=== PATIENT | female | born 1940 | race Caucasian/White ===

== ENCOUNTER 2018-05-16 15:00 | Outpatient (RCR) | payer MEDICARE, MEDICAID, SELFPAY ==
[2018-04-25 14:26] VITALS: BP 110/74; PULSE 97; RESP 18; TEMP 35.9; BMI 28.5
--- NOTE | 2018-04-25 14:35 | PCM.WC.HP ---
(1) Foot ulcer, right Status: Chronic Current Visit: Yes Qualifiers: Non-pressure ulcer stage: with fat layer exposed Qualified Code(s): L97.512 - Non-pressure chronic ulcer of other part of right foot with fat layer exposed Code(s): L97.519 - Non-pressure chronic ulcer of other part of right foot with unspecified severity (2) Ulcer of left heel Status: Chronic Current Visit: Yes Qualifiers: Non-pressure ulcer stage: with fat layer exposed Qualified Code(s): L97.422 - Non-pressure chronic ulcer of left heel and midfoot with fat layer exposed Code(s): L97.429 - Non-pressure chronic ulcer of left heel and midfoot with unspecified severity (3) Debility Status: Chronic Current Visit: Yes Code(s): R53.81 - Other malaise (4) Dementia Status: Chronic Current Visit: Yes Code(s): F03.90 - Unspecified dementia without behavioral disturbance (5) Alzheimer's disease Status: Chronic Current Visit: Yes Code(s): G30.9 - Alzheimer's disease, unspecified; F02.80 - Dementia in other diseases classified elsewhere without behavioral disturbance (6) History of myocardial infarction Status: Chronic Current Visit: No Code(s): I25.2 - Old myocardial infarction (7) CHF (congestive heart failure) Status: Chronic Current Visit: No Code(s): I50.9 - Heart failure, unspecified (8) History of syncope Status: Chronic Current Visit: No Code(s): Z87.898 - Personal history of other specified conditions (9) Recurrent Clostridium difficile diarrhea Status: Chronic Current Visit: No Code(s): A04.71 - Enterocolitis due to Clostridium difficile, recurrent (10) Incontinence of feces Status: Chronic Current Visit: No Code(s): R15.9 - Full incontinence of feces (11) Incontinence of urine Status: Chronic Current Visit: No Code(s): R32 - Unspecified urinary incontinence (12) History of recurrent UTI (urinary tract infection) Status: Chronic Current Visit: No Code(s): Z87.440 - Personal history of urinary (tract) infections (13) Rheumatoid arthritis Status: Chronic Current Visit: No Code(s): M06.9 - Rheumatoid arthritis, unspecified (14) Atrial fibrillation Status: Chronic Current Visit: No Code(s): I48.91 - Unspecified atrial fibrillation (15) Hypertension Status: Chronic Current Visit: No Code(s): I10 - Essential (primary) hypertension History of Present Illness Date of Service: 04/25/18 Chief Complaint: Chronic, nonhealing ulceration of the left heel and the right lateral foot History of Wound: This is a 78-year-old female who is a resident of [facility] in [place], [place]. She has been a resident there for approximately 6-8 months. She was institutionalized as a result of declining function, debility, and frequent falls. Her continues to live at home, and is relatively healthy. Patient presents with an ulceration on her left heel, which has been present for several months. An ulceration on the right lateral foot, near the base of the fifth digit, is relatively recent. The patient has recently been treated with oral antibiotics, which have included Augmentin and Levaquin. The patient is weak and debilitated. She does not ambulate. She spends a good part of her day in a wheelchair. She sleeps in a hospital bed. She suffers from dementia and Alzheimer's disease, and interacts only minimally. She is incontinent of urine and stool. She suffers from frequent urinary tract infections and recurrent episodes of pseudomembranous enterocolitis (C. difficile infections). The patient's appetite is said to be poor. She is provided with nutritional supplements at the nursing facility. Past Medical History Past Medical History: Chronic Problems Foot ulcer, right (Chronic) Ulcer of left heel (Chronic) Debility (Chronic) Dementia (Chronic) Alzheimer's disease (Chronic) History of myocardial infarction (Chronic) CHF (congestive heart failure) (Chronic) History of syncope (Chronic) Recurrent Clostridium difficile diarrhea (Chronic) Incontinence of feces (Chronic) Incontinence of urine (Chronic) History of recurrent UTI (urinary tract infection) (Chronic) Rheumatoid arthritis (Chronic) Atrial fibrillation (Chronic) Hypertension (Chronic) Past Medical History: Patient has a history of myocardial infarction in 2011. She has a history of congestive heart failure, hypertension, dementia, Alzheimer's disease, recurrent urinary tract infections, syncopal episodes, recurrent episodes of pseudomembranous enterocolitis, urinary and fecal incontinence, atrial fibrillation, and rheumatoid arthritis. Patient's history is negative for cerebrovascular accident, cancer, pulmonary disease, renal disease, hyperlipidemia, thyroid disease, and diabetes mellitus. Surgical History: - - Patient has a history of varicose vein surgery in her lower extremities. She has undergone bilateral total knee replacement surgeries. Hip replacement has been performed unilaterally. Patient has undergone hysterectomy. She has had bunionectomy and nasal septoplasty. She is a Ab0. Allergies/Adverse Reactions: Allergies No Known Allergies Allergy (Verified 04/25/18 14:49) Home Medications: Ambulatory Orders Medication Instructions Recorded Aspirin [Adult Low Dose Aspirin EC] 81 mg PO DAILY 04/25/18 Calcium Carbonate/Simethicone 1 each PO Q4H PRN PRN 04/25/18 [Maalox Advanced Tab Chew] Cholecalciferol (Vitamin D3) 5,000 unit PO DAILY 04/25/18 [Vitamin D3] Donepezil HCl [Aricept] 10 mg PO DAILY 04/25/18 Fluoxetine [Prozac] 40 mg PO DAILY 04/25/18 Hydroxychloroquine [Plaquenil] 200 mg PO BIDCM 04/25/18 Mirtazapine [Remeron] 15 mg PO QHS 04/25/18 Social History: Patient resides in a intermediate. Her is alive and healthy, and lives at home. The patient does not consume alcohol or tobacco products. Lives: Care Home Smoking Status: Never smoker Tobacco Use: Non-smoker Alcohol: None Drugs: None Review of Systems Constitutional: Denies: Chills, Fever, Weight Change Eyes: Denies: Pain, Vision Change HEENT: Denies: Difficulty Hearing, Difficulty Swallowing, Sinus Congestion Cardiovascular: Denies: Chest Pain, Palpitations Respiratory: Denies: Cough, Shortness of Breath Gastrointestinal: Denies: Diarrhea, Nausea, Vomiting Genitourinary: Denies: Dysuria, Hematuria Endocrine: Denies: Heat/ Cold Intolerance, Polydipsia, Polyuria Hematologic/ Lymphatic: Denies: Easy Bruising, Easy Bleeding - Physical Exam Vital Signs Temp Pulse Resp BP 96.6 F L 97 18 110/74 04/25/18 14:26 04/25/18 14:26 04/25/18 14:26 04/25/18 14:26 General: Alert, Oriented x3, Cooperative, No apparent distress, Well developed, - - Patient is awake. She reacts only minimally to her environment and to verbal stimuli. She appears to be comfortable and in no apparent distress. HEENT: Atraumatic, PERRLA, EOMI, Normocephalic Oral: Moist Mucosa Neck: Supple, No JVD, Negative Carotid Bruits, No Nodes, No Nuchal Rigidity, Trachea Midline Lungs: Clear to auscultation, Normal air movement, No rhonchi, No rales Cardiovascular: Regular rate, Regular Rhythm, Normal S1, Normal S2, No murmurs Abdomen: Soft, Non Tender, Non-Distended Extremities: No clubbing, No cyanosis, No Calf Tenderness, - - Mild bilateral lower extremity swelling and edema is noted. Scattered varicosities are also noted. Neurological: Cranial nerves II-XII grossly intact, - - Patient demonstrates moderate cognitive deficiencies. She is limited in her verbal interaction. Psych/Mental Status: Normal Affect, Appropriate, - - Patient is limited in her verbal interaction. Debridement Note Laterality: Right - Foot, lateral Type of Debridement: Excisional debridement Anesthesia Used: 5% Lidocaine Gel Depth: Down to and including healthy tissue, in the subcutaneous layer Percentage of wound debrided: 100 Instrument Used: 5mm curette Tissue Removed: Necrotic, nonviable tissue Severity: Fat Layer Exposed Amount of bleeding with debridement: Mild Bleeding Controlled with: Compression and gauze Patient tolerated procedure well - Additional Wound Laterality: Left - Buttock Type of Debridement: Excisional debridement Anesthesia Used: 5% Lidocaine Gel Depth: Down to and including healthy tissue, in the subcutaneous layer Percentage of wound debrided: 100 Instrument Used: 5mm curette Severity: Fat Layer Exposed Amount of bleeding with debridement: Mild Bleeding Controlled with: Compression and gauze Patient tolerated procedure: Patient tolerated procedure well Assessment/Plan Active Problems Foot ulcer, right (Chronic) Ulcer of left heel (Chronic) Debility (Chronic) Dementia (Chronic) Alzheimer's disease (Chronic) Assessment: This is a 78-year-old female with multiple medical problems, as outlined above. Patient suffers from dementia and Alzheimer's disease. She is very limited functionally. She does not ambulate. She presents with ulcerations of the right lateral foot, the left heel, and the left buttock. These appear to be pressure related. They are a stage III ulceration in each case. Plan: Offloading measures are to be implemented. This will be made clear to the patient's nursing facility. The issue of offloading measures has been discussed thoroughly with the patient's daughter, who was at the bedside. We are to request a low air-loss mattress for the patient's hospital bed. We will also request a Roho cushion for the patient's wheelchair. Frequent repositioning has been recommended. We are to implement the use of collagenase Santyl topically, which will be applied to each of the patient's pressure ulcerations on a daily basis. Routine laboratory studies will be obtained, including a CBC, comprehensive metabolic profile, serum prealbumin, etc. Results will give information as to the presence of anemia, infection, malnutrition, etc. A noninvasive lower extremity arterial study will also be obtained, to assess the arterial status of the lower extremities, which will be of predicted value in terms of wound healing in the lower extremities. The patient is not a smoker. Influenza vaccine was not administered today. Patient weighs 199 pounds. She stands 5 feet 10 inches tall. Her BMI is 28.5. This places the patient in the overweight category, which normally would warrant mild weight loss. Ever, attempts at adequate nutrition appear to prevail. We will await the results of laboratory studies to determine whether nutritional enhancement is warranted. Nutritional enhancement is likely to be indicated, based upon clinical impression.
[2018-05-02 13:45] VITALS: BP 115/71; PULSE 63; RESP 16; TEMP 35.9; BMI 28.5
--- NOTE | 2018-05-02 14:32 | HP.PCM_ITS ---
(1) Foot ulcer, right Status: Chronic Current Visit: Yes Qualifiers: Non-pressure ulcer stage: with fat layer exposed Qualified Code(s): L97.512 - Non-pressure chronic ulcer of other part of right foot with fat layer exposed Code(s): L97.519 - Non-pressure chronic ulcer of other part of right foot with unspecified severity (2) Ulcer of left heel Status: Chronic Current Visit: Yes Qualifiers: Non-pressure ulcer stage: with fat layer exposed Qualified Code(s): L97.422 - Non-pressure chronic ulcer of left heel and midfoot with fat layer exposed Code(s): L97.429 - Non-pressure chronic ulcer of left heel and midfoot with unspecified severity (3) Debility Status: Chronic Current Visit: Yes Code(s): R53.81 - Other malaise (4) Dementia Status: Chronic Current Visit: Yes Code(s): F03.90 - Unspecified dementia without behavioral disturbance (5) Alzheimer's disease Status: Chronic Current Visit: Yes Code(s): G30.9 - Alzheimer's disease, unspecified; F02.80 - Dementia in other diseases classified elsewhere without behavioral disturbance (6) History of myocardial infarction Status: Chronic Current Visit: No Code(s): I25.2 - Old myocardial infarction (7) CHF (congestive heart failure) Status: Chronic Current Visit: No Code(s): I50.9 - Heart failure, unspecified (8) History of syncope Status: Chronic Current Visit: No Code(s): Z87.898 - Personal history of other specified conditions (9) Recurrent Clostridium difficile diarrhea Status: Chronic Current Visit: No Code(s): A04.71 - Enterocolitis due to Clostridium difficile, recurrent (10) Incontinence of feces Status: Chronic Current Visit: No Code(s): R15.9 - Full incontinence of feces (11) Incontinence of urine Status: Chronic Current Visit: No Code(s): R32 - Unspecified urinary incontinence (12) History of recurrent UTI (urinary tract infection) Status: Chronic Current Visit: No Code(s): Z87.440 - Personal history of urinary (tract) infections (13) Rheumatoid arthritis Status: Chronic Current Visit: No Code(s): M06.9 - Rheumatoid arthritis, unspecified (14) Atrial fibrillation Status: Chronic Current Visit: No Code(s): I48.91 - Unspecified atrial fibrillation (15) Hypertension Status: Chronic Current Visit: No Code(s): I10 - Essential (primary) hypertension (16) GERD (gastroesophageal reflux disease) Status: Chronic Current Visit: No Code(s): K21.9 - Gastro-esophageal reflux disease without esophagitis (17) Obstructive sleep apnea Status: Chronic Current Visit: No Code(s): G47.33 - Obstructive sleep apnea (adult) (pediatric) (18) Hyperlipidemia Status: Chronic Current Visit: No Code(s): E78.5 - Hyperlipidemia, unspecified (19) Malnutrition Status: Chronic Current Visit: Yes Code(s): E46 - Unspecified protein- calorie malnutrition History of Present Illness Chief Complaint: Chronic, nonhealing ulceration of the left heel and the right lateral foot History of Wound: This is a 78-year-old female who is a resident of [facility] in [place], [place]. She has been a resident there for approximately 6-8 months. She was institutionalized as a result of declining function, debility, and frequent falls. Her continues to live at home, and is relatively healthy. Patient presents with an ulceration on her left heel, which has been present for several months. An ulceration on the right lateral foot, near the base of the fifth digit, is relatively recShe also has an ulceration on her left buttock. The patient has recently been treated with oral antibiotics, which have included Augmentin and Levaquin. The patient is weak and debilitated. She does not ambulate. She spends a good part of her day in a wheelchair. She sleeps in a hospital bed. She suffers from dementia and Alzheimer's disease, and interacts minimally. She is incontinent of urine and stool. She suffers from frequent urinary tract infections and recurrent episodes of pseudomembranous enterocolitis (C. difficile infections). The patient's appetite is said to be poor. She is provided with nutritional supplements at the nursing facility. Past Medical History Past Medical History: Chronic Problems Foot ulcer, right (Chronic) Ulcer of left heel (Chronic) Debility (Chronic) Dementia (Chronic) Alzheimer's disease (Chronic) History of myocardial infarction (Chronic) CHF (congestive heart failure) (Chronic) History of syncope (Chronic) Recurrent Clostridium difficile diarrhea (Chronic) Incontinence of feces (Chronic) Incontinence of urine (Chronic) History of recurrent UTI (urinary tract infection) (Chronic) Rheumatoid arthritis (Chronic) Atrial fibrillation (Chronic) Hypertension (Chronic) GERD (gastroesophageal reflux disease) (Chronic) Obstructive sleep apnea (Chronic) Hyperlipidemia (Chronic) Malnutrition (Chronic) Surgical History: - - Patient has a history of varicose vein surgery in her lower extremities. She has undergone bilateral total knee replacement surgeries. Hip replacement has been performed unilaterally. Patient has undergone hysterectomy. She has had bunionectomy and nasal septoplasty. She is a Ab0. Allergies/Adverse Reactions: Allergies No Known Allergies Allergy (Verified 04/25/18 14:49) Home Medications: Ambulatory Orders Medication Instructions Recorded Acetaminophen [Tylenol] 650 mg PO Q4H PRN PRN 04/25/18 Albuterol Sulfate 2.5 mg IH Q4H PRN PRN 04/25/18 Amoxicillin/Potassium Clav 1 each PO BID 04/25/18 [Augmentin 875-125 Tablet] Aspirin [Adult Low Dose Aspirin EC] 81 mg PO DAILY 04/25/18 Calcium Carbonate/Simethicone 1 each PO Q4H PRN PRN 04/25/18 [Maalox Advanced Tab Chew] Cholecalciferol (Vitamin D3) 5,000 unit PO DAILY 04/25/18 [Vitamin D3] Donepezil HCl [Aricept] 10 mg PO DAILY 04/25/18 Fluoxetine [Prozac] 40 mg PO DAILY 04/25/18 Guaifenesin [Tussin] 100 mg PO Q4H PRN PRN 04/25/18 Hydroxychloroquine [Plaquenil] 200 mg PO BIDCM 04/25/18 Lactobacillus Acidophilus 1 each PO BID 04/25/18 [Acidophilus] Magnesium Hydroxide [Milk Of 30 ml PO DAILY PRN PRN 04/25/18 Magnesia] Memantine HCl [Memantine HCl ER] 28 mg PO DAILY 04/25/18 Mirtazapine [Remeron] 15 mg PO QHS 04/25/18 Nitroglycerin [Nitrostat] 0.4 mg SUBLINGUAL Q5M PRN 04/25/18 Pantoprazole Sodium [Protonix] 40 mg PO DAILY 04/25/18 Potassium Chloride [Klor-Con] 20 meq PO DAILY 04/25/18 Prednisone 10 mg PO DAILY 04/25/18 Ranolazine [Ranexa] 500 mg PO BID 04/25/18 Rosuvastatin Calcium [Crestor] 20 mg PO DAILY 04/25/18 Sotalol HCl [Sotalol] 80 mg PO BID 04/25/18 Trimethoprim [Trimpex] 200 mg PO DAILY 04/25/18 Warfarin [Coumadin (PBKC)] 2 mg PO DAILY 04/25/18 levoFLOXacin tablet [Levaquin 500 mg PO DAILY 04/25/18 tablet] Lives: Retirement Smoking Status: Never smoker Tobacco Use: Non-smoker Alcohol: None Drugs: None Review of Systems Constitutional: Denies: Chills, Fever, Weight Change Eyes: Denies: Pain, Vision Change HEENT: Denies: Difficulty Hearing, Difficulty Swallowing, Sinus Congestion Cardiovascular: Denies: Chest Pain, Palpitations Respiratory: Denies: Cough, Shortness of Breath Gastrointestinal: Denies: Diarrhea, Nausea, Vomiting Genitourinary: Denies: Dysuria, Hematuria Endocrine: Denies: Heat/ Cold Intolerance, Polydipsia, Polyuria Hematologic/ Lymphatic: Denies: Easy Bruising, Easy Bleeding - Physical Exam Vital Signs Temp Pulse Resp BP 96.6 F L 63 16 115/71 05/02/18 13:45 05/02/18 13:45 05/02/18 13:45 05/02/18 13:45 General: Alert, Cooperative, No apparent distress, Well developed, Well nourished, - - The patient appears weak and frail HEENT: Atraumatic, PERRLA, EOMI, Normocephalic Oral: Moist Mucosa Neck: No JVD Lungs: Normal air movement Abdomen: Non-Distended Extremities: No clubbing, No cyanosis, No edema, No Calf Tenderness, - - Large ulceration is noted on the left heel. It is largely dry and necrotic. There is no associated erythema. There is no obvious infection or cellulitis. Dimensions are documented elsewhere. There is also an ulceration on the lateral aspect of the right foot, near the base of the right fifth toe. It is also dry and necrotic in nature. There is no sign of infection or cellulitis. D imensions are documented elsewhere. Skin: - - An ulceration is noted on the left buttock, which is clustered. There is no sign of infection or cellulitis. Dimensions are documented elsewhere. Wound Measurements and Assessment WC - Nurse 1 - General Ulcer Measurement Start: 04/25/18 14:26 Freq: Status: Active Protocol: Activity Type Activity Date Activity User E-Sign Co-Sign Detail Recorded Client Recorded Date Recorded By Document 05/02/18 13:45 DL [id number] 05/02/18 13:57 DL 05/02/18 13:45 Wound Center Nurse 1 [Ulcer Assessment] #3 Left Buttock Stage 3 -Current Size (cm) - Length 0.5 -Current Size (cm) - Width 0.6 -Current Size (cm) - Depth 0.1 -Total Square Cm 0.30 -Photo Taken No -Exudate Amt None Present -Wound Margin Flat & Intact -Granulation Amt Small (1-33%) -Granulation Quality [place] -Necrosis Amt Small (1-33%) -Necrotic Tissue Type Adherent Slough -Structure Exposed N/A -Texture (Dorina-wound Skin Appearance) Scarring -Moisture (Dorina-wound Skin Appearance No Abnormality ) -Color (Dorina-wound Skin Appearance) Rubor -Ulcer Cleansing Wound Cleanser -Foul Odor after Cleansing No -Anesthetic Used 4% Lidocaine Solution #2 right lateral 5th metatarsal -Current Size (cm) - Length 0.6 -Current Size (cm) - Width 1.4 -Current Size (cm) - Depth 0.1 -Total Square Cm 0.84 -Photo Taken No -Exudate Amt None Present -Wound Margin Thickened -Granulation Amt None Present (0 %) -Necrosis Amt Large (67-100%) -Necrotic Tissue Type Eschar -Structure Exposed N/A -Texture (Dorina-wound Skin Appearance) No Abnormality -Moisture (Dorina-wound Skin Appearance Dry/Scaly ) -Color (Dorina-wound Skin Appearance) Hemosiderin Staining Rubor -Temperature (Dorina-wound Skin No Abnormality Appearance) (Pt Warm) -Tenderness on Palpation (Dorina-wound No Skin Appearance) -Ulcer Cleansing Wound Cleanser -Foul Odor after Cleansing No -Anesthetic Used 4% Lidocaine Solution #1 Left Heel -Current Size (cm) - Length 2.9 -Current Size (cm) - Width 2.9 -Current Size (cm) - Depth 0.1 -Total Square Cm 8.41 -Photo Taken No -Exudate Amt Small -Exudate Type Serosanguineous -Wound Margin Distinct, Outline Attached -Granulation Amt None Present (0 %) -Necrosis Amt Large (67-100%) -Necrotic Tissue Type Adherent Slough -Structure Exposed N/A -Texture (Dorina-wound Skin Appearance) Scarring -Moisture (Dorina-wound Skin Appearance Dry/Scaly ) -Color (Dorina-wound Skin Appearance) Hemosiderin Staining -Temperature (Dorina-wound Skin No Abnormality Appearance) (Pt Warm) -Tenderness on Palpation (Dorina-wound No Skin Appearance) -Ulcer Cleansing Wound Cleanser -Foul Odor after Cleansing No -Anesthetic Used 4% Lidocaine Solution Musculoskeletal: Muscle Wasting Neurological: Cranial nerves II-XII grossly intact Psych/Mental Status: Normal Affect, - - Patient appears comfortable. She responds to basic elementary questions. She is minimally interactive. Debridement Note Post-Debridement Measurements/Treatment WC - Nurse 2 - General Ulcer CM Notes Start: 04/25/18 14:26 Freq: Status: Active Protocol: Activity Type Activity Date Activity User E-Sign Co-Sign Detail Recorded Client Recorded Date Recorded By Document 04/25/18 15:25 DV [id number] 04/25/18 15:47 DV 04/25/18 15:25 Wound Center Nurse 2 #3 Left Buttock Stage 3 -Time 15:25 -Correct Patient Yes -Correct Side, Site, Position Yes -Correct Procedure Yes -Procedure Performed Yes -Type of Procedure Debridement -Clinical Debridement Subcutaneous -Post Debridement Size (cm) - Length 1.2 -Post Debridement Size (cm) - Width 1.5 -Post Debridement Size (cm) - Depth 0.1 -Total Square Cm 1.80 -Wound/Ulcer Outcome Not Healed -Ulcer Cleansing Rinsed/ Irrigated with Saline -Foul Odor after Cleansing No -Bioengineered Tissue No -Bleeding Controlled with Pressure -Offloading No -Treatment Response Procedure Tolerated Well #2 right lateral 5th metatarsal -Time 15:26 -Correct Patient Yes -Correct Side, Site, Position Yes -Correct Procedure Yes -Procedure Performed Yes -Type of Procedure Debridement -Clinical Debridement Subcutaneous -Post Debridement Size (cm) - Length 2.0 -Post Debridement Size (cm) - Width 1.4 -Post Debridement Size (cm) - Depth 0.1 -Total Square Cm 2.80 -Wound/Ulcer Outcome Not Healed -Ulcer Cleansing Rinsed/ Irrigated with Saline -Foul Odor after Cleansing No -Bioengineered Tissue No -Bleeding Controlled with Pressure -Offloading No #1 Left Heel -Time 15:27 -Correct Patient Yes -Correct Side, Site, Position Yes -Correct Procedure Yes -Procedure Performed Yes -Type of Procedure Debridement -Clinical Debridement Subcutaneous -Post Debridement Size (cm) - Length 3.7 -Post Debridement Size (cm) - Width 3.5 -Post Debridement Size (cm) - Depth 0.6 -Total Square Cm 12.95 -Wound/Ulcer Outcome Not Healed -Ulcer Cleansing Rinsed/ Irrigated with Saline -Foul Odor after Cleansing No -Bioengineered Tissue No -Bleeding Controlled with Pressure -Offloading No -Treatment Response Procedure Tolerated Well Pain Scale: 0-10 Numeric Is Patient Pain Free? Yes Laterality: Left - Buttock Type of Debridement: Excisional debridement Anesthesia Used: 5% Lidocaine Gel Depth: Down to and including healthy tissue, in the subcutaneous layer Percentage of wound debrided: 100 Instrument Used: 5mm curette Tissue Removed: Nonviable and senescent tissue Severity: Fat Layer Exposed Amount of bleeding with debridement: Mild Bleeding Controlled with: Compression and gauze Patient tolerated procedure well - Additional Wound Laterality: Left - Heel Type of Debridement: Excisional debridement Anesthesia Used: 5% Lidocaine Gel Depth: Down to and including healthy tissue, in the subcutaneous layer Percentage of wound debrided: 100 Instrument Used: 5mm curette Tissue Removed: Gangrenous, nonviable, and senescent tissue Severity: Fat Layer Exposed Amount of bleeding with debridement: Mild Bleeding Controlled with: Compression and gauze Patient tolerated procedure: Patient tolerated procedure well Assessment/Plan Active Problems Foot ulcer, right (Chronic) Ulcer of left heel (Chronic) Debility (Chronic) Dementia (Chronic) Alzheimer's disease (Chronic) Malnutrition (Chronic) Assessment: This is a 78-year-old female with multiple medical problems, as outlined above. Patient suffers from dementia and Alzheimer's disease. She is very limited functionally. She does not ambulate. She presents with ulcerations of the right lateral foot, the left heel, and the left buttock. These appear to be pressure related. They are a stage III ulceration in each case. The patient has undergone a battery of diagnostic tests the nursing facility at which she is a resident. Lab results are as follows: White blood count 8.7, hemoglobin 11.6, hematocrit 35.9, platelets 273,000, glucose 77, BUN 19, creatinine 0.5, sodium 140, potassium 3.7, chloride 104, calcium 8.9, alkaline phosphatase 63, ALT 20, AST 16, total protein 5.7, albumin 2.9, prealbumin 27, bilirubin 0.44. A noninvasive lower extremity arterial study was performed, though only of the left lower extremity. The impression indicates diminished to nonexistent flow in the calf vessels including the tibial peron eal and dorsalis pedis arteries. Plan: Offloading measures are to be implemented. This will be made clear to the patient's nursing facility. The issue of offloading measures has been discussed thoroughly with the patient's daughter, who was at the bedside. We have been able to obtain a low air-loss mattress for the patient's hospital bed. We have also successfully obtained a Roho cushion for the patient's wheelchair. Frequent repositioning has been recommended, and has now been implemented. We are to continue the use of collagenase Santyl topically, which will be applied to each of the patient's pressure ulcerations on a daily basis. The patient is to continue with nutritional supplements, which will be increased as result of the findings on her recent laboratory results. Given the findings of her noninvasive lower extremity arterial study, we are to seek consultation with a vascular surgeon for recommendations pertaining to the possible role of lower extremity revascularization. As has been discussed with the patient and her daughter, at the bedside, the patient's debility, diminished functional state, and multiple medical pre-existing conditions may render the patient a poor candidate for open vascular or endovascular revascularization. We will await recommendations as such. The patient is not a smoker. Influenza vaccine was not administered today. Patient weighs 199 pounds. She stands 5 feet 10 inches tall. Her BMI is 28.5. This places the patient in the overweight category, which normally would warrant mild weight loss. However, attempts at adequate nutrition appear to prevail. Nutritional supplements have been encouraged.
[2018-05-09 12:44] VITALS: BP 121/74; PULSE 103; RESP 16; TEMP 36.5; BMI 28.5
--- NOTE | 2018-05-09 13:33 | PCM.WC.HP ---
(1) Foot ulcer, right Status: Chronic Current Visit: Yes Qualifiers: Non-pressure ulcer stage: with fat layer exposed Qualified Code(s): L97.512 - Non-pressure chronic ulcer of other part of right foot with fat layer exposed Code(s): L97.519 - Non-pressure chronic ulcer of other part of right foot with unspecified severity (2) Ulcer of left heel Status: Chronic Current Visit: Yes Qualifiers: Non-pressure ulcer stage: with fat layer exposed Qualified Code(s): L97.422 - Non-pressure chronic ulcer of left heel and midfoot with fat layer exposed Code(s): L97.429 - Non-pressure chronic ulcer of left heel and midfoot with unspecified severity (3) Debility Status: Chronic Current Visit: Yes Code(s): R53.81 - Other malaise (4) Dementia Status: Chronic Current Visit: Yes Code(s): F03.90 - Unspecified dementia without behavioral disturbance (5) Alzheimer's disease Status: Chronic Current Visit: Yes Code(s): G30.9 - Alzheimer's disease, unspecified; F02.80 - Dementia in other diseases classified elsewhere without behavioral disturbance (6) History of myocardial infarction Status: Chronic Current Visit: No Code(s): I25.2 - Old myocardial infarction (7) CHF (congestive heart failure) Status: Chronic Current Visit: No Code(s): I50.9 - Heart failure, unspecified (8) History of syncope Status: Chronic Current Visit: No Code(s): Z87.898 - Personal history of other specified conditions (9) Recurrent Clostridium difficile diarrhea Status: Chronic Current Visit: No Code(s): A04.71 - Enterocolitis due to Clostridium difficile, recurrent (10) Incontinence of feces Status: Chronic Current Visit: No Code(s): R15.9 - Full incontinence of feces (11) Incontinence of urine Status: Chronic Current Visit: No Code(s): R32 - Unspecified urinary incontinence (12) History of recurrent UTI (urinary tract infection) Status: Chronic Current Visit: No Code(s): Z87.440 - Personal history of urinary (tract) infections (13) Rheumatoid arthritis Status: Chronic Current Visit: No Code(s): M06.9 - Rheumatoid arthritis, unspecified (14) Atrial fibrillation Status: Chronic Current Visit: No Code(s): I48.91 - Unspecified atrial fibrillation (15) Hypertension Status: Chronic Current Visit: No Code(s): I10 - Essential (primary) hypertension (16) GERD (gastroesophageal reflux disease) Status: Chronic Current Visit: No Code(s): K21.9 - Gastro-esophageal reflux disease without esophagitis (17) Obstructive sleep apnea Status: Chronic Current Visit: No Code(s): G47.33 - Obstructive sleep apnea (adult) (pediatric) (18) Hyperlipidemia Status: Chronic Current Visit: No Code(s): E78.5 - Hyperlipidemia, unspecified (19) Malnutrition Status: Chronic Current Visit: Yes Code(s): E46 - Unspecified protein-calorie malnutrition (20) Decubitus ulcer of buttock, stage 2 Status: Acute Current Visit: Yes Qualifiers: Laterality: left Qualified Code(s): L89.322 - Pressure ulcer of left buttock, stage 2 Code(s): L89.302 - Pressure ulcer of unspecified buttock, stage 2 History of Present Illness Chief Complaint: Chronic, nonhealing ulceration of the left heel and the right lateral foot History of Wound: This is a 78-year-old female who is a resident of [facility] in [place], [place]. She has been a resident there for approximately 6-8 months. She was institutionalized as a result of declining function, debility, and frequent falls. Her continues to live at home, and is relatively healthy. Patient presents with an ulceration on her left heel, which has been present for several months. An ulceration on the right lateral foot, near the base of the fifth digit, is relatively recShe also has an ulceration on her left buttock. The patient has recently been treated with oral antibiotics, which have included Augmentin and Levaquin. The patient is weak and debilitated. She does not ambulate. She spends a good part of her day in a wheelchair. She sleeps in a hospital bed. She suffers from dementia and Alzheimer's disease, and interacts minimally. She is incontinent of urine and stool. She suffers from frequent urinary tract infections and recurrent episodes of pseudomembranous enterocolitis (C. difficile infections). The patient's appetite is said to be poor. She is provided with nutritional supplements at the nursing facility. Past Medical History Past Medical History: Chronic Problems Foot ulcer, right (Chronic) Ulcer of left heel (Chronic) Debility (Chronic) Dementia (Chronic) Alzheimer's disease (Chronic) History of myocardial infarction (Chronic) CHF (congestive heart failure) (Chronic) History of syncope (Chronic) Recurrent Clostridium difficile diarrhea (Chronic) Incontinence of feces (Chronic) Incontinence of urine (Chronic) History of recurrent UTI (urinary tract infection) (Chronic) Rheumatoid arthritis (Chronic) Atrial fibrillation (Chronic) Hypertension (Chronic) GERD (gastroesophageal reflux disease) (Chronic) Obstructive sleep apnea (Chronic) Hyperlipidemia (Chronic) Malnutrition (Chronic) Surgical History: - - Patient has a history of varicose vein surgery in her lower extremities. She has undergone bilateral total knee replacement surgeries. Hip replacement has been performed unilaterally. Patient has undergone hysterectomy. She has had bunionectomy and nasal septoplasty. She is a Ab0. Allergies/Adverse Reactions: Allergies No Known Allergies Allergy (Verified 04/25/18 14:49) Home Medications: Ambulatory Orders Medication Instructions Recorded Acetaminophen [Tylenol] 650 mg PO Q4H PRN PRN 04/25/18 Albuterol Sulfate 2.5 mg IH Q4H PRN PRN 04/25/18 Amoxicillin/Potassium Clav 1 each PO BID 04/25/18 [Augmentin 875-125 Tablet] Aspirin [Adult Low Dose Aspirin EC] 81 mg PO DAILY 04/25/18 Calcium Carbonate/Simethicone 1 each PO Q4H PRN PRN 04/25/18 [Maalox Advanced Tab Chew] Cholecalciferol (Vitamin D3) 5,000 unit PO DAILY 04/25/18 [Vitamin D3] Donepezil HCl [Aricept] 10 mg PO DAILY 04/25/18 Fluoxetine [Prozac] 40 mg PO DAILY 04/25/18 Guaifenesin [Tussin] 100 mg PO Q4H PRN PRN 04/25/18 Hydroxychloroquine [Plaquenil] 200 mg PO BIDCM 04/25/18 Lactobacillus Acidophilus 1 each PO BID 04/25/18 [Acidophilus] Magnesium Hydroxide [Milk Of 30 ml PO DAILY PRN PRN 04/25/18 Magnesia] Memantine HCl [Memantine HCl ER] 28 mg PO DAILY 04/25/18 Mirtazapine [Remeron] 15 mg PO QHS 04/25/18 Nitroglycerin [Nitrostat] 0.4 mg SUBLINGUAL Q5M PRN 04/25/18 Pantoprazole Sodium [Protonix] 40 mg PO DAILY 04/25/18 Potassium Chloride [Klor-Con] 20 meq PO DAILY 04/25/18 Prednisone 10 mg PO DAILY 04/25/18 Ranolazine [Ranexa] 500 mg PO BID 04/25/18 Rosuvastatin Calcium [Crestor] 20 mg PO DAILY 04/25/18 Sotalol HCl [Sotalol] 80 mg PO BID 04/25/18 Trimethoprim [Trimpex] 200 mg PO DAILY 04/25/18 Warfarin [Coumadin ([facility])] 2 mg PO DAILY 04/25/18 levoFLOXacin tablet [Levaquin 500 mg PO DAILY 04/25/18 tablet] Lives: Prison Smoking Status: Never smoker Tobacco Use: Non-smoker Alcohol: None Drugs: None Review of Systems Constitutional: Denies: Chills, Fever, Weight Change Eyes: Denies: Pain, Vision Change HEENT: Denies: Difficulty Hearing, Difficulty Swallowing, Sinus Congestion Cardiovascular: Denies: Chest Pain, Palpitations Respiratory: Denies: Cough, Shortness of Breath Gastrointestinal: Denies: Diarrhea, Nausea, Vomiting Genitourinary: Denies: Dysuria, Hematuria Endocrine: Denies: Heat/ Cold Intolerance, Polydipsia, Polyuria Hematologic/ Lymphatic: Denies: Easy Bruising, Easy Bleeding - Physical Exam Vital Signs Temp Pulse Resp BP 97.7 F L 103 H 16 121/74 H 05/09/18 12:44 05/09/18 12:44 05/09/18 12:44 05/09/18 12:44 General: Alert, Oriented x3, Cooperative, No apparent distress, Well developed, Well nourished, Lethargic HEENT: Atraumatic, PERRLA, EOMI, Normocephalic Oral: Moist Mucosa Neck: No JVD Lungs: Normal air movement Abdomen: Non-Distended Extremities: No clubbing, No cyanosis, No edema, No Calf Tenderness, - - The ulceration of the left heel is little changed in appearance. It is largely gangrenous and necrotic. It is dry. There is no sign of infection or cellulitis. Dimensions are documented elsewhere. The ulceration on the right lateral foot is also relatively unchanged. It also consists of a dry, necrotic, gangrenous area, the mentions of which are documented elsewhere. There is no sign of infection or cellulitis. These 2 ulcerations appear to represent stage III pressure ulcerations. Skin: - - The ulceration of the left buttock is slightly improved. It appears to represent a stage II pressure ulceration of the left buttock. Dimensions are documented elsewhere. There is no sign of infection or cellulitis. There is minimal bioburden. Wound Measurements and Assessment WC - Nurse 1 - General Ulcer Measurement Start: 04/25/18 14:26 Freq: Status: Active Protocol: Activity Type Activity Date Activity User E-Sign Co-Sign Detail Recorded Client Recorded Date Recorded By Document 05/09/18 12:44 [facility] [id number] 05/09/18 12:47 [facility] 05/09/18 12:44 Wound Center Nurse 1 [Ulcer Assessment] #3 Left Buttock Stage 3 -Combined with other wound No -Current Size (cm) - Length 0.2 -Current Size (cm) - Width 0.2 -Current Size (cm) - Depth 0.1 -Total Square Cm 0.04 -Photo Taken No -Epithelialization None Present -Tunneling No -Undermining/Tunneling No -Circular Undermining No -Exudate Amt Small -Exudate Type Serous -Wound Margin Flat & Intact -Granulation Amt Medium (34-66%) -Granulation Quality Red -Slough/Fibrin Yes -Necrosis Amt Small (1-33%) -Necrotic Tissue Type Adherent Slough -Texture (Dorina-wound Skin Appearance) Scarring -Moisture (Dorina-wound Skin Appearance Dry/Scaly ) -Color (Dorina-wound Skin Appearance) Erythema -Temperature (Dorina-wound Skin No Abnormality Appearance) (Pt Warm) -Tenderness on Palpation (Dorina-wound No Skin Appearance) -Ulcer Cleansing Rinsed/ Irrigated with Saline -Foul Odor after Cleansing No -Anesthetic Used 5% Lidocaine Gel #2 right lateral 5th metatarsal -Combined with other wound No -Current Size (cm) - Length 0.6 -Current Size (cm) - Width 1 -Current Size (cm) - Depth 0.1 -Total Square Cm 0.6 -Photo Taken No -Epithelialization None Present -Tunneling No -Undermining/Tunneling No -Circular Undermining No -Exudate Amt None Present -Wound Margin Distinct, Outline Attached -Granulation Amt None Present (0 %) -Slough/Fibrin Yes -Necrosis Amt Large (67-100%) -Necrotic Tissue Type Eschar -Texture (Dorina-wound Skin Appearance) Scarring -Moisture (Dorina-wound Skin Appearance Dry/Scaly ) -Color (Dorina-wound Skin Appearance) Erythema -Temperature (Dorina-wound Skin No Abnormality Appearance) (Pt Warm) -Tenderness on Palpation (Dorina-wound Yes Skin Appearance) -Ulcer Cleansing Rinsed/ Irrigated with Saline -Foul Odor after Cleansing No -Anesthetic Used 5% Lidocaine Gel #1 Left Heel -Combined with other wound No -Current Size (cm) - Length 2.2 -Current Size (cm) - Width 2 -Current Size (cm) - Depth 0.1 -Total Square Cm 4.4 -Photo Taken No -Epithelialization None Present -Tunneling No -Undermining/Tunneling No -Circular Undermining No -Exudate Amt None Present -Wound Margin Distinct, Outline Attached -Granulation Amt None Present (0 %) -Slough/Fibrin Yes -Necrosis Amt Large (67-100%) -Necrotic Tissue Type Eschar -Texture (Dorina-wound Skin Appearance) Scarring -Moisture (Dorina-wound Skin Appearance Dry/Scaly ) -Color (Dorina-wound Skin Appearance) Erythema -Temperature (Dorina-wound Skin No Abnormality Appearance) (Pt Warm) -Tenderness on Palpation (Dorina-wound No Skin Appearance) -Ulcer Cleansing Rinsed/ Irrigated with Saline -Foul Odor after Cleansing No -Anesthetic Used 5% Lidocaine Gel WC - Nurse 2 - General Ulcer CM Notes Start: 04/25/18 14:26 Freq: Status: Active Protocol: Activity Type Activity Date Activity User E-Sign Co-Sign Detail Recorded Client Recorded Date Recorded By Document 05/09/18 13:25 DV [id number] 05/09/18 13:30 DV 05/09/18 13:25 Wound Center Nurse 2 [Procedure/Treatment] #3 Left Buttock Stage 3 -Time 13:26 -Correct Patient Yes -Correct Side, Site, Position Yes -Correct Procedure Yes -Procedure Performed Yes -Type of Procedure Debridement -Clinical Debridement Subcutaneous -Post Debridement Size (cm) - Length 0.3 -Post Debridement Size (cm) - Width 0.3 -Post Debridement Size (cm) - Depth 0.1 -Total Square Cm 0.09 -Wound/Ulcer Outcome Not Healed -Ulcer Cleansing Rinsed/ Irrigated with Saline -Bioengineered Tissue No -Bleeding Controlled with Pressure -Offloading Yes -Treatment Response Procedure Tolerated Well #2 right lateral 5th metatarsal -Time 13:27 -Correct Patient Yes -Correct Side, Site, Position Yes -Correct Procedure Yes -Procedure Performed Yes -Type of Procedure Debridement -Clinical Debridement Subcutaneous -Post Debridement Size (cm) - Length 0.8 -Post Debridement Size (cm) - Width 1.2 -Post Debridement Size (cm) - Depth 0.1 -Total Square Cm 0.96 -Wound/Ulcer Outcome Not Healed -Ulcer Cleansing Rinsed/ Irrigated with Saline -Foul Odor after Cleansing No -Bioengineered Tissue No -Bleeding Controlled with Pressure -Offloading Yes -Treatment Response Procedure Tolerated Well #1 Left Heel -Time 13:27 -Correct Patient Yes -Correct Side, Site, Position Yes -Correct Procedure Yes -Procedure Performed Yes -Type of Procedure Debridement -Clinical Debridement Subcutaneous -Post Debridement Size (cm) - Length 2.5 -Post Debridement Size (cm) - Width 2.0 -Post Debridement Size (cm) - Depth 0.2 -Total Square Cm 5.00 -Wound/Ulcer Outcome Not Healed -Ulcer Cleansing Rinsed/ Irrigated with Saline -Foul Odor after Cleansing No -Bioengineered Tissue No -Bleeding Controlled with Pressure -Offloading Yes -Treatment Response Procedure Tolerated Well [See Physician Procedure note for Specifics] Pain Scale: 0-10 Numeric [Pain] -Is Patient Pain Free? Yes Neurological: Cranial nerves II-XII grossly intact, Neuro grossly intact, - - The patient is alert, but somewhat lethargic, and slow to respond to verbal questions. Psych/Mental Status: Normal Affect, Appropriate Debridement Note Post-Debridement Measurements/Treatment WC - Nurse 2 - General Ulcer CM Notes Start: 04/25/18 14:26 Freq: Status: Active Protocol: Activity Type Activity Date Activity User E-Sign Co-Sign Detail Recorded Client Recorded Date Recorded By Document 04/25/18 15:25 DV [id number] 04/25/18 15:47 DV Document 05/02/18 14:14 DV [id number] 05/02/18 14:29 DV Document 05/09/18 13:25 DV [id number] 05/09/18 13:30 DV 04/25/18 05/02/18 05/09/18 15:25 14:14 13:25 Wound Center Nurse 2 #3 Left Buttock Stage 3 -Time 15: 14:15 13:26 -Correct Patient Yes Yes Yes -Correct Side, Site, Position Yes Yes Yes -Correct Procedure Yes Yes Yes -Procedure Performed Yes Yes Yes -Type of Procedure Debridement Debridement Debridement -Clinical Debridement Subcutaneous Subcutaneous Subcutaneous -Post Debridement Size (cm) - Length 1.2 0.6 0.3 -Post Debridement Size (cm) - Width 1.5 0.6 0.3 -Post Debridement Size (cm) - Depth 0.1 0.1 0.1 -Total Square Cm 1.80 0.36 0.09 -Wound/Ulcer Outcome Not Healed Not Healed Not Healed -Ulcer Cleansing Rinsed/ Rinsed/ Rinsed/ Irrigated with Irrigated with Irrigated with Saline Saline Saline -Foul Odor after Cleansing No No -Bioengineered Tissue No No No -Bleeding Controlled with Pressure Pressure Pressure -Offloading No Yes Yes -Treatment Response Procedure Procedure Procedure Tolerated Well Tolerated Well Tolerated Well #2 right lateral 5th metatarsal -Time 15: 14:15 13:27 -Correct Patient Yes Yes Yes -Correct Side, Site, Position Yes Yes Yes -Correct Procedure Yes Yes Yes -Procedure Performed Yes Yes Yes -Type of Procedure Debridement Debridement Debridement -Clinical Debridement Subcutaneous Subcutaneous Subcutaneous -Post Debridement Size (cm) - Length 2.0 1.0 0.8 -Post Debridement Size (cm) - Width 1.4 1.5 1.2 -Post Debridement Size (cm) - Depth 0.1 0.1 0.1 -Total Square Cm 2.80 1.50 0.96 -Wound/Ulcer Outcome Not Healed Not Healed Not Healed -Ulcer Cleansing Rinsed/ Rinsed/ Rinsed/ Irrigated with Irrigated with Irrigated with Saline Saline Saline -Foul Odor after Cleansing No No No -Bioengineered Tissue No No No -Bleeding Controlled with Pressure Pressure Pressure -Offloading No Yes Yes -Treatment Response Procedure Procedure Tolerated Well Tolerated Well #1 Left Heel -Time 15: 14:19 13:27 -Correct Patient Yes Yes Yes -Correct Side, Site, Position Yes Yes Yes -Correct Procedure Yes Yes Yes -Procedure Performed Yes Yes Yes -Type of Procedure Debridement Debridement Debridement -Clinical Debridement Subcutaneous Subcutaneous Subcutaneous -Post Debridement Size (cm) - Length 3.7 3.0 2.5 -Post Debridement Size (cm) - Width 3.5 3.0 2.0 -Post Debridement Size (cm) - Depth 0.6 0.1 0.2 -Total Square Cm 12.95 9.00 5.00 -Wound/Ulcer Outcome Not Healed Not Healed Not Healed -Ulcer Cleansing Rinsed/ Rinsed/ Rinsed/ Irrigated with Irrigated with Irrigated with Saline Saline Saline -Foul Odor after Cleansing No No No -Bioengineered Tissue No No No -Bleeding Controlled with Pressure Pressure Pressure -Offloading No Yes Yes -Type of Offloading Camwalker -Treatment Response Procedure Procedure Procedure Tolerated Well Tolerated Well Tolerated Well Pain Scale: 0-10 Numeric Is Patient Pain Free? Yes Yes Yes Laterality: Left - Buttock Type of Debridement: Selective debridement Anesthesia Used: 5% Lidocaine Gel Depth: Down to and including healthy tissue, in the subcutaneous layer Percentage of wound debrided: 100 Instrument Used: 5mm curette Severity: Fat Layer Exposed Amount of bleeding with debridement: Mild Bleeding Controlled with: Compression and gauze Patient tolerated procedure well The dry, necrotic, gangrenous, and nonviable tissue of the left heel in the right lateral foot were scored with a #15 scalpel blade, an effort to enhance the effects of collagenase Santyl which is being used topically. - Additional Wound Laterality: Left - He will Type of Debridement: Excisional debridement Anesthesia Used: 5% Lidocaine Gel Depth: Down to and including healthy tissue, in the subcutaneous layer Percentage of wound debrided: 100 Instrument Used: 5mm curette, #15 blade, Forceps Tissue Removed: Necrotic and gangrenous tissue Severity: Fat Layer Exposed Amount of bleeding with debridement: Mild Bleeding Controlled with: Compression and gauze Patient tolerated procedure: Patient tolerated procedure well - Additional Wound Laterality: Right - Lateral foot Type of Debridement: Excisional debridement Anesthesia Used: 5% Lidocaine Gel Depth: Down to and including healthy tissue, in the subcutaneous layer Percentage of wound debrided: 100 Instrument Used: 5mm curette Severity: Fat Layer Exposed Amount of bleeding with debridement: Mild Bleeding Controlled with: Compression and gauze Patient tolerated procedure: Patient tolerated procedure well Assessment/Plan Active Problems Foot ulcer, right (Chronic) Ulcer of left heel (Chronic) Debility (Chronic) Dementia (Chronic) Alzheimer's disease (Chronic) Malnutrition (Chronic) Decubitus ulcer of buttock, stage 2 (Acute) Assessment: This is a 78-year-old female with multiple medical problems, as outlined above. Patient suffers from dementia and Alzheimer's disease. She is very limited functionally. She does not ambulate. She presents with ulcerations of the right lateral foot, the left heel, and the left buttock. These appear to be pressure related. They are a stage III ulceration in each case. The patient has undergone a battery of diagnostic tests the nursing facility at which she is a resident. Lab results are as follows: White blood count 8.7, hemoglobin 11.6, hematocrit 35.9, platelets 273,000, glucose 77, BUN 19, creatinine 0.5, sodium 140, potassium 3.7, chloride 104, calcium 8.9, alkaline phosphatase 63, ALT 20, AST 16, total protein 5.7, albumin 2.9, prealbumin 27, bilirubin 0.44. A noninvasive lower extremity arterial ultrasound study was performed, though only of the left lower extremity, and not the actual arterial study which was originally ordered. The impression indicates diminished to nonexistent flow in the calf vessels including the tibial peroneal and dorsalis pedis arteries. We have been told that a follow-up study has been performed of the right lower extremity, though no results have been received by our facility. We are now requesting that the initial study which was ordered, a noninvasive lower extremity arterial study with segmental limb pressures and ankle-brachial indices be performed, at our facility, as had initially been intended. Plan: Offloading measures have been implemented, and are to be continued. The issue of offloading measures has been discussed thoroughly with the patient's daughter, who was again at the bedside. We have been able to obtain a low air-loss mattress for the patient's hospital bed. We have also successfully obtained a Roho cushion for the patient's wheelchair. Frequent repositioning has been recommended, and has now been implemented. We are to continue the use of collagenase Santyl topically, which will be applied to each of the patient's pressure ulcerations on a daily basis. The patient is to continue with nutritional supplements, which will be increased as result of the findings on her recent laboratory results. Given the findings of her noninvasive lower extremity arterial study, we are to seek consultation with a vascular surgeon for recommendations pertaining to the possible role of lower extremity revascularization. An appointment has been scheduled for late May, though a more expedited appointment date has been recommended. Our staff will make efforts to reschedule the patient's appointment with the vascular surgeon on a more expedited basis. As has been discussed with the patient and her daughter, at the bedside, the patient's debility, diminished functional state, and multiple medical pre-existing conditions may render the patient a poor candidate for open vascular or endovascular revascularization. We will await recommendations as such. The patient is not a smoker. Influenza vaccine was not administered today. Patient weighs 199 pounds. She stands 5 feet 10 inches tall. Her BMI is 28.5. This places the patient in the overweight category, which normally would warrant mild weight loss. However, attempts at adequate nutrition appear to prevail. Nutritional supplements have been encouraged.
--- NOTE | 2018-05-16 14:08 | ART_ITS ---
Reason For Study: Non-healing wounds Procedure A bilateral lower extremity continuous wave Doppler with analog waveform analysis,segmental pressures,and ankle brachial indexes without exercise. Left Segmental Pressures Left posterior tibial artery = NCmmHg. Left dorsalis pedis artery = NCmmHg. Left digit = 119 mmHg. The left dorsalis pedis waveforms are triphasic. The left posterior tibial artery waveforms are triphasic. Right Segmental Pressures Right brachial= 120mmHg. Right posterior tibial artery = NCmmHg. Right dorsalis pedis artery = NCmmHg. Right digit = 51 mmHg. The right dorsalis pedis waveforms are triphasic. The right posterior tibial artery waveforms are triphasic. Indices The right ankle brachial index by the dorsalis pedis is NC. The right ankle brachial index by the posterior tibial artery is NC. The right digital-brachial index is .43. The left ankle brachial index by the dorsalis pedis is NC. The left ankle brachial index by the posterior tibial artery is NC. The left digital-brachial index is .99. Interpretation Summary Triphasic Doppler waveforms are noted at ankle level bilaterally. Resting ankle-brachial indices could not be determined on either side due to the non-compressibility of the vasculature at ankle level bilaterally. The right digital-brachial index is moderately diminished. The left digital- brachial index is normal. There is evidence of arterial calcification at ankle level bilaterally. Arterial flow appears to be relatively normal to ankle level bilaterally. 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 Arterial flow at digital level in the left lower extremity appears normal. Ordering Physician: Avery Siddiqui Referring Physician: Avery Siddiqui Performed By: Joanna Torres [facility]
[2018-05-16 14:59] VITALS: BP 119/57; PULSE 64; RESP 16; TEMP 36.2; BMI 28.5
--- NOTE | 2018-05-16 16:18 | HP.PCM_ITS ---
(1) Foot ulcer, right Status: Chronic Current Visit: Yes Qualifiers: Non-pressure ulcer stage: with fat layer exposed Qualified Code(s): L97.512 - Non-pressure chronic ulcer of other part of right foot with fat layer exposed Code(s): L97.519 - Non-pressure chronic ulcer of other part of right foot with unspecified severity (2) Ulcer of left heel Status: Chronic Current Visit: Yes Qualifiers: Non-pressure ulcer stage: with fat layer exposed Qualified Code(s): L97.422 - Non-pressure chronic ulcer of left heel and midfoot with fat layer exposed Code(s): L97.429 - Non-pressure chronic ulcer of left heel and midfoot with unspecified severity (3) Debility Status: Chronic Current Visit: Yes Code(s): R53.81 - Other malaise (4) Dementia Status: Chronic Current Visit: Yes Code(s): F03.90 - Unspecified dementia without behavioral disturbance (5) Alzheimer's disease Status: Chronic Current Visit: Yes Code(s): G30.9 - Alzheimer's disease, unspecified; F02.80 - Dementia in other diseases classified elsewhere without behavioral disturbance (6) History of myocardial infarction Status: Chronic Current Visit: No Code(s): I25.2 - Old myocardial infarction (7) CHF (congestive heart failure) Status: Chronic Current Visit: No Code(s): I50.9 - Heart failure, unspecified (8) History of syncope Status: Chronic Current Visit: No Code(s): Z87.898 - Personal history of other specified conditions (9) Recurrent Clostridium difficile diarrhea Status: Chronic Current Visit: No Code(s): A04.71 - Enterocolitis due to Clostridium difficile, recurrent (10) Incontinence of feces Status: Chronic Current Visit: No Code(s): R15.9 - Full incontinence of feces (11) Incontinence of urine Status: Chronic Current Visit: No Code(s): R32 - Unspecified urinary incontinence (12) History of recurrent UTI (urinary tract infection) Status: Chronic Current Visit: No Code(s): Z87.440 - Personal history of urinary (tract) infections (13) Rheumatoid arthritis Status: Chronic Current Visit: No Code(s): M06.9 - Rheumatoid arthritis, unspecified (14) Atrial fibrillation Status: Chronic Current Visit: No Code(s): I48.91 - Unspecified atrial fibrillation (15) Hypertension Status: Chronic Current Visit: No Code(s): I10 - Essential (primary) hypertension (16) GERD (gastroesophageal reflux disease) Status: Chronic Current Visit: No Code(s): K21.9 - Gastro-esophageal reflux disease without esophagitis (17) Obstructive sleep apnea Status: Chronic Current Visit: No Code(s): G47.33 - Obstructive sleep apnea (adult) (pediatric) (18) Hyperlipidemia Status: Chronic Current Visit: No Code(s): E78.5 - Hyperlipidemia, unspecified (19) Malnutrition Status: Chronic Current Visit: Yes Code(s): E46 - Unspecified protein- calorie malnutrition (20) Decubitus ulcer of buttock, stage 2 Status: Acute Current Visit: Yes Qualifiers: Laterality: left Qualified Code(s): L89.322 - Pressure ulcer of left buttock, stage 2 Code(s): L89.302 - Pressure ulcer of unspecified buttock, stage 2 History of Present Illness Chief Complaint: Chronic, nonhealing ulceration of the left heel and the right lateral foot History of Wound: This is a 78-year-old female who is a resident of [facility] in [place], [place]. She has been a resident there for approximately 6-8 months. She was institutionalized as a result of declining function, debility, and frequent falls. Her continues to live at home, and is relatively healthy. Patient presents with an ulceration on her left heel, which has been present for several months. An ulceration on the right lateral foot, near the base of the fifth digit, is relatively recShe also has an ulceration on her left buttock. The patient has recently been treated with oral antibiotics, which have included Augmentin and Levaquin. The patient is weak and debilitated. She does not ambulate. She spends a good part of her day in a wheelchair. She sleeps in a hospital bed. She suffers from dementia and Alzheimer's disease, and interacts minimally. She is incontinent of urine and stool. She suffers from frequent urinary tract infections and recurrent episodes of pseudomembranous enterocolitis (C. difficile infections). The patient's appetite is said to be poor. She is provided with nutritional supplements at the nursing facility. Past Medical History Past Medical History: Chronic Problems Foot ulcer, right (Chronic) Ulcer of left heel (Chronic) Debility (Chronic) Dementia (Chronic) Alzheimer's disease (Chronic) History of myocardial infarction (Chronic) CHF (congestive heart failure) (Chronic) History of syncope (Chronic) Recurrent Clostridium difficile diarrhea (Chronic) Incontinence of feces (Chronic) Incontinence of urine (Chronic) History of recurrent UTI (urinary tract infection) (Chronic) Rheumatoid arthritis (Chronic) Atrial fibrillation (Chronic) Hypertension (Chronic) GERD (gastroesophageal reflux disease) (Chronic) Obstructive sleep apnea (Chronic) Hyperlipidemia (Chronic) Malnutrition (Chronic) Surgical History: - - Patient has a history of varicose vein surgery in her lower extremities. She has undergone bilateral total knee replacement surgeries. Hip replacement has been performed unilaterally. Patient has undergone hysterectomy. She has had bunionectomy and nasal septoplasty. She is a Ab0. Allergies/Adverse Reactions: Allergies No Known Allergies Allergy (Verified 04/25/18 14:49) Home Medications: Ambulatory Orders Medication Instructions Recorded Acetaminophen [Tylenol] 650 mg PO Q4H PRN PRN 04/25/18 Albuterol Sulfate 2.5 mg IH Q4H PRN PRN 04/25/18 Amoxicillin/Potassium Clav 1 each PO BID 04/25/18 [Augmentin 875-125 Tablet] Aspirin [Adult Low Dose Aspirin EC] 81 mg PO DAILY 04/25/18 Calcium Carbonate/Simethicone 1 each PO Q4H PRN PRN 04/25/18 [Maalox Advanced Tab Chew] Cholecalciferol (Vitamin D3) 5,000 unit PO DAILY 04/25/18 [Vitamin D3] Donepezil HCl [Aricept] 10 mg PO DAILY 04/25/18 Fluoxetine [Prozac] 40 mg PO DAILY 04/25/18 Guaifenesin [Tussin] 100 mg PO Q4H PRN PRN 04/25/18 Hydroxychloroquine [Plaquenil] 200 mg PO BIDCM 04/25/18 Lactobacillus Acidophilus 1 each PO BID 04/25/18 [Acidophilus] Magnesium Hydroxide [Milk Of 30 ml PO DAILY PRN PRN 04/25/18 Magnesia] Memantine HCl [Memantine HCl ER] 28 mg PO DAILY 04/25/18 Mirtazapine [Remeron] 15 mg PO QHS 04/25/18 Nitroglycerin [Nitrostat] 0.4 mg SUBLINGUAL Q5M PRN 04/25/18 Pantoprazole Sodium [Protonix] 40 mg PO DAILY 04/25/18 Potassium Chloride [Klor-Con] 20 meq PO DAILY 04/25/18 Prednisone 10 mg PO DAILY 04/25/18 Ranolazine [Ranexa] 500 mg PO BID 04/25/18 Rosuvastatin Calcium [Crestor] 20 mg PO DAILY 04/25/18 Sotalol HCl [Sotalol] 80 mg PO BID 04/25/18 Trimethoprim [Trimpex] 200 mg PO DAILY 04/25/18 Warfarin [Coumadin (PBKC)] 2 mg PO DAILY 04/25/18 levoFLOXacin tablet [Levaquin 500 mg PO DAILY 04/25/18 tablet] Lives: Care Home Smoking Status: Never smoker Tobacco Use: Non-smoker Alcohol: None Drugs: None Review of Systems Constitutional: Denies: Chills, Fever, Weight Change Eyes: Denies: Pain, Vision Change HEENT: Denies: Difficulty Hearing, Difficulty Swallowing, Sinus Congestion Cardiovascular: Denies: Chest Pain, Palpitations Respiratory: Denies: Cough, Shortness of Breath Gastrointestinal: Denies: Diarrhea, Nausea, Vomiting Genitourinary: Denies: Dysuria, Hematuria Endocrine: Denies: Heat/ Cold Intolerance, Polydipsia, Polyuria Hematologic/ Lymphatic: Denies: Easy Bruising, Easy Bleeding - Physical Exam Vital Signs Temp Pulse Resp BP 97.1 F L 64 16 119/57 L 05/16/18 14:59 05/16/18 14:59 05/16/18 14:59 05/16/18 14:59 General: Alert, Cooperative, No apparent distress, Well developed, - - Patient appears debilitated. She is interactive. HEENT: Atraumatic, PERRLA, EOMI, Normocephalic Oral: Moist Mucosa Neck: No JVD Lungs: Normal air movement Abdomen: Non-Distended Extremities: No clubbing, No cyanosis, No edema, No Calf Tenderness, - - Patient has an ulceration on the right lateral foot, at the base of the right fifth digit. There is a moderate amount of necrotic tissue. There is no sign of infection or cellulitis. Dimensions are documented elsewhere. There is also an ulceration on the left heel, with a moderate amount of necrotic and nonviable tissue. There is no sign of infection or cellulitis. Dimensions are documented elsewhere. Skin: No rashes, - - The ulceration on the patient's buttock now appears to be healed and epithelialized. Wound Measurements and Assessment WC - Nurse 1 - General Ulcer Measurement Start: 04/25/18 14:26 Freq: Status: Active Protocol: Activity Type Activity Date Activity User E-Sign Co-Sign Detail Recorded Client Recorded Date Recorded By Document 05/16/18 14:59 DL [id number] 05/16/18 15:13 DL 05/16/18 14:59 Wound Center Nurse 1 [Ulcer Assessment] #3 Left Buttock Stage 3 -Combined with other wound No -Current Size (cm) - Length 0 -Current Size (cm) - Width 0 -Current Size (cm) - Depth 0 -Total Square Cm 0 -Photo Taken Yes -Epithelialization Large 67-100% -Tunneling No -Undermining/Tunneling No -Circular Undermining No -Exudate Amt None Present -Wound Margin Flat & Intact -Granulation Amt None Present (0 %) -Slough/Fibrin No -Structure Exposed N/A -Texture (Dorina-wound Skin Appearance) Assessed -Moisture (Dorina-wound Skin Appearance Assessed ) -Color (Dorina-wound Skin Appearance) Assessed Ecchymosis -Temperature (Dorina-wound Skin No Abnormality Appearance) (Pt Warm) -Tenderness on Palpation (Dorina-wound No Skin Appearance) -Ulcer Cleansing Rinsed/ Irrigated with Saline -Foul Odor after Cleansing No #2 right lateral 5th metatarsal -Current Size (cm) - Length 0.9 -Current Size (cm) - Width 0.5 -Current Size (cm) - Depth 0.1 -Total Square Cm 0.45 -Photo Taken No -Tunneling No -Undermining/Tunneling No -Circular Undermining No -Exudate Amt None Present -Wound Margin Flat & Intact -Granulation Amt None Present (0 %) -Slough/Fibrin Yes -Necrosis Amt Large (67-100%) -Necrotic Tissue Type Adherent Slough -Structure Exposed N/A -Texture (Dorina-wound Skin Appearance) Assessed -Moisture (Dorina-wound Skin Appearance Assessed ) Dry/Scaly -Color (Dorina-wound Skin Appearance) Assessed -Temperature (Dorina-wound Skin No Abnormality Appearance) (Pt Warm) -Tenderness on Palpation (Dorina-wound No Skin Appearance) -Ulcer Cleansing Rinsed/ Irrigated with Saline -Foul Odor after Cleansing No -Anesthetic Used 5% Lidocaine Gel #1 Left Heel -Combined with other wound No -Current Size (cm) - Length 2.0 -Current Size (cm) - Width 1.7 -Current Size (cm) - Depth 0.1 -Total Square Cm 3.40 -Photo Taken No -Epithelialization Small 1-33% -Tunneling No -Undermining/Tunneling No -Circular Undermining No -Exudate Amt None Present -Wound Margin Flat & Intact -Granulation Amt None Present (0 %) -Slough/Fibrin Yes -Necrosis Amt Large (67-100%) -Necrotic Tissue Type Adherent Slough -Structure Exposed N/A -Texture (Dorina-wound Skin Appearance) Assessed -Moisture (Dorina-wound Skin Appearance Assessed ) Dry/Scaly -Color (Dorina-wound Skin Appearance) Assessed -Temperature (Dorina-wound Skin No Abnormality Appearance) (Pt Warm) -Tenderness on Palpation (Dorina-wound No Skin Appearance) -Ulcer Cleansing Rinsed/ Irrigated with Saline -Foul Odor after Cleansing No -Anesthetic Used 5% Lidocaine Gel WC - Nurse 2 - General Ulcer CM Notes Start: 04/25/18 14:26 Freq: Status: Active Protocol: Activity Type Activity Date Activity User E-Sign Co-Sign Detail Recorded Client Recorded Date Recorded By Document 05/16/18 16:03 DV [id number] 05/16/18 16:11 DV 05/16/18 16:03 Wound Center Nurse 2 [Procedure/Treatment] #3 Left Buttock Stage 3 -Time 16:04 -Correct Patient Yes -Correct Side, Site, Position Yes -Correct Procedure No -Procedure Performed No -Post Debridement Size (cm) - Length 0 -Post Debridement Size (cm) - Width 0 -Post Debridement Size (cm) - Depth 0 -Total Square Cm 0 -Wound/Ulcer Outcome Healed- Epithelialized #2 right lateral 5th metatarsal -Time 16:04 -Correct Patient Yes -Correct Side, Site, Position Yes -Correct Procedure Yes -Procedure Performed Yes -Type of Procedure Debridement -Clinical Debridement Subcutaneous -Post Debridement Size (cm) - Length 2.0 -Post Debridement Size (cm) - Width 1.0 -Post Debridement Size (cm) - Depth 0.2 -Total Square Cm 2.00 -Wound/Ulcer Outcome Not Healed -Ulcer Cleansing Rinsed/ Irrigated with Saline -Foul Odor after Cleansing No -Bioengineered Tissue No -Bleeding Controlled with Pressure -Offloading Yes -Treatment Response Procedure Tolerated Well #1 Left Heel -Time 16:04 -Correct Patient Yes -Correct Side, Site, Position Yes -Correct Procedure Yes -Procedure Performed Yes -Type of Procedure Debridement -Clinical Debridement Subcutaneous -Post Debridement Size (cm) - Length 2.5 -Post Debridement Size (cm) - Width 2.0 -Post Debridement Size (cm) - Depth 0.2 -Total Square Cm 5.00 -Wound/Ulcer Outcome Not Healed -Ulcer Cleansing Rinsed/ Irrigated with Saline -Foul Odor after Cleansing No -Bioengineered Tissue No -Bleeding Controlled with Pressure -Offloading Yes -Treatment Response Procedure Tolerated Well [See Physician Procedure note for Specifics] Pain Scale: 0-10 Numeric [Pain] -Is Patient Pain Free? Yes Musculoskeletal: Muscle Wasting - Extremities Neurological: Cranial nerves II-XII grossly intact Psych/Mental Status: Normal Affect, Appropriate Debridement Note Post-Debridement Measurements/Treatment WC - Nurse 2 - General Ulcer CM Notes Start: 04/25/18 14:26 Freq: Status: Active Protocol: Activity Type Activity Date Activity User E-Sign Co-Sign Detail Recorded Client Recorded Date Recorded By Document 04/25/18 15:25 DV [id number] 04/25/18 15:47 DV Document 05/02/18 14:14 DV [id number] 05/02/18 14:29 DV Document 05/09/18 13:25 DV [id number] 05/09/18 13:30 DV Document 05/16/18 16:03 DV [id number] 05/16/18 16:11 DV 04/25/18 05/02/18 05/09/18 15:25 14:14 13:25 Wound Center Nurse 2 #3 Left Buttock Stage 3 -Time 15:25 14:15 13:26 -Correct Patient Yes Yes Yes -Correct Side, Site, Position Yes Yes Yes -Correct Procedure Yes Yes Yes -Procedure Performed Yes Yes Yes -Type of Procedure Debridement Debridement Debridement -Clinical Debridement Subcutaneous Subcutaneous Subcutaneous -Post Debridement Size (cm) - Length 1.2 0.6 0.3 -Post Debridement Size (cm) - Width 1.5 0.6 0.3 -Post Debridement Size (cm) - Depth 0.1 0.1 0.1 -Total Square Cm 1.80 0.36 0.09 -Wound/Ulcer Outcome Not Healed Not Healed Not Healed -Ulcer Cleansing Rinsed/ Rinsed/ Rinsed/ Irrigated with Irrigated with Irrigated with Saline Saline Saline -Foul Odor after Cleansing No No -Bioengineered Tissue No No No -Bleeding Controlled with Pressure Pressure Pressure -Offloading No Yes Yes -Treatment Response Procedure Procedure Procedure Tolerated Well Tolerated Well Tolerated Well #2 right lateral 5th metatarsal -Time 15:26 14:15 13:27 -Correct Patient Yes Yes Yes -Correct Side, Site, Position Yes Yes Yes -Correct Procedure Yes Yes Yes -Procedure Performed Yes Yes Yes -Type of Procedure Debridement Debridement Debridement -Clinical Debridement Subcutaneous Subcutaneous Subcutaneous -Post Debridement Size (cm) - Length 2.0 1.0 0.8 -Post Debridement Size (cm) - Width 1.4 1.5 1.2 -Post Debridement Size (cm) - Depth 0.1 0.1 0.1 -Total Square Cm 2.80 1.50 0.96 -Wound/Ulcer Outcome Not Healed Not Healed Not Healed -Ulcer Cleansing Rinsed/ Rinsed/ Rinsed/ Irrigated with Irrigated with Irrigated with Saline Saline Saline -Foul Odor after Cleansing No No No -Bioengineered Tissue No No No -Bleeding Controlled with Pressure Pressure Pressure -Offloading No Yes Yes -Treatment Response Procedure Procedure Tolerated Well Tolerated Well #1 Left Heel -Time 15:27 14:19 13:27 -Correct Patient Yes Yes Yes -Correct Side, Site, Position Yes Yes Yes -Correct Procedure Yes Yes Yes -Procedure Performed Yes Yes Yes -Type of Procedure Debridement Debridement Debridement -Clinical Debridement Subcutaneous Subcutaneous Subcutaneous -Post Debridement Size (cm) - Length 3.7 3.0 2.5 -Post Debridement Size (cm) - Width 3.5 3.0 2.0 -Post Debridement Size (cm) - Depth 0.6 0.1 0.2 -Total Square Cm 12.95 9.00 5.00 -Wound/Ulcer Outcome Not Healed Not Healed Not Healed -Ulcer Cleansing Rinsed/ Rinsed/ Rinsed/ Irrigated with Irrigated with Irrigated with Saline Saline Saline -Foul Odor after Cleansing No No No -Bioengineered Tissue No No No -Bleeding Controlled with Pressure Pressure Pressure -Offloading No Yes Yes -Type of Offloading Camwalker -Treatment Response Procedure Procedure Procedure Tolerated Well Tolerated Well Tolerated Well Pain Scale: 0-10 Numeric Is Patient Pain Free? Yes Yes Yes 05/16/18 16:03 Wound Center Nurse 2 #3 Left Buttock Stage 3 -Time 16:04 -Correct Patient Yes -Correct Side, Site, Position Yes -Correct Procedure No -Procedure Performed No -Type of Procedure -Clinical Debridement -Post Debridement Size (cm) - Length 0 -Post Debridement Size (cm) - Width 0 -Post Debridement Size (cm) - Depth 0 -Total Square Cm 0 -Wound/Ulcer Outcome Healed- Epithelialized -Ulcer Cleansing -Foul Odor after Cleansing -Bioengineered Tissue -Bleeding Controlled with -Offloading -Treatment Response #2 right lateral 5th metatarsal -Time 16:04 -Correct Patient Yes -Correct Side, Site, Position Yes -Correct Procedure Yes -Procedure Performed Yes -Type of Procedure Debridement -Clinical Debridement Subcutaneous -Post Debridement Size (cm) - Length 2.0 -Post Debridement Size (cm) - Width 1.0 -Post Debridement Size (cm) - Depth 0.2 -Total Square Cm 2.00 -Wound/Ulcer Outcome Not Healed -Ulcer Cleansing Rinsed/ Irrigated with Saline -Foul Odor after Cleansing No -Bioengineered Tissue No -Bleeding Controlled with Pressure -Offloading Yes -Treatment Response Procedure Tolerated Well #1 Left Heel -Time 16:04 -Correct Patient Yes -Correct Side, Site, Position Yes -Correct Procedure Yes -Procedure Performed Yes -Type of Procedure Debridement -Clinical Debridement Subcutaneous -Post Debridement Size (cm) - Length 2.5 -Post Debridement Size (cm) - Width 2.0 -Post Debridement Size (cm) - Depth 0.2 -Total Square Cm 5.00 -Wound/Ulcer Outcome Not Healed -Ulcer Cleansing Rinsed/ Irrigated with Saline -Foul Odor after Cleansing No -Bioengineered Tissue No -Bleeding Controlled with Pressure -Offloading Yes -Type of Offloading -Treatment Response Procedure Tolerated Well Pain Scale: 0-10 Numeric Is Patient Pain Free? Yes Laterality: Left - Heel Type of Debridement: Excisional debridement Anesthesia Used: 5% Lidocaine Gel Depth: Down to and including healthy tissue, in the subcutaneous layer Percentage of wound debrided: 100 Instrument Used: 5mm curette Severity: Fat Layer Exposed Amount of bleeding with debridement: Mild Bleeding Controlled with: Compression and gauze Patient tolerated procedure well At each of the 2 gangrenous ulcerations, one on the right lateral foot and one on the left heel, a fairly significant amount of necrotic and nonviable tissue was removed with today's debridement. - Additional Wound Laterality: Right - Lateral foot, at the base of the right fifth digit. Type of Debridement: Excisional debridement Anesthesia Used: 5% Lidocaine Gel Depth: Down to and including healthy tissue, in the subcutaneous layer Percentage of wound debrided: 100 Instrument Used: 5mm curette Severity: Fat Layer Exposed Amount of bleeding with debridement: Mild Bleeding Controlled with: Compression and gauze Patient tolerated procedure: Patient tolerated procedure well Assessment/Plan Active Problems Foot ulcer, right (Chronic) Ulcer of left heel (Chronic) Debility (Chronic) Dementia (Chronic) Alzheimer's disease (Chronic) Malnutrition (Chronic) Decubitus ulcer of buttock, stage 2 (Acute) Assessment: This is a 78-year-old female with multiple medical problems, as outlined above. Patient suffers from dementia and Alzheimer's disease. She is very limited functionally. She does not ambulate. She presents with ulcerations of the right lateral foot, the left heel, and the left buttock. These appear to be pressure related. They are a stage III ulceration in each case. The patient has undergone a battery of diagnostic tests the nursing facility at which she is a resident. Lab results are as follows: White blood count 8.7, hemoglobin 11.6, hematocrit 35.9, platelets 273,000, glucose 77, BUN 19, creatinine 0.5, sodium 140, potassium 3.7, chloride 104, calcium 8.9, alkaline phosphatase 63, ALT 20, AST 16, total protein 5.7, albumin 2.9, prealbumin 27, bilirubin 0.44. A noninvasive lower extremity arterial ultrasound study was performed, though only of the left lower extremity, and not the actual arterial study which was originally ordered. The impression indic ates diminished to nonexistent flow in the calf vessels including the tibial peroneal and dorsalis pedis arteries. We have been told that a follow-up study has been performed of the right lower extremity, though no results have been received by our facility. A noninvasive lower extremity arterial study has been performed earlier today at [facility]. Triphasic waveforms are noted in ankle level bilaterally. Resting ankle-brachial indices could not be determined due to the noncompressibility of the vasculature bilaterally. Right digital-brachial index is 0.43. The left digital-brachial index is 0.99. This is suggestive of moderate to severe arterial impairment at digital level of the right lower extremity. The relative normalcy of the left digital-brachial index may be due to arterial calcification, and matter for which clinical correlation is advised. Plan: Offloading measures have been implemented, and are to be continued. The issue of offloading measures has been discussed thoroughly with the patient's daughter, who was again at the bedside. We have been able to obtain a low air- loss mattress for the patient's hospital bed. We have also successfully obtained a Roho cushion for the patient's wheelchair. Frequent repositioning has been recommended, and has now been implemented. We are to continue the use of collagenase Santyl topically, which will be applied to each of the patient's foot pressure ulcerations on a daily basis. The patient's buttock ulceration appears to be healed, and will be left undisturbed, though reevaluated weekly. The patient is to continue with nutritional supplements, which will be increased as result of the findings on her recent laboratory results. Given the findings of her noninvasive lower extremity arterial study, we are to seek consultation with a vascular surgeon for recommendations pertaining to the possible role of lower extremity revascularization. An appointment has been scheduled for June 02 with a vascular surgeon in [place], [place]. As has been discussed with the patient and her daughter, at the bedside, the patient's debility, diminished functional state, and multiple medical pre-existing conditions may render the patient a poor candidate for open vascular or endovascular revascularization. We will await recommendations as such. The patient is not a smoker. Influenza vaccine was not administered today. Patient weighs 199 pounds. She stands 5 feet 10 inches tall. Her BMI is 28.5. This places the patient in the overweight category, which normally would warrant mild weight loss. However, attempts at adequate nutrition appear to prevail. Nutritional supplements have been encouraged.
== END 2018-05-22 23:59 ==
LOC: WC 15:00
PROVIDERS: Referring Provider Surgery; Visit Provider Surgery
DX: I73.9 Peripheral vascular disease, unspecified (principal); L89.623 Pressure ulcer of left heel, stage 3; L89.893 Pressure ulcer of other site, stage 3; L89.323 Pressure ulcer of left buttock, stage 3; G30.9 Alzheimer's disease, unspecified; F02.80 Dementia in other diseases classified elsewhere, unspecified severity, without behavioral disturbance, psychotic disturbance, mood disturbance, and anxiety; I25.2 Old myocardial infarction; I11.0 Hypertensive heart disease with heart failure; I50.9 Heart failure, unspecified; M06.9 Rheumatoid arthritis, unspecified; R15.9 Full incontinence of feces; R32 Unspecified urinary incontinence; I48.91 Unspecified atrial fibrillation; Z79.899 Other long term (current) drug therapy
CPT/HCPCS: 11042; 93923; 99205; G0463

== ENCOUNTER 2018-06-20 15:00 | Outpatient (RCR) | payer MEDICARE, SELFPAY ==
[2018-05-23 00:18] VITALS: BP 119/57; PULSE 64; RESP 16; TEMP 36.2
[2018-05-30 14:26] VITALS: BP 108/72; PULSE 67; RESP 18; TEMP 36.4; BMI 28.5
--- NOTE | 2018-05-30 15:09 | PCM.WC.HP ---
(1) Foot ulcer, right Status: Chronic Current Visit: Yes Qualifiers: Non-pressure ulcer stage: with fat layer exposed Code(s): L97.519 - Non-pressure chronic ulcer of other part of right foot with unspecified severity (2) Ulcer of left heel Status: Chronic Current Visit: Yes Qualifiers: Non-pressure ulcer stage: with fat layer exposed Code(s): L97.429 - Non-pressure chronic ulcer of left heel and midfoot with unspecified severity (3) Debility Status: Chronic Current Visit: Yes Code(s): R53.81 - Other malaise (4) Dementia Status: Chronic Current Visit: Yes Qualifiers: Alzheimer's disease onset: late-onset Code(s): F03.90 - Unspecified dementia without behavioral disturbance (5) Alzheimer's disease Status: Chronic Current Visit: Yes Qualifiers: Alzheimer's disease onset: late-onset Code(s): G30.9 - Alzheimer's disease, unspecified; F02.80 - Dementia in other diseases classified elsewhere without behavioral disturbance (6) History of myocardial infarction Status: Chronic Current Visit: No Code(s): I25.2 - Old myocardial infarction (7) CHF (congestive heart failure) Status: Chronic Current Visit: No Code(s): I50.9 - Heart failure, unspecified (8) History of syncope Status: Chronic Current Visit: No Code(s): Z87.898 - Personal history of other specified conditions (9) Recurrent Clostridium difficile diarrhea Status: Chronic Current Visit: No Code(s): A04.71 - Enterocolitis due to Clostridium difficile, recurrent (10) Incontinence of feces Status: Chronic Current Visit: No Code(s): R15.9 - Full incontinence of feces (11) Incontinence of urine Status: Chronic Current Visit: No Code(s): R32 - Unspecified urinary incontinence (12) History of recurrent UTI (urinary tract infection) Status: Chronic Current Visit: No Code(s): Z87.440 - Personal history of urinary (tract) infections (13) Rheumatoid arthritis Status: Chronic Current Visit: No Code(s): M06.9 - Rheumatoid arthritis, unspecified (14) Atrial fibrillation Status: Chronic Current Visit: No Code(s): I48.91 - Unspecified atrial fibrillation (15) Hypertension Status: Chronic Current Visit: No Code(s): I10 - Essential (primary) hypertension (16) GERD (gastroesophageal reflux disease) Status: Chronic Current Visit: No Code(s): K21.9 - Gastro-esophageal reflux disease without esophagitis (17) Obstructive sleep apnea Status: Chronic Current Visit: No Code(s): G47.33 - Obstructive sleep apnea (adult) (pediatric) (18) Hyperlipidemia Status: Chronic Current Visit: No Code(s): E78.5 - Hyperlipidemia, unspecified (19) Malnutrition Status: Chronic Current Visit: Yes Code(s): E46 - Unspecified protein-calorie malnutrition (20) Decubitus ulcer of buttock, stage 2 Status: Resolved Current Visit: No Qualifiers: Code(s): L89.302 - Pressure ulcer of unspecified buttock, stage 2 History of Present Illness Chief Complaint: Chronic, nonhealing ulceration of the left heel and the right lateral foot History of Wound: This is a 78-year-old female who is a resident of [facility] in [place], [place]. She has been a resident there for approximately 6-8 months. She was institutionalized as a result of declining function, debility, and frequent falls. Her continues to live at home, and is relatively healthy. Patient presents with an ulceration on her left heel, which has been present for several months. An ulceration on the right lateral foot, near the base of the fifth digit, is relatively recShe also has an ulceration on her left buttock. The patient has recently been treated with oral antibiotics, which have included Augmentin and Levaquin. The patient is weak and debilitated. She does not ambulate. She spends a good part of her day in a wheelchair. She sleeps in a hospital bed. She suffers from dementia and Alzheimer's disease, and interacts minimally. She is incontinent of urine and stool. She suffers from frequent urinary tract infections and recurrent episodes of pseudomembranous enterocolitis (C. difficile infections). The patient's appetite is said to be poor. She is provided with nutritional supplements at the nursing facility. Past Medical History Past Medical History: Chronic Problems Foot ulcer, right (Chronic) Ulcer of left heel (Chronic) Debility (Chronic) Dementia (Chronic) Alzheimer's disease (Chronic) History of myocardial infarction (Chronic) CHF (congestive heart failure) (Chronic) History of syncope (Chronic) Recurrent Clostridium difficile diarrhea (Chronic) Incontinence of feces (Chronic) Incontinence of urine (Chronic) History of recurrent UTI (urinary tract infection) (Chronic) Rheumatoid arthritis (Chronic) Atrial fibrillation (Chronic) Hypertension (Chronic) GERD (gastroesophageal reflux disease) (Chronic) Obstructive sleep apnea (Chronic) Hyperlipidemia (Chronic) Malnutrition (Chronic) Surgical History: - - Patient has a history of varicose vein surgery in her lower extremities. She has undergone bilateral total knee replacement surgeries. Hip replacement has been performed unilaterally. Patient has undergone hysterectomy. She has had bunionectomy and nasal septoplasty. She is a Ab0. Allergies/Adverse Reactions: Allergies No Known Allergies Allergy (Verified 04/25/18 14:49) Home Medications: Ambulatory Orders Medication Instructions Recorded Acetaminophen [Tylenol] 650 mg PO Q4H PRN PRN 04/25/18 Albuterol Sulfate 2.5 mg IH Q4H PRN PRN 04/25/18 Amoxicillin/Potassium Clav 1 each PO BID 04/25/18 [Augmentin 875-125 Tablet] Aspirin [Adult Low Dose Aspirin EC] 81 mg PO DAILY 04/25/18 Calcium Carbonate/Simethicone 1 each PO Q4H PRN PRN 04/25/18 [Maalox Advanced Tab Chew] Cholecalciferol (Vitamin D3) 5,000 unit PO DAILY 04/25/18 [Vitamin D3] Donepezil HCl [Aricept] 10 mg PO DAILY 04/25/18 Fluoxetine [Prozac] 40 mg PO DAILY 04/25/18 Guaifenesin [Tussin] 100 mg PO Q4H PRN PRN 04/25/18 Hydroxychloroquine [Plaquenil] 200 mg PO BIDCM 04/25/18 Lactobacillus Acidophilus 1 each PO BID 04/25/18 [Acidophilus] Magnesium Hydroxide [Milk Of 30 ml PO DAILY PRN PRN 04/25/18 Magnesia] Memantine HCl [Memantine HCl ER] 28 mg PO DAILY 04/25/18 Mirtazapine [Remeron] 15 mg PO QHS 04/25/18 Nitroglycerin [Nitrostat] 0.4 mg SUBLINGUAL Q5M PRN 04/25/18 Pantoprazole Sodium [Protonix] 40 mg PO DAILY 04/25/18 Potassium Chloride [Klor-Con] 20 meq PO DAILY 04/25/18 Prednisone 10 mg PO DAILY 04/25/18 Ranolazine [Ranexa] 500 mg PO BID 04/25/18 Rosuvastatin Calcium [Crestor] 20 mg PO DAILY 04/25/18 Sotalol HCl [Sotalol] 80 mg PO BID 04/25/18 Trimethoprim [Trimpex] 200 mg PO DAILY 04/25/18 Warfarin [Coumadin (PBKC)] 2 mg PO DAILY 04/25/18 levoFLOXacin tablet [Levaquin 500 mg PO DAILY 04/25/18 tablet] Smoking Status: Never smoker Tobacco Use: Non-smoker Review of Systems Constitutional: Denies: Chills, Fever, Weight Change Eyes: Denies: Pain, Vision Change HEENT: Denies: Difficulty Hearing, Difficulty Swallowing, Sinus Congestion Cardiovascular: Denies: Chest Pain, Palpitations Respiratory: Denies: Cough, Shortness of Breath Gastrointestinal: Denies: Diarrhea, Nausea, Vomiting Genitourinary: Denies: Dysuria, Hematuria Endocrine: Denies: Heat/ Cold Intolerance, Polydipsia, Polyuria Hematologic/ Lymphatic: Denies: Easy Bruising, Easy Bleeding - Physical Exam Vital Signs Temp Pulse Resp BP 97.5 F L 67 18 108/72 05/30/18 14:26 05/30/18 14:26 05/30/18 14:26 05/30/18 14:26 General: Alert, Oriented x3, Cooperative, No apparent distress, Well developed, - - Patient is debilitated HEENT: Atraumatic, PERRLA, EOMI, Normocephalic Oral: Moist Mucosa Neck: No JVD Lungs: Normal air movement Abdomen: Non-Distended Extremities: No clubbing, No cyanosis, No edema, No Calf Tenderness, - - There is an ulceration on the right lateral foot, at the base of the right fifth digit. This is generally pink and healthy in appearance, with only a small to mild amount of bioburden. There is no sign of infection or cellulitis. Dimensions are documented elsewhere. The base of the ulceration is generally pink and healthy, with active granulation tissue. There is also an ulcer on the left heel, with a moderate amount of bioburden, and significant nonviable and necrotic tissue remaining. Dimensions are documented elsewhere. There is no sign of infection or cellulitis. Skin: No rashes Wound Measurements and Assessment WC - Nurse 1 - General Ulcer Measurement Start: 05/30/18 14:26 Freq: Status: Active Protocol: Activity Type Activity Date Activity User E-Sign Co-Sign Detail Recorded Client Recorded Date Recorded By Document 05/30/18 14:26 DL [id number] 05/30/18 14:38 DL 05/30/18 14:26 Wound Center Nurse 1 [Ulcer Assessment] #2 right lateral 5th metatarsal -Current Size (cm) - Length 0.2 -Current Size (cm) - Width 0.7 -Current Size (cm) - Depth 0.1 -Total Square Cm 0.14 -Photo Taken No -Exudate Amt Small -Exudate Type Serosanguineous -Wound Margin Distinct, Outline Attached -Granulation Amt None Present (0 %) -Necrosis Amt Small (1-33%) -Necrotic Tissue Type Adherent Slough -Structure Exposed N/A -Texture (Dorina-wound Skin Appearance) Scarring -Moisture (Dorina-wound Skin Appearance Dry/Scaly ) -Color (Dorina-wound Skin Appearance) Rubor -Temperature (Dorina-wound Skin No Abnormality Appearance) (Pt Warm) -Tenderness on Palpation (Dorina-wound Yes Skin Appearance) -Ulcer Cleansing Wound Cleanser -Foul Odor after Cleansing No -Anesthetic Used 5% Lidocaine Gel #1 Left Heel -Current Size (cm) - Length 1 -Current Size (cm) - Width 1.5 -Current Size (cm) - Depth 0.2 -Total Square Cm 1.5 -Photo Taken No -Exudate Amt Small -Exudate Type Serosanguineous -Wound Margin Distinct, Outline Attached -Granulation Amt Small (1-33%) -Granulation Quality Red -Necrosis Amt Large (67-100%) -Necrotic Tissue Type Adherent Slough -Structure Exposed N/A -Texture (Dorina-wound Skin Appearance) Scarring -Moisture (Dorina-wound Skin Appearance Dry/Scaly ) -Color (Dorina-wound Skin Appearance) Rubor -Temperature (Dorina-wound Skin No Abnormality Appearance) (Pt Warm) -Tenderness on Palpation (Dorina-wound No Skin Appearance) -Ulcer Cleansing Rinsed/ Irrigated with Saline -Foul Odor after Cleansing No -Anesthetic Used 5% Lidocaine Gel WC - Nurse 2 - General Ulcer CM Notes Start: 05/30/18 14:26 Freq: Status: Active Protocol: Activity Type Activity Date Activity User E-Sign Co-Sign Detail Recorded Client Recorded Date Recorded By Document 05/30/18 14:52 MW [id number] 05/30/18 15:06 MW 05/30/18 14:52 Wound Center Nurse 2 [Procedure/Treatment] #2 right lateral 5th metatarsal -Time 14:52 -Correct Patient Yes -Correct Side, Site, Position Yes -Correct Procedure Yes -Procedure Performed Yes -Type of Procedure Debridement -Clinical Debridement Subcutaneous -Post Debridement Size (cm) - Length 0.9 -Post Debridement Size (cm) - Width 0.4 -Post Debridement Size (cm) - Depth 0.2 -Total Square Cm 0.36 -Wound/Ulcer Outcome Not Healed -Ulcer Cleansing Rinsed/ Irrigated with Saline -Foul Odor after Cleansing No -Bioengineered Tissue No -Bleeding Controlled with Pressure -Offloading No -Treatment Response Procedure Tolerated Well #1 Left Heel -Time 14:52 -Correct Patient Yes -Correct Side, Site, Position Yes -Correct Procedure Yes -Procedure Performed Yes -Type of Procedure Debridement -Clinical Debridement Subcutaneous -Post Debridement Size (cm) - Length 1.1 -Post Debridement Size (cm) - Width 2.0 -Post Debridement Size (cm) - Depth 0.2 -Total Square Cm 2.20 -Wound/Ulcer Outcome Not Healed -Ulcer Cleansing Rinsed/ Irrigated with Saline -Foul Odor after Cleansing No -Bioengineered Tissue No -Bleeding Controlled with Pressure -Offloading No -Treatment Response Procedure Tolerated Well [See Physician Procedure note for Specifics] Pain Scale: 0-10 Numeric [Pain] -Is Patient Pain Free? Yes Musculoskeletal: Muscle Wasting - Extremities Neurological: Cranial nerves II-XII grossly intact, Neuro grossly intact Psych/Mental Status: Normal Affect, Appropriate, Alert and oriented to time, place, person, mood and affect Debridement Note Post-Debridement Measurements/Treatment WC - Nurse 2 - General Ulcer CM Notes Start: 05/30/18 14:26 Freq: Status: Active Protocol: Activity Type Activity Date Activity User E-Sign Co-Sign Detail Recorded Client Recorded Date Recorded By Document 05/30/18 14:52 MW [id number] 05/30/18 15:06 MW 05/30/18 14:52 Wound Center Nurse 2 #2 right lateral 5th metatarsal -Time 14:52 -Correct Patient Yes -Correct Side, Site, Position Yes -Correct Procedure Yes -Procedure Performed Yes -Type of Procedure Debridement -Clinical Debridement Subcutaneous -Post Debridement Size (cm) - Length 0.9 -Post Debridement Size (cm) - Width 0.4 -Post Debridement Size (cm) - Depth 0.2 -Total Square Cm 0.36 -Wound/Ulcer Outcome Not Healed -Ulcer Cleansing Rinsed/ Irrigated with Saline -Foul Odor after Cleansing No -Bioengineered Tissue No -Bleeding Controlled with Pressure -Offloading No -Treatment Response Procedure Tolerated Well #1 Left Heel -Time 14:52 -Correct Patient Yes -Correct Side, Site, Position Yes -Correct Procedure Yes -Procedure Performed Yes -Type of Procedure Debridement -Clinical Debridement Subcutaneous -Post Debridement Size (cm) - Length 1.1 -Post Debridement Size (cm) - Width 2.0 -Post Debridement Size (cm) - Depth 0.2 -Total Square Cm 2.20 -Wound/Ulcer Outcome Not Healed -Ulcer Cleansing Rinsed/ Irrigated with Saline -Foul Odor after Cleansing No -Bioengineered Tissue No -Bleeding Controlled with Pressure -Offloading No -Treatment Response Procedure Tolerated Well Pain Scale: 0-10 Numeric Is Patient Pain Free? Yes Laterality: Right - Lateral foot, near the base of the right fifth digit Type of Debridement: Excisional debridement Anesthesia Used: 5% Lidocaine Gel Depth: Down to and including healthy tissue, in the subcutaneous layer Percentage of wound debrided: 100 Instrument Used: 5mm curette Tissue Removed: Bioburden and nonviable tissue Severity: Fat Layer Exposed Amount of bleeding with debridement: Mild Bleeding Controlled with: Compression and gauze Patient tolerated procedure well - Additional Wound Laterality: Left - Heel Type of Debridement: Excisional debridement Anesthesia Used: 5% Lidocaine Gel Depth: Down to and including healthy tissue, in the subcutaneous layer Percentage of wound debrided: 100 Instrument Used: 5mm curette Tissue Removed: Frankly necrotic and nonviable tissue Severity: Fat Layer Exposed Amount of bleeding with debridement: Mild Bleeding Controlled with: Compression and gauze Patient tolerated procedure: Patient tolerated procedure well Assessment/Plan Active Problems Foot ulcer, right (Chronic) Ulcer of left heel (Chronic) Debility (Chronic) Dementia (Chronic) Alzheimer's disease (Chronic) Malnutrition (Chronic) Assessment: This is a 78-year-old female with multiple medical problems, as outlined above. Patient suffers from dementia and Alzheimer's disease. She is very limited functionally. She does not ambulate. She presents with ulcerations of the right lateral foot and the left heel. The ulceration on the left buttock remains completely healed. These appear to be pressure related. They are a stage III ulceration in each case. The patient has undergone a battery of diagnostic tests the nursing facility at which she is a resident. Lab results are as follows: White blood count 8.7, hemoglobin 11.6, hematocrit 35.9, platelets 273,000, glucose 77, BUN 19, creatinine 0.5, sodium 140, potassium 3.7, chloride 104, calcium 8.9, alkaline phosphatase 63, ALT 20, AST 16, total protein 5.7, albumin 2.9, prealbumin 27, bilirubin 0.44. A noninvasive lower extremity arterial ultrasound study was performed, though only of the left lower extremity. The impression indicates diminished to nonexistent flow in the calf vessels including the tibial peroneal and dorsalis pedis arteries. We have been told that a follow-up study has been performed of the right lower extremity, though no results have been received by our facility. A noninvasive lower extremity arterial study has been performed earlier today at [facility]. Triphasic waveforms are noted in ankle level bilaterally. Resting ankle-brachial indices could not be determined due to the noncompressibility of the vasculature bilaterally. Right digital-brachial index is 0.43. The left digital-brachial index is 0.99. This is suggestive of moderate to severe arterial impairment at digital level of the right lower extremity. The relative normalcy of the left digital-brachial index may be due to arterial calcification, a matter for which clinical correlation is advised. Plan: Offloading measures have been implemented, and are to be continued. The issue of offloading measures has been discussed thoroughly with the patient's daughter, who was again at the bedside. We have been able to obtain a low air-loss mattress for the patient's hospital bed. We have also successfully obtained a Roho cushion for the patient's wheelchair. Frequent repositioning has been recommended, and has now been implemented. We are to continue the use of collagenase Santyl topically, which will be applied to each of the patient's foot pressure ulcerations on a daily basis. The patient's buttock ulceration appears to be healed, and will be left undisturbed, though reevaluated weekly. The patient is to continue with nutritional supplements, which will be increased as result of the findings on her recent laboratory results. Given the findings of her noninvasive lower extremity arterial study, we are to seek consultation with a vascular surgeon for recommendations pertaining to the possible role of lower extremity revascularization. An appointment has been scheduled for June 02 with a vascular surgeon in [place], [place]. As has been discussed with the patient and her daughter, at the bedside, the patient's debility, diminished functional state, and multiple medical pre-existing conditions may render the patient a poor candidate for open vascular or endovascular revascularization. We will await recommendations as such. The patient is not a smoker. Influenza vaccine was not administered today. Patient weighs 199 pounds. She stands 5 feet 10 inches tall. Her BMI is 28.5. This places the patient in the overweight category, which normally would warrant mild weight loss. However, attempts at adequate nutrition appear to prevail. Nutritional supplements have been encouraged.
[2018-06-06 14:53] VITALS: BP 102/66; PULSE 64; RESP 16; TEMP 35.3; BMI 28.5
--- NOTE | 2018-06-06 15:24 | HP.PCM_ITS ---
(1) Foot ulcer, right Status: Chronic Current Visit: Yes Qualifiers: Non-pressure ulcer stage: with fat layer exposed Code(s): L97.519 - Non-pressure chronic ulcer of other part of right foot with unspecified severity (2) Ulcer of left heel Status: Chronic Current Visit: Yes Qualifiers: Non-pressure ulcer stage: with fat layer exposed Code(s): L97.429 - Non-pressure chronic ulcer of left heel and midfoot with unspecified severity (3) Debility Status: Chronic Current Visit: Yes Code(s): R53.81 - Other malaise (4) Dementia Status: Chronic Current Visit: Yes Qualifiers: Alzheimer's disease onset: late-onset Code(s): F03.90 - Unspecified dementia without behavioral disturbance (5) Alzheimer's disease Status: Chronic Current Visit: Yes Qualifiers: Alzheimer's disease onset: late-onset Code(s): G30.9 - Alzheimer's disease, unspecified; F02.80 - Dementia in other diseases classified elsewhere without behavioral disturbance (6) History of myocardial infarction Status: Chronic Current Visit: No Code(s): I25.2 - Old myocardial infarction (7) CHF (congestive heart failure) Status: Chronic Current Visit: No Code(s): I50.9 - Heart failure, unspecified (8) History of syncope Status: Chronic Current Visit: No Code(s): Z87.898 - Personal history of other specified conditions (9) Recurrent Clostridium difficile diarrhea Status: Chronic Current Visit: No Code(s): A04.71 - Enterocolitis due to Clostridium difficile, recurrent (10) Incontinence of feces Status: Chronic Current Visit: No Code(s): R15.9 - Full incontinence of feces (11) Incontinence of urine Status: Chronic Current Visit: No Code(s): R32 - Unspecified urinary incontinence (12) History of recurrent UTI (urinary tract infection) Status: Chronic Current Visit: No Code(s): Z87.440 - Personal history of urinary (tract) infections (13) Rheumatoid arthritis Status: Chronic Current Visit: No Code(s): M06.9 - Rheumatoid arthritis, unspecified (14) Atrial fibrillation Status: Chronic Current Visit: No Code(s): I48.91 - Unspecified atrial fibrillation (15) Hypertension Status: Chronic Current Visit: No Code(s): I10 - Essential (primary) hypertension (16) GERD (gastroesophageal reflux disease) Status: Chronic Current Visit: No Code(s): K21.9 - Gastro-esophageal reflux disease without esophagitis (17) Obstructive sleep apnea Status: Chronic Current Visit: No Code(s): G47.33 - Obstructive sleep apnea (adult) (pediatric) (18) Hyperlipidemia Status: Chronic Current Visit: No Code(s): E78.5 - Hyperlipidemia, unspecified (19) Malnutrition Status: Chronic Current Visit: Yes Code(s): E46 - Unspecified protein- calorie malnutrition History of Present Illness Chief Complaint: Chronic, nonhealing ulceration of the left heel and the right lateral foot History of Wound: This is a 78-year-old female who is a resident of [facility] in [place], [place]. She has been a resident there for approximately 6-8 months. She was institutionalized as a result of declining function, debility, and frequent falls. Her continues to live at home, and is relatively healthy. Patient presents with an ulceration on her left heel, which has been present for several months. An ulceration on the right lateral foot, near the base of the fifth digit, is relatively recShe also has an ulceration on her left buttock. The patient has recently been treated with oral antibiotics, which have included Augmentin and Levaquin. The patient is weak and debilitated. She does not ambulate. She spends a good part of her day in a wheelchair. She sleeps in a hospital bed. She suffers from dementia and Alzheimer's disease, and interacts minimally. She is incontinent of urine and stool. She suffers from frequent urinary tract infections and recurrent episodes of pseudomembranous enterocolitis (C. difficile infections). The patient's appetite is said to be poor. She is provided with nutritional supplements at the nursing facility. Past Medical History Past Medical History: Chronic Problems Foot ulcer, right (Chronic) Ulcer of left heel (Chronic) Debility (Chronic) Dementia (Chronic) Alzheimer's disease (Chronic) History of myocardial infarction (Chronic) CHF (congestive heart failure) (Chronic) History of syncope (Chronic) Recurrent Clostridium difficile diarrhea (Chronic) Incontinence of feces (Chronic) Incontinence of urine (Chronic) History of recurrent UTI (urinary tract infection) (Chronic) Rheumatoid arthritis (Chronic) Atrial fibrillation (Chronic) Hypertension (Chronic) GERD (gastroesophageal reflux disease) (Chronic) Obstructive sleep apnea (Chronic) Hyperlipidemia (Chronic) Malnutrition (Chronic) Surgical History: - - Patient has a history of varicose vein surgery in her lower extremities. She has undergone bilateral total knee replacement surgeries. Hip replacement has been performed unilaterally. Patient has undergone hysterectomy. She has had bunionectomy and nasal septoplasty. She is a Ab0. Allergies/Adverse Reactions: Allergies No Known Allergies Allergy (Verified 04/25/18 14:49) Home Medications: Ambulatory Orders Medication Instructions Recorded Acetaminophen [Tylenol] 650 mg PO Q4H PRN PRN 04/25/18 Albuterol Sulfate 2.5 mg IH Q4H PRN PRN 04/25/18 Amoxicillin/Potassium Clav 1 each PO BID 04/25/18 [Augmentin 875-125 Tablet] Aspirin [Adult Low Dose Aspirin EC] 81 mg PO DAILY 04/25/18 Calcium Carbonate/Simethicone 1 each PO Q4H PRN PRN 04/25/18 [Maalox Advanced Tab Chew] Cholecalciferol (Vitamin D3) 5,000 unit PO DAILY 04/25/18 [Vitamin D3] Donepezil HCl [Aricept] 10 mg PO DAILY 04/25/18 Fluoxetine [Prozac] 40 mg PO DAILY 04/25/18 Guaifenesin [Tussin] 100 mg PO Q4H PRN PRN 04/25/18 Hydroxychloroquine [Plaquenil] 200 mg PO BIDCM 04/25/18 Lactobacillus Acidophilus 1 each PO BID 04/25/18 [Acidophilus] Magnesium Hydroxide [Milk Of 30 ml PO DAILY PRN PRN 04/25/18 Magnesia] Memantine HCl [Memantine HCl ER] 28 mg PO DAILY 04/25/18 Mirtazapine [Remeron] 15 mg PO QHS 04/25/18 Nitroglycerin [Nitrostat] 0.4 mg SUBLINGUAL Q5M PRN 04/25/18 Pantoprazole Sodium [Protonix] 40 mg PO DAILY 04/25/18 Potassium Chloride [Klor-Con] 20 meq PO DAILY 04/25/18 Prednisone 10 mg PO DAILY 04/25/18 Ranolazine [Ranexa] 500 mg PO BID 04/25/18 Rosuvastatin Calcium [Crestor] 20 mg PO DAILY 04/25/18 Sotalol HCl [Sotalol] 80 mg PO BID 04/25/18 Trimethoprim [Trimpex] 200 mg PO DAILY 04/25/18 Warfarin [Coumadin (PBKC)] 2 mg PO DAILY 04/25/18 levoFLOXacin tablet [Levaquin 500 mg PO DAILY 04/25/18 tablet] Smoking Status: Never smoker Tobacco Use: Non-smoker Review of Systems Constitutional: Denies: Chills, Fever, Weight Change Eyes: Denies: Pain, Vision Change HEENT: Denies: Difficulty Hearing, Difficulty Swallowing, Sinus Congestion Cardiovascular: Denies: Chest Pain, Palpitations Respiratory: Denies: Cough, Shortness of Breath Gastrointestinal: Denies: Diarrhea, Nausea, Vomiting Genitourinary: Denies: Dysuria, Hematuria Endocrine: Denies: Heat/ Cold Intolerance, Polydipsia, Polyuria Hematologic/ Lymphatic: Denies: Easy Bruising, Easy Bleeding - Physical Exam Vital Signs Temp Pulse Resp BP 95.5 F L 64 16 102/66 06/06/18 14:53 06/06/18 14:53 06/06/18 14:53 06/06/18 14:53 General: Alert, Oriented x3, Cooperative, No apparent distress, Well developed, Well nourished HEENT: Atraumatic, PERRLA, EOMI, Normocephalic Oral: Moist Mucosa Neck: No JVD Lungs: Normal air movement Abdomen: Non-Distended Extremities: No clubbing, No cyanosis, No Calf Tenderness, - - No significant swelling or edema is noted in the lower extremities bilaterally. The ulceration on the right lateral foot, located at the base of the right fifth digit, is smaller in size. It appears to be healing progressively. There is no sign of infection or cellulitis. Only minimal bioburden is present. Dimensions are documented elsewhere. The ulceration on the left heel also shows signs of improvement, with a decrease in the amount of nonviable and necrotic tissue. There is no sign of infection or cellulitis. Dimensions are documented elsewhere. The left heel ulcer, however, has been traumatized earlier today, when the patient slipped at the custodial shortly after staff removed her from the bathtub. The left heel was traumatized, with evulsion of dermis directly adjacent to the left heel ulceration. Dimensions are documented e lsewhere. There has been bleeding prior to the patient's presentation here, but no active bleeding is noted upon examination currently. Skin: No rashes Wound Measurements and Assessment WC - Nurse 1 - General Ulcer Measurement Start: 05/30/18 14:26 Freq: Status: Active Protocol: Activity Type Activity Date Activity User E-Sign Co-Sign Detail Recorded Client Recorded Date Recorded By Document 06/06/18 14:53 MW [id number] 06/06/18 14:59 MW 06/06/18 14:53 Wound Center Nurse 1 [Ulcer Assessment] #2 right lateral 5th metatarsal -Combined with other wound No -Current Size (cm) - Length 0.2 -Current Size (cm) - Width 0.2 -Current Size (cm) - Depth 0.1 -Total Square Cm 0.04 -Photo Taken No -Epithelialization Small 1-33% -Tunneling No -Undermining/Tunneling No -Circular Undermining No -Exudate Amt None Present -Wound Margin Flat & Intact -Granulation Amt Large (67-100%) -Granulation Quality Sand Pillow -Slough/Fibrin No -Necrosis Amt None Present (0 %) -Structure Exposed N/A -Texture (Dorina-wound Skin Appearance) Assessed Scarring -Moisture (Dorina-wound Skin Appearance No Abnormality ) Assessed -Color (Dorina-wound Skin Appearance) No Abnormality Assessed -Temperature (Dorina-wound Skin No Abnormality Appearance) (Pt Warm) -Tenderness on Palpation (Dorina-wound Yes Skin Appearance) -Ulcer Cleansing Rinsed/ Irrigated with Saline -Foul Odor after Cleansing No -Anesthetic Used 4% Lidocaine Solution #1 Left Heel -Combined with other wound No -Current Size (cm) - Length 1.0 -Current Size (cm) - Width 2.4 -Current Size (cm) - Depth 0.1 -Total Square Cm 2.40 -Photo Taken No -Epithelialization Small 1-33% -Tunneling No -Undermining/Tunneling No -Circular Undermining No -Exudate Type Sanguineous -Wound Margin Flat & Intact -Granulation Amt Small (1-33%) -Granulation Quality Red -Slough/Fibrin Yes -Necrosis Amt Large (67-100%) -Necrotic Tissue Type Adherent Slough -Structure Exposed N/A -Texture (Dorina-wound Skin Appearance) No Abnormality Assessed -Moisture (Dorina-wound Skin Appearance Assessed ) Dry/Scaly -Color (Dorina-wound Skin Appearance) No Abnormality Assessed -Temperature (Dorina-wound Skin No Abnormality Appearance) (Pt Warm) -Tenderness on Palpation (Dorina-wound Yes Skin Appearance) -Ulcer Cleansing Rinsed/ Irrigated with Saline -Foul Odor after Cleansing No -Anesthetic Used 4% Lidocaine Solution [Edema Assessment] -Lower Limb Edema Present No Musculoskeletal: Muscle Wasting - Lower extremities Neurological: Cranial nerves II-XII grossly intact Psych/Mental Status: Normal Affect, - - The patient appears fatigued and lethargic, somewhat altered from her normal demeanor. She is currently under evaluation at the custodial relative to these status changes. Debridement Note Post-Debridement Measurements/Treatment WC - Nurse 2 - General Ulcer CM Notes Start: 05/30/18 14:26 Freq: Status: Active Protocol: Activity Type Activity Date Activity User E-Sign Co-Sign Detail Recorded Client Recorded Date Recorded By Document 05/30/18 14:52 MW [id number] 05/30/18 15:06 MW 05/30/18 14:52 Wound Center Nurse 2 #2 right lateral 5th metatarsal -Time 14:52 -Correct Patient Yes -Correct Side, Site, Position Yes -Correct Procedure Yes -Procedure Performed Yes -Type of Procedure Debridement -Clinical Debridement Subcutaneous -Post Debridement Size (cm) - Length 0.9 -Post Debridement Size (cm) - Width 0.4 -Post Debridement Size (cm) - Depth 0.2 -Total Square Cm 0.36 -Wound/Ulcer Outcome Not Healed -Ulcer Cleansing Rinsed/ Irrigated with Saline -Foul Odor after Cleansing No -Bioengineered Tissue No -Bleeding Controlled with Pressure -Offloading No -Treatment Response Procedure Tolerated Well #1 Left Heel -Time 14:52 -Correct Patient Yes -Correct Side, Site, Position Yes -Correct Procedure Yes -Procedure Performed Yes -Type of Procedure Debridement -Clinical Debridement Subcutaneous -Post Debridement Size (cm) - Length 1.1 -Post Debridement Size (cm) - Width 2.0 -Post Debridement Size (cm) - Depth 0.2 -Total Square Cm 2.20 -Wound/Ulcer Outcome Not Healed -Ulcer Cleansing Rinsed/ Irrigated with Saline -Foul Odor after Cleansing No -Bioengineered Tissue No -Bleeding Controlled with Pressure -Offloading No -Treatment Response Procedure Tolerated Well Pain Scale: 0-10 Numeric Is Patient Pain Free? Yes Laterality: Right - Lateral foot, at the base of the fifth digit Type of Debridement: Excisional debridement Anesthesia Used: 5% Lidocaine Gel Depth: Down to and including healthy tissue, in the subcutaneous layer Percentage of wound debrided: 100 Instrument Used: 5mm curette Severity: Fat Layer Exposed Amount of bleeding with debridement: Mild Bleeding Controlled with: Compression and gauze Patient tolerated procedure well With respect to the left heel ulceration, there is now a new, fresh, traumatic wound on the left heel, directly adjacent and to the left of the chronic ulceration. Debridement today involved the use of a 5 mm curet, as well as a forcep and scissors, which were used to excise the devitalized, avulsed layer of dermis. - Additional Wound Laterality: Left - Heel Type of Debridement: Excisional debridement Anesthesia Used: 5% Lidocaine Gel Depth: Down to and including healthy tissue, in the subcutaneous layer Percentage of wound debrided: 100 Instrument Used: 5mm curette Severity: Fat Layer Exposed Amount of bleeding with debridement: Mild Bleeding Controlled with: Compression and gauze Patient tolerated procedure: Patient tolerated procedure well Assessment/Plan Active Problems Foot ulcer, right (Chronic) Ulcer of left heel (Chronic) Debility (Chronic) Dementia (Chronic) Alzheimer's disease (Chronic) Malnutrition (Chronic) Assessment: This is a 78-year-old female with multiple medical problems, as outlined above. The patient suffers from dementia and Alzheimer's disease. She is very limited functionally. She does not ambulate. She presented with ulcerations of the right lateral foot and the left heel. The ulceration on the left buttock remains completely healed. These appear to be pressure related. They are a stage III ulceration in each case. The patient has undergone a battery of diagnostic tests the nursing facility at which she is a resident. Lab results are as follows: White blood count 8.7, hemoglobin 11.6, hematocrit 35.9, platelets 273,000, glucose 77, BUN 19, creatinine 0.5, sodium 140, potassium 3.7, chloride 104, calcium 8.9, alkaline phosphatase 63, ALT 20, AST 16, total protein 5.7, albumin 2.9, prealbumin 27, bilirubin 0.44. A noninvasive lower extremity arterial ultrasound study was performed, though only of the left lower extremity. The impression indicates diminished to nonexistent flow in the calf vessels including the tibial peroneal and dorsalis pedis arteries. We have been told that a follow-up study has been performed of the right lower extremity, though no results have been received by our facility. A noninvasive lower extremity arterial study has been performed at [facility]. Triphasic waveforms were noted in ankle level bilaterally. Resting ankle-brachial indices could not be determined due to the noncompressibility of the vasculature bilaterally. Right digital-brachial index was 0.43. The left digital-brachial index was 0.99. This is suggestive of moderate to severe arterial impairment at digital level of the right lower extremity. The relative normalcy of the left digital-brachial index may be due to arterial calcification, a matter for which clinical correlation is advised. The patient underwent evaluation in consultation by a vascular surgeon several days ago, Dr. Garza, in [place], [place]. We are awaiting a copy of the patient's consultation note. However, according to the patient's daughter, revascularization or intervention was not felt to be warranted due to the patient's debility and limited functional state. Plan: Offloading measures have been implemented, and are to be continued. The issue of offloading measures has been discussed thoroughly with the patient's daughter, who was again at the bedside. We have been able to obtain a low air- loss mattress for the patient's hospital bed. We have also successfully obtained a Roho cushion for the patient's wheelchair. Frequent repositioning has been recommended, and has now been implemented. We are to implement the use of collagen hydrogel topically to each of the patient's to ulcerations/wounds. Collagen hydrogel will be used topically on the right lateral foot ulceration and on the ulceration/wound of the left heel. The patient will return in 2 weeks for reassessment, and has been placed in the palliative care pathway. The patient's buttock ulceration appears to be healed, and will be left undisturbed, though reevaluated weekly. The patient is to continue with nutritional supplements. Evaluation with respect to the patient's recent lethargy will be deferred to her medical providers at the custodial. The patient remains on systemic anticoagulation therapy. The patient is not a smoker. Influenza vaccine was not administered today. Patient weighs 199 pounds. She stands 5 feet 10 inches tall. Her BMI is 28.5. This places the patient in the overweight category, which normally would warrant mild weight loss. However, attempts at adequate nutrition appear to prevail. Nutritional supplements have been encouraged.
[2018-06-20 14:56] VITALS: BP 92/65; PULSE 84; RESP 18; TEMP 36; BMI 28.5
--- NOTE | 2018-06-20 15:50 | HP.PCM_ITS ---
(1) Foot ulcer, right Status: Chronic Current Visit: Yes Qualifiers: Non-pressure ulcer stage: with fat layer exposed Code(s): L97.519 - Non-pressure chronic ulcer of other part of right foot with unspecified severity (2) Ulcer of left heel Status: Chronic Current Visit: Yes Qualifiers: Non-pressure ulcer stage: with fat layer exposed Code(s): L97.429 - Non-pressure chronic ulcer of left heel and midfoot with unspecified severity (3) Debility Status: Chronic Current Visit: Yes Code(s): R53.81 - Other malaise (4) Dementia Status: Chronic Current Visit: Yes Qualifiers: Alzheimer's disease onset: late-onset Code(s): F03.90 - Unspecified dementia without behavioral disturbance (5) Alzheimer's disease Status: Chronic Current Visit: Yes Qualifiers: Alzheimer's disease onset: late-onset Code(s): G30.9 - Alzheimer's disease, unspecified; F02.80 - Dementia in other diseases classified elsewhere without behavioral disturbance (6) History of myocardial infarction Status: Chronic Current Visit: No Code(s): I25.2 - Old myocardial infarction (7) CHF (congestive heart failure) Status: Chronic Current Visit: No Code(s): I50.9 - Heart failure, unspecified (8) History of syncope Status: Chronic Current Visit: No Code(s): Z87.898 - Personal history of other specified conditions (9) Recurrent Clostridium difficile diarrhea Status: Chronic Current Visit: No Code(s): A04.71 - Enterocolitis due to Clostridium difficile, recurrent (10) Incontinence of feces Status: Chronic Current Visit: No Code(s): R15.9 - Full incontinence of feces (11) Incontinence of urine Status: Chronic Current Visit: No Code(s): R32 - Unspecified urinary incontinence (12) History of recurrent UTI (urinary tract infection) Status: Chronic Current Visit: No Code(s): Z87.440 - Personal history of urinary (tract) infections (13) Rheumatoid arthritis Status: Chronic Current Visit: No Code(s): M06.9 - Rheumatoid arthritis, unspecified (14) Atrial fibrillation Status: Chronic Current Visit: No Code(s): I48.91 - Unspecified atrial fibrillation (15) Hypertension Status: Chronic Current Visit: No Code(s): I10 - Essential (primary) hypertension (16) GERD (gastroesophageal reflux disease) Status: Chronic Current Visit: No Code(s): K21.9 - Gastro-esophageal reflux disease without esophagitis (17) Obstructive sleep apnea Status: Chronic Current Visit: No Code(s): G47.33 - Obstructive sleep apnea (adult) (pediatric) (18) Hyperlipidemia Status: Chronic Current Visit: No Code(s): E78.5 - Hyperlipidemia, unspecified (19) Malnutrition Status: Chronic Current Visit: Yes Code(s): E46 - Unspecified protein- calorie malnutrition History of Present Illness Chief Complaint: Chronic, nonhealing ulceration of the left heel and the right lateral foot History of Wound: This is a 78-year-old female who is a resident of [facility] in [place], [place]. She has been a resident there for approximately 6-8 months. She was institutionalized as a result of declining function, debility, and frequent falls. Her continues to live at home, and is relatively healthy. Patient presents with an ulceration on her left heel, which has been present for several months. An ulceration on the right lateral foot, near the base of the fifth digit, is relatively recShe also has an ulceration on her left buttock. The patient has recently been treated with oral antibiotics, which have included Augmentin and Levaquin. The patient is weak and debilitated. She does not ambulate. She spends a good part of her day in a wheelchair. She sleeps in a hospital bed. She suffers from dementia and Alzheimer's disease, and interacts minimally. She is incontinent of urine and stool. She suffers from frequent urinary tract infections and recurrent episodes of pseudomembranous enterocolitis (C. difficile infections). The patient's appetite is said to be poor. She is provided with nutritional supplements at the nursing facility. Past Medical History Past Medical History: Chronic Problems Foot ulcer, right (Chronic) Ulcer of left heel (Chronic) Debility (Chronic) Dementia (Chronic) Alzheimer's disease (Chronic) History of myocardial infarction (Chronic) CHF (congestive heart failure) (Chronic) History of syncope (Chronic) Recurrent Clostridium difficile diarrhea (Chronic) Incontinence of feces (Chronic) Incontinence of urine (Chronic) History of recurrent UTI (urinary tract infection) (Chronic) Rheumatoid arthritis (Chronic) Atrial fibrillation (Chronic) Hypertension (Chronic) GERD (gastroesophageal reflux disease) (Chronic) Obstructive sleep apnea (Chronic) Hyperlipidemia (Chronic) Malnutrition (Chronic) Surgical History: - - Patient has a history of varicose vein surgery in her lower extremities. She has undergone bilateral total knee replacement surgeries. Hip replacement has been performed unilaterally. Patient has undergone hysterectomy. She has had bunionectomy and nasal septoplasty. She is a Ab0. Allergies/Adverse Reactions: Allergies No Known Allergies Allergy (Verified 04/25/18 14:49) Home Medications: Ambulatory Orders Medication Instructions Recorded Acetaminophen [Tylenol] 650 mg PO Q4H PRN PRN 04/25/18 Albuterol Sulfate 2.5 mg IH Q4H PRN PRN 04/25/18 Amoxicillin/Potassium Clav 1 each PO BID 04/25/18 [Augmentin 875-125 Tablet] Aspirin [Adult Low Dose Aspirin EC] 81 mg PO DAILY 04/25/18 Calcium Carbonate/Simethicone 1 each PO Q4H PRN PRN 04/25/18 [Maalox Advanced Tab Chew] Cholecalciferol (Vitamin D3) 5,000 unit PO DAILY 04/25/18 [Vitamin D3] Donepezil HCl [Aricept] 10 mg PO DAILY 04/25/18 Fluoxetine [Prozac] 40 mg PO DAILY 04/25/18 Guaifenesin [Tussin] 100 mg PO Q4H PRN PRN 04/25/18 Hydroxychloroquine [Plaquenil] 200 mg PO BIDCM 04/25/18 Lactobacillus Acidophilus 1 each PO BID 04/25/18 [Acidophilus] Magnesium Hydroxide [Milk Of 30 ml PO DAILY PRN PRN 04/25/18 Magnesia] Memantine HCl [Memantine HCl ER] 28 mg PO DAILY 04/25/18 Mirtazapine [Remeron] 15 mg PO QHS 04/25/18 Nitroglycerin [Nitrostat] 0.4 mg SUBLINGUAL Q5M PRN 04/25/18 Pantoprazole Sodium [Protonix] 40 mg PO DAILY 04/25/18 Potassium Chloride [Klor-Con] 20 meq PO DAILY 04/25/18 Prednisone 10 mg PO DAILY 04/25/18 Ranolazine [Ranexa] 500 mg PO BID 04/25/18 Rosuvastatin Calcium [Crestor] 20 mg PO DAILY 04/25/18 Sotalol HCl [Sotalol] 80 mg PO BID 04/25/18 Trimethoprim [Trimpex] 200 mg PO DAILY 04/25/18 Warfarin [Coumadin (PBKC)] 2 mg PO DAILY 04/25/18 levoFLOXacin tablet [Levaquin 500 mg PO DAILY 04/25/18 tablet] Smoking Status: Never smoker Tobacco Use: Non-smoker Review of Systems Constitutional: Denies: Chills, Fever, Weight Change Eyes: Denies: Pain, Vision Change HEENT: Denies: Difficulty Hearing, Difficulty Swallowing, Sinus Congestion Cardiovascular: Denies: Chest Pain, Palpitations Respiratory: Denies: Cough, Shortness of Breath Gastrointestinal: Denies: Diarrhea, Nausea, Vomiting Genitourinary: Denies: Dysuria, Hematuria Endocrine: Denies: Heat/ Cold Intolerance, Polydipsia, Polyuria Hematologic/ Lymphatic: Denies: Easy Bruising, Easy Bleeding - Physical Exam Vital Signs Temp Pulse Resp BP 96.8 F L 84 18 92/65 06/20/18 14:56 06/20/18 14:56 06/20/18 14:56 06/20/18 14:56 General: Alert, Oriented x3, Cooperative, No apparent distress, Well developed, Lethargic, - - Patient is weak and unable to reposition herself on the examination table. HEENT: Atraumatic, PERRLA, EOMI, Normocephalic Oral: Moist Mucosa Neck: No JVD Lungs: Normal air movement Abdomen: Non-Distended Extremities: No clubbing, No cyanosis, No Calf Tenderness, - - The ulceration of the right lateral foot persists, near the base of the right fifth digit. There is no sign of infection or cellulitis. Dimensions are documented elsewhere. There is a moderate amount of bioburden and nonviable tissue present. The ulceration of the left heel ulcer persists, with a small amount of necrotic and gangrenous tissue. There is no sign of infection or cellulitis. Dimensions are documented elsewhere. Skin: No rashes Wound Measurements and Assessment WC - Nurse 1 - General Ulcer Measurement Start: 05/30/18 14:26 Freq: Status: Active Protocol: Activity Type Activity Date Activity User E-Sign Co-Sign Detail Recorded Client Recorded Date Recorded By Document 06/20/18 14:56 DL [id number] 06/20/18 15:07 DL 06/20/18 14:56 Wound Center Nurse 1 [Ulcer Assessment] #2 right lateral 5th metatarsal -Current Size (cm) - Length 0.7 -Current Size (cm) - Width 0.4 -Current Size (cm) - Depth 0.4 -Total Square Cm 0.28 -Classification - Thickness Full Thickness without Exposed Support Structure -Exudate Amt Small -Exudate Type Serosanguineous -Wound Margin Distinct, Outline Attached -Granulation Amt None Present (0 %) -Slough/Fibrin Yes -Necrosis Amt Large (67-100%) -Necrotic Tissue Type Adherent Slough -Structure Exposed None/Limited to Skin Breakdown -Texture (Dorina-wound Skin Appearance) Assessed -Moisture (Dorina-wound Skin Appearance Assessed ) -Color (Dorina-wound Skin Appearance) Assessed Erythema -Temperature (Dorina-wound Skin Hot Appearance) -Tenderness on Palpation (Dorina-wound Yes Skin Appearance) -Ulcer Cleansing Wound Cleanser -Foul Odor after Cleansing No -Anesthetic Used 4% Lidocaine Solution #1 Left Heel -Current Size (cm) - Length 1 -Current Size (cm) - Width 1.9 -Current Size (cm) - Depth 0.2 -Total Square Cm 1.9 -Classification - Thickness Full Thickness without Exposed Support Structure -Exudate Amt None Present -Wound Margin Distinct, Outline Attached -Granulation Amt Small (1-33%) -Granulation Quality Red -Slough/Fibrin Yes -Necrosis Amt Large (67-100%) -Necrotic Tissue Type Adherent Slough -Structure Exposed None/Limited to Skin Breakdown -Texture (Dorina-wound Skin Appearance) Assessed -Moisture (Dorina-wound Skin Appearance Assessed ) -Color (Dorian-wound Skin Appearance) Assessed -Temperature (Dorina-wound Skin No Abnormality Appearance) (Pt Warm) -Tenderness on Palpation (Dorina-wound Yes Skin Appearance) -Ulcer Cleansing Rinsed/ Irrigated with Saline -Foul Odor after Cleansing No -Anesthetic Used 4% Lidocaine Solution WC - Nurse 2 - General Ulcer CM Notes Start: 05/30/18 14:26 Freq: Status: Active Protocol: Activity Type Activity Date Activity User E-Sign Co-Sign Detail Recorded Client Recorded Date Recorded By Document 06/20/18 15:38 DV [id number] 06/20/18 15:42 DV 06/20/18 15:38 Wound Center Nurse 2 [Procedure/Treatment] #2 right lateral 5th metatarsal -Time 15:38 -Correct Patient Yes -Correct Side, Site, Position Yes -Correct Procedure Yes -Procedure Performed Yes -Type of Procedure Debridement -Clinical Debridement Subcutaneous -Post Debridement Size (cm) - Length 1.0 -Post Debridement Size (cm) - Width 1.0 -Post Debridement Size (cm) - Depth 0.4 -Total Square Cm 1.00 -Wound/Ulcer Outcome Failed Flap -Ulcer Cleansing Rinsed/ Irrigated with Saline -Foul Odor after Cleansing No -Bioengineered Tissue No -Bleeding Controlled with Pressure -Offloading No -Treatment Response Procedure Tolerated Well #1 Left Heel -Time 15:39 -Correct Patient Yes -Correct Side, Site, Position Yes -Correct Procedure Yes -Procedure Performed Yes -Type of Procedure Debridement -Clinical Debridement Subcutaneous -Post Debridement Size (cm) - Length 1.5 -Post Debridement Size (cm) - Width 2.0 -Post Debridement Size (cm) - Depth 0.2 -Total Square Cm 3.00 -Wound/Ulcer Outcome Not Healed [See Physician Procedure note for Specifics] Neurological: Cranial nerves II-XII grossly intact Psych/Mental Status: Normal Affect, Appropriate, Alert and oriented to time, place, person, mood and affect Debridement Note Post-Debridement Measurements/Treatment WC - Nurse 2 - General Ulcer CM Notes Start: 05/30/18 14:26 Freq: Status: Active Protocol: Activity Type Activity Date Activity User E-Sign Co-Sign Detail Recorded Client Recorded Date Recorded By Document 05/30/18 14:52 MW [id number] 05/30/18 15:06 MW Document 06/06/18 15:09 DV [id number] 06/06/18 15:20 DV Document 06/20/18 15:38 DV [id number] 06/20/18 15:42 DV 05/30/18 06/06/18 06/20/18 14:52 15:09 15:38 Wound Center Nurse 2 #2 right lateral 5th metatarsal -Time 14:52 15:14 15:38 -Correct Patient Yes Yes Yes -Correct Side, Site, Position Yes Yes Yes -Correct Procedure Yes Yes Yes -Procedure Performed Yes Yes Yes -Type of Procedure Debridement Debridement Debridement -Clinical Debridement Subcutaneous Subcutaneous Subcutaneous -Post Debridement Size (cm) - Length 0.9 1.0 1.0 -Post Debridement Size (cm) - Width 0.4 0.3 1.0 -Post Debridement Size (cm) - Depth 0.2 0.2 0.4 -Total Square Cm 0.36 0.30 1.00 -Wound/Ulcer Outcome Not Healed Not Healed Failed Flap -Ulcer Cleansing Rinsed/ Rinsed/ Rinsed/ Irrigated with Irrigated with Irrigated with Saline Saline Saline -Foul Odor after Cleansing No No No -Bioengineered Tissue No No No -Bleeding Controlled with Pressure Pressure Pressure -Offloading No Yes No -Treatment Response Procedure Procedure Procedure Tolerated Well Tolerated Well Tolerated Well #1 Left Heel -Time 14:52 15:15 15:39 -Correct Patient Yes Yes Yes -Correct Side, Site, Position Yes Yes Yes -Correct Procedure Yes Yes Yes -Procedure Performed Yes Yes Yes -Type of Procedure Debridement Debridement Debridement -Clinical Debridement Subcutaneous Subcutaneous Subcutaneous -Post Debridement Size (cm) - Length 1.1 1.5 1.5 -Post Debridement Size (cm) - Width 2.0 3.0 2.0 -Post Debridement Size (cm) - Depth 0.2 0.3 0.2 -Total Square Cm 2.20 4.50 3.00 -Wound/Ulcer Outcome Not Healed Not Healed Not Healed -Ulcer Cleansing Rinsed/ Rinsed/ Irrigated with Irrigated with Saline Saline -Foul Odor after Cleansing No No -Bioengineered Tissue No No -Bleeding Controlled with Pressure Pressure -Offloading No Yes -Treatment Response Procedure Procedure Tolerated Well Tolerated Well Pain Scale: 0-10 Numeric Is Patient Pain Free? Yes Yes Laterality: Right - Lateral foot, near base of right fifth digit Type of Debridement: Excisional debridement Anesthesia Used: 5% Lidocaine Gel Depth: Down to and including healthy tissue, in the subcutaneous layer Percentage of wound debrided: 100 Instrument Used: 5mm curette Tissue Removed: Bioburden and nonviable tissue. Severity: Fat Layer Exposed Amount of bleeding with debridement: Mild Bleeding Controlled with: Compression and gauze Patient tolerated procedure well Frankly necrotic and nonviable tissue was removed from the left heel ulceration, using iris scissors and forceps. - Additional Wound Laterality: Left - Heel Type of Debridement: Excisional debridement Anesthesia Used: 5% Lidocaine Gel Depth: Down to and including healthy tissue, in the subcutaneous layer Percentage of wound debrided: 100 Instrument Used: 5mm curette, Forceps, - - Iris scissors Tissue Removed: Gangrenous and nonviable tissue Severity: Fat Layer Exposed Amount of bleeding with debridement: Mild Bleeding Controlled with: Compression and gauze Patient tolerated procedure: Patient tolerated procedure well Assessment/Plan Active Problems Foot ulcer, right (Chronic) Ulcer of left heel (Chronic) Debility (Chronic) Dementia (Chronic) Alzheimer's disease (Chronic) Malnutrition (Chronic) Assessment: This is a 78-year-old female with multiple medical problems, as outlined above. The patient suffers from dementia and Alzheimer's disease. She is very limited functionally. She does not ambulate. She presented with ulcerations of the right lateral foot and the left heel. The ulceration on the left buttock remains completely healed. These appear to be pressure related. They are a stage III ulceration in each case. The patient has undergone a battery of diagnostic tests the nursing facility at which she is a resident. Lab results are as follows: White blood count 8.7, hemoglobin 11.6, hematocrit 35.9, platelets 273,000, glucose 77, BUN 19, creatinine 0.5, sodium 140, potassium 3.7, chloride 104, calcium 8.9, alkaline phosphatase 63, ALT 20, AST 16, total protein 5.7, albumin 2.9, prealbumin 27, bilirubin 0.44. A noninvasive lower extremity arterial ultrasound study was performed, though only of the left lower extremity. The impression indicates diminished to nonexistent flow in the calf vessels including the tibial peroneal and dorsalis pedis arteries. We have been told that a follow-up study has been performed of the right lower extremity, though no results have been received by our facility. A noninvasive lower extremity arterial study has been performed at [facility]. Triphasic waveforms were noted in ankle level bilaterally. Resting ankle-brachial indices could not be determined due to the noncompressibility of the vasculature bilaterally. Right digital-brachial index was 0.43. The left digital-brachial index was 0.99. This is suggestive of moderate to severe arterial impairment at digital level of the right lower extremity. The relative normalcy of the left digital-brachial index may be due to arterial calcification, a matter for which clinical correlation is advised. The patient underwent evaluation in consultation by a vascular surgeon several days ago, Dr. Garza, in [place], [place]. We are awaiting a copy of the patient's consultation note. However, according to the patient's daughter, revascularization or intervention was not felt to be warranted due to the alon ent's debility and limited functional state. Plan: Offloading measures have been implemented, and are to be continued. The issue of offloading measures has been discussed thoroughly with the patient's daughter, who was again at the bedside. We have been able to obtain a low air- loss mattress for the patient's hospital bed. We have also successfully obtained a Roho cushion for the patient's wheelchair. Frequent repositioning has been recommended, and has now been implemented. We are to continue the use of collagen hydrogel topically to each of the patient's ulcerations/wounds. Collagen hydrogel will be continued topically on the right lateral foot ulceration and on the ulceration/wound of the left heel. The patient will return in 1 week for reassessment, and has been placed in the palliative care pathway. The patient's buttock ulceration appears to be healed, and will be left undisturbed, though reevaluated weekly. The patient is to continue with nutritional supplements. The patient remains on systemic anticoagulation therapy. The patient is not a smoker. Influenza vaccine was not administered today. Patient weighs 199 pounds. She stands 5 feet 10 inches tall. Her BMI is 28.5. This places the patient in the overweight category, which normally would warrant mild weight loss. However, attempts at adequate nutrition appear to prevail. Nutritional supplements have been encouraged.
== END 2018-06-21 23:59 ==
LOC: WC 15:00
PROVIDERS: Referring Provider Surgery; Visit Provider Surgery
DX: I73.9 Peripheral vascular disease, unspecified (principal); L89.623 Pressure ulcer of left heel, stage 3; L89.893 Pressure ulcer of other site, stage 3; F02.80 Dementia in other diseases classified elsewhere, unspecified severity, without behavioral disturbance, psychotic disturbance, mood disturbance, and anxiety; G30.9 Alzheimer's disease, unspecified; I25.2 Old myocardial infarction; M06.9 Rheumatoid arthritis, unspecified; I48.2 Chronic atrial fibrillation; K21.9 Gastro-esophageal reflux disease without esophagitis; E78.5 Hyperlipidemia, unspecified; G47.33 Obstructive sleep apnea (adult) (pediatric); R32 Unspecified urinary incontinence; I11.0 Hypertensive heart disease with heart failure; I50.9 Heart failure, unspecified
CPT/HCPCS: 11042

== ENCOUNTER 2018-07-19 11:00 | Outpatient (RCR) | payer MEDICARE, SELFPAY ==
[2018-06-22 00:35] VITALS: BP 92/65; PULSE 84; RESP 18; TEMP 36
[2018-07-05 11:11] VITALS: BP 110/77; PULSE 61; RESP 16; TEMP 36; BMI 28.5
--- NOTE | 2018-07-05 12:00 | HP.PCM_ITS ---
(1) Foot ulcer, right Status: Chronic Current Visit: Yes Qualifiers: Non-pressure ulcer stage: with fat layer exposed Code(s): L97.519 - Non-pressure chronic ulcer of other part of right foot with unspecified severity (2) Ulcer of left heel Status: Chronic Current Visit: Yes Qualifiers: Non-pressure ulcer stage: with fat layer exposed Code(s): L97.429 - Non-pressure chronic ulcer of left heel and midfoot with unspecified severity (3) Debility Status: Chronic Current Visit: Yes Code(s): R53.81 - Other malaise (4) Dementia Status: Chronic Current Visit: Yes Code(s): F03.90 - Unspecified dementia without behavioral disturbance (5) Alzheimer's disease Status: Chronic Current Visit: Yes Code(s): G30.9 - Alzheimer's disease, unspecified; F02.80 - Dementia in other diseases classified elsewhere without behavioral disturbance (6) History of myocardial infarction Status: Chronic Current Visit: No Code(s): I25.2 - Old myocardial infarction (7) CHF (congestive heart failure) Status: Chronic Current Visit: No Code(s): I50.9 - Heart failure, unspecified (8) History of syncope Status: Chronic Current Visit: No Code(s): Z87.898 - Personal history of other specified conditions (9) Recurrent Clostridium difficile diarrhea Status: Chronic Current Visit: No Code(s): A04.71 - Enterocolitis due to Clostridium difficile, recurrent (10) Incontinence of feces Status: Chronic Current Visit: No Code(s): R15.9 - Full incontinence of feces (11) Incontinence of urine Status: Chronic Current Visit: No Code(s): R32 - Unspecified urinary incontinence (12) History of recurrent UTI (urinary tract infection) Status: Chronic Current Visit: No Code(s): Z87.440 - Personal history of urinary (tract) infections (13) Rheumatoid arthritis Status: Chronic Current Visit: No Code(s): M06.9 - Rheumatoid arthritis, unspecified (14) Atrial fibrillation Status: Chronic Current Visit: No Code(s): I48.91 - Unspecified atrial fibrillation (15) Hypertension Status: Chronic Current Visit: No Code(s): I10 - Essential (primary) hypertension (16) GERD (gastroesophageal reflux disease) Status: Chronic Current Visit: No Code(s): K21.9 - Gastro-esophageal reflux disease without esophagitis (17) Obstructive sleep apnea Status: Chronic Current Visit: No Code(s): G47.33 - Obstructive sleep apnea (adult) (pediatric) (18) Hyperlipidemia Status: Chronic Current Visit: No Code(s): E78.5 - Hyperlipidemia, unspecified (19) Malnutrition Status: Chronic Current Visit: No Code(s): E46 - Unspecified protein-calorie malnutrition (20) Decubitus ulcer of buttock, stage 2 Status: Resolved Current Visit: No Qualifiers: Code(s): L89.302 - Pressure ulcer of unspecified buttock, stage 2 History of Present Illness Chief Complaint: Chronic, nonhealing ulceration of the left heel and the right l ateral foot History of Wound: This is a 78-year-old female who is a resident of [facility] in [place], [place]. She has been a resident there for approximately 6-8 months. She was institutionalized as a result of declining function, debility, and frequent falls. Her continues to live at home, and is relatively healthy. Patient presents with an ulceration on her left heel, which has been present for several months. An ulceration on the right lateral foot, near the base of the fifth digit, is relatively recShe also has an ulceration on her left buttock. The patient has recently been treated with oral antibiotics, which have included Augmentin and Levaquin. The patient is weak and debilitated. She does not ambulate. She spends a good part of her day in a wheelchair. She sleeps in a hospital bed. She suffers from dementia and Alzheimer's disease, and interacts minimally. She is incontinent of urine and stool. She suffers from frequent urinary tract infections and recurrent episodes of pseudomembranous enterocolitis (C. difficile infections). The patient's appetite is said to be poor. She is provided with nutritional supp lements at the nursing facility. Past Medical History Past Medical History: Chronic Problems Foot ulcer, right (Chronic) Ulcer of left heel (Chronic) Debility (Chronic) Dementia (Chronic) Alzheimer's disease (Chronic) History of myocardial infarction (Chronic) CHF (congestive heart failure) (Chronic) History of syncope (Chronic) Recurrent Clostridium difficile diarrhea (Chronic) Incontinence of feces (Chronic) Incontinence of urine (Chronic) History of recurrent UTI (urinary tract infection) (Chronic) Rheumatoid arthritis (Chronic) Atrial fibrillation (Chronic) Hypertension (Chronic) GERD (gastroesophageal reflux disease) (Chronic) Obstructive sleep apnea (Chronic) Hyperlipidemia (Chronic) Malnutrition (Chronic) Surgical History: - - Patient has a history of varicose vein surgery in her lower extremities. She has undergone bilateral total knee replacement surgeries. Hip replacement has been performed unilaterally. Patient has undergone hysterectomy. She has had bunionectomy and nasal septoplasty. She is a Ab0. Allergies/Adverse Reactions: Allergies No Known Allergies Allergy (Verified 04/25/18 14:49) Home Medications: Ambulatory Orders Medication Instructions Recorded Acetaminophen [Tylenol] 650 mg PO Q4H PRN PRN 04/25/18 Albuterol Sulfate 2.5 mg IH Q4H PRN PRN 04/25/18 Amoxicillin/Potassium Clav 1 each PO BID 04/25/18 [Augmentin 875-125 Tablet] Aspirin [Adult Low Dose Aspirin EC] 81 mg PO DAILY 04/25/18 Calcium Carbonate/Simethicone 1 each PO Q4H PRN PRN 04/25/18 [Maalox Advanced Tab Chew] Cholecalciferol (Vitamin D3) 5,000 unit PO DAILY 04/25/18 [Vitamin D3] Donepezil HCl [Aricept] 10 mg PO DAILY 04/25/18 Fluoxetine [Prozac] 40 mg PO DAILY 04/25/18 Guaifenesin [Tussin] 100 mg PO Q4H PRN PRN 04/25/18 Hydroxychloroquine [Plaquenil] 200 mg PO BIDCM 04/25/18 Lactobacillus Acidophilus 1 each PO BID 04/25/18 [Acidophilus] Magnesium Hydroxide [Milk Of 30 ml PO DAILY PRN PRN 04/25/18 Magnesia] Memantine HCl [Memantine HCl ER] 28 mg PO DAILY 04/25/18 Mirtazapine [Remeron] 15 mg PO QHS 04/25/18 Nitroglycerin (INPATIENT USE) 0.4 mg SUBLINGUAL Q5M PRN 04/25/18 [Nitrostat] Pantoprazole Sodium [Protonix] 40 mg PO DAILY 04/25/18 Potassium Chloride [Klor-Con] 20 meq PO DAILY 04/25/18 Prednisone 10 mg PO DAILY 04/25/18 Ranolazine [Ranexa] 500 mg PO BID 04/25/18 Rosuvastatin Calcium [Crestor] 20 mg PO DAILY 04/25/18 Sotalol HCl [Sotalol] 80 mg PO BID 04/25/18 Trimethoprim [Trimpex] 200 mg PO DAILY 04/25/18 Warfarin [Coumadin (PBKC)] 2 mg PO DAILY 04/25/18 levoFLOXacin tablet [Levaquin 500 mg PO DAILY 04/25/18 tablet] Smoking Status: Never smoker Tobacco Use: Non-smoker Review of Systems Constitutional: Denies: Chills, Fever, Weight Change Eyes: Denies: Pain, Vision Change HEENT: Denies: Difficulty Hearing, Difficulty Swallowing, Sinus Congestion Cardiovascular: Denies: Chest Pain, Palpitations Respiratory: Denies: Cough, Shortness of Breath Gastrointestinal: Denies: Diarrhea, Nausea, Vomiting Genitourinary: Denies: Dysuria, Hematuria Endocrine: Denies: Heat/ Cold Intolerance, Polydipsia, Polyuria Hematologic/ Lymphatic: Denies: Easy Bruising, Easy Bleeding - Physical Exam Vital Signs Temp Pulse Resp BP 96.8 F L 61 16 110/77 07/05/18 11:11 07/05/18 11:11 07/05/18 11:11 07/05/18 11:11 General: Alert, Oriented x3, Cooperative, No apparent distress, Well developed, Well nourished HEENT: Atraumatic, PERRLA, EOMI, Normocephalic Oral: Moist Mucosa Neck: No JVD Lungs: Normal air movement Abdomen: Non-Distended Extremities: No clubbing, No cyanosis, No edema, No Calf Tenderness, - - No significant swelling or edema is noted in the lower extremities. The ulceration on the lateral aspect of the right foot, near the base of the right fifth toe, is little changed in size. Dimensions are documented elsewhere. The base of the ulceration contains a relatively large amount of bioburden and nonviable tissue. Ulceration on the left heel also contains a relatively large amount of bioburden and nonviable tissue. Dimensions are documented elsewhere. There is no obvious sign of infection or cellulitis. Skin: No rashes Wound Measurements and Assessment WC - Nurse 1 - General Ulcer Measurement Start: 07/05/18 11:11 Freq: Status: Active Protocol: Activity Type Activity Date Activity User E-Sign Co-Sign Detail Recorded Client Recorded Date Recorded By Document 07/05/18 11:11 DL [id number] 07/05/18 11:20 DL 07/05/18 11:11 Wound Center Nurse 1 [Ulcer Assessment] #2 right lateral 5th metatarsal -Current Size (cm) - Length 1 -Current Size (cm) - Width 0.7 -Current Size (cm) - Depth 0.2 -Total Square Cm 0.7 -Photo Taken No -Exudate Amt Small -Exudate Type Serosanguineous -Wound Margin Distinct, Outline Attached -Granulation Amt Small (1-33%) -Granulation Quality Red -Necrosis Amt Small (1-33%) -Necrotic Tissue Type Adherent Slough -Structure Exposed N/A -Texture (Dorina-wound Skin Appearance) Scarring -Moisture (Dorina-wound Skin Appearance Dry/Scaly ) -Color (Dorina-wound Skin Appearance) Hemosiderin Staining -Temperature (Dorina-wound Skin No Abnormality Appearance) (Pt Warm) -Tenderness on Palpation (Dorina-wound No Skin Appearance) -Ulcer Cleansing Rinsed/ Irrigated with Saline -Anesthetic Used 5% Lidocaine Gel #1 Left Heel -Current Size (cm) - Length 0.6 -Current Size (cm) - Width 0.5 -Current Size (cm) - Depth 0.4 -Total Square Cm 0.30 -Classification - Thickness Full Thickness without Exposed Support Structure -Exudate Amt Medium -Exudate Type Serosanguineous -Granulation Amt Medium (34-66%) -Granulation Quality [place] -Slough/Fibrin Yes -Necrosis Amt Medium (34-66%) -Necrotic Tissue Type Adherent Slough -Structure Exposed Fat Layer Exposed -Texture (Dorina-wound Skin Appearance) Assessed -Moisture (Dorina-wound Skin Appearance Assessed ) -Color (Dorina-wound Skin Appearance) Assessed -Temperature (Dorina-wound Skin No Abnormality Appearance) (Pt Warm) -Tenderness on Palpation (Dorina-wound No Skin Appearance) -Ulcer Cleansing Rinsed/ Irrigated with Saline -Foul Odor after Cleansing No -Anesthetic Used 4% Lidocaine Solution WC - Nurse 2 - General Ulcer CM Notes Start: 07/05/18 11:11 Freq: Status: Active Protocol: Activity Type Activity Date Activity User E-Sign Co-Sign Detail Recorded Client Recorded Date Recorded By Document 07/05/18 11:52 DV [id number] 07/05/18 11:56 DV 07/05/18 11:52 Wound Center Nurse 2 [Procedure/Treatment] #2 right lateral 5th metatarsal -Time 11:52 -Correct Patient Yes -Correct Side, Site, Position Yes -Correct Procedure Yes -Procedure Performed Yes -Type of Procedure Debridement -Clinical Debridement Subcutaneous -Post Debridement Size (cm) - Length 1.0 -Post Debridement Size (cm) - Width 1.0 -Post Debridement Size (cm) - Depth 0.2 -Total Square Cm 1.00 -Wound/Ulcer Outcome Not Healed -Foul Odor after Cleansing No -Bioengineered Tissue No -Bleeding Controlled with Pressure -Treatment Response Procedure Tolerated Well #1 Left Heel -Time 11:54 -Correct Patient Yes -Correct Side, Site, Position Yes -Correct Procedure Yes -Procedure Performed Yes -Type of Procedure Debridement -Clinical Debridement Subcutaneous -Post Debridement Size (cm) - Length 1.0 -Post Debridement Size (cm) - Width 0.5 -Post Debridement Size (cm) - Depth 0.5 -Total Square Cm 0.50 -Wound/Ulcer Outcome Not Healed -Ulcer Cleansing Rinsed/ Irrigated with Saline -Foul Odor after Cleansing No -Bioengineered Tissue No -Bleeding Controlled with Pressure -Offloading No -Treatment Response Procedure Tolerated Well [See Physician Procedure note for Specifics] Pain Scale: 0-10 Numeric [Pain] -Is Patient Pain Free? Yes Musculoskeletal: Muscle Wasting - Lower extremities Neurological: Cranial nerves II-XII grossly intact, Neuro grossly intact Psych/Mental Status: Normal Affect Debridement Note Post-Debridement Measurements/Treatment WC - Nurse 2 - General Ulcer CM Notes Start: 07/05/18 11:11 Freq: Status: Active Protocol: Activity Type Activity Date Activity User E-Sign Co-Sign Detail Recorded Client Recorded Date Recorded By Document 07/05/18 11:52 DV [id number] 07/05/18 11:56 DV 07/05/18 11:52 Wound Center Nurse 2 #2 right lateral 5th metatarsal -Time 11:52 -Correct Patient Yes -Correct Side, Site, Position Yes -Correct Procedure Yes -Procedure Performed Yes -Type of Procedure Debridement -Clinical Debridement Subcutaneous -Post Debridement Size (cm) - Length 1.0 -Post Debridement Size (cm) - Width 1.0 -Post Debridement Size (cm) - Depth 0.2 -Total Square Cm 1.00 -Wound/Ulcer Outcome Not Healed -Foul Odor after Cleansing No -Bioengineered Tissue No -Bleeding Controlled with Pressure -Treatment Response Procedure Tolerated Well #1 Left Heel -Time 11:54 -Correct Patient Yes -Correct Side, Site, Position Yes -Correct Procedure Yes -Procedure Performed Yes -Type of Procedure Debridement -Clinical Debridement Subcutaneous -Post Debridement Size (cm) - Length 1.0 -Post Debridement Size (cm) - Width 0.5 -Post Debridement Size (cm) - Depth 0.5 -Total Square Cm 0.50 -Wound/Ulcer Outcome Not Healed -Ulcer Cleansing Rinsed/ Irrigated with Saline -Foul Odor after Cleansing No -Bioengineered Tissue No -Bleeding Controlled with Pressure -Offloading No -Treatment Response Procedure Tolerated Well Pain Scale: 0-10 Numeric Is Patient Pain Free? Yes Laterality: Right - Lateral foot Type of Debridement: Excisional debridement Anesthesia Used: 5% Lidocaine Gel Depth: Down to and including healthy tissue, in the subcutaneous layer Percentage of wound debrided: 100 Instrument Used: 5mm curette Tissue Removed: Bioburden and nonviable tissue Severity: Fat Layer Exposed Amount of bleeding with debridement: Mild Bleeding Controlled with: Compression and gauze Patient tolerated procedure well - Additional Wound Laterality: Left - Heel Type of Debridement: Excisional debridement Anesthesia Used: 5% Lidocaine Gel Depth: Down to and including healthy tissue, in the subcutaneous layer Percentage of wound debrided: 100 Instrument Used: 5mm curette Tissue Removed: Nonviable tissue and bioburden Severity: Fat Layer Exposed Amount of bleeding with debridement: Mild Bleeding Controlled with: Compression and gauze Patient tolerated procedure: Patient tolerated procedure well Assessment/Plan Active Problems Foot ulcer, right (Chronic) Ulcer of left heel (Chronic) Debility (Chronic) Dementia (Chronic) Alzheimer's disease (Chronic) Assessment: This is a 78-year-old female with multiple medical problems, as outlined above. The patient suffers from dementia and Alzheimer's disease. She is very limited functionally. She does not ambulate. She presented with ulcerations of the right lateral foot and the left heel. The ulceration on the left buttock remains completely healed. These appear to be pressure related. They are a stage III ulceration in each case. The patient has undergone a bat damien of diagnostic tests the nursing facility at which she is a resident. Lab results are as follows: White blood count 8.7, hemoglobin 11.6, hematocrit 35.9, platelets 273,000, glucose 77, BUN 19, creatinine 0.5, sodium 140, potassium 3.7, chloride 104, calcium 8.9, alkaline phosphatase 63, ALT 20, AST 16, total protein 5.7, albumin 2.9, prealbumin 27, bilirubin 0.44. A noninvasive lower extremity arterial ultrasound study was performed, though only of the left lower extremity. The impression indicates diminished to nonexistent flow in the calf vessels including the tibial peroneal and dorsalis pedis arteries. We have been told that a follow-up study has been performed of the right lower extremity, though no results have been received by our facility. A noninvasive lower extremity arterial study has been performed at [facility]. Triphasic waveforms were noted in ankle level bilaterally. Resting ankle- brachial indices could not be determined due to the noncompressibility of the vasculature bilaterally. Right digital-brachial index was 0.43. The left digital-brachial index was 0.99. This is suggestive of moderate to severe arterial impairment at digital level of the right lower extremity. The relative normalcy of the left digital-brachial index may be due to arterial calcification, a matter for which clinical correlation is advised. The patient underwent evaluation in consultation by a vascular surgeon several days ago, Dr. Garza, in [place], [place]. We are awaiting a copy of the patient's consultation note. However, according to the patient's daughter, revascularization or intervention was not felt to be warranted due to the patient's debility and limited functional state. Plan: Offloading measures have been implemented, and are to be continued. The issue of offloading measures has been discussed thoroughly with the patient's daughter, who was again at the bedside. We have been able to obtain a low air- loss mattress for the patient's hospital bed. We have also successfully obtained a Roho cushion for the patient's wheelchair. Frequent repositioning has been recommended, and has now been implemented. We are to transition to the use of collagenase Santyl topically to each of the patient's lower extremity ulcerations. Collagenase Santyl will be applied topically on a daily basis. Nutritional supplementation has been recommended. The patient will return in 1 week for reassessment, and has been placed in the palliative care pathway. The patient's buttock ulceration appears to be healed, and will be left undisturbed, though reevaluated weekly. The patient is to continue with nutritional supplements. The patient remains on systemic anticoagulation therapy. The patient is not a smoker. Influenza vaccine was not administered today. Patient weighs 199 pounds. She stands 5 feet 10 inches tall. Her BMI is 28.5. This places the patient in the overweight category, which normally would warrant mild weight loss. However, attempts at adequate nutrition appear to prevail. Nutritional supplements have been encouraged.
[2018-07-19 11:16] VITALS: BP 96/95; PULSE 76; RESP 18; TEMP 36.1; BMI 28.5
--- NOTE | 2018-07-19 12:25 | HP.PCM_ITS ---
(1) Foot ulcer, right Status: Chronic Current Visit: Yes Qualifiers: Non-pressure ulcer stage: with fat layer exposed Code(s): L97.519 - Non-pressure chronic ulcer of other part of right foot with unspecified severity (2) Ulcer of left heel Status: Chronic Current Visit: Yes Qualifiers: Non-pressure ulcer stage: with fat layer exposed Code(s): L97.429 - Non-pressure chronic ulcer of left heel and midfoot with unspecified severity (3) Debility Status: Chronic Current Visit: Yes Code(s): R53.81 - Other malaise (4) Dementia Status: Chronic Current Visit: Yes Code(s): F03.90 - Unspecified dementia without behavioral disturbance (5) Alzheimer's disease Status: Chronic Current Visit: Yes Code(s): G30.9 - Alzheimer's disease, unspecified; F02.80 - Dementia in other diseases classified elsewhere without behavioral disturbance (6) History of myocardial infarction Status: Chronic Current Visit: No Code(s): I25.2 - Old myocardial infarction (7) CHF (congestive heart failure) Status: Chronic Current Visit: No Code(s): I50.9 - Heart failure, unspecified (8) History of syncope Status: Chronic Current Visit: No Code(s): Z87.898 - Personal history of other specified conditions (9) Recurrent Clostridium difficile diarrhea Status: Chronic Current Visit: No Code(s): A04.71 - Enterocolitis due to Clostridium difficile, recurrent (10) Incontinence of feces Status: Chronic Current Visit: No Code(s): R15.9 - Full incontinence of feces (11) Incontinence of urine Status: Chronic Current Visit: No Code(s): R32 - Unspecified urinary incontinence (12) History of recurrent UTI (urinary tract infection) Status: Chronic Current Visit: No Code(s): Z87.440 - Personal history of urinary (tract) infections (13) Rheumatoid arthritis Status: Chronic Current Visit: No Code(s): M06.9 - Rheumatoid arthritis, unspecified (14) Atrial fibrillation Status: Chronic Current Visit: No Code(s): I48.91 - Unspecified atrial fibrillation (15) Hypertension Status: Chronic Current Visit: No Code(s): I10 - Essential (primary) hypertension (16) GERD (gastroesophageal reflux disease) Status: Chronic Current Visit: No Code(s): K21.9 - Gastro-esophageal reflux disease without esophagitis (17) Obstructive sleep apnea Status: Chronic Current Visit: No Code(s): G47.33 - Obstructive sleep apnea (adult) (pediatric) (18) Hyperlipidemia Status: Chronic Current Visit: No Code(s): E78.5 - Hyperlipidemia, unspecified (19) Malnutrition Status: Chronic Current Visit: No Code(s): E46 - Unspecified protein-calorie malnutrition History of Present Illness Chief Complaint: Chronic, nonhealing ulceration of the left heel and the right lateral foot History of Wound: This is a 78-year-old female who is a resident of [facility] in [place], [place]. She has been a resident there for approximately 6-8 months. She was institutionalized as a result of declining function, debility, and frequent falls. Her continues to live at home, and is relatively healthy. Patient presents with an ulceration on her left heel, which has been present for several months. An ulceration on the right lateral foot, near the base of the fifth digit, is relatively recShe also has an ulceration on her left buttock. The patient has recently been treated with oral antibiotics, which have included Augmentin and Levaquin. The patient is weak and debilitated. She does not ambulate. She spends a good part of her day in a wheelchair. She sleeps in a hospital bed. She suffers from dementia and Alzheimer's disease, and interacts minimally. She is incontinent of urine and stool. She suffers from frequent urinary tract infections and recurrent episod es of pseudomembranous enterocolitis (C. difficile infections). The patient's appetite is said to be poor. She is provided with nutritional supplements at the nursing facility. Past Medical History Past Medical History: Chronic Problems Foot ulcer, right (Chronic) Ulcer of left heel (Chronic) Debility (Chronic) Dementia (Chronic) Alzheimer's disease (Chronic) History of myocardial infarction (Chronic) CHF (congestive heart failure) (Chronic) History of syncope (Chronic) Recurrent Clostridium difficile diarrhea (Chronic) Incontinence of feces (Chronic) Incontinence of urine (Chronic) History of recurrent UTI (urinary tract infection) (Chronic) Rheumatoid arthritis (Chronic) Atrial fibrillation (Chronic) Hypertension (Chronic) GERD (gastroesophageal reflux disease) (Chronic) Obstructive sleep apnea (Chronic) Hyperlipidemia (Chronic) Malnutrition (Chronic) Surgical History: - - Patient has a history of varicose vein surgery in her lower extremities. She has undergone bilateral total knee replacement surgeries. Hip replacement has been performed unilaterally. Patient has undergone hysterectomy. She has had bunionectomy and nasal septoplasty. She is a Ab0. Allergies/Adverse Reactions: Allergies No Known Allergies Allergy (Verified 04/25/18 14:49) Home Medications: Ambulatory Orders Medication Instructions Recorded Acetaminophen [Tylenol] 650 mg PO Q4H PRN PRN 04/25/18 Albuterol Sulfate 2.5 mg IH Q4H PRN PRN 04/25/18 Amoxicillin/Potassium Clav 1 each PO BID 04/25/18 [Augmentin 875-125 Tablet] Aspirin [Adult Low Dose Aspirin EC] 81 mg PO DAILY 04/25/18 Calcium Carbonate/Simethicone 1 each PO Q4H PRN PRN 04/25/18 [Maalox Advanced Tab Chew] Cholecalciferol (Vitamin D3) 5,000 unit PO DAILY 04/25/18 [Vitamin D3] Donepezil HCl [Aricept] 10 mg PO DAILY 04/25/18 Fluoxetine [Prozac] 40 mg PO DAILY 04/25/18 Guaifenesin [Tussin] 100 mg PO Q4H PRN PRN 04/25/18 Hydroxychloroquine [Plaquenil] 200 mg PO BIDCM 04/25/18 Lactobacillus Acidophilus 1 each PO BID 04/25/18 [Acidophilus] Magnesium Hydroxide [Milk Of 30 ml PO DAILY PRN PRN 04/25/18 Magnesia] Memantine HCl [Memantine HCl ER] 28 mg PO DAILY 04/25/18 Mirtazapine [Remeron] 15 mg PO QHS 04/25/18 Nitroglycerin (INPATIENT USE) 0.4 mg SUBLINGUAL Q5M PRN 04/25/18 [Nitrostat] Pantoprazole Sodium [Protonix] 40 mg PO DAILY 04/25/18 Potassium Chloride [Klor-Con] 20 meq PO DAILY 04/25/18 Prednisone 10 mg PO DAILY 04/25/18 Ranolazine [Ranexa] 500 mg PO BID 04/25/18 Rosuvastatin Calcium [Crestor] 20 mg PO DAILY 04/25/18 Sotalol HCl [Sotalol] 80 mg PO BID 04/25/18 Trimethoprim [Trimpex] 200 mg PO DAILY 04/25/18 Warfarin [Coumadin (PBKC)] 2 mg PO DAILY 04/25/18 levoFLOXacin tablet [Levaquin 500 mg PO DAILY 04/25/18 tablet] Smoking Status: Never smoker Tobacco Use: Non-smoker Review of Systems Constitutional: Denies: Chills, Fever, Weight Change Eyes: Denies: Pain, Vision Change HEENT: Denies: Difficulty Hearing, Difficulty Swallowing, Sinus Congestion Cardiovascular: Denies: Chest Pain, Palpitations Respiratory: Denies: Cough, Shortness of Breath Gastrointestinal: Denies: Diarrhea, Nausea, Vomiting Genitourinary: Denies: Dysuria, Hematuria Endocrine: Denies: Heat/ Cold Intolerance, Polydipsia, Polyuria Hematologic/ Lymphatic: Denies: Easy Bruising, Easy Bleeding - Physical Exam Vital Signs Temp Pulse Resp BP 97 F L 76 18 96/95 H 07/19/18 11:16 07/19/18 11:16 07/19/18 11:16 07/19/18 11:16 General: Alert, Oriented x3, Cooperative, No apparent distress, Well developed, Well nourished HEENT: Atraumatic, PERRLA, EOMI, Normocephalic Oral: Moist Mucosa Neck: No JVD Lungs: Normal air movement Abdomen: Non-Distended Extremities: No clubbing, No cyanosis, No edema, No Calf Tenderness, - - The ulceration persists on the right lateral foot, near the base of the right fifth digit. The ulceration also persists on the left posterior heel. Both demonstrate a moderate amount of bioburden. There is no obvious sign of infection or cellulitis. Dimensions are documented elsewhere. There is also noted to be a small satellite ulceration relative to the left heel ulcer, suspected to be due to pressure phenomenon. This will bear observation. Skin: No rashes Wound Measurements and Assessment WC - Nurse 1 - General Ulcer Measurement Start: 07/05/18 11:11 Freq: Status: Active Protocol: Activity Type Activity Date Activity User E-Sign Co-Sign Detail Recorded Client Recorded Date Recorded By Document 07/19/18 11:16 DL [id number] 07/19/18 11:28 DL 07/19/18 11:16 Wound Center Nurse 1 [Ulcer Assessment] #2 right lateral 5th metatarsal -Current Size (cm) - Length 1.3 -Current Size (cm) - Width 0.5 -Current Size (cm) - Depth 0.1 -Total Square Cm 0.65 -Photo Taken No -Exudate Amt Small -Exudate Type Serosanguineous -Wound Margin Distinct, Outline Attached -Granulation Amt Small (1-33%) -Granulation Quality [place] -Necrosis Amt Small (1-33%) -Necrotic Tissue Type Adherent Slough -Structure Exposed N/A -Texture (Dorina-wound Skin Appearance) Scarring -Moisture (Dorina-wound Skin Appearance Maceration ) -Color (Dorina-wound Skin Appearance) Hemosiderin Staining -Temperature (Dorina-wound Skin No Abnormality Appearance) (Pt Warm) -Tenderness on Palpation (Dorina-wound No Skin Appearance) -Ulcer Cleansing Wound Cleanser -Foul Odor after Cleansing No -Anesthetic Used 5% Lidocaine Gel #1 Left Heel -Current Size (cm) - Length 0.6 -Current Size (cm) - Width 1.4 -Current Size (cm) - Depth 0.1 -Total Square Cm 0.84 -Photo Taken No -Exudate Amt Small -Exudate Type Serosanguineous -Wound Margin Distinct, Outline Attached -Granulation Amt Medium (34-66%) -Granulation Quality Red -Necrosis Amt Medium (34-66%) -Necrotic Tissue Type Adherent Slough -Structure Exposed N/A -Texture (Dorina-wound Skin Appearance) Scarring -Moisture (Dorina-wound Skin Appearance Maceration ) -Color (Dorina-wound Skin Appearance) Hemosiderin Staining -Temperature (Dorina-wound Skin No Abnormality Appearance) (Pt Warm) -Tenderness on Palpation (Dorina-wound No Skin Appearance) -Ulcer Cleansing Wound Cleanser -Foul Odor after Cleansing No -Anesthetic Used 5% Lidocaine Gel Musculoskeletal: Muscle Wasting - Lower extremities Neurological: Cranial nerves II-XII grossly intact, Neuro grossly intact Psych/Mental Status: Normal Affect, Appropriate Debridement Note Post-Debridement Measurements/Treatment WC - Nurse 2 - General Ulcer CM Notes Start: 07/05/18 11:11 Freq: Status: Active Protocol: Activity Type Activity Date Activity User E-Sign Co-Sign Detail Recorded Client Recorded Date Recorded By Document 07/05/18 11:52 DV [id number] 07/05/18 11:56 DV 07/05/18 11:52 Wound Center Nurse 2 #2 right lateral 5th metatarsal -Time 11:52 -Correct Patient Yes -Correct Side, Site, Position Yes -Correct Procedure Yes -Procedure Performed Yes -Type of Procedure Debridement -Clinical Debridement Subcutaneous -Post Debridement Size (cm) - Length 1.0 -Post Debridement Size (cm) - Width 1.0 -Post Debridement Size (cm) - Depth 0.2 -Total Square Cm 1.00 -Wound/Ulcer Outcome Not Healed -Foul Odor after Cleansing No -Bioengineered Tissue No -Bleeding Controlled with Pressure -Treatment Response Procedure Tolerated Well #1 Left Heel -Time 11:54 -Correct Patient Yes -Correct Side, Site, Position Yes -Correct Procedure Yes -Procedure Performed Yes -Type of Procedure Debridement -Clinical Debridement Subcutaneous -Post Debridement Size (cm) - Length 1.0 -Post Debridement Size (cm) - Width 0.5 -Post Debridement Size (cm) - Depth 0.5 -Total Square Cm 0.50 -Wound/Ulcer Outcome Not Healed -Ulcer Cleansing Rinsed/ Irrigated with Saline -Foul Odor after Cleansing No -Bioengineered Tissue No -Bleeding Controlled with Pressure -Offloading No -Treatment Response Procedure Tolerated Well Pain Scale: 0-10 Numeric Is Patient Pain Free? Yes Laterality: Right - Lateral foot Type of Debridement: Excisional debridement Anesthesia Used: 5% Lidocaine Gel Depth: Down to and including healthy tissue, in the subcutaneous layer Percentage of wound debrided: 100 Instrument Used: 5mm curette Tissue Removed: Nonviable tissue and bioburden Severity: Fat Layer Exposed Amount of bleeding with debridement: Mild Bleeding Controlled with: Compression and gauze Patient tolerated procedure well - Additional Wound Laterality: Left - Heel Type of Debridement: Excisional debridement Anesthesia Used: 5% Lidocaine Gel Depth: Down to and including healthy tissue, in the subcutaneous layer Percentage of wound debrided: 100 Instrument Used: 5mm curette Tissue Removed: Nonviable tissue and bioburden Severity: Fat Layer Exposed Amount of bleeding with debridement: Mild Bleeding Controlled with: Compression and gauze Patient tolerated procedure: Patient tolerated procedure well Assessment/Plan Active Problems Foot ulcer, right (Chronic) Ulcer of left heel (Chronic) Debility (Chronic) Dementia (Chronic) Alzheimer's disease (Chronic) Assessment: This is a 78-year-old female with multiple medical problems, as outlined above. The patient suffers from dementia and Alzheimer's disease. She is very limited functionally. She does not ambulate. She presented with ulcerations of the right lateral foot and the left heel. The ulceration on the left buttock remains completely healed. These appear to be pressure related. They are a stage III ulceration in each case. The patient has undergone a battery of diagnostic tests the nursing facility at which she is a resident. Lab results are as follows: White blood count 8.7, hemoglobin 11.6, hematocrit 35.9, platelets 273,000, glucose 77, BUN 19, creatinine 0.5, sodium 140, potassium 3.7, chloride 104, calcium 8.9, alkaline phosphatase 63, ALT 20, AST 16, total protein 5.7, albumin 2.9, prealbumin 27, bilirubin 0.44. A noninvasive lower extremity arterial ultrasound study was performed, though only of the left lower extremity. The impression indicates diminished to nonexistent flow in the calf vessels including the tibial peroneal and dorsalis pedis arteries. We have been told that a follow-up study has been performed of the right lower extremity, though no results have been received by our facility. A noninvasive lower extremity arterial study has been performed at [facility]. Triphasic waveforms were noted in ankle level bilaterally. Resting ankle-brachial indices could not be determined due to the nonco mpressibility of the vasculature bilaterally. Right digital-brachial index was 0.43. The left digital-brachial index was 0.99. This is suggestive of moderate to severe arterial impairment at digital level of the right lower extremity. The relative normalcy of the left digital-brachial index may be due to arterial calcification, a matter for which clinical correlation is advised. The patient underwent evaluation in consultation by a vascular surgeon several days ago, Dr. Garza, in [place], [place]. We are awaiting a copy of the patient's consultation note. However, according to the patient's daughter, revascularization or intervention was not felt to be warranted due to the patient's debility and limited functional state. Plan: Offloading measures have been implemented, and are to be continued. The issue of offloading measures has been discussed thoroughly with the patient's daughter, who was again at the bedside. We have been able to obtain a low air- loss mattress for the patient's hospital bed. We have also successfully obtained a Roho cushion for the patient's wheelchair. Frequent repositioning has been recommended, and has now been implemented. We are to transition to the use of collagenase Santyl topically to each of the patient's lower extremity ulcerations. Collagenase Santyl will be applied topically on a daily basis. Nutritional supplementation has been recommended. The patient will return in 2 weeks for reassessment, and has been placed in the palliative care pathway. The patient's buttock ulceration appears to be healed, and will be left undisturbed, though reevaluated weekly. The patient is to continue with nutritional supplements. The patient remains on systemic anticoagulation therapy. The patient is not a smoker. Influenza vaccine was not administered today. Patient weighs 199 pounds. She stands 5 feet 10 inches tall. Her BMI is 28.5. This places the patient in the overweight category, which normally would warrant mild weight loss. However, attempts at adequate nutrition appear to prevail. Nutritional supplements have been encouraged.
== END 2018-07-22 23:59 ==
LOC: WC 11:00
PROVIDERS: Referring Provider Surgery; Visit Provider Surgery
DX: L89.623 Pressure ulcer of left heel, stage 3 (principal); L89.893 Pressure ulcer of other site, stage 3; G30.9 Alzheimer's disease, unspecified; F02.80 Dementia in other diseases classified elsewhere, unspecified severity, without behavioral disturbance, psychotic disturbance, mood disturbance, and anxiety; I25.2 Old myocardial infarction; I50.9 Heart failure, unspecified; M06.9 Rheumatoid arthritis, unspecified; I11.0 Hypertensive heart disease with heart failure; K21.9 Gastro-esophageal reflux disease without esophagitis; I48.2 Chronic atrial fibrillation; E78.5 Hyperlipidemia, unspecified; G47.33 Obstructive sleep apnea (adult) (pediatric)
CPT/HCPCS: 11042

== ENCOUNTER 2018-08-02 10:36 | Outpatient (RCR) | payer MEDICARE, SELFPAY ==
[2018-07-23 00:31] VITALS: BP 96/95; PULSE 76; RESP 18; TEMP 36.1
[2018-08-02 10:58] VITALS: BP 121/74; PULSE 71; RESP 16; TEMP 35.7; BMI 28.5
--- NOTE | 2018-08-02 12:13 | PCM.WC.HP ---
(1) Foot ulcer, right Status: Chronic Current Visit: Yes Qualifiers: Non-pressure ulcer stage: with fat layer exposed Code(s): L97.519 - Non-pressure chronic ulcer of other part of right foot with unspecified severity (2) Ulcer of left heel Status: Chronic Current Visit: Yes Qualifiers: Non-pressure ulcer stage: with fat layer exposed Code(s): L97.429 - Non-pressure chronic ulcer of left heel and midfoot with unspecified severity (3) Debility Status: Chronic Current Visit: Yes Code(s): R53.81 - Other malaise (4) Dementia Status: Chronic Current Visit: Yes Qualifiers: Dementia type: Alzheimer's disease Code(s): F03.90 - Unspecified dementia without behavioral disturbance (5) Alzheimer's disease Status: Chronic Current Visit: Yes Code(s): G30.9 - Alzheimer's disease, unspecified; F02.80 - Dementia in other diseases classified elsewhere without behavioral disturbance (6) History of myocardial infarction Status: Chronic Current Visit: No Code(s): I25.2 - Old myocardial infarction (7) CHF (congestive heart failure) Status: Chronic Current Visit: No Code(s): I50.9 - Heart failure, unspecified (8) History of syncope Status: Chronic Current Visit: No Code(s): Z87.898 - Personal history of other specified conditions (9) Incontinence of feces Status: Chronic Current Visit: No Code(s): R15.9 - Full incontinence of feces (10) Incontinence of urine Status: Chronic Current Visit: No Code(s): R32 - Unspecified urinary incontinence (11) History of recurrent UTI (urinary tract infection) Status: Chronic Current Visit: No Code(s): Z87.440 - Personal history of urinary (tract) infections (12) Rheumatoid arthritis Status: Chronic Current Visit: No Code(s): M06.9 - Rheumatoid arthritis, unspecified (13) Atrial fibrillation Status: Chronic Current Visit: No Code(s): I48.91 - Unspecified atrial fibrillation (14) Hypertension Status: Chronic Current Visit: No Code(s): I10 - Essential (primary) hypertension (15) GERD (gastroesophageal reflux disease) Status: Chronic Current Visit: No Code(s): K21.9 - Gastro-esophageal reflux disease without esophagitis (16) Obstructive sleep apnea Status: Chronic Current Visit: No Code(s): G47.33 - Obstructive sleep apnea (adult) (pediatric) (17) Hyperlipidemia Status: Chronic Current Visit: No Code(s): E78.5 - Hyperlipidemia, unspecified History of Present Illness Chief Complaint: Chronic, nonhealing ulceration of the left heel and the right lateral foot History of Wound: This is a 78-year-old female who is a resident of [facility] in [place], [place]. She has been a resident there for approximately 6-8 months. She was institutionalized as a result of declining function, debility, and frequent falls. Her continues to live at home, and is relatively healthy. Patient presents with an ulceration on her left heel, which has been present for several months. An ulceration on the right lateral foot, near the base of the fifth digit, is relatively recShe also has an ulceration on her left buttock. The patient has recently been treated with oral antibiotics, which have included Augmentin and Levaquin. The patient is weak and debilitated. She does not ambulate. She spends a good part of her day in a wheelchair. She sleeps in a hospital bed. She suffers from dementia and Alzheimer's disease, and interacts minimally. She is incontinent of urine and stool. She suffers from frequent urinary tract infections and recurrent episodes of pseudomembranous enterocolitis (C. difficile infections). The patient's appetite is said to be poor. She is provided with nutritional supplements at the nursing facility. Past Medical History Past Medical History: Chronic Problems Foot ulcer, right (Chronic) Ulcer of left heel (Chronic) Debility (Chronic) Dementia (Chronic) Alzheimer's disease (Chronic) History of myocardial infarction (Chronic) CHF (congestive heart failure) (Chronic) History of syncope (Chronic) Recurrent Clostridium difficile diarrhea (Chronic) Incontinence of feces (Chronic) Incontinence of urine (Chronic) History of recurrent UTI (urinary tract infection) (Chronic) Rheumatoid arthritis (Chronic) Atrial fibrillation (Chronic) Hypertension (Chronic) GERD (gastroesophageal reflux disease) (Chronic) Obstructive sleep apnea (Chronic) Hyperlipidemia (Chronic) Malnutrition (Chronic) Surgical History: - - Patient has a history of varicose vein surgery in her lower extremities. She has undergone bilateral total knee replacement surgeries. Hip replacement has been performed unilaterally. Patient has undergone hysterectomy. She has had bunionectomy and nasal septoplasty. She is a Ab0. Allergies/Adverse Reactions: Allergies No Known Allergies Allergy (Verified 04/25/18 14:49) Home Medications: Ambulatory Orders Medication Instructions Recorded Acetaminophen [Tylenol] 650 mg PO Q4H PRN PRN 04/25/18 Albuterol Sulfate 2.5 mg IH Q4H PRN PRN 04/25/18 Amoxicillin/Potassium Clav 1 each PO BID 04/25/18 [Augmentin 875-125 Tablet] Aspirin [Adult Low Dose Aspirin EC] 81 mg PO DAILY 04/25/18 Calcium Carbonate/Simethicone 1 each PO Q4H PRN PRN 04/25/18 [Maalox Advanced Tab Chew] Cholecalciferol (Vitamin D3) 5,000 unit PO DAILY 04/25/18 [Vitamin D3] Donepezil HCl [Aricept] 10 mg PO DAILY 04/25/18 Fluoxetine [Prozac] 40 mg PO DAILY 04/25/18 Guaifenesin [Tussin] 100 mg PO Q4H PRN PRN 04/25/18 Hydroxychloroquine [Plaquenil] 200 mg PO BIDCM 04/25/18 Lactobacillus Acidophilus 1 each PO BID 04/25/18 [Acidophilus] Magnesium Hydroxide [Milk Of 30 ml PO DAILY PRN PRN 04/25/18 Magnesia] Memantine HCl [Memantine HCl ER] 28 mg PO DAILY 04/25/18 Mirtazapine [Remeron] 15 mg PO QHS 04/25/18 Nitroglycerin (INPATIENT USE) 0.4 mg SUBLINGUAL Q5M PRN 04/25/18 [Nitrostat] Pantoprazole Sodium [Protonix] 40 mg PO DAILY 04/25/18 Potassium Chloride [Klor-Con] 20 meq PO DAILY 04/25/18 Prednisone 10 mg PO DAILY 04/25/18 Ranolazine [Ranexa] 500 mg PO BID 04/25/18 Rosuvastatin Calcium [Crestor] 20 mg PO DAILY 04/25/18 Sotalol HCl [Sotalol] 80 mg PO BID 04/25/18 Trimethoprim [Trimpex] 200 mg PO DAILY 04/25/18 Warfarin [Coumadin (PBKC)] 2 mg PO DAILY 04/25/18 levoFLOXacin tablet [Levaquin 500 mg PO DAILY 04/25/18 tablet] Smoking Status: Never smoker Tobacco Use: Non-smoker Review of Systems Constitutional: Denies: Chills, Fever, Weight Change Eyes: Denies: Pain, Vision Change HEENT: Denies: Difficulty Hearing, Difficulty Swallowing, Sinus Congestion Cardiovascular: Denies: Chest Pain, Palpitations Respiratory: Denies: Cough, Shortness of Breath Gastrointestinal: Denies: Diarrhea, Nausea, Vomiting Genitourinary: Denies: Dysuria, Hematuria Endocrine: Denies: Heat/ Cold Intolerance, Polydipsia, Polyuria Hematologic/ Lymphatic: Denies: Easy Bruising, Easy Bleeding - Physical Exam Vital Signs Temp Pulse Resp BP 96.2 F L 71 16 121/74 H 08/02/18 10:58 08/02/18 10:58 08/02/18 10:58 08/02/18 10:58 General: Alert, Oriented x3, Cooperative, No apparent distress, Well developed, Well nourished, Lethargic, - - Patient appears weak. HEENT: Atraumatic, PERRLA, EOMI, Normocephalic Oral: Moist Mucosa Neck: No JVD Lungs: Normal air movement Abdomen: Non-Distended Extremities: No clubbing, No cyanosis, No edema, No Calf Tenderness, - - Ulceration is noted on the right lateral foot, near the base of the right fifth digit. Dimensions are documented elsewhere. There is a moderate amount of bioburden. There is no obvious sign of infection or cellulitis. There is an ulceration also on the left posterior heel, with a very small superficial satellite ulceration. Dimensions are documented elsewhere. There is no sign of infection or cellulitis. There is a small amount of bioburden. Skin: No rashes Wound Measurements and Assessment WC - Nurse 1 - General Ulcer Measurement Start: 08/02/18 10:58 Freq: Status: Active Protocol: Activity Type Activity Date Activity User E-Sign Co-Sign Detail Recorded Client Recorded Date Recorded By Document 08/02/18 10:58 [facility] [id number] 08/02/18 11:14 [facility] 08/02/18 10:58 Wound Center Nurse 1 [Ulcer Assessment] #4- L DISTAL ACHILLES -Combined with other wound No -Current Size (cm) - Length 0.5 -Current Size (cm) - Width 0.5 -Current Size (cm) - Depth 0.1 -Total Square Cm 0.25 -Date of Last Picture (Recall this 08/02/18 field) -Photo Taken Yes -Epithelialization None Present -Tunneling No -Undermining/Tunneling No -Circular Undermining No -Exudate Amt Small -Exudate Type Serous -Wound Margin Distinct, Outline Attached -Granulation Amt Small (1-33%) -Granulation Quality [place] -Slough/Fibrin Yes -Necrosis Amt Medium (34-66%) -Necrotic Tissue Type Adherent Slough -Texture (Dorina-wound Skin Appearance) Assessed Scarring -Moisture (Dorina-wound Skin Appearance Assessed ) Maceration -Color (Dorina-wound Skin Appearance) Assessed Erythema Palor -Temperature (Dorina-wound Skin No Abnormality Appearance) (Pt Warm) -Tenderness on Palpation (Dorina-wound Yes Skin Appearance) -Ulcer Cleansing Rinsed/ Irrigated with Saline -Foul Odor after Cleansing No -Anesthetic Used 5% Lidocaine Gel #2 right lateral 5th metatarsal -Combined with other wound No -Current Size (cm) - Length 0.9 -Current Size (cm) - Width 0.8 -Current Size (cm) - Depth 0.3 -Total Square Cm 0.72 -Date of Last Picture (Recall this 08/02/18 field) -Photo Taken Yes -Epithelialization None Present -Tunneling No -Undermining/Tunneling Yes -Undermining/Tunneling Starts (O' 8 clock) -Undermining/Tunneling Ends (O'clock) 11 -Maximum Distance (cm) 0.2 -Circular Undermining No -Exudate Amt Small -Exudate Type Serous -Wound Margin Distinct, Outline Attached -Granulation Amt Small (1-33%) -Granulation Quality [place] -Slough/Fibrin Yes -Necrosis Amt Large (67-100%) -Necrotic Tissue Type Adherent Slough -Texture (Dorina-wound Skin Appearance) Assessed Scarring -Moisture (Dorina-wound Skin Appearance Assessed ) Maceration -Color (Dorina-wound Skin Appearance) Assessed Erythema Palor -Temperature (Dorina-wound Skin No Abnormality Appearance) (Pt Warm) -Tenderness on Palpation (Dorina-wound Yes Skin Appearance) -Ulcer Cleansing Rinsed/ Irrigated with Saline -Foul Odor after Cleansing No -Anesthetic Used 5% Lidocaine Gel #1 Left Heel -Combined with other wound No -Current Size (cm) - Length 0.7 -Current Size (cm) - Width 0.6 -Current Size (cm) - Depth 0.2 -Total Square Cm 0.42 -Date of Last Picture (Recall this 08/02/18 field) -Photo Taken Yes -Epithelialization None Present -Tunneling No -Undermining/Tunneling No -Circular Undermining No -Exudate Amt Small -Exudate Type Serous -Wound Margin Distinct, Outline Attached -Granulation Amt Small (1-33%) -Granulation Quality [place] -Slough/Fibrin Yes -Necrosis Amt Medium (34-66%) -Necrotic Tissue Type Adherent Slough -Texture (Dorina-wound Skin Appearance) Assessed Scarring -Moisture (Dorina-wound Skin Appearance Assessed ) Maceration -Color (Dorina-wound Skin Appearance) Assessed Erythema Palor -Temperature (Dorina-wound Skin No Abnormality Appearance) (Pt Warm) -Tenderness on Palpation (Dorina-wound Yes Skin Appearance) -Ulcer Cleansing Rinsed/ Irrigated with Saline -Foul Odor after Cleansing No -Anesthetic Used 5% Lidocaine Gel Musculoskeletal: Muscle Wasting - Lower extremities Neurological: Cranial nerves II-XII grossly intact, Neuro grossly intact Psych/Mental Status: Normal Affect, Appropriate, Alert and oriented to time, place, person, mood and affect Debridement Note Laterality: Right - Lateral foot Anesthesia Used: 5% Lidocaine Gel Depth: Down to and including healthy tissue, in the subcutaneous layer Percentage of wound debrided: 100 Instrument Used: 5mm curette Tissue Removed: Bioburden and nonviable tissue Severity: Fat Layer Exposed Amount of bleeding with debridement: Mild Bleeding Controlled with: Compression and gauze Patient tolerated procedure well - Additional Wound Laterality: Left - Posterior heel Type of Debridement: Excisional debridement Anesthesia Used: 5% Lidocaine Gel Depth: Down to and including healthy tissue, in the subcutaneous layer Percentage of wound debrided: 100 Instrument Used: 5mm curette Tissue Removed: Bioburden and nonviable tissue Severity: Fat Layer Exposed Amount of bleeding with debridement: Mild Bleeding Controlled with: Compression and gauze Patient tolerated procedure: Patient tolerated procedure well Assessment/Plan Active Problems Foot ulcer, right (Chronic) Ulcer of left heel (Chronic) Debility (Chronic) Dementia (Chronic) Alzheimer's disease (Chronic) Assessment: This is a 78-year-old female with multiple medical problems, as outlined above. The patient suffers from dementia and Alzheimer's disease. She is very limited functionally. She does not ambulate. She presented with ulcerations of the right lateral foot and the left heel. The ulceration on the left buttock remains completely healed. These appear to be pressure related. They are a stage III ulceration in each case. The patient has undergone a battery of diagnostic tests the nursing facility at which she is a resident. Lab results are as follows: White blood count 8.7, hemoglobin 11.6, hematocrit 35.9, platelets 273,000, glucose 77, BUN 19, creatinine 0.5, sodium 140, potassium 3.7, chloride 104, calcium 8.9, alkaline phosphatase 63, ALT 20, AST 16, total protein 5.7, albumin 2.9, prealbumin 27, bilirubin 0.44. A noninvasive lower extremity arterial ultrasound study was performed, though only of the left lower extremity. The impression indicates diminished to nonexistent flow in the calf vessels including the tibial peroneal and dorsalis pedis arteries. We have been told that a follow-up study has been performed of the right lower extremity, though no results have been received by our facility. A noninvasive lower extremity arterial study has been performed at [facility]. Triphasic waveforms were noted in ankle level bilaterally. Resting ankle-brachial indices could not be determined due to the noncompressibility of the vasculature bilaterally. Right digital-brachial index was 0.43. The left digital-brachial index was 0.99. This is suggestive of moderate to severe arterial impairment at digital level of the right lower extremity. The relative normalcy of the left digital-brachial index may be due to arterial calcification, a matter for which clinical correlation is advised. The patient underwent evaluation in consultation by a vascular surgeon several days ago, Dr. Garza, in [place], [place]. According to the patient's daughter, revascularization or intervention was not felt to be warranted due to the patient's debility and limited functional state. Plan: Offloading measures have been implemented, and are to be continued. The issue of offloading measures has been discussed thoroughly with the patient's daughter, who was again at the bedside. We have been able to obtain a low air-loss mattress for the patient's hospital bed. We have also successfully obtained a Roho cushion for the patient's wheelchair. Frequent repositioning has been recommended, and has now been implemented. We are to continue the use of collagenase Santyl topically to each of the patient's lower extremity ulcerations. Collagenase Santyl will be applied topically on a daily basis. Nutritional supplementation has been recommended. The patient will return in 2 weeks for reassessment, and has been placed in the palliative care pathway. The patient's buttock ulceration appears to be healed, and will be left undisturbed, though reevaluated weekly. The patient is to continue with nutritional supplements. The patient remains on systemic anticoagulation therapy. Swab cultures have been obtained of the ulceration on the right lateral foot, and results will be awaited. The patient is not a smoker. Influenza vaccine was not administered today. Patient weighs 199 pounds. She stands 5 feet 10 inches tall. Her BMI is 28.5. This places the patient in the overweight category, which normally would warrant mild weight loss. However, attempts at adequate nutrition appear to prevail. Nutritional supplements have been encouraged.
== END 2018-08-21 23:59 ==
LOC: WC 10:36
PROVIDERS: Family Provider Surgery; PCP Surgery; Referring Provider Surgery; Visit Provider Surgery
DX: L89.623 Pressure ulcer of left heel, stage 3 (principal); L89.893 Pressure ulcer of other site, stage 3; G30.9 Alzheimer's disease, unspecified; F02.80 Dementia in other diseases classified elsewhere, unspecified severity, without behavioral disturbance, psychotic disturbance, mood disturbance, and anxiety; I25.2 Old myocardial infarction; I50.9 Heart failure, unspecified; M06.9 Rheumatoid arthritis, unspecified; I11.0 Hypertensive heart disease with heart failure; K21.9 Gastro-esophageal reflux disease without esophagitis; I48.0 Paroxysmal atrial fibrillation; E78.5 Hyperlipidemia, unspecified; G47.33 Obstructive sleep apnea (adult) (pediatric)
CPT/HCPCS: 11042; 87070; 87075; 87077; 87186; 87205; 99213; G0463

== ENCOUNTER 2018-09-13 11:00 | Outpatient (RCR) | payer MEDICARE, SELFPAY ==
[2018-08-22 00:21] VITALS: BP 121/74; PULSE 71; RESP 16; TEMP 35.7
[2018-09-13 11:05] VITALS: BMI 28.5
--- NOTE | 2018-09-13 11:36 | HP.PCM_ITS ---
(1) Foot ulcer, right Status: Chronic Current Visit: Yes Qualifiers: Non-pressure ulcer stage: with fat layer exposed Code(s): L97.519 - Non-pressure chronic ulcer of other part of right foot with unspecified severity (2) Ulcer of left heel Status: Chronic Current Visit: Yes Qualifiers: Non-pressure ulcer stage: with fat layer exposed Code(s): L97.429 - Non-pressure chronic ulcer of left heel and midfoot with unspecified severity (3) Debility Status: Chronic Current Visit: Yes Code(s): R53.81 - Other malaise (4) Dementia Status: Chronic Current Visit: Yes Code(s): F03.90 - Unspecified dementia without behavioral disturbance (5) Alzheimer's disease Status: Chronic Current Visit: Yes Code(s): G30.9 - Alzheimer's disease, unspecified; F02.80 - Dementia in other diseases classified elsewhere without behavioral disturbance (6) History of myocardial infarction Status: Chronic Current Visit: No Code(s): I25.2 - Old myocardial infarction (7) CHF (congestive heart failure) Status: Chronic Current Visit: No Code(s): I50.9 - Heart failure, unspecified (8) History of syncope Status: Chronic Current Visit: No Code(s): Z87.898 - Personal history of other specified conditions (9) Recurrent Clostridium difficile diarrhea Status: Chronic Current Visit: Yes Code(s): A04.71 - Enterocolitis due to Clostridium difficile, recurrent (10) Incontinence of feces Status: Chronic Current Visit: No Code(s): R15.9 - Full incontinence of feces (11) Incontinence of urine Status: Chronic Current Visit: No Code(s): R32 - Unspecified urinary incontinence (12) History of recurrent UTI (urinary tract infection) Status: Chronic Current Visit: No Code(s): Z87.440 - Personal history of urinary (tract) infections (13) Rheumatoid arthritis Status: Chronic Current Visit: No Code(s): M06.9 - Rheumatoid arthritis, unspecified (14) Atrial fibrillation Status: Chronic Current Visit: No Code(s): I48.91 - Unspecified atrial fibrillation (15) Hypertension Status: Chronic Current Visit: No Code(s): I10 - Essential (primary) hypertension (16) GERD (gastroesophageal reflux disease) Status: Chronic Current Visit: No Code(s): K21.9 - Gastro-esophageal reflux disease without esophagitis (17) Obstructive sleep apnea Status: Chronic Current Visit: No Code(s): G47.33 - Obstructive sleep apnea (adult) (pediatric) (18) Hyperlipidemia Status: Chronic Current Visit: No Code(s): E78.5 - Hyperlipidemia, unspecified (19) Malnutrition Status: Chronic Current Visit: No Code(s): E46 - Unspecified protein-calorie malnutrition (20) Decubitus ulcer of buttock, stage 2 Status: Resolved Current Visit: No Qualifiers: Code(s): L89.302 - Pressure ulcer of unspecified buttock, stage 2 History of Present Illness Date of Service: 09/13/18 Chief Complaint: Chronic, nonhealing ulceration of the left heel and the right lateral foot History of Wound: This is a 78-year-old female who is a resident of [facility] in [place], [place]. She was institutionalized as a result of declining function, debility, and frequent falls. Her continues to live at home, and is relatively healthy. Patient presented with an ulceration on her left heel, which had been present for several months. She also has an ulceration on the right lateral foot, near the base of the fifth digit. The patient is weak and debilitated. She does not ambulate. She spends a good part of her day in a wheelchair. She sleeps in a hospital bed. She suffers from dementia and Alzheimer's disease, and interacts minimally. She is incontinent of urine and stool. She suffers from frequent urinary tract infections and recurrent episodes of pseudomembranous enterocolitis (C. difficile infections). The patient's appetite is said to be poor. She is provided with nutritional supplements at the nursing facility. Past Medical History Past Medical History: Chronic Problems Foot ulcer, right (Chronic) Ulcer of left heel (Chronic) Debility (Chronic) Dementia (Chronic) Alzheimer's disease (Chronic) History of myocardial infarction (Chronic) CHF (congestive heart failure) (Chronic) History of syncope (Chronic) Recurrent Clostridium difficile diarrhea (Chronic) Incontinence of feces (Chronic) Incontinence of urine (Chronic) History of recurrent UTI (urinary tract infection) (Chronic) Rheumatoid arthritis (Chronic) Atrial fibrillation (Chronic) Hypertension (Chronic) GERD (gastroesophageal reflux disease) (Chronic) Obstructive sleep apnea (Chronic) Hyperlipidemia (Chronic) Malnutrition (Chronic) Surgical History: - - Patient has a history of varicose vein surgery in her lower extremities. She has undergone bilateral total knee replacement surgeries. Hip replacement has been performed unilaterally. Patient has undergone hysterectomy. She has had bunionectomy and nasal septoplasty. She is a Ab0. Allergies/Adverse Reactions: Allergies No Known Allergies Allergy (Verified 04/25/18 14:49) Home Medications: Ambulatory Orders Medication Instructions Recorded Acetaminophen [Tylenol] 650 mg PO Q4H PRN PRN 04/25/18 Albuterol Sulfate 2.5 mg IH Q4H PRN PRN 04/25/18 Amoxicillin/Potassium Clav 1 each PO BID 04/25/18 [Augmentin 875-125 Tablet] Aspirin [Adult Low Dose Aspirin EC] 81 mg PO DAILY 04/25/18 Calcium Carbonate/Simethicone 1 each PO Q4H PRN PRN 04/25/18 [Maalox Advanced Tab Chew] Cholecalciferol (Vitamin D3) 5,000 unit PO DAILY 04/25/18 [Vitamin D3] Donepezil HCl [Aricept] 10 mg PO DAILY 04/25/18 Fluoxetine [Prozac] 40 mg PO DAILY 04/25/18 Guaifenesin [Tussin] 100 mg PO Q4H PRN PRN 04/25/18 Hydroxychloroquine [Plaquenil] 200 mg PO BIDCM 04/25/18 Lactobacillus Acidophilus 1 each PO BID 04/25/18 [Acidophilus] Magnesium Hydroxide [Milk Of 30 ml PO DAILY PRN PRN 04/25/18 Magnesia] Memantine HCl [Memantine HCl ER] 28 mg PO DAILY 04/25/18 Mirtazapine [Remeron] 15 mg PO QHS 04/25/18 Nitroglycerin (INPATIENT USE) 0.4 mg SUBLINGUAL Q5M PRN 04/25/18 [Nitrostat] Pantoprazole Sodium [Protonix] 40 mg PO DAILY 04/25/18 Potassium Chloride [Klor-Con] 20 meq PO DAILY 04/25/18 Prednisone 10 mg PO DAILY 04/25/18 Ranolazine [Ranexa] 500 mg PO BID 04/25/18 Rosuvastatin Calcium [Crestor] 20 mg PO DAILY 04/25/18 Sotalol HCl [Sotalol] 80 mg PO BID 04/25/18 Trimethoprim [Trimpex] 200 mg PO DAILY 04/25/18 Warfarin [Coumadin (PBKC)] 2 mg PO DAILY 04/25/18 levoFLOXacin tablet [Levaquin 500 mg PO DAILY 04/25/18 tablet] Smoking Status: Never smoker Tobacco Use: Non-smoker Review of Systems Constitutional: Denies: Chills, Fever, Weight Change Eyes: Denies: Pain, Vision Change HEENT: Denies: Difficulty Hearing, Difficulty Swallowing, Sinus Congestion Cardiovascular: Denies: Chest Pain, Palpitations Respiratory: Denies: Cough, Shortness of Breath Gastrointestinal: Denies: Diarrhea, Nausea, Vomiting Genitourinary: Denies: Dysuria, Hematuria Endocrine: Denies: Heat/ Cold Intolerance, Polydipsia, Polyuria Hematologic/ Lymphatic: Denies: Easy Bruising, Easy Bleeding - Physical Exam Vital Signs Temp Pulse Resp BP 96.2 F L 71 16 121/74 H 08/22/18 00:21 08/22/18 00:21 08/22/18 00:21 08/22/18 00:21 General: Alert, No apparent distress, Well developed, Well nourished, - - The patient is somnolent, though arousable HEENT: Atraumatic, PERRLA, EOMI, Normocephalic Oral: Moist Mucosa Neck: No JVD Lungs: Normal air movement Abdomen: Non-Distended Extremities: No clubbing, No cyanosis, No edema, No Calf Tenderness, - - The ulceration persists on the lateral aspect of the right foot, near the base of the right fifth digit. It extends into the subcutaneous tissue. There is no sign of infection or cellulitis. Dimensions are documented elsewhere. There is a moderate amount of bioburden and nonviable tissue. The ulceration on the left heel persists as well, though appears to have diminished in size, and consists of just simply dry gangrenous soft tissue. There is no sign of infection or ce llulitis. Dimensions are documented elsewhere. Skin: No rashes Wound Measurements and Assessment WC - Nurse 1 - General Ulcer Measurement Start: 09/13/18 11:05 Freq: Status: Active Protocol: Activity Type Activity Date Activity User E-Sign Co-Sign Detail Recorded Client Recorded Date Recorded By Document 09/13/18 11:05 MW [id number] 09/13/18 11:15 MW 07/23/19 11:05 Wound Center Nurse 1 [Ulcer Assessment] #7 Left distal achilles -Combined with other wound No -Current Size (cm) - Length 0.1 -Current Size (cm) - Width 0.1 -Current Size (cm) - Depth 0.1 -Total Square Cm 0.01 -Date of Last Picture (Recall this 09/13/18 field) -Photo Taken Yes -Tunneling No -Undermining/Tunneling No -Circular Undermining No -Exudate Amt None Present -Wound Margin Flat & Intact -Granulation Amt None Present (0 %) -Granulation Quality N/A -Slough/Fibrin Yes -Necrosis Amt Large (67-100%) -Necrotic Tissue Type Adherent Slough -Structure Exposed N/A -Texture (Dorina-wound Skin Appearance) Assessed, Localized Edema -Moisture (Dorina-wound Skin Appearance Assessed,Dry/ ) Scaly -Color (Dorina-wound Skin Appearance) No Abnormality, Assessed -Temperature (Dorina-wound Skin No Abnormality Appearance) (Pt Warm) -Tenderness on Palpation (Dorina-wound No Skin Appearance) -Ulcer Cleansing Rinsed/ Irrigated with Saline -Foul Odor after Cleansing No -Anesthetic Used 4% Lidocaine Solution #6 R Lateral 5th Metatarsal -Combined with other wound No -Current Size (cm) - Length 0.6 -Current Size (cm) - Width 0.4 -Current Size (cm) - Depth 0.3 -Total Square Cm 0.24 -Date of Last Picture (Recall this 09/13/18 field) -Photo Taken Yes -Epithelialization None Present -Tunneling No -Undermining/Tunneling No -Circular Undermining No -Exudate Amt Small -Exudate Type Serosanguineous -Wound Margin Thickened -Granulation Amt Small (1-33%) -Granulation Quality Pale -Slough/Fibrin Yes -Necrosis Amt Medium (34-66%) -Necrotic Tissue Type Adherent Slough -Structure Exposed N/A -Texture (Dorina-wound Skin Appearance) Assessed, Localized Edema -Moisture (Dorina-wound Skin Appearance Assessed,Dry/ ) Scaly -Color (Dorina-wound Skin Appearance) Assessed, Erythema -Temperature (Dorina-wound Skin No Abnormality Appearance) (Pt Warm) -Tenderness on Palpation (Dorina-wound No Skin Appearance) -Ulcer Cleansing Rinsed/ Irrigated with Saline -Foul Odor after Cleansing No -Anesthetic Used 4% Lidocaine Solution #5 Left Heel -Combined with other wound No -Current Size (cm) - Length 0.1 -Current Size (cm) - Width 0.1 -Current Size (cm) - Depth 0.1 -Total Square Cm 0.01 -Date of Last Picture (Recall this 09/13/18 field) -Photo Taken Yes -Epithelialization None Present -Tunneling No -Undermining/Tunneling No -Circular Undermining No -Exudate Amt None Present -Wound Margin Flat & Intact -Granulation Amt None Present (0 %) -Granulation Quality N/A -Slough/Fibrin Yes -Necrosis Amt Large (67-100%) -Necrotic Tissue Type Adherent Slough -Structure Exposed N/A -Texture (Dorina-wound Skin Appearance) Assessed, Localized Edema -Moisture (Dorina-wound Skin Appearance Assessed,Dry/ ) Scaly -Color (Dorina-wound Skin Appearance) No Abnormality, Assessed -Temperature (Dorina-wound Skin No Abnormality Appearance) (Pt Warm) -Tenderness on Palpation (Dorina-wound No Skin Appearance) -Ulcer Cleansing Rinsed/ Irrigated with Saline -Foul Odor after Cleansing No -Anesthetic Used 4% Lidocaine Solution [Edema Assessment] -Lower Limb Edema Present Yes -Right Calf (cm) 42.5 -Right Ankle (cm) 21.5 -Left Calf (cm) 40.5 -Left Ankle (cm) 24.0 WC - Nurse 2 - General Ulcer CM Notes Start: 09/13/18 11:05 Freq: Status: Active Protocol: Activity Type Activity Date Activity User E-Sign Co-Sign Detail Recorded Client Recorded Date Recorded By Document 09/13/18 11:25 DV [id number] 09/13/18 11:32 DV 09/13/18 11:25 Wound Center Nurse 2 [Procedure/Treatment] #7 Left distal achilles -Time 11:25 -Correct Patient Yes -Correct Side, Site, Position Yes -Correct Procedure Yes -Procedure Performed Yes -Type of Procedure Debridement -Clinical Debridement Subcutaneous -Post Debridement Size (cm) - Length 0.1 -Post Debridement Size (cm) - Width 0.1 -Post Debridement Size (cm) - Depth 0.1 -Total Square Cm 0.01 -Wound/Ulcer Outcome Not Healed -Ulcer Cleansing Rinsed/ Irrigated with Saline -Foul Odor after Cleansing No -Bioengineered Tissue No -Bleeding Controlled with Pressure -Offloading Yes -Treatment Response Procedure Tolerated Well #6 R Lateral 5th Metatarsal -Time 11:30 -Correct Patient Yes -Correct Side, Site, Position Yes -Correct Procedure Yes -Procedure Performed Yes -Type of Procedure Debridement -Clinical Debridement Subcutaneous -Post Debridement Size (cm) - Length 1.0 -Post Debridement Size (cm) - Width 1.0 -Post Debridement Size (cm) - Depth 0.3 -Total Square Cm 1.00 -Wound/Ulcer Outcome Not Healed -Ulcer Cleansing Rinsed/ Irrigated with Saline -Foul Odor after Cleansing No -Bioengineered Tissue No -Bleeding Controlled with Pressure -Offloading Yes -Treatment Response Procedure Tolerated Well #5 Left Heel -Time 11:26 -Correct Patient Yes -Correct Side, Site, Position Yes -Correct Procedure Yes -Procedure Performed Yes -Type of Procedure Debridement -Clinical Debridement Subcutaneous -Post Debridement Size (cm) - Length 0.1 -Post Debridement Size (cm) - Width 0.1 -Post Debridement Size (cm) - Depth 0.1 -Total Square Cm 0.01 -Wound/Ulcer Outcome Not Healed -Ulcer Cleansing Rinsed/ Irrigated with Saline -Foul Odor after Cleansing No -Bioengineered Tissue No -Bleeding Controlled with Pressure -Offloading Yes -Treatment Response Procedure Tolerated Well [See Physician Procedure note for Specifics] Musculoskeletal: Muscle Wasting - Extremities Neurological: Cranial nerves II-XII grossly intact, Neuro grossly intact Psych/Mental Status: Normal Affect, Appropriate, Alert and oriented to time, place, person, mood and affect Debridement Note Post-Debridement Measurements/Treatment WC - Nurse 2 - General Ulcer CM Notes Start: 09/13/18 11:05 Freq: Status: Active Protocol: Activity Type Activity Date Activity User E-Sign Co-Sign Detail Recorded Client Recorded Date Recorded By Document 09/13/18 11:25 DV [id number] 09/13/18 11:32 DV 09/13/18 11:25 Wound Center Nurse 2 #7 Left distal achilles -Time 11:25 -Correct Patient Yes -Correct Side, Site, Position Yes -Correct Procedure Yes -Procedure Performed Yes -Type of Procedure Debridement -Clinical Debridement Subcutaneous -Post Debridement Size (cm) - Length 0.1 -Post Debridement Size (cm) - Width 0.1 -Post Debridement Size (cm) - Depth 0.1 -Total Square Cm 0.01 -Wound/Ulcer Outcome Not Healed -Ulcer Cleansing Rinsed/ Irrigated with Saline -Foul Odor after Cleansing No -Bioengineered Tissue No -Bleeding Controlled with Pressure -Offloading Yes -Treatment Response Procedure Tolerated Well #6 R Lateral 5th Metatarsal -Time 11:30 -Correct Patient Yes -Correct Side, Site, Position Yes -Correct Procedure Yes -Procedure Performed Yes -Type of Procedure Debridement -Clinical Debridement Subcutaneous -Post Debridement Size (cm) - Length 1.0 -Post Debridement Size (cm) - Width 1.0 -Post Debridement Size (cm) - Depth 0.3 -Total Square Cm 1.00 -Wound/Ulcer Outcome Not Healed -Ulcer Cleansing Rinsed/ Irrigated with Saline -Foul Odor after Cleansing No -Bioengineered Tissue No -Bleeding Controlled with Pressure -Offloading Yes -Treatment Response Procedure Tolerated Well #5 Left Heel -Time 11:26 -Correct Patient Yes -Correct Side, Site, Position Yes -Correct Procedure Yes -Procedure Performed Yes -Type of Procedure Debridement -Clinical Debridement Subcutaneous -Post Debridement Size (cm) - Length 0.1 -Post Debridement Size (cm) - Width 0.1 -Post Debridement Size (cm) - Depth 0.1 -Total Square Cm 0.01 -Wound/Ulcer Outcome Not Healed -Ulcer Cleansing Rinsed/ Irrigated with Saline -Foul Odor after Cleansing No -Bioengineered Tissue No -Bleeding Controlled with Pressure -Offloading Yes -Treatment Response Procedure Tolerated Well Laterality: Right - Lateral foot Type of Debridement: Excisional debridement Anesthesia Used: 5% Lidocaine Gel Depth: Down to and including healthy tissue, in the subcutaneous layer Percentage of wound debrided: 100 Instrument Used: 5mm curette, Forceps, - - Scissors Tissue Removed: Nonviable tissue and bioburden Severity: Fat Layer Exposed Amount of bleeding with debridement: Mild Bleeding Controlled with: Compression and gauze Patient tolerated procedure well - Additional Wound Laterality: Left - Heel Type of Debridement: Selective debridement Anesthesia Used: 5% Lidocaine Gel Depth: Down to and including healthy tissue Percentage of wound debrided: 100 Instrument Used: 5mm curette Severity: Limited To Skin Breakdown Amount of bleeding with debridement: None Patient tolerated procedure: Patient tolerated procedure well Assessment/Plan Active Problems Foot ulcer, right (Chronic) Ulcer of left heel (Chronic) Debility (Chronic) Dementia (Chronic) Alzheimer's disease (Chronic) Recurrent Clostridium difficile diarrhea (Chronic) Assessment: This is a 78-year-old female with multiple medical problems, as outlined above. The patient suffers from dementia and Alzheimer's disease. She is very limited functionally. She does not ambulate. She presented with ulcerations of the right lateral foot and the left heel. The ulceration on the left buttock remains completely healed. These appear to be pressure related. They are a stage III ulceration in each case. The patient has undergone a battery of diagnostic tests the nursing facility at which she is a resident. Lab results are as follows: White blood count 8.7, hemoglobin 11.6, hematocrit 35.9, platelets 273,000, glucose 77, BUN 19, creatinine 0.5, sodium 140, potassium 3.7, chloride 104, calcium 8.9, alkaline phosphatase 63, ALT 20, AST 16, total protein 5.7, albumin 2.9, prealbumin 27, bilirubin 0.44. A noninvasive lower extremity arterial ultrasound study was performed, though only of the left lower extremity. The impression indicates diminished to nonexistent flow in the calf vessels including the tibial peroneal and dorsalis pedis arteries. We have been told that a follow-up study has been performed of the right lower extremity, though no results have been received by our facility. A noninvasive lower extremity arterial study has been performed at [facility]. Triphasic waveforms were noted in ankle level bilaterally. Resting ankle-brachial indices could not be determined due to the noncompressibility of the vasculature bilaterally. Right digital-brachial index was 0.43. The left digital-brachial index was 0.99. This is suggestive of moderate to severe arterial impairment at digital level of the right lower extremity. The relative normalcy of the left digital-brachial index may be due to arterial calcification, a matter for which clinical correlation is advised. The patient underwent evaluation in consultation by a vascular surgeon several days ago, Dr. Garza, in [place], [place]. According to the patient's daughter, revascularization or intervention was not felt to be warranted due to the patient's debility and limited functional state. Patient has missed several appointments recently. She required hospitalization in [place], [place], due to a urinary tract infection and pseudomembranous enterocolitis (C. difficile). She is not currently on antibiotics, though remains under the oversight of the Infectious Disease service. Plan: Offloading measures have been implemented, and are to be continued. The issue of offloading measures has been discussed thoroughly with the patient's daughter, who was again at the bedside. We have been able to obtain a low air- loss mattress for the patient's hospital bed. We have also successfully obtained a Roho cushion for the patient's wheelchair. Frequent repositioning has been recommended, and has now been implemented. We are to continue the use of Collagenase Santyl topically to the ulceration on the right lateral foot. The ulceration on the left heel is now just superficial dry gangrene, not appearing to extend significantly into the subcutaneous tissue. This area is to be kept clean and dry, with offloading measures to be continued. Nutritional supplementation has been recommended. The patient will return in 2 weeks for reassessment, and has been placed in the palliative care pathway. The patient's buttock ulceration appears to be healed, and will be left undisturbed, though reevaluated weekly. The patient is to continue with nutritional supplements. The patient remains on systemic anticoagulation therapy. The patient is not a smoker. Influenza vaccine was not administered today. Patient weighs 199 pounds. She stands 5 feet 10 inches tall. Her BMI is 28.5. This places the patient in the overweight category, which normally would warrant mild weight loss. However, attempts at adequate nutrition appear to prevail. Nutritional supplements have been encouraged.
== END 2018-09-21 23:59 ==
LOC: WC 11:00
PROVIDERS: Family Provider Surgery; PCP Surgery; Referring Provider Surgery; Visit Provider Surgery
DX: L89.623 Pressure ulcer of left heel, stage 3 (principal); L89.893 Pressure ulcer of other site, stage 3; G30.9 Alzheimer's disease, unspecified; F02.80 Dementia in other diseases classified elsewhere, unspecified severity, without behavioral disturbance, psychotic disturbance, mood disturbance, and anxiety; I25.2 Old myocardial infarction; I50.9 Heart failure, unspecified; M06.9 Rheumatoid arthritis, unspecified; I11.0 Hypertensive heart disease with heart failure; K21.9 Gastro-esophageal reflux disease without esophagitis; E78.5 Hyperlipidemia, unspecified; G47.33 Obstructive sleep apnea (adult) (pediatric); I48.2 Chronic atrial fibrillation
CPT/HCPCS: 11042; 97597; 99213; G0463

== ENCOUNTER 2018-10-18 11:00 | Outpatient (RCR) | payer MEDICARE, SELFPAY ==
[2018-09-22 00:28] VITALS: BP 121/74; PULSE 71; RESP 16; TEMP 35.7
[2018-09-27 10:50] VITALS: BP 103/75; PULSE 85; RESP 16; TEMP 35.2; BMI 28.5
--- NOTE | 2018-09-27 11:59 | HP.PCM_ITS ---
(1) Foot ulcer, right Status: Chronic Current Visit: Yes Qualifiers: Code(s): L97.519 - Non-pressure chronic ulcer of other part of right foot with unspecified severity (2) Ulcer of left heel Status: Chronic Current Visit: Yes Qualifiers: Non-pressure ulcer stage: with fat layer exposed Code(s): L97.429 - Non-pressure chronic ulcer of left heel and midfoot with unspecified severity (3) Debility Status: Chronic Current Visit: Yes Code(s): R53.81 - Other malaise (4) Dementia Status: Chronic Current Visit: Yes Code(s): F03.90 - Unspecified dementia without behavioral disturbance (5) Alzheimer's disease Status: Chronic Current Visit: Yes Code(s): G30.9 - Alzheimer's disease, unspecified; F02.80 - Dementia in other diseases classified elsewhere without behavioral disturbance (6) History of myocardial infarction Status: Chronic Current Visit: No Code(s): I25.2 - Old myocardial infarction (7) CHF (congestive heart failure) Status: Chronic Current Visit: No Code(s): I50.9 - Heart failure, unspecified (8) History of syncope Status: Chronic Current Visit: No Code(s): Z87.898 - Personal history of other specified conditions (9) Recurrent Clostridium difficile diarrhea Status: Chronic Current Visit: No Code(s): A04.71 - Enterocolitis due to Clostridium difficile, recurrent (10) Incontinence of feces Status: Chronic Current Visit: No Code(s): R15.9 - Full incontinence of feces (11) Incontinence of urine Status: Chronic Current Visit: No Code(s): R32 - Unspecified urinary incontinence (12) History of recurrent UTI (urinary tract infection) Status: Chronic Current Visit: No Code(s): Z87.440 - Personal history of urinary (tract) infections (13) Rheumatoid arthritis Status: Chronic Current Visit: No Code(s): M06.9 - Rheumatoid arthritis, unspecified (14) Atrial fibrillation Status: Chronic Current Visit: No Code(s): I48.91 - Unspecified atrial fibrillation (15) Hypertension Status: Chronic Current Visit: No Code(s): I10 - Essential (primary) hypertension (16) GERD (gastroesophageal reflux disease) Status: Chronic Current Visit: No Code(s): K21.9 - Gastro-esophageal reflux disease without esophagitis (17) Obstructive sleep apnea Status: Chronic Current Visit: No Code(s): G47.33 - Obstructive sleep apnea (adult) (pediatric) (18) Hyperlipidemia Status: Chronic Current Visit: No Code(s): E78.5 - Hyperlipidemia, unspecified (19) Malnutrition Status: Chronic Current Visit: No Code(s): E46 - Unspecified protein-calorie malnutrition (20) Decubitus ulcer of buttock, stage 2 Status: Resolved Current Visit: No Qualifiers: Code(s): L89.302 - Pressure ulcer of unspecified buttock, stage 2 History of Present Illness Date of Service: 09/27/18 Chief Complaint: Chronic, nonhealing ulceration of the left heel and the right lateral foot History of Wound: This is a 78-year-old female who is a resident of [facility] in [place], [place]. She was institutionalized as a result of declining function, debility, and frequent falls. Her continues to live at home, and is relatively healthy. Patient presented with an ulceration on her left heel, which had been present for several months. She also has an ulceration on the right lateral foot, near the base of the fifth digit. The patient is weak and debilitated. She does not ambulate. She spends a good part of her day in a wheelchair. She sleeps in a hospital bed. She suffers from dementia and Alzheimer's disease, and interacts minimally. She is incontinent of urine and stool. She suffers from frequent urinary tract infections and recurrent episodes of pseudomembranous enterocolitis (C. difficile infections). The patient's appetite is said to be poor. She is provided with nutritional supplements at the nursing facility. Past Medical History Past Medical History: Chronic Problems Foot ulcer, right (Chronic) Ulcer of left heel (Chronic) Debility (Chronic) Dementia (Chronic) Alzheimer's disease (Chronic) History of myocardial infarction (Chronic) CHF (congestive heart failure) (Chronic) History of syncope (Chronic) Recurrent Clostridium difficile diarrhea (Chronic) Incontinence of feces (Chronic) Incontinence of urine (Chronic) History of recurrent UTI (urinary tract infection) (Chronic) Rheumatoid arthritis (Chronic) Atrial fibrillation (Chronic) Hypertension (Chronic) GERD (gastroesophageal reflux disease) (Chronic) Obstructive sleep apnea (Chronic) Hyperlipidemia (Chronic) Malnutrition (Chronic) Surgical History: - - Patient has a history of varicose vein surgery in her lower extremities. She has undergone bilateral total knee replacement surgeries. Hip replacement has been performed unilaterally. Patient has undergone hysterectomy. She has had bunionectomy and nasal septoplasty. She is a Ab0. Allergies/Adverse Reactions: Allergies No Known Allergies Allergy (Verified 04/25/18 14:49) Home Medications: Ambulatory Orders Medication Instructions Recorded Acetaminophen [Tylenol] 650 mg PO Q4H PRN PRN 04/25/18 Albuterol Sulfate 2.5 mg IH Q4H PRN PRN 04/25/18 Amoxicillin/Potassium Clav 1 each PO BID 04/25/18 [Augmentin 875-125 Tablet] Aspirin [Adult Low Dose Aspirin EC] 81 mg PO DAILY 04/25/18 Calcium Carbonate/Simethicone 1 each PO Q4H PRN PRN 04/25/18 [Maalox Advanced Tab Chew] Cholecalciferol (Vitamin D3) 5,000 unit PO DAILY 04/25/18 [Vitamin D3] Donepezil HCl [Aricept] 10 mg PO DAILY 04/25/18 Fluoxetine [Prozac] 40 mg PO DAILY 04/25/18 Guaifenesin [Tussin] 100 mg PO Q4H PRN PRN 04/25/18 Hydroxychloroquine [Plaquenil] 200 mg PO BIDCM 04/25/18 Lactobacillus Acidophilus 1 each PO BID 04/25/18 [Acidophilus] Magnesium Hydroxide [Milk Of 30 ml PO DAILY PRN PRN 04/25/18 Magnesia] Memantine HCl [Memantine HCl ER] 28 mg PO DAILY 04/25/18 Mirtazapine [Remeron] 15 mg PO QHS 04/25/18 Nitroglycerin (INPATIENT USE) 0.4 mg SUBLINGUAL Q5M PRN 04/25/18 [Nitrostat] Pantoprazole Sodium [Protonix] 40 mg PO DAILY 04/25/18 Potassium Chloride [Klor-Con] 20 meq PO DAILY 04/25/18 Prednisone 10 mg PO DAILY 04/25/18 Ranolazine [Ranexa] 500 mg PO BID 04/25/18 Rosuvastatin Calcium [Crestor] 20 mg PO DAILY 04/25/18 Sotalol HCl [Sotalol] 80 mg PO BID 04/25/18 Trimethoprim [Trimpex] 200 mg PO DAILY 04/25/18 Warfarin [Coumadin (PBKC)] 2 mg PO DAILY 04/25/18 levoFLOXacin tablet [Levaquin 500 mg PO DAILY 04/25/18 tablet] Smoking Status: Never smoker Tobacco Use: Non-smoker Review of Systems Constitutional: Denies: Chills, Fever, Weight Change Eyes: Denies: Pain, Vision Change HEENT: Denies: Difficulty Hearing, Difficulty Swallowing, Sinus Congestion Cardiovascular: Denies: Chest Pain, Palpitations Respiratory: Denies: Cough, Shortness of Breath Gastrointestinal: Denies: Diarrhea, Nausea, Vomiting Genitourinary: Denies: Dysuria, Hematuria Endocrine: Denies: Heat/ Cold Intolerance, Polydipsia, Polyuria Hematologic/ Lymphatic: Denies: Easy Bruising, Easy Bleeding - Physical Exam Vital Signs Temp Pulse Resp BP 95.3 F L 85 16 103/75 09/27/18 10:50 09/27/18 10:50 09/27/18 10:50 09/27/18 10:50 General: No apparent distress, Well developed, - - Patient is frail and debilitated. She is arousable, but not very interactive. HEENT: Atraumatic, PERRLA, EOMI, Normocephalic Oral: Moist Mucosa Neck: No JVD Lungs: Normal air movement Abdomen: Non-Distended Extremities: No clubbing, No cyanosis, No edema, No Calf Tenderness, - - The ulceration on the right lateral foot is now quite small in size. It is located laterally, and at the base of the right fifth digit. There is only a small amount of bioburden. Dimensions are documented elsewhere. There is no sign of infection or cellulitis. There is also an ulceration on the left posterior heel, which is also small in size. There is no sign of infection or cellulitis. Dimensions are documented elsewhere. The small amount of bioburden is noted. Skin: No rashes Wound Measurements and Assessment WC - Nurse 1 - General Ulcer Measurement Start: 09/27/18 10:50 Freq: Status: Active Protocol: Activity Type Activity Date Activity User E-Sign Co-Sign Detail Recorded Client Recorded Date Recorded By Document 09/27/18 10:50 DL [id number] 09/27/18 11:02 DL 09/27/18 10:50 Wound Center Nurse 1 [Ulcer Assessment] #7 Left distal achilles -Current Size (cm) - Length 0.1 -Current Size (cm) - Width 0.1 -Current Size (cm) - Depth 0.1 -Total Square Cm 0.01 -Photo Taken No -Exudate Amt None Present -Wound Margin Flat & Intact -Granulation Amt Large (67-100%) -Granulation Quality [place] -Necrosis Amt None Present (0 %) -Structure Exposed N/A -Texture (Dorina-wound Skin Appearance) Scarring -Moisture (Dorina-wound Skin Appearance Dry/Scaly ) -Color (Dorina-wound Skin Appearance) Hemosiderin Staining -Temperature (Dorina-wound Skin No Abnormality Appearance) (Pt Warm) -Tenderness on Palpation (Dorina-wound No Skin Appearance) -Ulcer Cleansing Rinsed/ Irrigated with Saline -Anesthetic Used 5% Lidocaine Gel #6 R Lateral 5th Metatarsal -Current Size (cm) - Length 0.7 -Current Size (cm) - Width 0.1 -Current Size (cm) - Depth 0.3 -Total Square Cm 0.07 -Photo Taken No -Exudate Amt None Present -Wound Margin Flat & Intact -Granulation Amt Small (1-33%) -Granulation Quality [place] -Necrosis Amt None Present (0 %) -Structure Exposed N/A -Texture (Dorina-wound Skin Appearance) Callus,Scarring -Moisture (Dorina-wound Skin Appearance Dry/Scaly ) -Color (Dorina-wound Skin Appearance) Hemosiderin Staining -Temperature (Dorina-wound Skin No Abnormality Appearance) (Pt Warm) -Tenderness on Palpation (Dorina-wound No Skin Appearance) -Ulcer Cleansing Rinsed/ Irrigated with Saline -Foul Odor after Cleansing No -Anesthetic Used 4% Lidocaine Solution #5 Left Heel -Current Size (cm) - Length 0.1 -Current Size (cm) - Width 0.1 -Current Size (cm) - Depth 0.1 -Total Square Cm 0.01 -Photo Taken No -Exudate Amt None Present -Wound Margin Flat & Intact -Granulation Amt Large (67-100%) -Granulation Quality [place] -Necrosis Amt None Present (0 %) -Structure Exposed N/A -Texture (Dorina-wound Skin Appearance) Scarring -Moisture (Dorina-wound Skin Appearance Dry/Scaly ) -Color (Dorina-wound Skin Appearance) Hemosiderin Staining -Temperature (Dorina-wound Skin No Abnormality Appearance) (Pt Warm) -Tenderness on Palpation (Dorina-wound No Skin Appearance) -Ulcer Cleansing Rinsed/ Irrigated with Saline -Foul Odor after Cleansing No -Anesthetic Used 4% Lidocaine Solution Neurological: Cranial nerves II-XII grossly intact, Neuro grossly intact Psych/Mental Status: Appropriate, - - Patient is arousable, but not very interactive. Debridement Note Laterality: Right - Lateral foot Type of Debridement: Excisional debridement Anesthesia Used: 5% Lidocaine Gel Depth: Down to and including healthy tissue, in the subcutaneous layer Percentage of wound debrided: 100 Instrument Used: 5mm curette Tissue Removed: Bioburden and nonviable tissue Severity: Fat Layer Exposed Amount of bleeding with debridement: Mild Bleeding Controlled with: Compression and gauze Patient tolerated procedure well - Additional Wound Laterality: Left - Posterior heel Type of Debridement: Excisional debridement Anesthesia Used: 5% Lidocaine Gel Depth: Down to and including healthy tissue, in the subcutaneous layer Percentage of wound debrided: 100 Instrument Used: 5mm curette Tissue Removed: Bioburden and nonviable tissue Severity: Fat Layer Exposed Bleeding Controlled with: Compression and gauze Patient tolerated procedure: Patient tolerated procedure well Assessment/Plan Active Problems Foot ulcer, right (Chronic) Ulcer of left heel (Chronic) Debility (Chronic) Dementia (Chronic) Alzheimer's disease (Chronic) Assessment: This is a 78-year-old female with multiple medical problems, as outlined above. The patient suffers from dementia and Alzheimer's disease. She is very limited functionally. She does not ambulate. She presented with ulcerations of the right lateral foot and the left heel. The ulceration on the left buttock remains completely healed. These appear to be pressure related. They are a stage III ulceration in each case. The patient has undergone a battery of diagnostic tests the nursing facility at which she is a resident. Lab results are as follows: White blood count 8.7, hemoglobin 11.6, hematocrit 35.9, platelets 273,000, glucose 77, BUN 19, creatinine 0.5, sodium 140, potassium 3.7, chloride 104, calcium 8.9, alkaline phosphatase 63, ALT 20, AST 16, total protein 5.7, albumin 2.9, prealbumin 27, bilirubin 0.44. A noninvasive lower extremity arterial ultrasound study was performed, though only of the left lower extremity. The impression indicates diminished to nonexistent flow in the calf vessels including the tibial peroneal and dorsalis pedis arteries. We have been told that a follow-up study has been performed of the right lower extremity, though no results have been received by our facility. A noninvasive lower extremity arterial study has been performed at [facility]. Triphasic waveforms were noted in ankle level bilaterally. Resting ankle-brachial indices could not be determined due to the noncompressibility of the vasculature bilaterally. Right digital-brachial index was 0.43. The left digital-brachial index was 0.99. This is suggestive of moderate to severe arterial impairment at digital level of the right lower extremity. The relative normalcy of the left digital-brachial index may be due to arterial calcification, a matter for which clinical correlation is advised. The patient underwent evaluation in consultation by a vascular surgeon several days ago, Dr. Garza, in [place], [place]. According to the patient's daughter, revascularization or intervention was not felt to be warranted due to the patient's debility and limited functional state. Patient has missed several appointments recently. She required hospitalization in [place], [place], due to a urinary tract infection and pseudomembranous enterocolitis (C. difficile). She is not currently on antibiotics, though remains under the oversight of the Infectious Disease service. Plan: Offloading measures have been implemented, and are to be continued. The issue of offloading measures has been discussed thoroughly with the patient's daughter, who was again at the bedside. We have been able to obtain a low air- loss mattress for the patient's hospital bed. We have also successfully obtained a Roho cushion for the patient's wheelchair. Frequent repositioning has been recommended, and has now been implemented. We are to continue the use of Collagenase Santyl topically to the ulceration on the right lateral foot. The ulceration on the left heel is now just superficial dry gangrene, not appearing to extend significantly into the subcutaneous tissue. This area is to be kept clean and dry, with offloading measures to be continued. Nutritional supplementation has been recommended. The patient will return in 2 weeks for reassessment, and has been placed in the palliative care pathway. The patient's buttock ulceration appears to be healed, and will be left undisturbed, though reevaluated serially. The patient is to continue with nutritional supplements. The patient is not a smoker. Influenza vaccine was not administered today. Patient weighs 199 pounds. She stands 5 feet 10 inches tall. Her BMI is 28.5. This places the patient in the overweight category, which normally would warrant mild weight loss. However, attempts at adequate nutrition appear to prevail. Nutritional supplements have been encouraged.
[2018-10-11 11:08] VITALS: BP 106/63; PULSE 62; RESP 16; TEMP 35.3; BMI 28.5
--- NOTE | 2018-10-11 11:43 | PCM.WC.HP ---
(1) Foot ulcer, right Status: Chronic Current Visit: Yes Qualifiers: Code(s): L97.519 - Non-pressure chronic ulcer of other part of right foot with unspecified severity (2) Ulcer of left heel Status: Chronic Current Visit: Yes Qualifiers: Non-pressure ulcer stage: with fat layer exposed Code(s): L97.429 - Non-pressure chronic ulcer of left heel and midfoot with unspecified severity (3) Debility Status: Chronic Current Visit: Yes Code(s): R53.81 - Other malaise (4) Dementia Status: Chronic Current Visit: Yes Code(s): F03.90 - Unspecified dementia without behavioral disturbance (5) Alzheimer's disease Status: Chronic Current Visit: Yes Code(s): G30.9 - Alzheimer's disease, unspecified; F02.80 - Dementia in other diseases classified elsewhere without behavioral disturbance (6) History of myocardial infarction Status: Chronic Current Visit: No Code(s): I25.2 - Old myocardial infarction (7) CHF (congestive heart failure) Status: Chronic Current Visit: No Code(s): I50.9 - Heart failure, unspecified (8) History of syncope Status: Chronic Current Visit: No Code(s): Z87.898 - Personal history of other specified conditions (9) Recurrent Clostridium difficile diarrhea Status: Chronic Current Visit: No Code(s): A04.71 - Enterocolitis due to Clostridium difficile, recurrent (10) Incontinence of feces Status: Chronic Current Visit: No Code(s): R15.9 - Full incontinence of feces (11) Incontinence of urine Status: Chronic Current Visit: No Code(s): R32 - Unspecified urinary incontinence (12) History of recurrent UTI (urinary tract infection) Status: Chronic Current Visit: No Code(s): Z87.440 - Personal history of urinary (tract) infections (13) Rheumatoid arthritis Status: Chronic Current Visit: No Code(s): M06.9 - Rheumatoid arthritis, unspecified (14) Atrial fibrillation Status: Chronic Current Visit: No Code(s): I48.91 - Unspecified atrial fibrillation (15) Hypertension Status: Chronic Current Visit: No Code(s): I10 - Essential (primary) hypertension (16) GERD (gastroesophageal reflux disease) Status: Chronic Current Visit: No Code(s): K21.9 - Gastro-esophageal reflux disease without esophagitis (17) Obstructive sleep apnea Status: Chronic Current Visit: No Code(s): G47.33 - Obstructive sleep apnea (adult) (pediatric) (18) Hyperlipidemia Status: Chronic Current Visit: No Code(s): E78.5 - Hyperlipidemia, unspecified (19) Malnutrition Status: Chronic Current Visit: No Code(s): E46 - Unspecified protein-calorie malnutrition History of Present Illness Date of Service: 10/11/18 Chief Complaint: Chronic, nonhealing ulceration of the left heel and the right lateral foot History of Wound: This is a 78-year-old female who is a resident of [facility] in [place], [place]. She was institutionalized as a result of declining function, debility, and frequent falls. Her continues to live at home, and is relatively healthy. Patient presented with an ulceration on her left heel, which had been present for several months. She also has an ulceration on the right lateral foot, near the base of the fifth digit. The patient is weak and debilitated. She does not ambulate. She spends a good part of her day in a wheelchair. She sleeps in a hospital bed. She suffers from dementia and Alzheimer's disease, and interacts minimally. She is incontinent of urine and stool. She suffers from frequent urinary tract infections and recurrent episodes of pseudomembranous enterocolitis (C. difficile infections). The patient's appetite is said to be poor. She is provided with nutritional supplements at the nursing facility. Past Medical History Past Medical History: Chronic Problems (This Medical Record has been edited. Action required.) Foot ulcer, right (Chronic) Ulcer of left heel (Chronic) Debility (Chronic) Dementia (Chronic) Alzheimer's disease (Chronic) History of myocardial infarction (Chronic) CHF (congestive heart failure) (Chronic) History of syncope (Chronic) Recurrent Clostridium difficile diarrhea (Chronic) Incontinence of feces (Chronic) Incontinence of urine (Chronic) History of recurrent UTI (urinary tract infection) (Chronic) Rheumatoid arthritis (Chronic) Atrial fibrillation (Chronic) Hypertension (Chronic) GERD (gastroesophageal reflux disease) (Chronic) Obstructive sleep apnea (Chronic) Hyperlipidemia (Chronic) Malnutrition (Chronic) Surgical History: - - Patient has a history of varicose vein surgery in her lower extremities. She has undergone bilateral total knee replacement surgeries. Hip replacement has been performed unilaterally. Patient has undergone hysterectomy. She has had bunionectomy and nasal septoplasty. She is a Ab0. Allergies/Adverse Reactions: Allergies No Known Allergies Allergy (Verified 10/03/18 14:28) Home Medications: Ambulatory Orders Medication Instructions Recorded Acetaminophen [Tylenol] 650 mg PO Q4H PRN PRN 04/25/18 Albuterol Sulfate 2.5 mg IH Q4H PRN PRN 04/25/18 Amoxicillin/Potassium Clav 1 each PO BID 04/25/18 [Augmentin 875-125 Tablet] Aspirin [Adult Low Dose Aspirin EC] 81 mg PO DAILY 04/25/18 Calcium Carbonate/Simethicone 1 each PO Q4H PRN PRN 04/25/18 [Maalox Advanced Tab Chew] Cholecalciferol (Vitamin D3) 5,000 unit PO DAILY 04/25/18 [Vitamin D3] Donepezil HCl [Aricept] 10 mg PO DAILY 04/25/18 Fluoxetine [Prozac] 40 mg PO DAILY 04/25/18 Guaifenesin [Tussin] 100 mg PO Q4H PRN PRN 04/25/18 Hydroxychloroquine [Plaquenil] 200 mg PO BIDCM 04/25/18 Lactobacillus Acidophilus 1 each PO BID 04/25/18 [Acidophilus] Magnesium Hydroxide [Milk Of 30 ml PO DAILY PRN PRN 04/25/18 Magnesia] Memantine HCl [Memantine HCl ER] 28 mg PO DAILY 04/25/18 Mirtazapine [Remeron] 15 mg PO QHS 04/25/18 Nitroglycerin (INPATIENT USE) 0.4 mg SUBLINGUAL Q5M PRN 04/25/18 [Nitrostat] Pantoprazole Sodium [Protonix] 40 mg PO DAILY 04/25/18 Potassium Chloride [Klor-Con] 20 meq PO DAILY 04/25/18 Prednisone 10 mg PO DAILY 04/25/18 Ranolazine [Ranexa] 500 mg PO BID 04/25/18 Rosuvastatin Calcium [Crestor] 20 mg PO DAILY 04/25/18 Sotalol HCl [Sotalol] 80 mg PO BID 04/25/18 Trimethoprim [Trimpex] 200 mg PO DAILY 04/25/18 Warfarin [Coumadin (PBKC)] 2 mg PO DAILY 04/25/18 levoFLOXacin tablet [Levaquin 500 mg PO DAILY 04/25/18 tablet] Smoking Status: Never smoker Tobacco Use: Non-smoker Review of Systems Constitutional: Denies: Chills, Fever, Weight Change Eyes: Denies: Pain, Vision Change HEENT: Denies: Difficulty Hearing, Difficulty Swallowing, Sinus Congestion Cardiovascular: Denies: Chest Pain, Palpitations Respiratory: Denies: Cough, Shortness of Breath Gastrointestinal: Denies: Diarrhea, Nausea, Vomiting Genitourinary: Denies: Dysuria, Hematuria Endocrine: Denies: Heat/ Cold Intolerance, Polydipsia, Polyuria Hematologic/ Lymphatic: Denies: Easy Bruising, Easy Bleeding - Physical Exam Vital Signs Temp Pulse Resp BP 95.5 F L 62 16 106/63 10/11/18 11:08 10/11/18 11:08 10/11/18 11:08 10/11/18 11:08 General: Oriented x3, Cooperative, No apparent distress, Lethargic, - - The patient is arousable but somewhat somnolent HEENT: Atraumatic, PERRLA, EOMI, Normocephalic Oral: Moist Mucosa Neck: No JVD Lungs: Normal air movement Abdomen: Non-Distended Extremities: No clubbing, No cyanosis, No edema, No Calf Tenderness, - - The ulceration on the lateral aspect of the right foot, near the base of the right fifth digit persists. It is small in size. Dimensions are documented elsewhere. There is no sign of infection or cellulitis. There is mild callus formation peripherally. There is a mild amount of bioburden. The ulceration on the left posterior heel persists as well, with a new ulceration superiorly. The new ulceration is surrounded by mild erythema. It appears related to recent pressure phenomenon. Dimensions are documented elsewhere. The ulcerations of the left posterior heel are generally dry and without drainage. Wound Measurements and Assessment WC - Nurse 1 - General Ulcer Measurement Start: 09/27/18 10:50 Freq: Status: Active Protocol: Activity Type Activity Date Activity User E-Sign Co-Sign Detail Recorded Client Recorded Date Recorded By Document 10/11/18 11:08 MW [id number] 10/11/18 11:25 MW 10/11/18 11:08 Wound Center Nurse 1 [Ulcer Assessment] #6 R Lateral 5th Metatarsal -Combined with other wound No -Current Size (cm) - Length 0.7 -Current Size (cm) - Width 0.1 -Current Size (cm) - Depth 0.1 -Total Square Cm 0.07 -Date of Last Picture (Recall this 10/11/18 field) -Photo Taken Yes -Epithelialization None Present -Tunneling No -Undermining/Tunneling No -Circular Undermining No -Exudate Amt Small -Exudate Type Serous -Wound Margin Indistinct, Non -Visible -Granulation Amt None Present (0 %) -Granulation Quality N/A -Slough/Fibrin Yes -Necrosis Amt Small (1-33%) -Necrotic Tissue Type Adherent Slough -Structure Exposed N/A -Texture (Dorina-wound Skin Appearance) Assessed,Callus -Moisture (Dorina-wound Skin Appearance No Abnormality, ) Assessed -Color (Dorina-wound Skin Appearance) No Abnormality, Assessed -Temperature (Dorina-wound Skin No Abnormality Appearance) (Pt Warm) -Tenderness on Palpation (Dorina-wound Yes Skin Appearance) -Ulcer Cleansing soap and water -Foul Odor after Cleansing No -Anesthetic Used 5% Lidocaine Gel #5 Left Heel -Combined with other wound No -Current Size (cm) - Length 0.6 -Current Size (cm) - Width 0.8 -Current Size (cm) - Depth 0.1 -Total Square Cm 0.48 -Date of Last Picture (Recall this 10/11/18 field) -Photo Taken Yes -Epithelialization None Present -Tunneling No -Undermining/Tunneling No -Circular Undermining No -Exudate Amt None Present -Wound Margin Flat & Intact -Granulation Amt None Present (0 %) -Granulation Quality N/A -Slough/Fibrin Yes -Necrosis Amt Large (67-100%) -Necrotic Tissue Type Adherent Slough -Structure Exposed N/A -Texture (Dorina-wound Skin Appearance) No Abnormality, Assessed -Moisture (Dorina-wound Skin Appearance No Abnormality, ) Assessed -Color (Dorina-wound Skin Appearance) No Abnormality, Assessed -Temperature (Dorina-wound Skin No Abnormality Appearance) (Pt Warm) -Tenderness on Palpation (Dorina-wound No Skin Appearance) -Ulcer Cleansing soap and water -Anesthetic Used 5% Lidocaine Gel [Edema Assessment] -Lower Limb Edema Present No WC - Nurse 2 - General Ulcer CM Notes Start: 09/27/18 10:50 Freq: Status: Active Protocol: Activity Type Activity Date Activity User E-Sign Co-Sign Detail Recorded Client Recorded Date Recorded By Document 10/11/18 11:31 DV [id number] 10/11/18 11:39 DV 10/11/18 11:31 Wound Center Nurse 2 [Procedure/Treatment] #6 R Lateral 5th Metatarsal -Time 11:34 -Correct Patient Yes -Correct Side, Site, Position Yes -Correct Procedure Yes -Procedure Performed Yes -Type of Procedure Debridement -Clinical Debridement Subcutaneous -Post Debridement Size (cm) - Length 1.0 -Post Debridement Size (cm) - Width 0.5 -Post Debridement Size (cm) - Depth 0.2 -Total Square Cm 0.50 -Wound/Ulcer Outcome Not Healed -Ulcer Cleansing Rinsed/ Irrigated with Saline -Foul Odor after Cleansing No -Bioengineered Tissue No -Bleeding Controlled with Pressure -Offloading No -Treatment Response Procedure Tolerated Well #5 Left Heel -Time 11:35 -Correct Patient Yes -Correct Side, Site, Position Yes -Correct Procedure Yes -Procedure Performed Yes -Type of Procedure Debridement -Clinical Debridement Subcutaneous -Post Debridement Size (cm) - Length 1.0 -Post Debridement Size (cm) - Width 1.2 -Post Debridement Size (cm) - Depth 0.1 -Total Square Cm 1.20 -Wound/Ulcer Outcome Not Healed -Ulcer Cleansing Rinsed/ Irrigated with Saline -Foul Odor after Cleansing No -Bioengineered Tissue No -Bleeding Controlled with Pressure -Offloading No -Treatment Response Procedure Tolerated Well [See Physician Procedure note for Specifics] Pain Scale: 0-10 Numeric [Pain] -Is Patient Pain Free? Yes Neurological: Cranial nerves II-XII grossly intact Psych/Mental Status: - - Patient is somnolent and lethargic, but appears to be arousable. Debridement Note Post-Debridement Measurements/Treatment WC - Nurse 2 - General Ulcer CM Notes Start: 09/27/18 10:50 Freq: Status: Active Protocol: Activity Type Activity Date Activity User E-Sign Co-Sign Detail Recorded Client Recorded Date Recorded By Document 09/27/18 11:49 DV [id number] 09/27/18 12:00 DV Document 10/11/18 11:31 DV [id number] 10/11/18 11:39 DV 09/27/18 10/11/18 11:49 11:31 Wound Center Nurse 2 #7 Left distal achilles -Time 11:50 -Correct Patient Yes -Correct Side, Site, Position Yes -Correct Procedure No -Procedure Performed No -Post Debridement Size (cm) - Length 0 -Post Debridement Size (cm) - Width 0 -Post Debridement Size (cm) - Depth 0 -Total Square Cm 0 -Wound/Ulcer Outcome Healed- Epithelialized -Foul Odor after Cleansing No -Bioengineered Tissue No #6 R Lateral 5th Metatarsal -Time 11:51 11:34 -Correct Patient Yes Yes -Correct Side, Site, Position Yes Yes -Correct Procedure Yes Yes -Procedure Performed Yes Yes -Type of Procedure Debridement Debridement -Clinical Debridement Subcutaneous Subcutaneous -Post Debridement Size (cm) - Length 1.0 1.0 -Post Debridement Size (cm) - Width 1.0 0.5 -Post Debridement Size (cm) - Depth 0.3 0.2 -Total Square Cm 1.00 0.50 -Wound/Ulcer Outcome Not Healed Not Healed -Ulcer Cleansing Rinsed/ Rinsed/ Irrigated with Irrigated with Saline Saline -Foul Odor after Cleansing No No -Bioengineered Tissue No No -Bleeding Controlled with Pressure Pressure -Offloading Yes No -Type of Offloading Surgical Shoe -Treatment Response Procedure Procedure Tolerated Well Tolerated Well #5 Left Heel -Time 11:59 11:35 -Correct Patient Yes Yes -Correct Side, Site, Position Yes Yes -Correct Procedure Yes Yes -Procedure Performed Yes Yes -Type of Procedure Debridement Debridement -Clinical Debridement Subcutaneous Subcutaneous -Post Debridement Size (cm) - Length 0.3 1.0 -Post Debridement Size (cm) - Width 0.3 1.2 -Post Debridement Size (cm) - Depth 0.1 0.1 -Total Square Cm 0.09 1.20 -Wound/Ulcer Outcome Not Healed Not Healed -Ulcer Cleansing Rinsed/ Rinsed/ Irrigated with Irrigated with Saline Saline -Foul Odor after Cleansing No No -Bioengineered Tissue No -Bleeding Controlled with Pressure Pressure -Offloading No No -Treatment Response Procedure Procedure Tolerated Well Tolerated Well Pain Scale: 0-10 Numeric Is Patient Pain Free? Yes Yes Laterality: Right - Lateral foot Type of Debridement: Excisional debridement Anesthesia Used: 5% Lidocaine Gel Depth: Down to and including healthy tissue, in the subcutaneous layer Percentage of wound debrided: 100 Instrument Used: 7mm curette, Forceps, - - Scissors Severity: Fat Layer Exposed Amount of bleeding with debridement: Mild Bleeding Controlled with: Compression and gauze Patient tolerated procedure well Assessment/Plan Active Problems (This Medical Record has been edited. Action required.) Foot ulcer, right (Chronic) Ulcer of left heel (Chronic) Debility (Chronic) Dementia (Chronic) Alzheimer's disease (Chronic) Assessment: This is a 78-year-old female with multiple medical problems, as outlined above. The patient suffers from dementia and Alzheimer's disease. She is very limited functionally. She does not ambulate. She presented with ulcerations of the right lateral foot and the left heel. The ulceration on the left buttock remains completely healed. These appear to be pressure related. They were stage III ulcerations in each case. The patient has undergone a battery of diagnostic tests the nursing facility at which she is a resident. Lab results were as follows: White blood count 8.7, hemoglobin 11.6, hematocrit 35.9, platelets 273,000, glucose 77, BUN 19, creatinine 0.5, sodium 140, potassium 3.7, chloride 104, calcium 8.9, alkaline phosphatase 63, ALT 20, AST 16, total protein 5.7, albumin 2.9, prealbumin 27, bilirubin 0.44. A noninvasive lower extremity arterial ultrasound study was performed, though only of the left lower extremity. The impression indicates diminished to nonexistent flow in the calf vessels including the tibial peroneal and dorsalis pedis arteries. A noninvasive lower extremity arterial study has been performed at [facility]. Triphasic waveforms were noted in ankle level bilaterally. Resting ankle-brachial indices could not be determined due to the noncompressibility of the vasculature bilaterally. Right digital-brachial index was 0.43. The left digital-brachial index was 0.99. This is suggestive of moderate to severe arterial impairment at digital level of the right lower extremity. The relative normalcy of the left digital-brachial index may be due to arterial calcification, a matter for which clinical correlation is advised. The patient underwent evaluation in consultation by a vascular surgeon several days ago, Dr. Garza, in [place], [place]. According to the patient's daughter, revascularization or intervention was not felt to be warranted due to the patient's debility and limited functional state. The ulceration on the right lateral foot is chronic, and has been under treatment serially at our facility. There does appear to be a new and recent ulceration on the left posterior heel, which appears to be pressure-related. Plan: Offloading measures have been implemented, and are to be continued. The issue of offloading measures has been discussed thoroughly with the patient's daughter, who was again at the bedside. We have been able to obtain a low air-loss mattress for the patient's hospital bed. We have also successfully obtained a Roho cushion for the patient's wheelchair. Frequent repositioning has been recommended. The recent emergence of a second ulceration on the left posterior heel is suspected to be related to pressure phenomenon, and offloading measures have again been stressed. We are to continue the use of Collagenase Santyl topically to the ulceration on the right lateral foot. The ulcerations on the left heel are to be kept clean and dry, with offloading measures to be continued. Nutritional supplementation has been recommended. The patient will return in 2 weeks for reassessment, and has been placed in the palliative care pathway. The patient's buttock ulceration appears to be healed, and will be left undisturbed, though reevaluated weekly. The patient is to continue with nutritional supplements. The patient remains on systemic anticoagulation therapy. The patient is not a smoker. Influenza vaccine was not administered today. Patient weighs 199 pounds. She stands 5 feet 10 inches tall. Her BMI is 28.5. This places the patient in the overweight category, which normally would warrant mild weight loss. However, attempts at adequate nutrition appear to prevail. Nutritional supplements have been encouraged.
[2018-10-18 11:05] VITALS: BP 118/68; PULSE 65; RESP 16; TEMP 34.9; BMI 28.5
--- NOTE | 2018-10-18 12:36 | PCM.WC.HP ---
(1) Foot ulcer, right Status: Chronic Current Visit: Yes Qualifiers: Code(s): L97.519 - Non-pressure chronic ulcer of other part of right foot with unspecified severity (2) Ulcer of left heel Status: Chronic Current Visit: Yes Qualifiers: Non-pressure ulcer stage: with fat layer exposed Code(s): L97.429 - Non-pressure chronic ulcer of left heel and midfoot with unspecified severity (3) Debility Status: Chronic Current Visit: Yes Code(s): R53.81 - Other malaise (4) Dementia Status: Chronic Current Visit: Yes Code(s): F03.90 - Unspecified dementia without behavioral disturbance (5) Alzheimer's disease Status: Chronic Current Visit: Yes Code(s): G30.9 - Alzheimer's disease, unspecified; F02.80 - Dementia in other diseases classified elsewhere without behavioral disturbance (6) History of myocardial infarction Status: Chronic Current Visit: No Code(s): I25.2 - Old myocardial infarction (7) CHF (congestive heart failure) Status: Chronic Current Visit: No Code(s): I50.9 - Heart failure, unspecified (8) History of syncope Status: Chronic Current Visit: No Code(s): Z87.898 - Personal history of other specified conditions (9) Recurrent Clostridium difficile diarrhea Status: Chronic Current Visit: No Code(s): A04.71 - Enterocolitis due to Clostridium difficile, recurrent (10) Incontinence of feces Status: Chronic Current Visit: No Code(s): R15.9 - Full incontinence of feces (11) Incontinence of urine Status: Chronic Current Visit: No Code(s): R32 - Unspecified urinary incontinence (12) History of recurrent UTI (urinary tract infection) Status: Chronic Current Visit: No Code(s): Z87.440 - Personal history of urinary (tract) infections (13) Rheumatoid arthritis Status: Chronic Current Visit: No Code(s): M06.9 - Rheumatoid arthritis, unspecified (14) Atrial fibrillation Status: Chronic Current Visit: No Code(s): I48.91 - Unspecified atrial fibrillation (15) Hypertension Status: Chronic Current Visit: No Code(s): I10 - Essential (primary) hypertension (16) GERD (gastroesophageal reflux disease) Status: Chronic Current Visit: No Code(s): K21.9 - Gastro-esophageal reflux disease without esophagitis (17) Obstructive sleep apnea Status: Chronic Current Visit: No Code(s): G47.33 - Obstructive sleep apnea (adult) (pediatric) (18) Hyperlipidemia Status: Chronic Current Visit: No Code(s): E78.5 - Hyperlipidemia, unspecified (19) Malnutrition Status: Chronic Current Visit: No Code(s): E46 - Unspecified protein-calorie malnutrition History of Present Illness Date of Service: 10/18/18 Chief Complaint: Chronic, nonhealing ulceration of the left heel and the right lateral foot History of Wound: This is a 78-year-old female who is a resident of [facility] in [place], [place]. She was institutionalized as a result of declining function, debility, and frequent falls. Her continues to live at home, and is relatively healthy. Patient presented with an ulceration on her left heel, which had been present for several months. She also has an ulceration on the right lateral foot, near the base of the fifth digit. The patient is weak and debilitated. She does not ambulate. She spends a good part of her day in a wheelchair. She sleeps in a hospital bed. She suffers from dementia and Alzheimer's disease, and interacts minimally. She is incontinent of urine and stool. She suffers from frequent urinary tract infections and recurrent episodes of pseudomembranous enterocolitis (C. difficile infections). The patient's appetite is said to be poor. She is provided with nutritional supplements at the nursing facility. Past Medical History Past Medical History: Chronic Problems (This Medical Record has been edited. Action required.) Foot ulcer, right (Chronic) Ulcer of left heel (Chronic) Debility (Chronic) Dementia (Chronic) Alzheimer's disease (Chronic) History of myocardial infarction (Chronic) CHF (congestive heart failure) (Chronic) History of syncope (Chronic) Recurrent Clostridium difficile diarrhea (Chronic) Incontinence of feces (Chronic) Incontinence of urine (Chronic) History of recurrent UTI (urinary tract infection) (Chronic) Rheumatoid arthritis (Chronic) Atrial fibrillation (Chronic) Hypertension (Chronic) GERD (gastroesophageal reflux disease) (Chronic) Obstructive sleep apnea (Chronic) Hyperlipidemia (Chronic) Malnutrition (Chronic) Surgical History: - - Patient has a history of varicose vein surgery in her lower extremities. She has undergone bilateral total knee replacement surgeries. Hip replacement has been performed unilaterally. Patient has undergone hysterectomy. She has had bunionectomy and nasal septoplasty. She is a Ab0. Allergies/Adverse Reactions: Allergies No Known Allergies Allergy (Verified 10/03/18 14:28) Home Medications: Ambulatory Orders Medication Instructions Recorded Acetaminophen [Tylenol] 650 mg PO Q4H PRN PRN 04/25/18 Albuterol Sulfate 2.5 mg IH Q4H PRN PRN 04/25/18 Amoxicillin/Potassium Clav 1 each PO BID 04/25/18 [Augmentin 875-125 Tablet] Aspirin [Adult Low Dose Aspirin EC] 81 mg PO DAILY 04/25/18 Calcium Carbonate/Simethicone 1 each PO Q4H PRN PRN 04/25/18 [Maalox Advanced Tab Chew] Cholecalciferol (Vitamin D3) 5,000 unit PO DAILY 04/25/18 [Vitamin D3] Donepezil HCl [Aricept] 10 mg PO DAILY 04/25/18 Fluoxetine [Prozac] 40 mg PO DAILY 04/25/18 Guaifenesin [Tussin] 100 mg PO Q4H PRN PRN 04/25/18 Hydroxychloroquine [Plaquenil] 200 mg PO BIDCM 04/25/18 Lactobacillus Acidophilus 1 each PO BID 04/25/18 [Acidophilus] Magnesium Hydroxide [Milk Of 30 ml PO DAILY PRN PRN 04/25/18 Magnesia] Memantine HCl [Memantine HCl ER] 28 mg PO DAILY 04/25/18 Mirtazapine [Remeron] 15 mg PO QHS 04/25/18 Nitroglycerin (INPATIENT USE) 0.4 mg SUBLINGUAL Q5M PRN 04/25/18 [Nitrostat] Pantoprazole Sodium [Protonix] 40 mg PO DAILY 04/25/18 Potassium Chloride [Klor-Con] 20 meq PO DAILY 04/25/18 Prednisone 10 mg PO DAILY 04/25/18 Ranolazine [Ranexa] 500 mg PO BID 04/25/18 Rosuvastatin Calcium [Crestor] 20 mg PO DAILY 04/25/18 Sotalol HCl [Sotalol] 80 mg PO BID 04/25/18 Trimethoprim [Trimpex] 200 mg PO DAILY 04/25/18 Warfarin [Coumadin (PBKC)] 2 mg PO DAILY 04/25/18 levoFLOXacin tablet [Levaquin 500 mg PO DAILY 04/25/18 tablet] Smoking Status: Never smoker Tobacco Use: Non-smoker Review of Systems Constitutional: Denies: Chills, Fever, Weight Change Eyes: Denies: Pain, Vision Change HEENT: Denies: Difficulty Hearing, Difficulty Swallowing, Sinus Congestion Cardiovascular: Denies: Chest Pain, Palpitations Respiratory: Denies: Cough, Shortness of Breath Gastrointestinal: Denies: Diarrhea, Nausea, Vomiting Genitourinary: Denies: Dysuria, Hematuria Endocrine: Denies: Heat/ Cold Intolerance, Polydipsia, Polyuria Hematologic/ Lymphatic: Denies: Easy Bruising, Easy Bleeding - Physical Exam Vital Signs Temp Pulse Resp BP 94.8 F L 65 16 118/68 10/18/18 11:05 10/18/18 11:05 10/18/18 11:05 10/18/18 11:05 General: Cooperative, No apparent distress, Well developed, Well nourished, Lethargic, - - The patient is lethargic but arousable HEENT: Atraumatic, PERRLA, EOMI, Normocephalic Oral: Moist Mucosa Neck: No JVD Lungs: Normal air movement Abdomen: Non-Distended Extremities: No clubbing, No cyanosis, No edema, No Calf Tenderness, - - The ulceration on the right lateral foot persists. It is generally pink and healthy, with a moderate amount of bioburden and nonviable tissue. There is no sign of infection or cellulitis. Dimensions are documented elsewhere. There are also 2 ulcerations on the left posterior heel. The inferior ulceration is superficial. The superior ulceration demonstrates a moderate amount of bioburden and nonviable tissue. There is no sign of infection or cellulitis involving either of the left posterior heel ulcerations. Dimensions of the left heel ulcerations are documented elsewhere. Wound Measurements and Assessment WC - Nurse 1 - General Ulcer Measurement Start: 09/27/18 10:50 Freq: Status: Active Protocol: Activity Type Activity Date Activity User E-Sign Co-Sign Detail Recorded Client Recorded Date Recorded By Document 10/18/18 11:05 MW [id number] 10/18/18 11:15 MW 10/18/18 11:05 Wound Center Nurse 1 [Ulcer Assessment] #7 Left distal achilles -Combined with other wound No -Current Size (cm) - Length 0.4 -Current Size (cm) - Width 0.5 -Current Size (cm) - Depth 0.1 -Total Square Cm 0.20 -Photo Taken No -Epithelialization None Present -Tunneling No -Undermining/Tunneling No -Circular Undermining No -Exudate Amt None Present -Wound Margin Flat & Intact -Granulation Amt None Present (0 %) -Granulation Quality N/A -Slough/Fibrin Yes -Necrosis Amt Large (67-100%) -Necrotic Tissue Type Adherent Slough -Structure Exposed N/A -Texture (Dorina-wound Skin Appearance) Assessed, Localized Edema -Moisture (Dorina-wound Skin Appearance Assessed,Dry/ ) Scaly -Color (Dorina-wound Skin Appearance) No Abnormality, Assessed -Temperature (Dorina-wound Skin No Abnormality Appearance) (Pt Warm) -Tenderness on Palpation (Dorina-wound Yes Skin Appearance) -Ulcer Cleansing Rinsed/ Irrigated with Saline -Foul Odor after Cleansing No -Anesthetic Used 4% Lidocaine Solution #6 R Lateral 5th Metatarsal -Combined with other wound No -Current Size (cm) - Length 0.4 -Current Size (cm) - Width 0.3 -Current Size (cm) - Depth 0.1 -Total Square Cm 0.12 -Photo Taken No -Epithelialization None Present -Tunneling No -Undermining/Tunneling No -Circular Undermining No -Exudate Amt None Present -Wound Margin Flat & Intact -Granulation Amt None Present (0 %) -Granulation Quality N/A -Slough/Fibrin Yes -Necrosis Amt Large (67-100%) -Necrotic Tissue Type Adherent Slough -Structure Exposed N/A -Texture (Dorina-wound Skin Appearance) Assessed, Localized Edema -Moisture (Dorina-wound Skin Appearance No Abnormality, ) Assessed,Dry/ Scaly -Color (Dorina-wound Skin Appearance) Assessed -Temperature (Dorina-wound Skin No Abnormality Appearance) (Pt Warm) -Tenderness on Palpation (Dorina-wound Yes Skin Appearance) -Ulcer Cleansing Rinsed/ Irrigated with Saline -Foul Odor after Cleansing No -Anesthetic Used 4% Lidocaine Solution #5 Left Heel -Combined with other wound No -Current Size (cm) - Length 0.1 -Current Size (cm) - Width 0.1 -Current Size (cm) - Depth 0.1 -Total Square Cm 0.01 -Photo Taken No -Epithelialization None Present -Tunneling No -Undermining/Tunneling No -Circular Undermining No -Exudate Amt None Present -Wound Margin Flat & Intact -Granulation Amt None Present (0 %) -Granulation Quality N/A -Slough/Fibrin Yes -Necrosis Amt Large (67-100%) -Necrotic Tissue Type Adherent Slough -Structure Exposed N/A -Texture (Dorina-wound Skin Appearance) No Abnormality, Assessed -Moisture (Dorina-wound Skin Appearance Assessed,Dry/ ) Scaly -Color (Dorina-wound Skin Appearance) No Abnormality, Assessed -Temperature (Dorina-wound Skin No Abnormality Appearance) (Pt Warm) -Tenderness on Palpation (Dorina-wound Yes Skin Appearance) -Ulcer Cleansing Rinsed/ Irrigated with Saline -Foul Odor after Cleansing No -Anesthetic Used 4% Lidocaine Solution [Edema Assessment] -Lower Limb Edema Present No Musculoskeletal: Muscle Wasting Neurological: Cranial nerves II-XII grossly intact Psych/Mental Status: Normal Affect, Appropriate, - - The patient is lethargic though easily arousable. Debridement Note Post-Debridement Measurements/Treatment WC - Nurse 2 - General Ulcer CM Notes Start: 09/27/18 10:50 Freq: Status: Active Protocol: Activity Type Activity Date Activity User E-Sign Co-Sign Detail Recorded Client Recorded Date Recorded By Document 09/27/18 11:49 DV [id number] 09/27/18 12:00 DV Document 10/11/18 11:31 DV [id number] 10/11/18 11:39 DV 09/27/18 10/11/18 11:49 11:31 Wound Center Nurse 2 #7 Left distal achilles -Time 11:50 -Correct Patient Yes -Correct Side, Site, Position Yes -Correct Procedure No -Procedure Performed No -Post Debridement Size (cm) - Length 0 -Post Debridement Size (cm) - Width 0 -Post Debridement Size (cm) - Depth 0 -Total Square Cm 0 -Wound/Ulcer Outcome Healed- Epithelialized -Foul Odor after Cleansing No -Bioengineered Tissue No #6 R Lateral 5th Metatarsal -Time 11:51 11:34 -Correct Patient Yes Yes -Correct Side, Site, Position Yes Yes -Correct Procedure Yes Yes -Procedure Performed Yes Yes -Type of Procedure Debridement Debridement -Clinical Debridement Subcutaneous Subcutaneous -Post Debridement Size (cm) - Length 1.0 1.0 -Post Debridement Size (cm) - Width 1.0 0.5 -Post Debridement Size (cm) - Depth 0.3 0.2 -Total Square Cm 1.00 0.50 -Wound/Ulcer Outcome Not Healed Not Healed -Ulcer Cleansing Rinsed/ Rinsed/ Irrigated with Irrigated with Saline Saline -Foul Odor after Cleansing No No -Bioengineered Tissue No No -Bleeding Controlled with Pressure Pressure -Offloading Yes No -Type of Offloading Surgical Shoe -Treatment Response Procedure Procedure Tolerated Well Tolerated Well #5 Left Heel -Time 11:59 11:35 -Correct Patient Yes Yes -Correct Side, Site, Position Yes Yes -Correct Procedure Yes Yes -Procedure Performed Yes Yes -Type of Procedure Debridement Debridement -Clinical Debridement Subcutaneous Subcutaneous -Post Debridement Size (cm) - Length 0.3 1.0 -Post Debridement Size (cm) - Width 0.3 1.2 -Post Debridement Size (cm) - Depth 0.1 0.1 -Total Square Cm 0.09 1.20 -Wound/Ulcer Outcome Not Healed Not Healed -Ulcer Cleansing Rinsed/ Rinsed/ Irrigated with Irrigated with Saline Saline -Foul Odor after Cleansing No No -Bioengineered Tissue No -Bleeding Controlled with Pressure Pressure -Offloading No No -Treatment Response Procedure Procedure Tolerated Well Tolerated Well Pain Scale: 0-10 Numeric Is Patient Pain Free? Yes Yes Laterality: Right - Lateral foot Type of Debridement: Excisional debridement Anesthesia Used: 5% Lidocaine Gel Depth: Down to and including healthy tissue, in the subcutaneous layer Percentage of wound debrided: 100 Instrument Used: 3mm curette Tissue Removed: Bioburden and nonviable tissue Severity: Fat Layer Exposed Amount of bleeding with debridement: Mild Bleeding Controlled with: Compression and gauze Patient tolerated procedure well - Additional Wound Laterality: Left - Posterior heel Type of Debridement: Excisional debridement Anesthesia Used: 5% Lidocaine Gel Depth: Down to and including healthy tissue, in the subcutaneous layer Percentage of wound debrided: 100 Instrument Used: 3mm curette Tissue Removed: Bioburden and nonviable tissue Severity: Fat Layer Exposed Amount of bleeding with debridement: Mild Bleeding Controlled with: Compression and gauze Patient tolerated procedure: Patient tolerated procedure well Assessment/Plan Active Problems (This Medical Record has been edited. Action required.) Foot ulcer, right (Chronic) Ulcer of left heel (Chronic) Debility (Chronic) Dementia (Chronic) Alzheimer's disease (Chronic) Assessment: This is a 78-year-old female with multiple medical problems, as outlined above. The patient suffers from dementia and Alzheimer's disease. She is very limited functionally. She does not ambulate. She presented with ulcerations of the right lateral foot and the left heel. The ulceration on the left buttock remains completely healed. These appear to be pressure related. They were stage III ulcerations in each case. The patient has undergone a battery of diagnostic tests the nursing facility at which she is a resident. Lab results were as follows: White blood count 8.7, hemoglobin 11.6, hematocrit 35.9, platelets 273,000, glucose 77, BUN 19, creatinine 0.5, sodium 140, potassium 3.7, chloride 104, calcium 8.9, alkaline phosphatase 63, ALT 20, AST 16, total protein 5.7, albumin 2.9, prealbumin 27, bilirubin 0.44. A noninvasive lower extremity arterial ultrasound study was performed, though only of the left lower extremity. The impression indicates diminished to nonexistent flow in the calf vessels including the tibial peroneal and dorsalis pedis arteries. A noninvasive lower extremity arterial study has been performed at [facility]. Triphasic waveforms were noted in ankle level bilaterally. Resting ankle-brachial indices could not be determined due to the noncompressibility of the vasculature bilaterally. Right digital-brachial index was 0.43. The left digital-brachial index was 0.99. This is suggestive of moderate to severe arterial impairment at digital level of the right lower extremity. The relative normalcy of the left digital-brachial index may be due to arterial calcification, a matter for which clinical correlation is advised. The patient underwent evaluation in consultation by a vascular surgeon several days ago, Dr. Garza, in [place], [place]. According to the patient's daughter, revascularization or intervention was not felt to be warranted due to the patient's debility and limited functional state. The ulceration on the right lateral foot is chronic, and has been under treatment serially at our facility. There do appear to be recent ulcerations on the left posterior heel, which appear to be pressure-related. Plan: Offloading measures have been implemented, and are to be continued. The issue of offloading measures has been discussed thoroughly with the patient's daughter, who was again at the bedside. We have been able to obtain a low air-loss mattress for the patient's hospital bed. We have also successfully obtained a Roho cushion for the patient's wheelchair. Frequent repositioning has been recommended. The recent emergence of a second ulceration on the left posterior heel is suspected to be related to pressure phenomenon, and offloading measures have again been stressed. We are to continue the use of Collagenase Santyl topically to the ulcerations on the right lateral foot and left posterior heel. Nutritional supplementation has been recommended. The patient will return in 2 weeks for reassessment, and has been placed in the palliative care pathway. The patient's buttock ulceration appears to be healed, and will be left undisturbed, though reevaluated weekly. The patient is to continue with nutritional supplements. The patient remains on systemic anticoagulation therapy. The patient is not a smoker. Influenza vaccine was not administered today. Patient weighs 199 pounds. She stands 5 feet 10 inches tall. Her BMI is 28.5. This places the patient in the overweight category, which normally would warrant mild weight loss. However, attempts at adequate nutrition appear to prevail. Nutritional supplements have been encouraged.
== END 2018-10-22 23:59 ==
LOC: WC 11:00
PROVIDERS: Family Provider Surgery; PCP Surgery; Referring Provider Surgery; Visit Provider Surgery
DX: L89.623 Pressure ulcer of left heel, stage 3 (principal); L89.893 Pressure ulcer of other site, stage 3; I11.0 Hypertensive heart disease with heart failure; I50.9 Heart failure, unspecified; I25.2 Old myocardial infarction; I48.2 Chronic atrial fibrillation; G30.9 Alzheimer's disease, unspecified; F02.80 Dementia in other diseases classified elsewhere, unspecified severity, without behavioral disturbance, psychotic disturbance, mood disturbance, and anxiety; M06.9 Rheumatoid arthritis, unspecified; K21.9 Gastro-esophageal reflux disease without esophagitis; E78.5 Hyperlipidemia, unspecified; G47.33 Obstructive sleep apnea (adult) (pediatric); R32 Unspecified urinary incontinence
CPT/HCPCS: 11042

== ENCOUNTER 2018-11-08 08:00 | Outpatient (RCR) | payer MEDICARE, SELFPAY ==
[2018-10-23 00:24] VITALS: BP 118/68; PULSE 65; RESP 16; TEMP 34.9
[2018-11-01 08:25] VITALS: BP 159/92; PULSE 67; RESP 16; TEMP 34.6; BMI 28.5
--- NOTE | 2018-11-01 09:05 | HP.PCM_ITS ---
(1) Foot ulcer, right Status: Chronic Current Visit: Yes Qualifiers: Non-pressure ulcer stage: with fat layer exposed Code(s): L97.519 - Non-pressure chronic ulcer of other part of right foot with unspecified severity (2) Ulcer of left heel Status: Chronic Current Visit: Yes Qualifiers: Non-pressure ulcer stage: with fat layer exposed Code(s): L97.429 - Non-pressure chronic ulcer of left heel and midfoot with unspecified severity (3) Debility Status: Chronic Current Visit: Yes Code(s): R53.81 - Other malaise (4) Dementia Status: Chronic Current Visit: Yes Qualifiers: Alzheimer's disease onset: late-onset Code(s): F03.90 - Unspecified dementia without behavioral disturbance (5) Alzheimer's disease Status: Chronic Current Visit: Yes Qualifiers: Alzheimer's disease onset: late-onset Code(s): G30.9 - Alzheimer's disease, unspecified; F02.80 - Dementia in other diseases classified elsewhere without behavioral disturbance (6) History of myocardial infarction Status: Chronic Current Visit: No Code(s): I25.2 - Old myocardial infarction (7) CHF (congestive heart failure) Status: Chronic Current Visit: No Code(s): I50.9 - Heart failure, unspecified (8) History of syncope Status: Chronic Current Visit: No Code(s): Z87.898 - Personal history of other specified conditions (9) Recurrent Clostridium difficile diarrhea Status: Chronic Current Visit: No Code(s): A04.71 - Enterocolitis due to Clostridium difficile, recurrent (10) Incontinence of feces Status: Chronic Current Visit: No Code(s): R15.9 - Full incontinence of feces (11) Incontinence of urine Status: Chronic Current Visit: No Code(s): R32 - Unspecified urinary incontinence (12) History of recurrent UTI (urinary tract infection) Status: Chronic Current Visit: No Code(s): Z87.440 - Personal history of urinary (tract) infections (13) Rheumatoid arthritis Status: Chronic Current Visit: No Code(s): M06.9 - Rheumatoid arthritis, unspecified (14) Atrial fibrillation Status: Chronic Current Visit: No Code(s): I48.91 - Unspecified atrial fibrillation (15) Hypertension Status: Chronic Current Visit: No Code(s): I10 - Essential (primary) hypertension (16) GERD (gastroesophageal reflux disease) Status: Chronic Current Visit: No Code(s): K21.9 - Gastro-esophageal reflux disease without esophagitis (17) Obstructive sleep apnea Status: Chronic Current Visit: No Code(s): G47.33 - Obstructive sleep apnea (adult) (pediatric) (18) Hyperlipidemia Status: Chronic Current Visit: No Code(s): E78.5 - Hyperlipidemia, unspecified (19) Malnutrition Status: Chronic Current Visit: Yes Code(s): E46 - Unspecified protein- calorie malnutrition (20) Decubitus ulcer of buttock, stage 2 Status: Resolved Current Visit: No Qualifiers: Code(s): L89.302 - Pressure ulcer of unspecified buttock, stage 2 History of Present Illness Date of Service: 11/01/18 Chief Complaint: Chronic, nonhealing ulceration of the left heel and the right lateral foot History of Wound: This is a 78-year-old female who is a resident of [facility] in [place], [place]. She was institutionalized as a result of declining function, debility, and frequent falls. Her continues to live at home, and is relatively healthy. Patient presented with an ulceration on her left heel, which had been present for several months. She also has an ulceration on the right lateral foot, near the base of the fifth digit. The patient is weak and debilitated. She does not ambulate. She spends a good part of her day in a wheelchair. She sleeps in a hospital bed. She suffers from dementia and Alzheimer's disease, and interacts minimally. She is incontinent of urine and stool. She suffers from frequent urinary tract infections and recurrent episodes of pseudomembranous enterocolitis (C. difficile infections). The patient's appetite is said to be poor. She is provided with nutritional supplements at the nursing facility. Past Medical History Past Medical History: Chronic Problems (This Medical Record has been edited. Action required.) Foot ulcer, right (Chronic) Ulcer of left heel (Chronic) Debility (Chronic) Dementia (Chronic) Alzheimer's disease (Chronic) History of myocardial infarction (Chronic) CHF (congestive heart failure) (Chronic) History of syncope (Chronic) Recurrent Clostridium difficile diarrhea (Chronic) Incontinence of feces (Chronic) Incontinence of urine (Chronic) History of recurrent UTI (urinary tract infection) (Chronic) Rheumatoid arthritis (Chronic) Atrial fibrillation (Chronic) Hypertension (Chronic) GERD (gastroesophageal reflux disease) (Chronic) Obstructive sleep apnea (Chronic) Hyperlipidemia (Chronic) Malnutrition (Chronic) Surgical History: - - Patient has a history of varicose vein surgery in her lower extremities. She has undergone bilateral total knee replacement surgeries. Hip replacement has been performed unilaterally. Patient has undergone hysterectomy. She has had bunionectomy and nasal septoplasty. She is a Ab0. Allergies/Adverse Reactions: Allergies No Known Allergies Allergy (Verified 10/03/18 14:28) Home Medications: Ambulatory Orders Medication Instructions Recorded Acetaminophen [Tylenol] 650 mg PO Q4H PRN PRN 04/25/18 Albuterol Sulfate 2.5 mg IH Q4H PRN PRN 04/25/18 Amoxicillin/Potassium Clav 1 each PO BID 04/25/18 [Augmentin 875-125 Tablet] Aspirin [Adult Low Dose Aspirin EC] 81 mg PO DAILY 04/25/18 Calcium Carbonate/Simethicone 1 each PO Q4H PRN PRN 04/25/18 [Maalox Advanced Tab Chew] Cholecalciferol (Vitamin D3) 5,000 unit PO DAILY 04/25/18 [Vitamin D3] Donepezil HCl [Aricept] 10 mg PO DAILY 04/25/18 Fluoxetine [Prozac] 40 mg PO DAILY 04/25/18 Guaifenesin [Tussin] 100 mg PO Q4H PRN PRN 04/25/18 Hydroxychloroquine [Plaquenil] 200 mg PO BIDCM 04/25/18 Lactobacillus Acidophilus 1 each PO BID 04/25/18 [Acidophilus] Magnesium Hydroxide [Milk Of 30 ml PO DAILY PRN PRN 04/25/18 Magnesia] Memantine HCl [Memantine HCl ER] 28 mg PO DAILY 04/25/18 Mirtazapine [Remeron] 15 mg PO QHS 04/25/18 Nitroglycerin (INPATIENT USE) 0.4 mg SUBLINGUAL Q5M PRN 04/25/18 [Nitrostat] Pantoprazole Sodium [Protonix] 40 mg PO DAILY 04/25/18 Potassium Chloride [Klor-Con] 20 meq PO DAILY 04/25/18 Prednisone 10 mg PO DAILY 04/25/18 Ranolazine [Ranexa] 500 mg PO BID 04/25/18 Rosuvastatin Calcium [Crestor] 20 mg PO DAILY 04/25/18 Sotalol HCl [Sotalol] 80 mg PO BID 04/25/18 Trimethoprim [Trimpex] 200 mg PO DAILY 04/25/18 Warfarin [Coumadin (PBKC)] 2 mg PO DAILY 04/25/18 levoFLOXacin tablet [Levaquin 500 mg PO DAILY 04/25/18 tablet] Smoking Status: Never smoker Tobacco Use: Non-smoker Review of Systems Constitutional: Denies: Chills, Fever, Weight Change Eyes: Denies: Pain, Vision Change HEENT: Denies: Difficulty Hearing, Difficulty Swallowing, Sinus Congestion Cardiovascular: Denies: Chest Pain, Palpitations Respiratory: Denies: Cough, Shortness of Breath Gastrointestinal: Denies: Diarrhea, Nausea, Vomiting Genitourinary: Denies: Dysuria, Hematuria Endocrine: Denies: Heat/ Cold Intolerance, Polydipsia, Polyuria Hematologic/ Lymphatic: Denies: Easy Bruising, Easy Bleeding - Physical Exam Vital Signs Temp Pulse Resp BP 94.2 F L 67 16 159/92 H 11/01/18 08:25 11/01/18 08:25 11/01/18 08:25 11/01/18 08:25 General: Alert, Oriented x3, Cooperative, No apparent distress, Well developed, Well nourished HEENT: Atraumatic, PERRLA, EOMI, Normocephalic Oral: Moist Mucosa Neck: No JVD Lungs: Normal air movement Abdomen: Non-Distended Extremities: No clubbing, No cyanosis, No edema, No Calf Tenderness, - - The ulcerations on the left heel appear improved. There are nearly healed, and only superficial sloughing epithelial tissue is present. However, the right lateral foot ulceration is markedly worse. It has the appearance of trauma or pressure since last evaluated. There is now a very large bruise or underlying hematoma about the ulceration, suspected to be iatrogenic. Although offloading measures have been stressed repeatedly, the appearance of the right lateral foot wound is such that there appears to have been trauma or pressure-related issues since the patient was last seen in our facility. The base of the open ulceration demonstrates a moderate amount of bioburden and nonviable tissue. There is no sign of infection or cellulitis at this time. Dimensions are documented elsewhere. Wound Measurements and Assessment WC - Nurse 1 - General Ulcer Measurement Start: 11/01/18 08:25 Freq: Status: Active Protocol: Activity Type Activity Date Activity User E-Sign Co-Sign Detail Recorded Client Recorded Date Recorded By Document 11/01/18 08:25 MW [id number] 11/01/18 08:41 MW 11/01/18 08:25 Wound Center Nurse 1 [Ulcer Assessment] #6 R Lateral 5th Metatarsal -Combined with other wound No -Current Size (cm) - Length 1.0 -Current Size (cm) - Width 1.0 -Current Size (cm) - Depth 0.3 -Total Square Cm 1.00 -Date of Last Picture (Recall this 11/01/18 field) -Photo Taken Yes -Epithelialization None Present -Tunneling No -Undermining/Tunneling No -Circular Undermining No -Exudate Amt Medium -Exudate Type Serosanguineous -Wound Margin Flat & Intact -Granulation Amt None Present (0 %) -Granulation Quality N/A -Slough/Fibrin Yes -Necrosis Amt Large (67-100%) -Necrotic Tissue Type Adherent Slough -Structure Exposed N/A -Texture (Dorina-wound Skin Appearance) Assessed, Localized Edema -Moisture (Dorina-wound Skin Appearance No Abnormality, ) Assessed -Color (Dorina-wound Skin Appearance) Assessed, Erythema -Temperature (Dorina-wound Skin No Abnormality Appearance) (Pt Warm) -Tenderness on Palpation (Dorina-wound No Skin Appearance) -Ulcer Cleansing Rinsed/ Irrigated with Saline -Foul Odor after Cleansing No -Anesthetic Used 4% Lidocaine Solution,5% Lidocaine Gel #5 Left Heel -Combined with other wound No -Current Size (cm) - Length 0.3 -Current Size (cm) - Width 1.0 -Current Size (cm) - Depth 0.1 -Total Square Cm 0.30 -Date of Last Picture (Recall this 11/01/18 field) -Photo Taken Yes -Epithelialization None Present -Tunneling No -Undermining/Tunneling No -Circular Undermining No -Exudate Amt Small -Exudate Type Serosanguineous -Wound Margin Flat & Intact -Granulation Amt None Present (0 %) -Granulation Quality N/A -Slough/Fibrin Yes -Necrosis Amt Large (67-100%) -Necrotic Tissue Type Adherent Slough -Structure Exposed N/A -Texture (Dorina-wound Skin Appearance) Assessed, Scarring -Moisture (Dorina-wound Skin Appearance No Abnormality, ) Assessed -Color (Dorina-wound Skin Appearance) Assessed,Rubor -Temperature (Dorina-wound Skin No Abnormality Appearance) (Pt Warm) -Tenderness on Palpation (Dorina-wound No Skin Appearance) -Ulcer Cleansing Rinsed/ Irrigated with Saline -Foul Odor after Cleansing No -Anesthetic Used 4% Lidocaine Solution,5% Lidocaine Gel [Edema Assessment] -Lower Limb Edema Present No WC - Nurse 2 - General Ulcer CM Notes Start: 11/01/18 08:25 Freq: Status: Active Protocol: Activity Type Activity Date Activity User E-Sign Co-Sign Detail Recorded Client Recorded Date Recorded By Document 11/01/18 08:50 PATIENCE [id number] 11/01/18 08:54 PATIENCE 11/01/18 08:50 Wound Center Nurse 2 [Procedure/Treatment] #6 R Lateral 5th Metatarsal -Time 08:51 -Correct Patient Yes -Correct Side, Site, Position Yes -Correct Procedure Yes -Procedure Performed Yes -Type of Procedure Debridement -Clinical Debridement Subcutaneous -Post Debridement Size (cm) - Length 1.1 -Post Debridement Size (cm) - Width 1 -Post Debridement Size (cm) - Depth 0.3 -Total Square Cm 1.1 -Wound/Ulcer Outcome Not Healed -Ulcer Cleansing Rinsed/ Irrigated with Saline -Foul Odor after Cleansing No -Bioengineered Tissue No -Bleeding Controlled with Pressure -Offloading No -Treatment Response Procedure Tolerated Well #5 Left Heel -Time 08:51 -Correct Patient Yes -Correct Side, Site, Position Yes -Correct Procedure Yes -Procedure Performed Yes -Type of Procedure Debridement -Clinical Debridement Subcutaneous -Post Debridement Size (cm) - Length 0.1 -Post Debridement Size (cm) - Width 0.1 -Post Debridement Size (cm) - Depth 0.1 -Total Square Cm 0.01 -Wound/Ulcer Outcome Not Healed -Ulcer Cleansing Rinsed/ Irrigated with Saline -Foul Odor after Cleansing No -Bioengineered Tissue No -Bleeding Controlled with Pressure -Offloading No -Treatment Response Procedure Tolerated Well [See Physician Procedure note for Specifics] Pain Scale: 0-10 Numeric [Pain] -Is Patient Pain Free? Yes Musculoskeletal: Muscle Wasting - Lower extremities Neurological: - - The patient is lethargic, but awake and arousable. Psych/Mental Status: Normal Affect Debridement Note Post-Debridement Measurements/Treatment WC - Nurse 2 - General Ulcer CM Notes Start: 11/01/18 08:25 Freq: Status: Active Protocol: Activity Type Activity Date Activity User E-Sign Co-Sign Detail Recorded Client Recorded Date Recorded By Document 11/01/18 08:50 PATIENCE [id number] 11/01/18 08:54 PATIENCE 11/01/18 08:50 Wound Center Nurse 2 #6 R Lateral 5th Metatarsal -Time 08:51 -Correct Patient Yes -Correct Side, Site, Position Yes -Correct Procedure Yes -Procedure Performed Yes -Type of Procedure Debridement -Clinical Debridement Subcutaneous -Post Debridement Size (cm) - Length 1.1 -Post Debridement Size (cm) - Width 1 -Post Debridement Size (cm) - Depth 0.3 -Total Square Cm 1.1 -Wound/Ulcer Outcome Not Healed -Ulcer Cleansing Rinsed/ Irrigated with Saline -Foul Odor after Cleansing No -Bioengineered Tissue No -Bleeding Controlled with Pressure -Offloading No -Treatment Response Procedure Tolerated Well #5 Left Heel -Time 08:51 -Correct Patient Yes -Correct Side, Site, Position Yes -Correct Procedure Yes -Procedure Performed Yes -Type of Procedure Debridement -Clinical Debridement Subcutaneous -Post Debridement Size (cm) - Length 0.1 -Post Debridement Size (cm) - Width 0.1 -Post Debridement Size (cm) - Depth 0.1 -Total Square Cm 0.01 -Wound/Ulcer Outcome Not Healed -Ulcer Cleansing Rinsed/ Irrigated with Saline -Foul Odor after Cleansing No -Bioengineered Tissue No -Bleeding Controlled with Pressure -Offloading No -Treatment Response Procedure Tolerated Well Pain Scale: 0-10 Numeric Is Patient Pain Free? Yes Laterality: Right - Lateral foot Type of Debridement: Excisional debridement Anesthesia Used: 5% Lidocaine Gel Depth: Down to and including healthy tissue, in the subcutaneous layer Percentage of wound debrided: 100 Instrument Used: 5mm curette Tissue Removed: Bioburden and nonviable tissue Severity: Fat Layer Exposed Amount of bleeding with debridement: Mild Bleeding Controlled with: Compression and gauze Patient tolerated procedure well Assessment/Plan Active Problems (This Medical Record has been edited. Action required.) Foot ulcer, right (Chronic) Ulcer of left heel (Chronic) Debility (Chronic) Dementia (Chronic) Alzheimer's disease (Chronic) Malnutrition (Chronic) Assessment: This is a 78-year-old female with multiple medical problems, as outlined above. The patient suffers from dementia and Alzheimer's disease. She is very limited functionally. She does not ambulate. She presented with ulcerations of the right lateral foot and the left heel. The ulceration on the left buttock remains completely healed. These appear to be pressure related. They were stage III ulcerations in each case. The patient has undergone a battery of diagnostic tests the nursing facility at which she is a resident. Lab results were as follows: White blood count 8.7, hemoglobin 11.6, hematocrit 35.9, platelets 273,000, glucose 77, BUN 19, creatinine 0.5, sodium 140, potassium 3.7, chloride 104, calcium 8.9, alkaline phosphatase 63, ALT 20, AST 16, total protein 5.7, albumin 2.9, prealbumin 27, bilirubin 0.44. A noninvasive lower extremity arterial ultrasound study was performed, though only of the left lower extremity. The impression indicates diminished to nonexistent flow in the calf vessels including the tibial peroneal and dorsalis pedis arteries. A noninvasive lower extremity arterial study has been performed at [facility]. Triphasic waveforms were noted in ankle level bilaterally. Resting ankle-brachial indices could not be determined due to the noncompressibility of the vasculature bilaterally. Right digital- brachial index was 0.43. The left digital-brachial index was 0.99. This is suggestive of moderate to severe arterial impairment at digital level of the right lower extremity. The relative normalcy of the left digital-brachial index may be due to arterial calcification, a matter for which clinical correlation is advised. The patient underwent evaluation in consultation by a vascular surgeon several days ago, Dr. Garza, in [place], [place]. According to the patient's daughter, revascularization or intervention was not felt to be warranted due to the patient's debility and limited functional state. The ulceration on the right lateral foot is chronic, and has been under treatment serially at our facility. The ulceration on the right lateral foot appears to be worse, likely related to pressure phenomenon or trauma. There do appear to be recent ulcerations on the left posterior heel, which appear to be pressure-related. Plan: Offloading measures have been implemented, and are to be continued. The issue of offloading measures has been discussed thoroughly with the patient's daughter, who was again at the bedside, as well as the wound nurse from the patient's intermediate. We have been able to obtain a low air-loss mattress for the patient's hospital bed. We have also successfully obtained a Roho cushion for the patient's wheelchair. Frequent repositioning has been recommended. The recent emergence of a second ulceration on the left posterior heel is suspected to be related to pressure phenomenon, and offloading measures have again been stressed. We are to continue the use of Collagenase Santyl topically to the ulceration on the right lateral foot. The left heel ulcerations will be left undisturbed, but protected by pressure offloading. Nutritional supplementation has been recommended. The patient will return in 1 week for reassessment, and has been placed in the palliative care pathway. The patient's buttock ulceration appears to be healed, and will be left undisturbed, though reevaluated weekly. The patient is to continue with nutritional supplements. The patient remains on systemic anticoagulation therapy. Routine laboratory tests are to be obtained, including a CBC, conference of metabolic profile, and a serum prealbumin. The patient is not a smoker. Influenza vaccine was not administered today. Patient weighs 199 pounds. She stands 5 feet 10 inches tall. Her BMI is 28.5. This places the patient in the overweight category, which normally would warrant mild weight loss. However, attempts at adequate nutrition appear to prevail. Nutritional supplements have been encouraged.
[2018-11-08 08:38] VITALS: BP 124/70; PULSE 64; RESP 18; TEMP 35; BMI 28.5
--- NOTE | 2018-11-08 09:00 | HP.PCM_ITS ---
(1) Foot ulcer, right Status: Chronic Current Visit: Yes Qualifiers: Non-pressure ulcer stage: with fat layer exposed Code(s): L97.519 - Non-pressure chronic ulcer of other part of right foot with unspecified severity (2) Ulcer of left heel Status: Chronic Current Visit: Yes Qualifiers: Non-pressure ulcer stage: with fat layer exposed Code(s): L97.429 - Non-pressure chronic ulcer of left heel and midfoot with unspecified severity (3) Debility Status: Chronic Current Visit: Yes Code(s): R53.81 - Other malaise (4) Dementia Status: Chronic Current Visit: Yes Qualifiers: Alzheimer's disease onset: late-onset Code(s): F03.90 - Unspecified dementia without behavioral disturbance (5) Alzheimer's disease Status: Chronic Current Visit: Yes Qualifiers: Alzheimer's disease onset: late-onset Code(s): G30.9 - Alzheimer's disease, unspecified; F02.80 - Dementia in other diseases classified elsewhere without behavioral disturbance (6) History of myocardial infarction Status: Chronic Current Visit: No Code(s): I25.2 - Old myocardial infarction (7) CHF (congestive heart failure) Status: Chronic Current Visit: No Code(s): I50.9 - Heart failure, unspecified (8) History of syncope Status: Chronic Current Visit: No Code(s): Z87.898 - Personal history of other specified conditions (9) Recurrent Clostridium difficile diarrhea Status: Chronic Current Visit: No Code(s): A04.71 - Enterocolitis due to Clostridium difficile, recurrent (10) Incontinence of feces Status: Chronic Current Visit: No Code(s): R15.9 - Full incontinence of feces (11) Incontinence of urine Status: Chronic Current Visit: No Code(s): R32 - Unspecified urinary incontinence (12) History of recurrent UTI (urinary tract infection) Status: Chronic Current Visit: No Code(s): Z87.440 - Personal history of urinary (tract) infections (13) Rheumatoid arthritis Status: Chronic Current Visit: No Code(s): M06.9 - Rheumatoid arthritis, unspecified (14) Atrial fibrillation Status: Chronic Current Visit: No Code(s): I48.91 - Unspecified atrial fibrillation (15) Hypertension Status: Chronic Current Visit: No Code(s): I10 - Essential (primary) hypertension (16) GERD (gastroesophageal reflux disease) Status: Chronic Current Visit: No Code(s): K21.9 - Gastro-esophageal reflux disease without esophagitis (17) Obstructive sleep apnea Status: Chronic Current Visit: No Code(s): G47.33 - Obstructive sleep apnea (adult) (pediatric) (18) Hyperlipidemia Status: Chronic Current Visit: No Code(s): E78.5 - Hyperlipidemia, unspecified (19) Malnutrition Status: Chronic Current Visit: Yes Code(s): E46 - Unspecified protein- calorie malnutrition History of Present Illness Date of Service: 11/08/18 Chief Complaint: Chronic, nonhealing ulceration of the left heel and the right lateral foot History of Wound: This is a 78-year-old female who is a resident of [facility] in [place], [place]. She was institutionalized as a result of declining function, debility, and frequent falls. Her continues to live at home, and is relatively healthy. Patient presented with an ulceration on her left heel, which had been present for several months. She also has an ulceration on the right lateral foot, near the base of the fifth digit. The patient is weak and debilitated. She does not ambulate. She spends a good part of her day in a wheelchair. She sleeps in a hospital bed. She suffers from dementia and Alzheimer's disease, and interacts minimally. She is incontinent of urine and stool. She suffers from frequent urinary tract infections and recurrent episodes of pseudomembranous enterocolitis (C. difficile infections). The patient's appetite is said to be poor. She is provided with nutritional supplements at the nursing facility. Past Medical History Past Medical History: Chronic Problems (This Medical Record has been edited. Action required.) Foot ulcer, right (Chronic) Ulcer of left heel (Chronic) Debility (Chronic) Dementia (Chronic) Alzheimer's disease (Chronic) History of myocardial infarction (Chronic) CHF (congestive heart failure) (Chronic) History of syncope (Chronic) Recurrent Clostridium difficile diarrhea (Chronic) Incontinence of feces (Chronic) Incontinence of urine (Chronic) History of recurrent UTI (urinary tract infection) (Chronic) Rheumatoid arthritis (Chronic) Atrial fibrillation (Chronic) Hypertension (Chronic) GERD (gastroesophageal reflux disease) (Chronic) Obstructive sleep apnea (Chronic) Hyperlipidemia (Chronic) Malnutrition (Chronic) Surgical History: - - Patient has a history of varicose vein surgery in her lower extremities. She has undergone bilateral total knee replacement surgeries. Hip replacement has been performed unilaterally. Patient has undergone hysterectomy. She has had bunionectomy and nasal septoplasty. She is a Ab0. Allergies/Adverse Reactions: Allergies No Known Allergies Allergy (Verified 10/03/18 14:28) Home Medications: Ambulatory Orders Medication Instructions Recorded Acetaminophen [Tylenol] 650 mg PO Q4H PRN PRN 04/25/18 Albuterol Sulfate 2.5 mg IH Q4H PRN PRN 04/25/18 Amoxicillin/Potassium Clav 1 each PO BID 04/25/18 [Augmentin 875-125 Tablet] Aspirin [Adult Low Dose Aspirin EC] 81 mg PO DAILY 04/25/18 Calcium Carbonate/Simethicone 1 each PO Q4H PRN PRN 04/25/18 [Maalox Advanced Tab Chew] Cholecalciferol (Vitamin D3) 5,000 unit PO DAILY 04/25/18 [Vitamin D3] Donepezil HCl [Aricept] 10 mg PO DAILY 04/25/18 Fluoxetine [Prozac] 40 mg PO DAILY 04/25/18 Guaifenesin [Tussin] 100 mg PO Q4H PRN PRN 04/25/18 Hydroxychloroquine [Plaquenil] 200 mg PO BIDCM 04/25/18 Lactobacillus Acidophilus 1 each PO BID 04/25/18 [Acidophilus] Magnesium Hydroxide [Milk Of 30 ml PO DAILY PRN PRN 04/25/18 Magnesia] Memantine HCl [Memantine HCl ER] 28 mg PO DAILY 04/25/18 Mirtazapine [Remeron] 15 mg PO QHS 04/25/18 Nitroglycerin (INPATIENT USE) 0.4 mg SUBLINGUAL Q5M PRN 04/25/18 [Nitrostat] Pantoprazole Sodium [Protonix] 40 mg PO DAILY 04/25/18 Potassium Chloride [Klor-Con] 20 meq PO DAILY 04/25/18 Prednisone 10 mg PO DAILY 04/25/18 Ranolazine [Ranexa] 500 mg PO BID 04/25/18 Rosuvastatin Calcium [Crestor] 20 mg PO DAILY 04/25/18 Sotalol HCl [Sotalol] 80 mg PO BID 04/25/18 Trimethoprim [Trimpex] 200 mg PO DAILY 04/25/18 Warfarin [Coumadin (PBKC)] 2 mg PO DAILY 04/25/18 levoFLOXacin tablet [Levaquin 500 mg PO DAILY 04/25/18 tablet] Smoking Status: Never smoker Tobacco Use: Non-smoker Review of Systems Constitutional: Denies: Chills, Fever, Weight Change Eyes: Denies: Pain, Vision Change HEENT: Denies: Difficulty Hearing, Difficulty Swallowing, Sinus Congestion Cardiovascular: Denies: Chest Pain, Palpitations Respiratory: Denies: Cough, Shortness of Breath Gastrointestinal: Denies: Diarrhea, Nausea, Vomiting Genitourinary: Denies: Dysuria, Hematuria Endocrine: Denies: Heat/ Cold Intolerance, Polydipsia, Polyuria Hematologic/ Lymphatic: Denies: Easy Bruising, Easy Bleeding - Physical Exam Vital Signs Temp Pulse Resp BP 95.0 F L 64 18 124/70 H 11/08/18 08:38 11/08/18 08:38 11/08/18 08:38 11/08/18 08:38 General: Alert, Oriented x3, Cooperative, No apparent distress, Well developed, Well nourished HEENT: Atraumatic, PERRLA, EOMI, Normocephalic Oral: Moist Mucosa Neck: No JVD Lungs: Normal air movement Abdomen: Non-Distended Extremities: No clubbing, No cyanosis, No edema, No Calf Tenderness, - - The ulceration on the right lateral foot persists. It is little changed in size. Dimensions are documented elsewhere. There is no sign of infection or cellulitis. The erythema, noted last week, is now essentially resolved. There has been significant improvement. There is a small amount of bioburden. The ulcerations on the left posterior heel are superficial. They are dry. There is no sign of infection or cellulitis. It appears to be a superficial dry eschar, which is anticipated to slough spontaneously. Skin: No rashes Wound Measurements and Assessment - Nurse 1 - General Ulcer Measurement Start: 11/01/18 08:25 Freq: Status: Active Protocol: Activity Type Activity Date Activity User E-Sign Co-Sign Detail Recorded Client Recorded Date Recorded By Document 11/08/18 08:38 PATIENCE [id number] 11/08/18 08:40 PATIENCE 11/08/18 08:38 Wound Center Nurse 1 [Ulcer Assessment] #6 R Lateral 5th Metatarsal -Combined with other wound No -Current Size (cm) - Length 1.0 -Current Size (cm) - Width 0.6 -Current Size (cm) - Depth 0.4 -Total Square Cm 0.60 -Photo Taken No -Epithelialization None Present -Tunneling No -Undermining/Tunneling No -Circular Undermining No -Exudate Amt Small -Exudate Type Serosanguineous -Wound Margin Flat & Intact -Granulation Amt Small (1-33%) -Granulation Quality Schubert -Slough/Fibrin Yes -Necrosis Amt Medium (34-66%) -Necrotic Tissue Type Adherent Slough -Structure Exposed N/A -Texture (Dorina-wound Skin Appearance) Assessed, Localized Edema -Moisture (Dorina-wound Skin Appearance Assessed,Dry/ ) Scaly -Color (Dorina-wound Skin Appearance) Assessed -Temperature (Dorina-wound Skin No Abnormality Appearance) (Pt Warm) -Tenderness on Palpation (Dorina-wound No Skin Appearance) -Ulcer Cleansing Rinsed/ Irrigated with Saline -Foul Odor after Cleansing No -Anesthetic Used 4% Lidocaine Solution #5 Left Heel -Combined with other wound No -Current Size (cm) - Length 0.1 -Current Size (cm) - Width 0.1 -Current Size (cm) - Depth 0.1 -Total Square Cm 0.01 -Photo Taken No -Epithelialization Large 67-100% -Tunneling No -Undermining/Tunneling No -Circular Undermining No -Exudate Amt None Present -Wound Margin Flat & Intact -Granulation Amt None Present (0 %) -Slough/Fibrin Yes -Necrosis Amt Large (67-100%) -Necrotic Tissue Type Adherent Slough -Structure Exposed N/A -Texture (Dorina-wound Skin Appearance) Assessed -Moisture (Dorina-wound Skin Appearance Assessed,Dry/ ) Scaly -Color (Dorina-wound Skin Appearance) Assessed -Temperature (Dorina-wound Skin No Abnormality Appearance) (Pt Warm) -Tenderness on Palpation (Dorina-wound No Skin Appearance) -Ulcer Cleansing Rinsed/ Irrigated with Saline -Foul Odor after Cleansing No -Anesthetic Used 4% Lidocaine Solution [Edema Assessment] -Lower Limb Edema Present NA WC - Nurse 2 - General Ulcer CM Notes Start: 11/01/18 08:25 Freq: Status: Active Protocol: Activity Type Activity Date Activity User E-Sign Co-Sign Detail Recorded Client Recorded Date Recorded By Document 11/08/18 08:52 [id number] 11/08/18 09:00 MW 11/08/18 08:52 Wound Center Nurse 2 [Procedure/Treatment] #6 R Lateral 5th Metatarsal -Time 08:55 -Correct Patient Yes -Correct Side, Site, Position Yes -Correct Procedure Yes -Procedure Performed Yes -Type of Procedure Debridement -Clinical Debridement Subcutaneous -Post Debridement Size (cm) - Length 0.9 -Post Debridement Size (cm) - Width 0.7 -Post Debridement Size (cm) - Depth 0.3 -Total Square Cm 0.63 -Wound/Ulcer Outcome Not Healed -Ulcer Cleansing Rinsed/ Irrigated with Saline -Foul Odor after Cleansing No -Bioengineered Tissue No -Bleeding Controlled with Pressure -Offloading No -Treatment Response Procedure Tolerated Well #5 Left Heel -Time 08:55 -Correct Patient Yes -Correct Side, Site, Position Yes -Correct Procedure Yes -Procedure Performed No -Post Debridement Size (cm) - Length 0 -Post Debridement Size (cm) - Width 0 -Post Debridement Size (cm) - Depth 0 -Total Square Cm 0 -Wound/Ulcer Outcome Healed- Epithelialized [See Physician Procedure note for Specifics] Pain Scale: 0-10 Numeric [Pain] -Is Patient Pain Free? Yes Neurological: Cranial nerves II-XII grossly intact, Neuro grossly intact Psych/Mental Status: Normal Affect, Appropriate, Alert and oriented to time, place, person, mood and affect - The patient is somewhat lethargic, but easily arousable and interactive. Debridement Note Post-Debridement Measurements/Treatment WC - Nurse 2 - General Ulcer CM Notes Start: 11/01/18 08:25 Freq: Status: Active Protocol: Activity Type Activity Date Activity User E-Sign Co-Sign Detail Recorded Client Recorded Date Recorded By Document 11/01/18 08:50 [id number] 11/01/18 08:54 Document 11/08/18 08:52 [id number] 11/08/18 09:00 MW 11/01/18 11/08/18 08:50 08:52 Wound Center Nurse 2 #6 R Lateral 5th Metatarsal -Time 08:51 08:55 -Correct Patient Yes Yes -Correct Side, Site, Position Yes Yes -Correct Procedure Yes Yes -Procedure Performed Yes Yes -Type of Procedure Debridement Debridement -Clinical Debridement Subcutaneous Subcutaneous -Post Debridement Size (cm) - Length 1.1 0.9 -Post Debridement Size (cm) - Width 1 0.7 -Post Debridement Size (cm) - Depth 0.3 0.3 -Total Square Cm 1.1 0.63 -Wound/Ulcer Outcome Not Healed Not Healed -Ulcer Cleansing Rinsed/ Rinsed/ Irrigated with Irrigated with Saline Saline -Foul Odor after Cleansing No No -Bioengineered Tissue No No -Bleeding Controlled with Pressure Pressure -Offloading No No -Treatment Response Procedure Procedure Tolerated Well Tolerated Well #5 Left Heel -Time 08:51 08:55 -Correct Patient Yes Yes -Correct Side, Site, Position Yes Yes -Correct Procedure Yes Yes -Procedure Performed Yes No -Type of Procedure Debridement -Clinical Debridement Subcutaneous -Post Debridement Size (cm) - Length 0.1 0 -Post Debridement Size (cm) - Width 0.1 0 -Post Debridement Size (cm) - Depth 0.1 0 -Total Square Cm 0.01 0 -Wound/Ulcer Outcome Not Healed Healed- Epithelialized -Ulcer Cleansing Rinsed/ Irrigated with Saline -Foul Odor after Cleansing No -Bioengineered Tissue No -Bleeding Controlled with Pressure -Offloading No -Treatment Response Procedure Tolerated Well Pain Scale: 0-10 Numeric Is Patient Pain Free? Yes Yes Laterality: Right - Lateral foot Type of Debridement: Excisional debridement Anesthesia Used: 5% Lidocaine Gel Depth: Down to and including healthy tissue, in the subcutaneous layer Percentage of wound debrided: 100 Instrument Used: 7mm curette Tissue Removed: Bioburden and nonviable tissue Severity: Fat Layer Exposed Amount of bleeding with debridement: Mild Bleeding Controlled with: Compression and gauze Patient tolerated procedure well Assessment/Plan Active Problems (This Medical Record has been edited. Action required.) Foot ulcer, right (Chronic) Ulcer of left heel (Chronic) Debility (Chronic) Dementia (Chronic) Alzheimer's disease (Chronic) Malnutrition (Chronic) Assessment: This is a 78-year-old female with multiple medical problems, as outlined above. The patient suffers from dementia and Alzheimer's disease. She is very limited functionally. She does not ambulate. She presented with ulcerations of the right lateral foot and the left heel. The ulceration on the left buttock remains completely healed. These appear to be pressure related. They were stage III ulcerations in each case. The patient has undergone a battery of diagnostic tests the nursing facility at which she is a resident. Lab results were as follows: White blood count 8.7, hemoglobin 11.6, hematocrit 35.9, platelets 273,000, glucose 77, BUN 19, creatinine 0.5, sodium 140, potassium 3.7, chloride 104, calcium 8.9, alkaline phosphatase 63, ALT 20, AST 16, total protein 5.7, albumin 2.9, prealbumin 27, bilirubin 0.44. A noninvasive lower extremity arterial ultrasound study was performed, though only of the left lower extremity. The impression indicates diminished to nonexistent flow in the calf vessels including the tibial peroneal and dorsalis pedis arteries. A noninvasive lower extremity arterial study has been performed at [facility]. Triphasic waveforms were noted in ankle level bilaterally. Resting ankle-brachial indices could not be determined due to the noncompressibility of the vasculature bilaterally. Right digital- brachial index was 0.43. The left digital-brachial index was 0.99. This is suggestive of moderate to severe arterial impairment at digital level of the right lower extremity. The relative normalcy of the left digital-brachial index may be due to arterial calcification, a matter for which clinical correlation is advised. The patient underwent evaluation in consultation by a vascular surgeon several days ago, Dr. Garza, in [place], [place]. According to the patient's daughter, revascularization or intervention was not felt to be warranted due to the patient's debility and limited functional state. The ulceration on the right lateral foot is chronic, and has been under treatment serially at our facility. The ulceration on the right lateral foot appears improved, the recent erythema at the site having essentially resolved. There do appear to be recent ulcerations on the left posterior heel, which appear to be pressure-related. Plan: Offloading measures have been implemented, and are to be continued. The issue of offloading measures has been discussed thoroughly with the patient's daughter, who was again at the bedside. We have been able to obtain a low air- loss mattress for the patient's hospital bed. We have also successfully obtained a Roho cushion for the patient's wheelchair. Frequent repositioning has been recommended. The recent emergence of a second ulceration on the left posterior heel is suspected to be related to pressure phenomenon, and offloading measures have again been stressed. We are to continue the use of Collagenase Santyl topically to the ulceration on the right lateral foot. The left heel ulcerations will be left undisturbed, but protected by pressure offloading. Nutritional supplementation has been recommended. The patient will return in 2 weeks for reassessment, and has been placed in the palliative care pathway. The patient is to continue with nutritional supplements. The patient remains on systemic anticoagulation therapy. There is concern that the patient's bedpost may account for pressure to the right lateral foot. Therefore, the patient's daughter is to make effort to obtain a longer bed, which would alleviate the potential for pressure to the ulcerated area on the right lateral foot. The patient is not a smoker. Influenza vaccine was not administered today. Patient weighs 199 pounds. She stands 5 feet 10 inches tall. Her BMI is 28.5. This places the patient in the overweight category, which normally would warrant mild weight loss. However, attempts at adequate nutrition appear to prevail. Nutritional supplements have been encouraged.
== END 2018-11-21 23:59 ==
LOC: WC 08:00
PROVIDERS: Family Provider Surgery; PCP Surgery; Referring Provider Surgery; Visit Provider Surgery
DX: L89.623 Pressure ulcer of left heel, stage 3 (principal); L89.893 Pressure ulcer of other site, stage 3; G30.9 Alzheimer's disease, unspecified; F02.80 Dementia in other diseases classified elsewhere, unspecified severity, without behavioral disturbance, psychotic disturbance, mood disturbance, and anxiety; I25.2 Old myocardial infarction; I50.9 Heart failure, unspecified; I11.0 Hypertensive heart disease with heart failure; R32 Unspecified urinary incontinence; R15.9 Full incontinence of feces; M06.9 Rheumatoid arthritis, unspecified; I48.2 Chronic atrial fibrillation; K21.9 Gastro-esophageal reflux disease without esophagitis; G47.33 Obstructive sleep apnea (adult) (pediatric); E78.5 Hyperlipidemia, unspecified
CPT/HCPCS: 11042

== ENCOUNTER 2018-12-13 08:00 | Outpatient (RCR) | payer MEDICARE, SELFPAY ==
[2018-11-22 00:27] VITALS: BP 124/70; PULSE 64; RESP 18; TEMP 35
[2018-11-22 08:16] VITALS: BP 105/78; PULSE 74; RESP 16; TEMP 35.3; BMI 28.5
--- NOTE | 2018-11-22 09:09 | HP.PCM_ITS ---
(1) Foot ulcer, right Status: Chronic Current Visit: No Qualifiers: Non-pressure ulcer stage: with fat layer exposed Code(s): L97.519 - (2) Ulcer of left heel Status: Chronic Current Visit: Yes Qualifiers: Non-pressure ulcer stage: limited to breakdown of skin Qualified Code(s): L97.421 - Non-pressure chronic ulcer of left heel and midfoot limited to breakdown of skin Code(s): L97.429 - Non-pressure chronic ulcer of left heel and midfoot with unspecified severity (3) Debility Status: Chronic Current Visit: Yes Code(s): R53.81 - (4) Dementia Status: Chronic Current Visit: Yes Code(s): F03.90 - (5) Alzheimer's disease Status: Chronic Current Visit: Yes Code(s): G30.9 - ; F02.80 - (6) History of myocardial infarction Status: Chronic Current Visit: No Code(s): I25.2 - (7) CHF (congestive heart failure) Status: Chronic Current Visit: No Code(s): I50.9 - (8) History of syncope Status: Chronic Current Visit: No Code(s): Z87.898 - (9) Recurrent Clostridium difficile diarrhea Status: Chronic Current Visit: No Code(s): A04.71 - (10) Incontinence of feces Status: Chronic Current Visit: No Code(s): R15.9 - (11) Incontinence of urine Status: Chronic Current Visit: No Code(s): R32 - (12) History of recurrent UTI (urinary tract infection) Status: Chronic Current Visit: No Code(s): Z87.440 - (13) Rheumatoid arthritis Status: Chronic Current Visit: No Code(s): M06.9 - (14) Atrial fibrillation Status: Chronic Current Visit: No Code(s): I48.91 - (15) Hypertension Status: Chronic Current Visit: No Code(s): I10 - (16) GERD (gastroesophageal reflux disease) Status: Chronic Current Visit: No Code(s): K21.9 - (17) Obstructive sleep apnea Status: Chronic Current Visit: No Code(s): G47.33 - (18) Hyperlipidemia Status: Chronic Current Visit: No Code(s): E78.5 - (19) Malnutrition Status: Chronic Current Visit: No Code(s): E46 - (20) Decubitus ulcer of buttock, stage 2 Status: Resolved Current Visit: No Qualifiers: Code(s): L89.302 - Pressure ulcer of unspecified buttock, stage 2 History of Present Illness Date of Service: 11/22/18 Chief Complaint: Chronic, nonhealing ulceration of the left heel and the right lateral foot History of Wound: This is a 78-year-old female who is a resident of [facility] in [place], [place]. She was institutionalized as a result of declining function, debility, and frequent falls. Her continues to live at home, and is relatively healthy. Patient presented with an ulceration on her left heel, which had been present for several months. She also has an ulceration on the right lateral foot, near the base of the fifth digit. The patient is weak and debilitated. She does not ambulate. She spends a good part of her day in a wheelchair. She sleeps in a hospital bed. She suffers from dementia and Alzheimer's disease, and interacts minimally. She is incontinent of urine and stool. She suffers from frequent urinary tract infections and recurrent episodes of pseudomembranous enterocolitis (C. difficile infections). The patient's appetite is said to be poor. She is provided with nutritional supplements at the nursing facility. Past Medical History Past Medical History: Chronic Problems (This Medical Record has been edited. Action required.) Foot ulcer, right (Chronic) Ulcer of left heel (Chronic) Debility (Chronic) Dementia (Chronic) Alzheimer's disease (Chronic) History of myocardial infarction (Chronic) CHF (congestive heart failure) (Chronic) History of syncope (Chronic) Recurrent Clostridium difficile diarrhea (Chronic) Incontinence of feces (Chronic) Incontinence of urine (Chronic) History of recurrent UTI (urinary tract infection) (Chronic) Rheumatoid arthritis (Chronic) Atrial fibrillation (Chronic) Hypertension (Chronic) GERD (gastroesophageal reflux disease) (Chronic) Obstructive sleep apnea (Chronic) Hyperlipidemia (Chronic) Malnutrition (Chronic) Surgical History: - - Patient has a history of varicose vein surgery in her lower extremities. She has undergone bilateral total knee replacement surgeries. Hip replacement has been performed unilaterally. Patient has undergone hysterectomy. She has had bunionectomy and nasal septoplasty. She is a Ab0. Allergies/Adverse Reactions: Allergies No Known Allergies Allergy (Verified 10/03/18 14:28) Home Medications: Ambulatory Orders Medication Instructions Recorded Acetaminophen [Tylenol] 650 mg PO Q4H PRN PRN 04/25/18 Albuterol Sulfate 2.5 mg IH Q4H PRN PRN 04/25/18 Amoxicillin/Potassium Clav 1 each PO BID 04/25/18 [Augmentin 875-125 Tablet] Aspirin [Adult Low Dose Aspirin EC] 81 mg PO DAILY 04/25/18 Calcium Carbonate/Simethicone 1 each PO Q4H PRN PRN 04/25/18 [Maalox Advanced Tab Chew] Cholecalciferol (Vitamin D3) 5,000 unit PO DAILY 04/25/18 [Vitamin D3] Donepezil HCl [Aricept] 10 mg PO DAILY 04/25/18 Fluoxetine [Prozac] 40 mg PO DAILY 04/25/18 Guaifenesin [Tussin] 100 mg PO Q4H PRN PRN 04/25/18 Hydroxychloroquine [Plaquenil] 200 mg PO BIDCM 04/25/18 Lactobacillus Acidophilus 1 each PO BID 04/25/18 [Acidophilus] Magnesium Hydroxide [Milk Of 30 ml PO DAILY PRN PRN 04/25/18 Magnesia] Memantine HCl [Memantine HCl ER] 28 mg PO DAILY 04/25/18 Mirtazapine [Remeron] 15 mg PO QHS 04/25/18 Nitroglycerin (INPATIENT USE) 0.4 mg SUBLINGUAL Q5M PRN 04/25/18 [Nitrostat] Pantoprazole Sodium [Protonix] 40 mg PO DAILY 04/25/18 Potassium Chloride [Klor-Con] 20 meq PO DAILY 04/25/18 Prednisone 10 mg PO DAILY 04/25/18 Ranolazine [Ranexa] 500 mg PO BID 04/25/18 Rosuvastatin Calcium [Crestor] 20 mg PO DAILY 04/25/18 Sotalol HCl [Sotalol] 80 mg PO BID 04/25/18 Trimethoprim [Trimpex] 200 mg PO DAILY 04/25/18 Warfarin [Coumadin (PBKC)] 2 mg PO DAILY 04/25/18 levoFLOXacin tablet [Levaquin 500 mg PO DAILY 04/25/18 tablet] Smoking Status: Never smoker Tobacco Use: Non-smoker Review of Systems Constitutional: Denies: Chills, Fever, Weight Change Eyes: Denies: Pain, Vision Change HEENT: Denies: Difficulty Hearing, Difficulty Swallowing, Sinus Congestion Cardiovascular: Denies: Chest Pain, Palpitations Respiratory: Denies: Cough, Shortness of Breath Gastrointestinal: Denies: Diarrhea, Nausea, Vomiting Genitourinary: Denies: Dysuria, Hematuria Endocrine: Denies: Heat/ Cold Intolerance, Polydipsia, Polyuria Hematologic/ Lymphatic: Denies: Easy Bruising, Easy Bleeding - Physical Exam Vital Signs Temp Pulse Resp BP 95.5 F L 74 16 105/78 11/22/18 08:16 11/22/18 08:16 11/22/18 08:16 11/22/18 08:16 General: Alert, Oriented x3, Cooperative, No apparent distress, Well developed, Well nourished HEENT: Atraumatic, PERRLA, EOMI, Normocephalic Oral: Moist Mucosa Neck: No JVD Lungs: Normal air movement Abdomen: Non-Distended Extremities: No clubbing, No cyanosis, No edema, No Calf Tenderness, - - The ulceration on the right lateral foot persists. There is a large amount of nonviable tissue at the base of the ulceration, as well as bioburden. Significant erythema surrounds the ulceration, and involves a portion of the dorsum of the right foot. This appears to represent cellulitis. The ulcerations on the left posterior heel appear to be improving. However, there is now a new superficial ulceration on the left lateral heel. This appears to be a skin tear likely due to shear forces. There is no sign of infection or cellulitis related to the left heel ulceration. Dimensions of both ulcerations are documented elsewhere. Skin: Skin Tear - Left posterior and lateral heel. Wound Measurements and Assessment WC - Nurse 1 - General Ulcer Measurement Start: 11/22/18 08:16 Freq: Status: Active Protocol: Activity Type Activity Date Activity User E-Sign Co-Sign Detail Recorded Client Recorded Date Recorded By Document 11/22/18 08:16 PATIENCE [id number] 11/22/18 08:27 PATIENCE 11/22/18 08:16 Wound Center Nurse 1 [Ulcer Assessment] 8-left lateral heel ulcer -Combined with other wound No -Current Size (cm) - Length 1.5 -Current Size (cm) - Width 3.5 -Current Size (cm) - Depth 0.3 -Total Square Cm 5.25 -Photo Taken Yes -Epithelialization Small 1-33% -Tunneling No -Undermining/Tunneling No -Circular Undermining No -Classification - Pressure Ulcer Stage 3 -Exudate Amt Small -Exudate Type Serosanguineous -Wound Margin Flat & Intact -Granulation Amt Large (67-100%) -Granulation Quality Red -Slough/Fibrin Yes -Necrosis Amt Small (1-33%) -Necrotic Tissue Type Adherent Slough -Structure Exposed N/A -Texture (Dorina-wound Skin Appearance) Assessed, Friable, Localized Edema -Moisture (Dorina-wound Skin Appearance Assessed,Dry/ ) Scaly -Color (Dorina-wound Skin Appearance) Assessed -Temperature (Dorina-wound Skin No Abnormality Appearance) (Pt Warm) -Tenderness on Palpation (Dorina-wound No Skin Appearance) -Ulcer Cleansing Rinsed/ Irrigated with Saline -Foul Odor after Cleansing No -Anesthetic Used 4% Lidocaine Solution #6 R Lateral 5th Metatarsal -Combined with other wound No -Current Size (cm) - Length 1.2 -Current Size (cm) - Width 0.9 -Current Size (cm) - Depth 0.4 -Total Square Cm 1.08 -Photo Taken No -Epithelialization None Present -Tunneling No -Undermining/Tunneling No -Circular Undermining No -Exudate Amt Medium -Exudate Type Serosanguineous -Wound Margin Flat & Intact -Granulation Amt None Present (0 %) -Slough/Fibrin Yes -Necrosis Amt Large (67-100%) -Necrotic Tissue Type Adherent Slough -Structure Exposed N/A -Texture (Dorina-wound Skin Appearance) Assessed, Localized Edema -Moisture (Dorina-wound Skin Appearance Assessed,Dry/ ) Scaly -Color (Dorina-wound Skin Appearance) Assessed, Erythema -Temperature (Dorina-wound Skin No Abnormality Appearance) (Pt Warm) -Tenderness on Palpation (Dorina-wound No Skin Appearance) -Ulcer Cleansing Rinsed/ Irrigated with Saline -Foul Odor after Cleansing No -Anesthetic Used 4% Lidocaine Solution [Edema Assessment] -Lower Limb Edema Present Yes -Right Calf (cm) 37.8 -Right Ankle (cm) 23 -Left Calf (cm) 38.8 -Left Ankle (cm) 22.6 Musculoskeletal: Muscle Wasting - Extremities Neurological: Cranial nerves II-XII grossly intact, Neuro grossly intact Psych/Mental Status: Normal Affect, Appropriate, Alert and oriented to time, place, person, mood and affect Debridement Note Laterality: Right - Lateral foot Type of Debridement: Excisional debridement Anesthesia Used: 5% Lidocaine Gel Depth: Down to and including healthy tissue, in the subcutaneous layer Percentage of wound debrided: 100 Instrument Used: 7mm curette Tissue Removed: Bioburden and nonviable tissue. Severity: Fat Layer Exposed Amount of bleeding with debridement: Mild Bleeding Controlled with: Compression and gauze Patient did not tolerate procedure well - The patient appeared to have a significant amount of discomfort during the course of today's debridement. Swab cultures were obtained involving the right lateral foot ulceration. Both aerobic and anaerobic swab cultures were obtained. Assessment/Plan Active Problems (This Medical Record has been edited. Action required.) Ulcer of left heel (Chronic) Debility (Chronic) Dementia (Chronic) Alzheimer's disease (Chronic) Assessment: This is a 78-year-old female with multiple medical problems, as outlined above. The patient suffers from dementia and Alzheimer's disease. She is very limited functionally. She does not ambulate. She presented with ulcerations of the right lateral foot and the left heel. The ulceration on the left buttock remains completely healed. These appear to be pressure related. They were stage III ulcerations in each case. The patient has undergone a battery of diagnostic tests the nursing facility at which she is a resident. Lab results were as follows: White blood count 8.7, hemoglobin 11.6, hematocrit 35.9, platelets 273,000, glucose 77, BUN 19, creatinine 0.5, sodium 140, potassium 3.7, chloride 104, calcium 8.9, alkaline phosphatase 63, ALT 20, AST 16, total protein 5.7, albumin 2.9, prealbumin 27, bilirubin 0.44. A noninvasive lower extremity arterial ultrasound study was performed, though only of the left lower extremity. The impression indicates diminished to nonexistent flow in the calf vessels including the tibial peroneal and dorsalis pedis arteries. A noninvasive lower extremity arterial study has been performed at [facility]. Triphasic waveforms were noted in ankle level bilaterally. Resting ankle-brachial indices could not be determined due to the noncompressibility of the vasculature bilaterally. Right digital- brachial index was 0.43. The left digital-brachial index was 0.99. This is suggestive of moderate to severe arterial impairment at digital level of the right lower extremity. The relative normalcy of the left digital-brachial index may be due to arterial calcification, a matter for which clinical correlation is advised. The patient underwent evaluation in consultation by a vascular surgeon several days ago, Dr. Garza, in [place], [place]. According to the patient's daughter, revascularization or intervention was not felt to be warranted due to the patient's debility and limited functional state. The ulceration on the right lateral foot is chronic, and has been under treatment serially at our facility. The ulceration on the right lateral foot appears improved, the recent erythema at the site having essentially resolved. There do appear to be recent ulcerations on the left posterior heel, which appear to be pressure-related. Plan: Offloading measures have been implemented, and are to be continued. The issue of offloading measures has been discussed thoroughly with the patient's daughter, who was again at the bedside. We have been able to obtain a low air- loss mattress for the patient's hospital bed. We have also successfully obtained a Roho cushion for the patient's wheelchair. Frequent repositioning has been recommended. The recent emergence of a new ulceration on the left posterior heel is suspected to be related to pressure phenomenon or shear forces, and offloading measures have again been stressed. We are to continue the use of Collagenase Santyl topically to the ulceration on the right lateral foot. The left heel ulceration will be treated with collagen hydrogel which will be applied topically on a daily basis. Once again, offloading measures have been stressed. The patient will return in 1 week for reassessment, and has been placed in the palliative care pathway. The patient is to continue with nutritional supplements. The patient remains on systemic anticoagulation therapy. We will once again request copies of the patient's recent laboratory results from the patient's senior living. The patient is to be placed on Keflex 500 mg p.o. twice daily for total 7 days, as treatment for a suspected wound infection and cellulitis involving the right foot. We will await the results of wound cultures, obtained today. The patient is not a smoker. Influenza vaccine was not administered today. Patient weighs 199 pounds. She stands 5 feet 10 inches tall. Her BMI is 28.5. This places the patient in the overweight category, which normally would warrant mild weight loss. However, attempts at adequate nutrition appear to prevail. Nutritional supplements have been encouraged.
[2018-11-29 08:10] VITALS: BP 164/83; PULSE 70; RESP 16; TEMP 35.2; BMI 28.5
--- NOTE | 2018-11-29 08:49 | PCM.WC.HP ---
(1) Foot ulcer, right Status: Chronic Current Visit: Yes Qualifiers: Non-pressure ulcer stage: with fat layer exposed Code(s): L97.519 - Non-pressure chronic ulcer of other part of right foot with unspecified severity (2) Ulcer of left heel Status: Chronic Current Visit: Yes Qualifiers: Non-pressure ulcer stage: limited to breakdown of skin Qualified Code(s): L97.421 - Non-pressure chronic ulcer of left heel and midfoot limited to breakdown of skin Code(s): L97.429 - Non-pressure chronic ulcer of left heel and midfoot with unspecified severity (3) Debility Status: Chronic Current Visit: Yes Code(s): R53.81 - Other malaise (4) Dementia Status: Chronic Current Visit: Yes Code(s): F03.90 - Unspecified dementia without behavioral disturbance (5) Alzheimer's disease Status: Chronic Current Visit: Yes Code(s): G30.9 - Alzheimer's disease, unspecified; F02.80 - Dementia in other diseases classified elsewhere without behavioral disturbance (6) History of myocardial infarction Status: Chronic Current Visit: No Code(s): I25.2 - Old myocardial infarction (7) CHF (congestive heart failure) Status: Chronic Current Visit: No Code(s): I50.9 - Heart failure, unspecified (8) History of syncope Status: Chronic Current Visit: No Code(s): Z87.898 - Personal history of other specified conditions (9) Recurrent Clostridium difficile diarrhea Status: Chronic Current Visit: No Code(s): A04.71 - Enterocolitis due to Clostridium difficile, recurrent (10) Incontinence of feces Status: Chronic Current Visit: No Code(s): R15.9 - Full incontinence of feces (11) Incontinence of urine Status: Chronic Current Visit: No Code(s): R32 - Unspecified urinary incontinence (12) History of recurrent UTI (urinary tract infection) Status: Chronic Current Visit: No Code(s): Z87.440 - Personal history of urinary (tract) infections (13) Rheumatoid arthritis Status: Chronic Current Visit: No Code(s): M06.9 - Rheumatoid arthritis, unspecified (14) Atrial fibrillation Status: Chronic Current Visit: No Code(s): I48.91 - Unspecified atrial fibrillation (15) Hypertension Status: Chronic Current Visit: No Code(s): I10 - Essential (primary) hypertension (16) GERD (gastroesophageal reflux disease) Status: Chronic Current Visit: No Code(s): K21.9 - Gastro-esophageal reflux disease without esophagitis (17) Obstructive sleep apnea Status: Chronic Current Visit: No Code(s): G47.33 - Obstructive sleep apnea (adult) (pediatric) (18) Hyperlipidemia Status: Chronic Current Visit: No Code(s): E78.5 - Hyperlipidemia, unspecified (19) Malnutrition Status: Chronic Current Visit: No Code(s): E46 - Unspecified protein-calorie malnutrition History of Present Illness Date of Service: 11/29/18 Chief Complaint: Chronic, nonhealing ulceration of the left heel and the right lateral foot History of Wound: This is a 78-year-old female who is a resident of [facility] in [place], [place]. She was institutionalized as a result of declining function, debility, and frequent falls. Her continues to live at home, and is relatively healthy. Patient presented with an ulceration on her left heel, which had been present for several months. She also has an ulceration on the right lateral foot, near the base of the fifth digit. The patient is weak and debilitated. She does not ambulate. She spends a good part of her day in a wheelchair. She sleeps in a hospital bed. She suffers from dementia and Alzheimer's disease, and interacts minimally. She is incontinent of urine and stool. She suffers from frequent urinary tract infections and recurrent episodes of pseudomembranous enterocolitis (C. difficile infections). The patient's appetite is said to be poor. She is provided with nutritional supplements at the nursing facility. Past Medical History Past Medical History: Chronic Problems (This Medical Record has been edited. Action required.) Foot ulcer, right (Chronic) Ulcer of left heel (Chronic) Debility (Chronic) Dementia (Chronic) Alzheimer's disease (Chronic) History of myocardial infarction (Chronic) CHF (congestive heart failure) (Chronic) History of syncope (Chronic) Recurrent Clostridium difficile diarrhea (Chronic) Incontinence of feces (Chronic) Incontinence of urine (Chronic) History of recurrent UTI (urinary tract infection) (Chronic) Rheumatoid arthritis (Chronic) Atrial fibrillation (Chronic) Hypertension (Chronic) GERD (gastroesophageal reflux disease) (Chronic) Obstructive sleep apnea (Chronic) Hyperlipidemia (Chronic) Malnutrition (Chronic) Surgical History: - - Patient has a history of varicose vein surgery in her lower extremities. She has undergone bilateral total knee replacement surgeries. Hip replacement has been performed unilaterally. Patient has undergone hysterectomy. She has had bunionectomy and nasal septoplasty. She is a Ab0. Allergies/Adverse Reactions: Allergies No Known Allergies Allergy (Verified 10/03/18 14:28) Home Medications: Ambulatory Orders Medication Instructions Recorded Acetaminophen [Tylenol] 650 mg PO Q4H PRN PRN 04/25/18 Albuterol Sulfate 2.5 mg IH Q4H PRN PRN 04/25/18 Amoxicillin/Potassium Clav 1 each PO BID 04/25/18 [Augmentin 875-125 Tablet] Aspirin [Adult Low Dose Aspirin EC] 81 mg PO DAILY 04/25/18 Calcium Carbonate/Simethicone 1 each PO Q4H PRN PRN 04/25/18 [Maalox Advanced Tab Chew] Cholecalciferol (Vitamin D3) 5,000 unit PO DAILY 04/25/18 [Vitamin D3] Donepezil HCl [Aricept] 10 mg PO DAILY 04/25/18 Fluoxetine [Prozac] 40 mg PO DAILY 04/25/18 Guaifenesin [Tussin] 100 mg PO Q4H PRN PRN 04/25/18 Hydroxychloroquine [Plaquenil] 200 mg PO BIDCM 04/25/18 Lactobacillus Acidophilus 1 each PO BID 04/25/18 [Acidophilus] Magnesium Hydroxide [Milk Of 30 ml PO DAILY PRN PRN 04/25/18 Magnesia] Memantine HCl [Memantine HCl ER] 28 mg PO DAILY 04/25/18 Mirtazapine [Remeron] 15 mg PO QHS 04/25/18 Nitroglycerin (INPATIENT USE) 0.4 mg SUBLINGUAL Q5M PRN 04/25/18 [Nitrostat] Pantoprazole Sodium [Protonix] 40 mg PO DAILY 04/25/18 Potassium Chloride [Klor-Con] 20 meq PO DAILY 04/25/18 Prednisone 10 mg PO DAILY 04/25/18 Ranolazine [Ranexa] 500 mg PO BID 04/25/18 Rosuvastatin Calcium [Crestor] 20 mg PO DAILY 04/25/18 Sotalol HCl [Sotalol] 80 mg PO BID 04/25/18 Trimethoprim [Trimpex] 200 mg PO DAILY 04/25/18 Warfarin [Coumadin (PBKC)] 2 mg PO DAILY 04/25/18 levoFLOXacin tablet [Levaquin 500 mg PO DAILY 04/25/18 tablet] Smoking Status: Never smoker Tobacco Use: Non-smoker Review of Systems Constitutional: Denies: Chills, Fever, Weight Change Eyes: Denies: Pain, Vision Change HEENT: Denies: Difficulty Hearing, Difficulty Swallowing, Sinus Congestion Cardiovascular: Denies: Chest Pain, Palpitations Respiratory: Denies: Cough, Shortness of Breath Gastrointestinal: Denies: Diarrhea, Nausea, Vomiting Genitourinary: Denies: Dysuria, Hematuria Endocrine: Denies: Heat/ Cold Intolerance, Polydipsia, Polyuria Hematologic/ Lymphatic: Denies: Easy Bruising, Easy Bleeding - Physical Exam Vital Signs Temp Pulse Resp BP 95.3 F L 70 16 164/83 H 11/29/18 08:10 11/29/18 08:10 11/29/18 08:10 11/29/18 08:10 General: Alert, Oriented x3, Cooperative, No apparent distress, Well developed, Well nourished, Lethargic, - - The patient appears weak and debilitated HEENT: Atraumatic, PERRLA, EOMI, Normocephalic Oral: Moist Mucosa Neck: No JVD Lungs: Normal air movement Abdomen: Non-Distended Extremities: No clubbing, No cyanosis, No edema, No Calf Tenderness, - - The ulceration of the right lateral foot is markedly improved in appearance. As a result of the oral antibiotic which was prescribed last week, the cellulitis and erythema has now completely resolved. The wound remains, however, little changed in appearance or size. Dimensions are documented elsewhere. There is no sign of infection or cellulitis at this time. There is a mild amount of bioburden. The ulcerations of the left posterior heel now appear quite superficial, and much improved. There is little or no depth, and they continue to improve. There is no sign of infection or cellulitis at the site of the left posterior ulcerations. Skin: No rashes Wound Measurements and Assessment WC - Nurse 1 - General Ulcer Measurement Start: 11/22/18 08:16 Freq: Status: Active Protocol: Activity Type Activity Date Activity User E-Sign Co-Sign Detail Recorded Client Recorded Date Recorded By Document 11/29/18 08:10 PATIENCE [id number] 11/29/18 08:12 PATIENCE 11/29/18 08:10 Wound Center Nurse 1 [Ulcer Assessment] 8-left lateral heel ulcer -Combined with other wound No -Current Size (cm) - Length 0.2 -Current Size (cm) - Width 0.4 -Current Size (cm) - Depth 0.1 -Total Square Cm 0.08 -Photo Taken No -Epithelialization Large 67-100% -Tunneling No -Undermining/Tunneling No -Circular Undermining No -Exudate Amt None Present -Wound Margin Indistinct, Non -Visible -Granulation Amt None Present (0 %) -Slough/Fibrin Yes -Necrosis Amt Large (67-100%) -Necrotic Tissue Type Adherent Slough -Structure Exposed N/A -Texture (Dorina-wound Skin Appearance) Assessed, Scarring -Moisture (Dorina-wound Skin Appearance Assessed,Dry/ ) Scaly -Color (Dorina-wound Skin Appearance) Assessed -Temperature (Dorina-wound Skin No Abnormality Appearance) (Pt Warm) -Tenderness on Palpation (Dorina-wound No Skin Appearance) -Ulcer Cleansing Rinsed/ Irrigated with Saline -Foul Odor after Cleansing No -Anesthetic Used 4% Lidocaine Solution #6 R Lateral 5th Metatarsal -Combined with other wound No -Current Size (cm) - Length 1 -Current Size (cm) - Width 1 -Current Size (cm) - Depth 0.3 -Total Square Cm 1 -Photo Taken No -Epithelialization Small 1-33% -Tunneling No -Undermining/Tunneling No -Circular Undermining No -Exudate Amt Small -Exudate Type Serosanguineous -Wound Margin Flat & Intact -Granulation Amt None Present (0 %) -Slough/Fibrin Yes -Necrosis Amt Large (67-100%) -Necrotic Tissue Type Adherent Slough -Structure Exposed Fat Layer Exposed -Texture (Dorina-wound Skin Appearance) Assessed -Moisture (Dorina-wound Skin Appearance Assessed,Dry/ ) Scaly -Color (Dorina-wound Skin Appearance) Assessed -Temperature (Dorina-wound Skin No Abnormality Appearance) (Pt Warm) -Tenderness on Palpation (Dorina-wound No Skin Appearance) -Ulcer Cleansing Rinsed/ Irrigated with Saline -Foul Odor after Cleansing No -Anesthetic Used 4% Lidocaine Solution [Edema Assessment] -Lower Limb Edema Present NA WC - Nurse 2 - General Ulcer CM Notes Start: 11/22/18 08:16 Freq: Status: Active Protocol: Activity Type Activity Date Activity User E-Sign Co-Sign Detail Recorded Client Recorded Date Recorded By Document 11/29/18 08:40 [id number] 11/29/18 08:41 11/29/18 08:40 Wound Center Nurse 2 [Procedure/Treatment] 8-left lateral heel ulcer -Correct Patient No -Correct Side, Site, Position No -Correct Procedure No -Procedure Performed No #6 R Lateral 5th Metatarsal -Time 08:41 -Correct Patient Yes -Correct Side, Site, Position Yes -Correct Procedure Yes -Procedure Performed Yes -Type of Procedure Debridement -Clinical Debridement Subcutaneous -Post Debridement Size (cm) - Length 1.2 -Post Debridement Size (cm) - Width 1 -Post Debridement Size (cm) - Depth 0.2 -Total Square Cm 1.2 -Wound/Ulcer Outcome Not Healed -Ulcer Cleansing Rinsed/ Irrigated with Saline -Foul Odor after Cleansing No -Bioengineered Tissue No -Bleeding Controlled with Pressure -Offloading No -Treatment Response Procedure Tolerated Well [See Physician Procedure note for Specifics] Pain Scale: 0-10 Numeric [Pain] -Is Patient Pain Free? Yes Musculoskeletal: Muscle Wasting - Diffuse Neurological: Cranial nerves II-XII grossly intact, Neuro grossly intact, - Psych/Mental Status: Normal Affect, Appropriate, Alert and oriented to time, place, person, mood and affect Debridement Note Post-Debridement Measurements/Treatment - Nurse 2 - General Ulcer CM Notes Start: 11/22/18 08:16 Freq: Status: Active Protocol: Activity Type Activity Date Activity User E-Sign Co-Sign Detail Recorded Client Recorded Date Recorded By Document 11/29/18 08:40 PATIENCE [id number] 11/29/18 08:41 11/29/18 08:40 Wound Center Nurse 2 8-left lateral heel ulcer -Correct Patient No -Correct Side, Site, Position No -Correct Procedure No -Procedure Performed No #6 R Lateral 5th Metatarsal -Time 08:41 -Correct Patient Yes -Correct Side, Site, Position Yes -Correct Procedure Yes -Procedure Performed Yes -Type of Procedure Debridement -Clinical Debridement Subcutaneous -Post Debridement Size (cm) - Length 1.2 -Post Debridement Size (cm) - Width 1 -Post Debridement Size (cm) - Depth 0.2 -Total Square Cm 1.2 -Wound/Ulcer Outcome Not Healed -Ulcer Cleansing Rinsed/ Irrigated with Saline -Foul Odor after Cleansing No -Bioengineered Tissue No -Bleeding Controlled with Pressure -Offloading No -Treatment Response Procedure Tolerated Well Pain Scale: 0-10 Numeric Is Patient Pain Free? Yes Laterality: Right - Lateral foot ulceration Type of Debridement: Excisional debridement Anesthesia Used: 5% Lidocaine Gel Depth: Down to and including healthy tissue, in the subcutaneous layer Percentage of wound debrided: 100 Instrument Used: 3mm curette, #11 blade Tissue Removed: Bioburden and nonviable tissue Severity: Fat Layer Exposed Amount of bleeding with debridement: Mild Bleeding Controlled with: Compression and gauze Patient tolerated procedure well Assessment/Plan Active Problems (This Medical Record has been edited. Action required.) Foot ulcer, right (Chronic) Ulcer of left heel (Chronic) Debility (Chronic) Dementia (Chronic) Alzheimer's disease (Chronic) Assessment: This is a 78-year-old female with multiple medical problems, as outlined above. The patient suffers from dementia and Alzheimer's disease. She is very limited functionally. She does not ambulate. She presented with ulcerations of the right lateral foot and the left heel. The ulceration on the left buttock remains completely healed. These appear to be pressure related. They were stage III ulcerations in each case. The patient has undergone a battery of diagnostic tests the nursing facility at which she is a resident. Jarad studies have been performed recently at the patient's retirement, and despite requests for these results, they have not yet been received. A noninvasive lower extremity arterial ultrasound study was performed, though only of the left lower extremity. The impression indicates diminished to nonexistent flow in the calf vessels including the tibial peroneal and dorsalis pedis arteries. A noninvasive lower extremity arterial study has been performed at [facility]. Triphasic waveforms were noted in ankle level bilaterally. Resting ankle-brachial indices could not be determined due to the noncompressibility of the vasculature bilaterally. Right digital-brachial index was 0.43. The left digital-brachial index was 0.99. This is suggestive of moderate to severe arterial impairment at digital level of the right lower extremity. The relative normalcy of the left digital-brachial index may be due to arterial calcification, a matter for which clinical correlation is advised. The patient underwent evaluation in consultation by a vascular surgeon several days ago, Dr. Garza, in [place], [place]. According to the patient's daughter, revascularization or intervention was not felt to be warranted due to the patient's debility and limited functional state. The ulceration on the right lateral foot is chronic, and has been under treatment serially at our facility. The ulceration on the right lateral foot appears improved, the recent erythema and cellulitis at the site having resolved as result of recent oral antibiotic. Cultures obtained last week were positive for Streptococcus and Corynebacterium. The patient had been placed on Keflex, which appears appropriate, and has resulted in significant improvement. She will be taking her final dose late today. General, the patient has shown significant improvement within the last week, most notably in response to the oral antibiotic which was prescribed. Plan: Offloading measures have been implemented, and are to be continued. The issue of offloading measures has been discussed thoroughly with the patient's daughter, who was again at the bedside. We have been able to obtain a low air-loss mattress for the patient's hospital bed. We have also successfully obtained a Roho cushion for the patient's wheelchair. Frequent repositioning has been recommended. The recent emergence of a new ulceration on the left posterior heel is suspected to be related to pressure phenomenon or shear forces, and offloading measures have again been stressed. We are to continue the use of Collagenase Santyl topically to the ulceration on the right lateral foot. The left heel ulceration will be treated with dry gauze, and offloading measures. Once again, offloading measures have been stressed. The patient will return in 2 weeks for reassessment, and has been placed in the palliative care pathway. The patient is to continue with nutritional supplements. The patient remains on systemic anticoagulation therapy. We will once again request copies of the patient's recent laboratory results from the patient's retirement. The patient is not a smoker. Influenza vaccine was not administered today. Patient weighs 199 pounds. She stands 5 feet 10 inches tall. Her BMI is 28.5. This places the patient in the overweight category, which normally would warrant mild weight loss. However, attempts at adequate nutrition appear to prevail. Nutritional supplements have been encouraged.
[2018-12-13 08:08] VITALS: BP 131/94; PULSE 69; RESP 18; TEMP 35; BMI 28.5
--- NOTE | 2018-12-13 08:36 | HP.PCM_ITS ---
(1) Foot ulcer, right Status: Chronic Current Visit: Yes Qualifiers: Non-pressure ulcer stage: with fat layer exposed Code(s): L97.519 - Non-pressure chronic ulcer of other part of right foot with unspecified severity (2) Ulcer of left heel Status: Chronic Current Visit: Yes Qualifiers: Non-pressure ulcer stage: limited to breakdown of skin Qualified Code(s): L97.421 - Non-pressure chronic ulcer of left heel and midfoot limited to breakdown of skin Code(s): L97.429 - Non-pressure chronic ulcer of left heel and midfoot with unspecified severity (3) Debility Status: Chronic Current Visit: Yes Code(s): R53.81 - Other malaise (4) Dementia Status: Chronic Current Visit: Yes Code(s): F03.90 - Unspecified dementia without behavioral disturbance (5) Alzheimer's disease Status: Chronic Current Visit: Yes Code(s): G30.9 - Alzheimer's disease, unspecified; F02.80 - Dementia in other diseases classified elsewhere without behavioral disturbance (6) History of myocardial infarction Status: Chronic Current Visit: No Code(s): I25.2 - Old myocardial infarction (7) CHF (congestive heart failure) Status: Chronic Current Visit: No Code(s): I50.9 - Heart failure, unspecified (8) History of syncope Status: Chronic Current Visit: No Code(s): Z87.898 - Personal history of other specified conditions (9) Recurrent Clostridium difficile diarrhea Status: Chronic Current Visit: No Code(s): A04.71 - Enterocolitis due to Clostridium difficile, recurrent (10) Incontinence of feces Status: Chronic Current Visit: No Code(s): R15.9 - Full incontinence of feces (11) Incontinence of urine Status: Chronic Current Visit: No Code(s): R32 - Unspecified urinary incontinence (12) History of recurrent UTI (urinary tract infection) Status: Chronic Current Visit: No Code(s): Z87.440 - Personal history of urinary (tract) infections (13) Rheumatoid arthritis Status: Chronic Current Visit: No Code(s): M06.9 - Rheumatoid arthritis, unspecified (14) Atrial fibrillation Status: Chronic Current Visit: No Code(s): I48.91 - Unspecified atrial fibrillation (15) Hypertension Status: Chronic Current Visit: No Code(s): I10 - Essential (primary) hypertension (16) GERD (gastroesophageal reflux disease) Status: Chronic Current Visit: No Code(s): K21.9 - Gastro-esophageal reflux disease without esophagitis (17) Obstructive sleep apnea Status: Chronic Current Visit: No Code(s): G47.33 - Obstructive sleep apnea (adult) (pediatric) (18) Hyperlipidemia Status: Chronic Current Visit: No Code(s): E78.5 - Hyperlipidemia, unspecified (19) Malnutrition Status: Chronic Current Visit: No Code(s): E46 - Unspecified protein-calorie malnutrition History of Present Illness Date of Service: 12/13/18 Chief Complaint: Chronic, nonhealing ulceration of the left heel and the right lateral foot History of Wound: This is a 78-year-old female who is a resident of [facility] in [place], [place]. She was institutionalized as a result of declining function, debility, and frequent falls. Her continues to live at home, and is relatively healthy. Patient presented with an ulceration on her left heel, which had been present for several months. She also has an ulceration on the right lateral foot, near the base of the fifth digit. The patient is weak and debilitated. She does not ambulate. She spends a good part of her day in a wheelchair. She sleeps in a hospital bed. She suffers from dementia and Alzheimer's disease, and interacts minimally. She is incontinent of urine and stool. She suffers from frequent urinary tract infections and recurrent episodes of pseudomembranous enterocolitis (C. difficile infections). The patient's appetite is said to be poor. She is provided with nutritional supplements at the nursing facility. Past Medical History Past Medical History: Chronic Problems (This Medical Record has been edited. Action required.) Foot ulcer, right (Chronic) Ulcer of left heel (Chronic) Debility (Chronic) Dementia (Chronic) Alzheimer's disease (Chronic) History of myocardial infarction (Chronic) CHF (congestive heart failure) (Chronic) History of syncope (Chronic) Recurrent Clostridium difficile diarrhea (Chronic) Incontinence of feces (Chronic) Incontinence of urine (Chronic) History of recurrent UTI (urinary tract infection) (Chronic) Rheumatoid arthritis (Chronic) Atrial fibrillation (Chronic) Hypertension (Chronic) GERD (gastroesophageal reflux disease) (Chronic) Obstructive sleep apnea (Chronic) Hyperlipidemia (Chronic) Malnutrition (Chronic) Surgical History: - - Patient has a history of varicose vein surgery in her lower extremities. She has undergone bilateral total knee replacement surgeries. Hip replacement has been performed unilaterally. Patient has undergone hysterectomy. She has had bunionectomy and nasal septoplasty. She is a Ab0. Allergies/Adverse Reactions: Allergies No Known Allergies Allergy (Verified 10/03/18 14:28) Home Medications: Ambulatory Orders Medication Instructions Recorded Acetaminophen [Tylenol] 650 mg PO Q4H PRN PRN 04/25/18 Albuterol Sulfate 2.5 mg IH Q4H PRN PRN 04/25/18 Amoxicillin/Potassium Clav 1 each PO BID 04/25/18 [Augmentin 875-125 Tablet] Aspirin [Adult Low Dose Aspirin EC] 81 mg PO DAILY 04/25/18 Calcium Carbonate/Simethicone 1 each PO Q4H PRN PRN 04/25/18 [Maalox Advanced Tab Chew] Cholecalciferol (Vitamin D3) 5,000 unit PO DAILY 04/25/18 [Vitamin D3] Donepezil HCl [Aricept] 10 mg PO DAILY 04/25/18 Fluoxetine [Prozac] 40 mg PO DAILY 04/25/18 Guaifenesin [Tussin] 100 mg PO Q4H PRN PRN 04/25/18 Hydroxychloroquine [Plaquenil] 200 mg PO BIDCM 04/25/18 Lactobacillus Acidophilus 1 each PO BID 04/25/18 [Acidophilus] Magnesium Hydroxide [Milk Of 30 ml PO DAILY PRN PRN 04/25/18 Magnesia] Memantine HCl [Memantine HCl ER] 28 mg PO DAILY 04/25/18 Mirtazapine [Remeron] 15 mg PO QHS 04/25/18 Nitroglycerin (INPATIENT USE) 0.4 mg SUBLINGUAL Q5M PRN 04/25/18 [Nitrostat] Pantoprazole Sodium [Protonix] 40 mg PO DAILY 04/25/18 Potassium Chloride [Klor-Con] 20 meq PO DAILY 04/25/18 Prednisone 10 mg PO DAILY 04/25/18 Ranolazine [Ranexa] 500 mg PO BID 04/25/18 Rosuvastatin Calcium [Crestor] 20 mg PO DAILY 04/25/18 Sotalol HCl [Sotalol] 80 mg PO BID 04/25/18 Trimethoprim [Trimpex] 200 mg PO DAILY 04/25/18 Warfarin [Coumadin (PBKC)] 2 mg PO DAILY 04/25/18 levoFLOXacin tablet [Levaquin 500 mg PO DAILY 04/25/18 tablet] Smoking Status: Never smoker Tobacco Use: Non-smoker Review of Systems Constitutional: Denies: Chills, Fever, Weight Change Eyes: Denies: Pain, Vision Change HEENT: Denies: Difficulty Hearing, Difficulty Swallowing, Sinus Congestion Cardiovascular: Denies: Chest Pain, Palpitations Respiratory: Denies: Cough, Shortness of Breath Gastrointestinal: Denies: Diarrhea, Nausea, Vomiting Genitourinary: Denies: Dysuria, Hematuria Endocrine: Denies: Heat/ Cold Intolerance, Polydipsia, Polyuria Hematologic/ Lymphatic: Denies: Easy Bruising, Easy Bleeding - Physical Exam Vital Signs Temp Pulse Resp BP 95.0 F L 69 18 131/94 H 12/13/18 08:08 12/13/18 08:08 12/13/18 08:08 12/13/18 08:08 General: Alert, Oriented x3, Cooperative, No apparent distress, Well developed, Well nourished, Lethargic, - - The patient is largely debilitated and bedridden HEENT: Atraumatic, PERRLA, EOMI, Normocephalic Oral: Moist Mucosa Neck: No JVD Lungs: Normal air movement Abdomen: Non-Distended Extremities: No clubbing, No cyanosis, No edema, No Calf Tenderness, - - Ulceration on the right lateral foot is markedly decreased in size. Dimensions are documented elsewhere. Been significant improvement. There is a mild amount of bioburden. There is no sign of infection or cellulitis. Erythema noted several weeks ago has resolved with a course of oral antibiotics. The ulceration on the left posterior heel is now nearly totally healed, and represented by only a superficial eschar. Skin: No rashes Wound Measurements and Assessment WC - Nurse 1 - General Ulcer Measurement Start: 11/22/18 08:16 Freq: Status: Active Protocol: Activity Type Activity Date Activity User E-Sign Co-Sign Detail Recorded Client Recorded Date Recorded By Document 12/13/18 08:08 PATIENCE [id number] 12/13/18 08:17 PATIENCE 12/13/18 08:08 Wound Center Nurse 1 [Ulcer Assessment] 8-left lateral heel ulcer -Combined with other wound No -Current Size (cm) - Length 0.1 -Current Size (cm) - Width 0.1 -Current Size (cm) - Depth 0.1 -Total Square Cm 0.01 -Photo Taken No -Epithelialization Large 67-100% -Tunneling No -Undermining/Tunneling No -Circular Undermining No -Exudate Amt None Present -Wound Margin Indistinct, Non -Visible -Granulation Amt None Present (0 %) -Slough/Fibrin Yes -Necrosis Amt Large (67-100%) -Necrotic Tissue Type Adherent Slough -Structure Exposed N/A -Texture (Dorina-wound Skin Appearance) Assessed, Scarring -Moisture (Dorina-wound Skin Appearance Assessed,Dry/ ) Scaly -Color (Dorina-wound Skin Appearance) Assessed -Temperature (Dorina-wound Skin No Abnormality Appearance) (Pt Warm) -Tenderness on Palpation (Dorina-wound No Skin Appearance) -Ulcer Cleansing Rinsed/ Irrigated with Saline -Foul Odor after Cleansing No -Anesthetic Used 5% Lidocaine Gel #6 R Lateral 5th Metatarsal -Combined with other wound No -Current Size (cm) - Length 0.3 -Current Size (cm) - Width 0.2 -Current Size (cm) - Depth 0.2 -Total Square Cm 0.06 -Photo Taken No -Epithelialization Large 67-100% -Tunneling No -Undermining/Tunneling No -Circular Undermining No -Exudate Amt Small -Exudate Type Serosanguineous -Wound Margin Flat & Intact -Granulation Amt Small (1-33%) -Granulation Quality Camas -Slough/Fibrin Yes -Necrosis Amt Large (67-100%) -Necrotic Tissue Type Adherent Slough -Structure Exposed N/A -Texture (Dorina-wound Skin Appearance) Assessed -Moisture (Dorina-wound Skin Appearance No Abnormality, ) Assessed,Dry/ Scaly -Color (Dorina-wound Skin Appearance) Assessed -Temperature (Dorina-wound Skin No Abnormality Appearance) (Pt Warm) -Tenderness on Palpation (Dorina-wound No Skin Appearance) -Ulcer Cleansing Rinsed/ Irrigated with Saline -Foul Odor after Cleansing No -Anesthetic Used 5% Lidocaine Gel WC - Nurse 2 - General Ulcer CM Notes Start: 11/22/18 08:16 Freq: Status: Active Protocol: Activity Type Activity Date Activity User E-Sign Co-Sign Detail Recorded Client Recorded Date Recorded By Document 12/13/18 08:28 AN [id number] 12/13/18 08:35 AN 12/13/18 08:28 Wound Center Nurse 2 [Procedure/Treatment] 8-left lateral heel ulcer -Time 08:29 -Correct Patient Yes -Correct Side, Site, Position Yes -Correct Procedure Yes -Procedure Performed Yes -Type of Procedure Debridement -Clinical Debridement Subcutaneous -Wound/Ulcer Outcome Not Healed -Ulcer Cleansing Rinsed/ Irrigated with Saline -Foul Odor after Cleansing No -Bioengineered Tissue No -Bleeding Controlled with Pressure -Offloading No -Treatment Response Procedure Tolerated Well #6 R Lateral 5th Metatarsal -Time 08:31 -Correct Patient Yes -Correct Side, Site, Position Yes -Correct Procedure Yes -Procedure Performed Yes -Type of Procedure Debridement -Clinical Debridement Subcutaneous -Post Debridement Size (cm) - Length 0.4 -Post Debridement Size (cm) - Width 0.3 -Post Debridement Size (cm) - Depth 0.2 -Total Square Cm 0.12 -Wound/Ulcer Outcome Not Healed -Ulcer Cleansing Rinsed/ Irrigated with Saline -Foul Odor after Cleansing No -Bioengineered Tissue No -Bleeding Controlled with Pressure -Offloading Yes -Treatment Response Procedure Tolerated Well [See Physician Procedure note for Specifics] Pain Scale: 0-10 Numeric [Pain] -Is Patient Pain Free? Yes Musculoskeletal: Muscle Wasting - Extremities Neurological: Cranial nerves II-XII grossly intact, Neuro grossly intact Psych/Mental Status: Normal Affect, Appropriate, Alert and oriented to time, place, person, mood and affect Debridement Note Post-Debridement Measurements/Treatment WC - Nurse 2 - General Ulcer CM Notes Start: 11/22/18 08:16 Freq: Status: Active Protocol: Activity Type Activity Date Activity User E-Sign Co-Sign Detail Recorded Client Recorded Date Recorded By Document 11/29/18 08:40 [id number] 11/29/18 08:41 Document 12/13/18 08:28 AN [id number] 12/13/18 08:35 AN 11/29/18 12/13/18 08:40 08:28 Wound Center Nurse 2 8-left lateral heel ulcer -Time 08:29 -Correct Patient No Yes -Correct Side, Site, Position No Yes -Correct Procedure No Yes -Procedure Performed No Yes -Type of Procedure Debridement -Clinical Debridement Subcutaneous -Wound/Ulcer Outcome Not Healed -Ulcer Cleansing Rinsed/ Irrigated with Saline -Foul Odor after Cleansing No -Bioengineered Tissue No -Bleeding Controlled with Pressure -Offloading No -Treatment Response Procedure Tolerated Well #6 R Lateral 5th Metatarsal -Time 08:41 08:31 -Correct Patient Yes Yes -Correct Side, Site, Position Yes Yes -Correct Procedure Yes Yes -Procedure Performed Yes Yes -Type of Procedure Debridement Debridement -Clinical Debridement Subcutaneous Subcutaneous -Post Debridement Size (cm) - Length 1.2 0.4 -Post Debridement Size (cm) - Width 1 0.3 -Post Debridement Size (cm) - Depth 0.2 0.2 -Total Square Cm 1.2 0.12 -Wound/Ulcer Outcome Not Healed Not Healed -Ulcer Cleansing Rinsed/ Rinsed/ Irrigated with Irrigated with Saline Saline -Foul Odor after Cleansing No No -Bioengineered Tissue No No -Bleeding Controlled with Pressure Pressure -Offloading No Yes -Treatment Response Procedure Procedure Tolerated Well Tolerated Well Pain Scale: 0-10 Numeric Is Patient Pain Free? Yes Yes Laterality: Right - Lateral foot Type of Debridement: Excisional debridement Anesthesia Used: 5% Lidocaine Gel Depth: Down to and including healthy tissue, in the subcutaneous layer Percentage of wound debrided: 100 Instrument Used: 3mm curette Tissue Removed: Bioburden and nonviable tissue Severity: Fat Layer Exposed Amount of bleeding with debridement: Mild Bleeding Controlled with: Compression and gauze Patient tolerated procedure well Assessment/Plan Active Problems (This Medical Record has been edited. Action required.) Foot ulcer, right (Chronic) Ulcer of left heel (Chronic) Debility (Chronic) Dementia (Chronic) Alzheimer's disease (Chronic) Assessment: This is a 78-year-old female with multiple medical problems, as outlined above. The patient suffers from dementia and Alzheimer's disease. She is very limited functionally. She does not ambulate. She presented with ulcerations of the right lateral foot and the left heel. The ulceration on the left buttock remains completely healed. These appear to be pressure related. They were stage III ulcerations in each case. The patient has undergone a battery of diagnostic tests the nursing facility at which she is a resident. Jarad studies have been performed recently at the patient's group home, and despite requests for these results, they have not yet been received. A noninvasive lower extremity arterial ultrasound study was performed, though only of the left lower extremity. The impression indicates diminished to nonexistent flow in the calf vessels including the tibial peroneal and dorsalis pedis arteries. A noninvasive lower extremity arterial study has been performed at [facility]. Triphasic waveforms were noted in ankle level bilaterally. Resting ankle-brachial indices could not be determined due to the noncompressibility of the vasculature bilaterally. Right digital- brachial index was 0.43. The left digital-brachial index was 0.99. This is suggestive of moderate to severe arterial impairment at digital level of the right lower extremity. The relative normalcy of the left digital-brachial index may be due to arterial calcification, a matter for which clinical correlation is advised. The patient underwent evaluation in consultation by a vascular surgeon several days ago, Dr. Garza, in [place], [place]. According to the patient's daughter, revascularization or intervention was not felt to be warranted due to the patient's debility and limited functional state. The ulceration on the right lateral foot is chronic, and has been under treatment serially at our facility. The infection of the ulceration on the right lateral foot appears resolved, the recent erythema and cellulitis at the site having resolved as result of recent oral antibiotic. Generally, the patient has shown significant improvement within the last few weeks. Plan: Offloading measures have been implemented, and are to be continued. The issue of offloading measures has been discussed thoroughly with the patient's daughter, who was again at the bedside. We have been able to obtain a low air- loss mattress for the patient's hospital bed. We have also successfully obtained a Roho cushion for the patient's wheelchair. Frequent repositioning has been recommended. We are to implement the use of Magdalene topically to the ulceration on the right lateral foot. The left heel ulceration will be left ope n to air, though offloading measures will be continued. Skin moisturizer will be applied on a daily basis. Once again, offloading measures have been stressed. The patient will return in 2 weeks for reassessment, and has been placed in the palliative care pathway. The patient is to continue with nutritional supplements. The patient remains on systemic anticoagulation therapy. We will once again request copies of the patient's recent laboratory results from the patient's group home. The patient is not a smoker. Influenza vaccine was not administered today. Patient weighs 199 pounds. She stands 5 feet 10 inches tall. Her BMI is 28.5. This places the patient in the overweight category, which normally would warrant mild weight loss. However, attempts at adequate nutrition appear to prevail. Nutritional supplements have been encouraged.
== END 2018-12-22 23:59 ==
LOC: WC 08:00
PROVIDERS: Family Provider Surgery; PCP Surgery; Referring Provider Surgery; Visit Provider Surgery
DX: L89.623 Pressure ulcer of left heel, stage 3 (principal); L89.893 Pressure ulcer of other site, stage 3; G30.9 Alzheimer's disease, unspecified; F02.80 Dementia in other diseases classified elsewhere, unspecified severity, without behavioral disturbance, psychotic disturbance, mood disturbance, and anxiety; I50.9 Heart failure, unspecified; I11.0 Hypertensive heart disease with heart failure; I25.2 Old myocardial infarction; M06.9 Rheumatoid arthritis, unspecified; I48.20 Chronic atrial fibrillation, unspecified; K21.9 Gastro-esophageal reflux disease without esophagitis; G47.33 Obstructive sleep apnea (adult) (pediatric); E78.5 Hyperlipidemia, unspecified
CPT/HCPCS: 11042; 87070; 87075; 87077; 87205

== ENCOUNTER 2019-01-17 08:30 | Outpatient (RCR) | payer MEDICARE, SELFPAY ==
[2018-12-23 00:29] VITALS: BP 131/94; PULSE 69; RESP 18; TEMP 35
[2019-01-03 08:23] VITALS: BP 103/68; PULSE 83; RESP 18; TEMP 34.9; BMI 28.5
--- NOTE | 2019-01-03 08:58 | HP.PCM_ITS ---
(1) Foot ulcer, right Status: Chronic Current Visit: Yes Qualifiers: Non-pressure ulcer stage: with fat layer exposed Code(s): L97.519 - Non-pressure chronic ulcer of other part of right foot with unspecified severity (2) Ulcer of left heel Status: Chronic Current Visit: Yes Qualifiers: Non-pressure ulcer stage: limited to breakdown of skin Code(s): L97.429 - Non-pressure chronic ulcer of left heel and midfoot with unspecified severity (3) Debility Status: Chronic Current Visit: Yes Code(s): R53.81 - Other malaise (4) Dementia Status: Chronic Current Visit: Yes Code(s): F03.90 - Unspecified dementia without behavioral disturbance (5) Alzheimer's disease Status: Chronic Current Visit: Yes Qualifiers: Alzheimer's disease onset: late-onset Code(s): G30.9 - Alzheimer's disease, unspecified; F02.80 - Dementia in other diseases classified elsewhere without behavioral disturbance (6) History of myocardial infarction Status: Chronic Current Visit: No Code(s): I25.2 - Old myocardial infarction (7) CHF (congestive heart failure) Status: Chronic Current Visit: No Code(s): I50.9 - Heart failure, unspecified (8) History of syncope Status: Chronic Current Visit: No Code(s): Z87.898 - Personal history of other specified conditions (9) Recurrent Clostridium difficile diarrhea Status: Resolved Current Visit: No Code(s): A04.71 - Enterocolitis due to Clostridium difficile, recurrent (10) Incontinence of feces Status: Chronic Current Visit: No Code(s): R15.9 - Full incontinence of feces (11) Incontinence of urine Status: Chronic Current Visit: No Code(s): R32 - Unspecified urinary incontinence (12) History of recurrent UTI (urinary tract infection) Status: Chronic Current Visit: No Code(s): Z87.440 - Personal history of urinary (tract) infections (13) Rheumatoid arthritis Status: Chronic Current Visit: No Code(s): M06.9 - Rheumatoid arthritis, unspecified (14) Atrial fibrillation Status: Chronic Current Visit: No Code(s): I48.91 - Unspecified atrial fibrillation (15) Hypertension Status: Chronic Current Visit: No Code(s): I10 - Essential (primary) hypertension (16) GERD (gastroesophageal reflux disease) Status: Chronic Current Visit: No Code(s): K21.9 - Gastro-esophageal reflux disease without esophagitis (17) Obstructive sleep apnea Status: Chronic Current Visit: No Code(s): G47.33 - Obstructive sleep apnea (adult) (pediatric) (18) Hyperlipidemia Status: Chronic Current Visit: No Code(s): E78.5 - Hyperlipidemia, unspecified (19) Malnutrition Status: Chronic Current Visit: No Code(s): E46 - Unspecified protein-calorie malnutrition (20) Decubitus ulcer of buttock, stage 2 Status: Resolved Current Visit: No Qualifiers: Code(s): L89.302 - Pressure ulcer of unspecified buttock, stage 2 History of Present Illness Date of Service: 01/03/19 Chief Complaint: Chronic, nonhealing ulceration of the left heel and the right lateral foot History of Wound: This is a 78-year-old female who is a resident of [facility] in [place], [place]. She was institutionalized as a result of declining function, debility, and frequent falls. Her continues to live at home, and is relatively healthy. Patient presented with an ulceration on her left heel, which had been present for several months. She also has an ulceration on the right lateral foot, near the base of the fifth digit. The patient is weak and debilitated. She does not ambulate. She spends a good part of her day in a wheelchair. She sleeps in a hospital bed. She suffers from dementia and Alzheimer's disease, and interacts minimally. She is incontinent of urine and stool. She suffers from frequent urinary tract infections and recurrent episodes of pseudomembranous enterocolitis (C. difficile infections). The patient's appetite is said to be poor. She is provided with nutritional supplements at the nursing facility. Past Medical History Past Medical History: Chronic Problems (This Medical Record has been edited. Action required.) Foot ulcer, right (Chronic) Ulcer of left heel (Chronic) Debility (Chronic) Dementia (Chronic) Alzheimer's disease (Chronic) History of myocardial infarction (Chronic) CHF (congestive heart failure) (Chronic) History of syncope (Chronic) Incontinence of feces (Chronic) Incontinence of urine (Chronic) History of recurrent UTI (urinary tract infection) (Chronic) Rheumatoid arthritis (Chronic) Atrial fibrillation (Chronic) Hypertension (Chronic) GERD (gastroesophageal reflux disease) (Chronic) Obstructive sleep apnea (Chronic) Hyperlipidemia (Chronic) Malnutrition (Chronic) Surgical History: - - Patient has a history of varicose vein surgery in her lower extremities. She has undergone bilateral total knee replacement surgeries. Hip replacement has been performed unilaterally. Patient has undergone hysterectomy. She has had bunionectomy and nasal septoplasty. She is a Ab0. Allergies/Adverse Reactions: Allergies No Known Allergies Allergy (Verified 10/03/18 14:28) Home Medications: Ambulatory Orders Medication Instructions Recorded Acetaminophen [Tylenol] 650 mg PO Q4H PRN PRN 04/25/18 Albuterol Sulfate 2.5 mg IH Q4H PRN PRN 04/25/18 Amoxicillin/Potassium Clav 1 each PO BID 04/25/18 [Augmentin 875-125 Tablet] Aspirin [Adult Low Dose Aspirin EC] 81 mg PO DAILY 04/25/18 Calcium Carbonate/Simethicone 1 each PO Q4H PRN PRN 04/25/18 [Maalox Advanced Tab Chew] Cholecalciferol (Vitamin D3) 5,000 unit PO DAILY 04/25/18 [Vitamin D3] Donepezil HCl [Aricept] 10 mg PO DAILY 04/25/18 Fluoxetine [Prozac] 40 mg PO DAILY 04/25/18 Guaifenesin [Tussin] 100 mg PO Q4H PRN PRN 04/25/18 Hydroxychloroquine [Plaquenil] 200 mg PO BIDCM 04/25/18 Lactobacillus Acidophilus 1 each PO BID 04/25/18 [Acidophilus] Magnesium Hydroxide [Milk Of 30 ml PO DAILY PRN PRN 04/25/18 Magnesia] Memantine HCl [Memantine HCl ER] 28 mg PO DAILY 04/25/18 Mirtazapine [Remeron] 15 mg PO QHS 04/25/18 Nitroglycerin (INPATIENT USE) 0.4 mg SUBLINGUAL Q5M PRN 04/25/18 [Nitrostat] Pantoprazole Sodium [Protonix] 40 mg PO DAILY 04/25/18 Potassium Chloride [Klor-Con] 20 meq PO DAILY 04/25/18 Prednisone 10 mg PO DAILY 04/25/18 Ranolazine [Ranexa] 500 mg PO BID 04/25/18 Rosuvastatin Calcium [Crestor] 20 mg PO DAILY 04/25/18 Sotalol HCl [Sotalol] 80 mg PO BID 04/25/18 Trimethoprim [Trimpex] 200 mg PO DAILY 04/25/18 Warfarin [Coumadin (PBKC)] 2 mg PO DAILY 04/25/18 levoFLOXacin tablet [Levaquin 500 mg PO DAILY 04/25/18 tablet] Smoking Status: Never smoker Tobacco Use: Non-smoker Review of Systems Constitutional: Denies: Chills, Fever, Weight Change Eyes: Denies: Pain, Vision Change HEENT: Denies: Difficulty Hearing, Difficulty Swallowing, Sinus Congestion Cardiovascular: Denies: Chest Pain, Palpitations Respiratory: Denies: Cough, Shortness of Breath Gastrointestinal: Denies: Diarrhea, Nausea, Vomiting Genitourinary: Denies: Dysuria, Hematuria Endocrine: Denies: Heat/ Cold Intolerance, Polydipsia, Polyuria Hematologic/ Lymphatic: Denies: Easy Bruising, Easy Bleeding - Physical Exam Vital Signs Temp Pulse Resp BP 94.8 F L 83 18 103/68 01/03/19 08:23 01/03/19 08:23 01/03/19 08:23 01/03/19 08:23 General: Alert, Oriented x3, Cooperative, No apparent distress, Well developed, Well nourished HEENT: Atraumatic, PERRLA, EOMI, Normocephalic Oral: Moist Mucosa Neck: No JVD Lungs: Normal air movement Abdomen: Non-Distended Extremities: No clubbing, No cyanosis, No edema, No Calf Tenderness, - - The ulceration of the right lateral foot is generally clean and healthy in appearance. There is no sign of infection or cellulitis. Dimensions are documented elsewhere. The base of the ulceration is generally pink and healthy, with evidence of active granulation tissue. The ulcerations on the left posterior heel are nearly totally healed, and very superficial. There is no sign of infection or cellulitis. Skin: No rashes Wound Measurements and Assessment WC - Nurse 1 - General Ulcer Measurement Start: 01/03/19 08:22 Freq: Status: Active Protocol: Activity Type Activity Date Activity User E-Sign Co-Sign Detail Recorded Client Recorded Date Recorded By Document 01/03/19 08:23 PATIENCE [id number] 01/03/19 08:29 PATIENCE 01/03/19 08:23 Wound Center Nurse 1 [Ulcer Assessment] #6 R Lateral 5th Metatarsal -Combined with other wound No -Current Size (cm) - Length 0.1 -Current Size (cm) - Width 0.1 -Current Size (cm) - Depth 0.1 -Total Square Cm 0.01 -Photo Taken No -Epithelialization Large 67-100% -Tunneling No -Undermining/Tunneling No -Circular Undermining No -Exudate Amt None Present -Wound Margin Flat & Intact -Granulation Amt None Present (0 %) -Slough/Fibrin No -Structure Exposed N/A -Texture (Dorina-wound Skin Appearance) Assessed, Scarring -Moisture (Dorina-wound Skin Appearance Assessed,Dry/ ) Scaly -Color (Dorina-wound Skin Appearance) Assessed, Ecchymosis -Temperature (Dorina-wound Skin No Abnormality Appearance) (Pt Warm) -Tenderness on Palpation (Dorina-wound No Skin Appearance) -Ulcer Cleansing Rinsed/ Irrigated with Saline -Foul Odor after Cleansing No -Anesthetic Used 4% Lidocaine Solution [Edema Assessment] -Lower Limb Edema Present No Musculoskeletal: Muscle Wasting - Extremities Neurological: Cranial nerves II-XII grossly intact, Neuro grossly intact Psych/Mental Status: Normal Affect, Appropriate, Alert and oriented to time, place, person, mood and affect Debridement Note Laterality: Right - Lateral foot Type of Debridement: Excisional debridement Anesthesia Used: 5% Lidocaine Gel Depth: Down to and including healthy tissue, in the subcutaneous layer Percentage of wound debrided: 100 Instrument Used: 5mm curette Tissue Removed: Bioburden and nonviable tissue Severity: Fat Layer Exposed Amount of bleeding with debridement: Mild Bleeding Controlled with: Compression and gauze Patient tolerated procedure well Assessment/Plan Active Problems (This Medical Record has been edited. Action required.) Foot ulcer, right (Chronic) Ulcer of left heel (Chronic) Debility (Chronic) Dementia (Chronic) Alzheimer's disease (Chronic) Assessment: This is a 78-year-old female with multiple medical problems, as outlined above. The patient suffers from dementia and Alzheimer's disease. She is very limited functionally. She does not ambulate. She presented with ulcerations of the right lateral foot and the left heel. The ulceration on the left buttock remains completely healed. These appear to be pressure related. They were stage III ulcerations in each case. The patient has undergone a battery of diagnostic tests the nursing facility at which she is a resident. Lynn studies have been performed recently at the patient's retirement, and despite requests for these results, they have not yet been received. A noninvasive lower extremity arterial ultrasound study was performed, though only of the left lower extremity. The impression indicates diminished to nonexistent flow in the calf vessels including the tibial peroneal and dorsalis pedis arteries. A noninvasive lower extremity arterial study has been performed at [facility]. Triphasic waveforms were noted in ankle level bilaterally. Resting ankle-brachial indices could not be determined due to the noncompressibility of the vasculature bilaterally. Right digital- brachial index was 0.43. The left digital-brachial index was 0.99. This is suggestive of moderate to severe arterial impairment at digital level of the right lower extremity. The relative normalcy of the left digital-brachial index may be due to arterial calcification, a matter for which clinical correlation is advised. The patient underwent evaluation in consultation by a vascular surgeon several days ago, Dr. Garza, in [place], [place]. According to the patient's daughter , revascularization or intervention was not felt to be warranted due to the patient's debility and limited functional state. The ulceration on the right lateral foot is chronic, and has been under treatment serially at our facility. The infection of the ulceration on the right lateral foot appears resolved, the recent erythema and cellulitis at the site having resolved as result of recent oral antibiotic. Generally, the patient has shown significant improvement within the last few weeks. Plan: Offloading measures have been implemented, and are to be continued. The issue of offloading measures has been discussed thoroughly with the patient's daughter, who was again at the bedside. We have been able to obtain a low air- loss mattress for the patient's hospital bed. We have also successfully obtained a Roho cushion for the patient's wheelchair. Frequent repositioning has been recommended. We are to continue the use of Magdalene topically to the ulceration on the right lateral foot. The left heel ulceration will be left open to air, though offloading measures will be continued. Skin moisturizer will be applied on a daily basis. Once again, offloading measures have been stressed. The patient will return in 2 weeks for reassessment, and has been placed in the palliative care pathway. The patient is to continue with nutritional supplements. The patient remains on systemic anticoagulation therapy. The patient is not a smoker. Influenza vaccine was not administered today. Patient weighs 199 pounds. She stands 5 feet 10 inches tall. Her BMI is 28.5. This places the patient in the overweight category, which normally would warrant mild weight loss. However, attempts at adequate nutrition appear to prevail. Nutritional supplements have been encouraged.
[2019-01-17 08:45] VITALS: BP 98/65; PULSE 90; RESP 18; TEMP 35.5; BMI 28.5
--- NOTE | 2019-01-17 09:00 | HP.PCM_ITS ---
(1) Foot ulcer, right Status: Chronic Current Visit: Yes Qualifiers: Non-pressure ulcer stage: with fat layer exposed Code(s): L97.519 - Non-pressure chronic ulcer of other part of right foot with unspecified severity (2) Ulcer of left heel Status: Chronic Current Visit: Yes Qualifiers: Non-pressure ulcer stage: limited to breakdown of skin Code(s): L97.429 - Non-pressure chronic ulcer of left heel and midfoot with unspecified severity (3) Debility Status: Chronic Current Visit: Yes Code(s): R53.81 - Other malaise (4) Dementia Status: Chronic Current Visit: Yes Code(s): F03.90 - Unspecified dementia without behavioral disturbance (5) Alzheimer's disease Status: Chronic Current Visit: Yes Qualifiers: Alzheimer's disease onset: late-onset Code(s): G30.9 - Alzheimer's disease, unspecified; F02.80 - Dementia in other diseases classified elsewhere without behavioral disturbance (6) History of myocardial infarction Status: Chronic Current Visit: No Code(s): I25.2 - Old myocardial infarction (7) CHF (congestive heart failure) Status: Chronic Current Visit: No Code(s): I50.9 - Heart failure, unspecified (8) History of syncope Status: Chronic Current Visit: No Code(s): Z87.898 - Personal history of other specified conditions (9) Incontinence of feces Status: Chronic Current Visit: No Code(s): R15.9 - Full incontinence of feces (10) Incontinence of urine Status: Chronic Current Visit: No Code(s): R32 - Unspecified urinary incontinence (11) History of recurrent UTI (urinary tract infection) Status: Chronic Current Visit: No Code(s): Z87.440 - Personal history of urinary (tract) infections (12) Rheumatoid arthritis Status: Chronic Current Visit: No Code(s): M06.9 - Rheumatoid arthritis, unspecified (13) Atrial fibrillation Status: Chronic Current Visit: No Code(s): I48.91 - Unspecified atrial fibrillation (14) Hypertension Status: Chronic Current Visit: No Code(s): I10 - Essential (primary) hypertension (15) GERD (gastroesophageal reflux disease) Status: Chronic Current Visit: No Code(s): K21.9 - Gastro-esophageal reflux disease without esophagitis (16) Obstructive sleep apnea Status: Chronic Current Visit: No Code(s): G47.33 - Obstructive sleep apnea (adult) (pediatric) (17) Hyperlipidemia Status: Chronic Current Visit: No Code(s): E78.5 - Hyperlipidemia, unspecified (18) Malnutrition Status: Chronic Current Visit: No Code(s): E46 - Unspecified protein-calorie malnutrition History of Present Illness Date of Service: 01/17/19 Chief Complaint: Chronic, nonhealing ulceration of the left heel and the right lateral foot History of Wound: This is a 78-year-old female who is a resident of [facility] in [place], [place]. She was institutionalized as a result of declining function, debility, and frequent falls. Her continues to live at home, and is relatively healthy. Patient presented with an ulceration on her left heel, which had been present for several months. She also has an ulceration on the right lateral foot, near the base of the fifth digit. The patient is weak and debilitated. She does not ambulate. She spends a good part of her day in a wheelchair. She sleeps in a hospital bed. She suffers from dementia and Alzheimer's disease, and interacts minimally. She is incontinent of urine and stool. She suffers from frequent urinary tract infections and recurrent episodes of pseudomembranous enterocolitis (C. difficile infections). The patient's appetite is said to be poor. She is provided with nutritional supplements at the nursing facility. Past Medical History Past Medical History: Chronic Problems (This Medical Record has been edited. Action required.) Foot ulcer, right (Chronic) Ulcer of left heel (Chronic) Debility (Chronic) Dementia (Chronic) Alzheimer's disease (Chronic) History of myocardial infarction (Chronic) CHF (congestive heart failure) (Chronic) History of syncope (Chronic) Incontinence of feces (Chronic) Incontinence of urine (Chronic) History of recurrent UTI (urinary tract infection) (Chronic) Rheumatoid arthritis (Chronic) Atrial fibrillation (Chronic) Hypertension (Chronic) GERD (gastroesophageal reflux disease) (Chronic) Obstructive sleep apnea (Chronic) Hyperlipidemia (Chronic) Malnutrition (Chronic) Surgical History: - - Patient has a history of varicose vein surgery in her lower extremities. She has undergone bilateral total knee replacement surgeries. Hip replacement has been performed unilaterally. Patient has undergone hysterectomy. She has had bunionectomy and nasal septoplasty. She is a Ab0. Allergies/Adverse Reactions: Allergies No Known Allergies Allergy (Verified 10/03/18 14:28) Home Medications: Ambulatory Orders Medication Instructions Recorded Acetaminophen [Tylenol] 650 mg PO Q4H PRN PRN 04/25/18 Albuterol Sulfate 2.5 mg IH Q4H PRN PRN 04/25/18 Amoxicillin/Potassium Clav 1 each PO BID 04/25/18 [Augmentin 875-125 Tablet] Aspirin [Adult Low Dose Aspirin EC] 81 mg PO DAILY 04/25/18 Calcium Carbonate/Simethicone 1 each PO Q4H PRN PRN 04/25/18 [Maalox Advanced Tab Chew] Cholecalciferol (Vitamin D3) 5,000 unit PO DAILY 04/25/18 [Vitamin D3] Donepezil HCl [Aricept] 10 mg PO DAILY 04/25/18 Fluoxetine [Prozac] 40 mg PO DAILY 04/25/18 Guaifenesin [Tussin] 100 mg PO Q4H PRN PRN 04/25/18 Hydroxychloroquine [Plaquenil] 200 mg PO BIDCM 04/25/18 Lactobacillus Acidophilus 1 each PO BID 04/25/18 [Acidophilus] Magnesium Hydroxide [Milk Of 30 ml PO DAILY PRN PRN 04/25/18 Magnesia] Memantine HCl [Memantine HCl ER] 28 mg PO DAILY 04/25/18 Mirtazapine [Remeron] 15 mg PO QHS 04/25/18 Nitroglycerin (INPATIENT USE) 0.4 mg SUBLINGUAL Q5M PRN 04/25/18 [Nitrostat] Pantoprazole Sodium [Protonix] 40 mg PO DAILY 04/25/18 Potassium Chloride [Klor-Con] 20 meq PO DAILY 04/25/18 Prednisone 10 mg PO DAILY 04/25/18 Ranolazine [Ranexa] 500 mg PO BID 04/25/18 Rosuvastatin Calcium [Crestor] 20 mg PO DAILY 04/25/18 Sotalol HCl [Sotalol] 80 mg PO BID 04/25/18 Trimethoprim [Trimpex] 200 mg PO DAILY 04/25/18 Warfarin [Coumadin (PBKC)] 2 mg PO DAILY 04/25/18 levoFLOXacin tablet [Levaquin 500 mg PO DAILY 04/25/18 tablet] Smoking Status: Never smoker Tobacco Use: Non-smoker Review of Systems Constitutional: Denies: Chills, Fever, Weight Change Eyes: Denies: Pain, Vision Change HEENT: Denies: Difficulty Hearing, Difficulty Swallowing, Sinus Congestion Cardiovascular: Denies: Chest Pain, Palpitations Respiratory: Denies: Cough, Shortness of Breath Gastrointestinal: Denies: Diarrhea, Nausea, Vomiting Genitourinary: Denies: Dysuria, Hematuria Endocrine: Denies: Heat/ Cold Intolerance, Polydipsia, Polyuria Hematologic/ Lymphatic: Denies: Easy Bruising, Easy Bleeding - Physical Exam Vital Signs Temp Pulse Resp BP 96 F L 90 18 98/65 01/17/19 08:45 01/17/19 08:45 01/17/19 08:45 01/17/19 08:45 General: Alert, Cooperative, No apparent distress, Well developed, Well nourished, - - The patient is interactive, but her awareness is somewhat diminished consistent with her diagnosis of Alzheimer's disease. HEENT: Atraumatic, PERRLA, EOMI, Normocephalic Oral: Moist Mucosa Neck: No JVD Lungs: Normal air movement Abdomen: Non-Distended Extremities: No clubbing, No cyanosis, No edema, No Calf Tenderness, - - The ulceration on the right lateral foot is diminished in size. Dimensions are documented elsewhere. There is no sign of infection or cellulitis. There is a mild amount of bioburden. The ulceration on the left posterior heel is quite superficial, with only dry eschar present. There is no sign of infection or cellulitis at this site. Skin: No rashes Wound Measurements and Assessment WC - Nurse 1 - General Ulcer Measurement Start: 01/03/19 08:22 Freq: Status: Active Protocol: Activity Type Activity Date Activity User E-Sign Co-Sign Detail Recorded Client Recorded Date Recorded By Document 01/17/19 08:45 RB [id number] 01/17/19 08:48 RB 01/17/19 08:45 Wound Center Nurse 1 [Ulcer Assessment] #6 R Lateral 5th Metatarsal -Combined with other wound No -Current Size (cm) - Length 0.1 -Current Size (cm) - Width 0.1 -Current Size (cm) - Depth 0.1 -Total Square Cm 0.01 -Tunneling No -Undermining/Tunneling No -Circular Undermining No -Exudate Amt Small -Exudate Type Serosanguineous -Wound Margin Flat & Intact -Granulation Amt Medium (34-66%) -Granulation Quality Landa -Slough/Fibrin Yes -Necrosis Amt Small (1-33%) -Necrotic Tissue Type Adherent Slough -Structure Exposed N/A -Texture (Dorina-wound Skin Appearance) Assessed -Moisture (Dorina-wound Skin Appearance Assessed ) -Color (Dorina-wound Skin Appearance) Assessed -Temperature (Dorina-wound Skin No Abnormality Appearance) (Pt Warm) -Tenderness on Palpation (Dorina-wound No Skin Appearance) -Ulcer Cleansing Wound Cleanser -Foul Odor after Cleansing No -Anesthetic Used 5% Lidocaine Gel WC - Nurse 2 - General Ulcer CM Notes Start: 01/03/19 08:22 Freq: Status: Active Protocol: Activity Type Activity Date Activity User E-Sign Co-Sign Detail Recorded Client Recorded Date Recorded By Document 01/17/19 08:56 PATIENCE [id number] 01/17/19 08:57 01/17/19 08:56 Wound Center Nurse 2 [Procedure/Treatment] -Time 08:57 -Correct Patient Yes -Correct Side, Site, Position Yes -Correct Procedure Yes -Procedure Performed Yes -Type of Procedure Debridement -Clinical Debridement Subcutaneous -Post Debridement Size (cm) - Length 0.2 -Post Debridement Size (cm) - Width 0.2 -Post Debridement Size (cm) - Depth 0.1 -Total Square Cm 0.04 -Wound/Ulcer Outcome Not Healed -Ulcer Cleansing Rinsed/ Irrigated with Saline -Foul Odor after Cleansing No -Bioengineered Tissue No -Bleeding Controlled with Pressure -Offloading No -Type of Offloading Surgical Shoe -Treatment Response Procedure Tolerated Well [See Physician Procedure note for Specifics] Pain Scale: 0-10 Numeric [Pain] -Is Patient Pain Free? Yes Musculoskeletal: Muscle Wasting - Lower extremities Neurological: Cranial nerves II-XII grossly intact, Neuro grossly intact Psych/Mental Status: Normal Affect Debridement Note Post-Debridement Measurements/Treatment - Nurse 2 - General Ulcer CM Notes Start: 01/03/19 08:22 Freq: Status: Active Protocol: Activity Type Activity Date Activity User E-Sign Co-Sign Detail Recorded Client Recorded Date Recorded By Document 01/03/19 08:50 [id number] 01/03/19 09:00 Document 01/17/19 08:56 [id number] 01/17/19 08:57 PATIENCE 01/03/19 01/17/19 08:50 08:56 Wound Center Nurse 2 #6 R Lateral 5th Metatarsal -Time 08:58 08:57 -Correct Patient Yes Yes -Correct Side, Site, Position Yes Yes -Correct Procedure Yes Yes -Procedure Performed Yes Yes -Type of Procedure Debridement Debridement -Clinical Debridement Subcutaneous Subcutaneous -Post Debridement Size (cm) - Length 0.5 0.2 -Post Debridement Size (cm) - Width 0.5 0.2 -Post Debridement Size (cm) - Depth 0.2 0.1 -Total Square Cm 0.25 0.04 -Wound/Ulcer Outcome Not Healed Not Healed -Ulcer Cleansing Rinsed/ Irrigated with Saline -Foul Odor after Cleansing No No -Bioengineered Tissue No No -Bleeding Controlled with Pressure Pressure -Offloading Yes No -Type of Offloading Surgical Shoe -Treatment Response Procedure Procedure Tolerated Well Tolerated Well Pain Scale: 0-10 Numeric Is Patient Pain Free? No Yes Laterality: Right - Lateral foot Type of Debridement: Excisional debridement Anesthesia Used: 5% Lidocaine Gel Depth: Down to and including healthy tissue, in the subcutaneous layer Percentage of wound debrided: 100 Instrument Used: 5mm curette Tissue Removed: Bioburden and nonviable tissue Severity: Fat Layer Exposed Amount of bleeding with debridement: Mild Bleeding Controlled with: Compression and gauze Patient tolerated procedure well Assessment/Plan Active Problems (This Medical Record has been edited. Action required.) Foot ulcer, right (Chronic) Ulcer of left heel (Chronic) Debility (Chronic) Dementia (Chronic) Alzheimer's disease (Chronic) Assessment: This is a 79-year-old female with multiple medical problems, as outlined above. The patient suffers from dementia and Alzheimer's disease. She is very limited functionally. She does not ambulate. She presented with ulcerations of the right lateral foot and the left heel. The ulceration on the left buttock remains completely healed. These appear to be pressure related. They were stage III ulcerations in each case. The patient has undergone a battery of diagnostic tests the nursing facility at which she is a resident. Jarad studies have been performed recently at the patient's residential, and despite requests for these results, they have not yet been received. A noninvasive lower extremity arterial ultrasound study was performed, though only of the left lower extremity. The impression indicates diminished to nonexistent flow in the calf vessels including the tibial peroneal and dorsalis pedis arteries. A noninvasive lower extremity arterial study has been performed at [facility]. Triphasic waveforms were noted in ankle level bilaterally. Resting ankle-brachial indices could not be determined due to the noncompressibility of the vasculature bilaterally. Right digital- brachial index was 0.43. The left digital-brachial index was 0.99. This is suggestive of moderate to severe arterial impairment at digital level of the right lower extremity. The relative normalcy of the left digital-brachial index may be due to arterial calcification, a matter for which clinical correlation is advised. The patient underwent evaluation in consultation by a vascular surgeon several days ago, Dr. Garza, in [place], [place]. According to the patient's daughter, revascularization or intervention was not felt to be warranted due to the patient's debility and limited functional state. The ulceration on the right lateral foot is chronic, and has been under treatment serially at our facility. The infection of the ulceration on the right lateral foot appears resolved, the recent erythema and cellulitis at the site having resolved as result of recent oral antibiotic. Generally, the patient has shown significant improvement within the last few weeks. Plan: Offloading measures have been implemented, and are to be continued. The issue of offloading measures has been discussed thoroughly with the patient's daughter, who was again at the bedside. We have been able to obtain a low air- loss mattress for the patient's hospital bed. We have also successfully obtained a Roho cushion for the patient's wheelchair. Frequent repositioning has been recommended. We are to implement the use of collagen hydrogel topically to each of the ulcerations, the one on her right lateral foot and on her left posterior heel. The collagen hydrogel will be applied once daily. Offloading measures will be continued. Offloading measures have been stressed. The patient will return in 2 weeks for reassessment, and has been placed in the palliative care pathway. The patient is to continue with nutritional supplements. The patient remains on systemic anticoagulation therapy. The patient is not a smoker. Influenza vaccine was not administered today. Patient weighs 199 pounds. She stands 5 feet 10 inches tall. Her BMI is 28.5. This places the patient in the overweight category, which normally would warrant mild weight loss. However, attempts at adequate nutrition prevail. Nutritional supplements have been encouraged.
== END 2019-01-21 23:59 ==
LOC: WC 08:30
PROVIDERS: Family Provider Surgery; PCP Surgery; Referring Provider Surgery; Visit Provider Surgery
DX: L89.623 Pressure ulcer of left heel, stage 3 (principal); L89.893 Pressure ulcer of other site, stage 3; G30.9 Alzheimer's disease, unspecified; F02.80 Dementia in other diseases classified elsewhere, unspecified severity, without behavioral disturbance, psychotic disturbance, mood disturbance, and anxiety; I25.2 Old myocardial infarction; I50.9 Heart failure, unspecified; R15.9 Full incontinence of feces; M06.9 Rheumatoid arthritis, unspecified; I48.20 Chronic atrial fibrillation, unspecified; K21.9 Gastro-esophageal reflux disease without esophagitis; G47.33 Obstructive sleep apnea (adult) (pediatric); E78.5 Hyperlipidemia, unspecified; I11.0 Hypertensive heart disease with heart failure
CPT/HCPCS: 11042

== ENCOUNTER 2019-01-31 08:27 | Outpatient (RCR) | payer MEDICARE, SELFPAY ==
[2019-01-22 00:23] VITALS: BP 98/65; PULSE 90; RESP 18; TEMP 35.5
[2019-01-31 08:32] VITALS: BP 94/66; PULSE 64; RESP 18; TEMP 35.9; BMI 28.5
--- NOTE | 2019-01-31 09:45 | HP.PCM_ITS ---
(1) Foot ulcer, right Status: Chronic Current Visit: Yes Qualifiers: Non-pressure ulcer stage: with fat layer exposed Code(s): L97.519 - Non-pressure chronic ulcer of other part of right foot with unspecified severity (2) Ulcer of left heel Status: Chronic Current Visit: Yes Qualifiers: Non-pressure ulcer stage: with fat layer exposed Qualified Code(s): L97.422 - Non-pressure chronic ulcer of left heel and midfoot with fat layer exposed Code(s): L97.429 - Non-pressure chronic ulcer of left heel and midfoot with unspecified severity (3) Debility Status: Chronic Current Visit: Yes Code(s): R53.81 - Other malaise (4) Dementia Status: Chronic Current Visit: Yes Code(s): F03.90 - Unspecified dementia without behavioral disturbance (5) Alzheimer's disease Status: Chronic Current Visit: Yes Code(s): G30.9 - Alzheimer's disease, unspecified; F02.80 - Dementia in other diseases classified elsewhere without behavioral disturbance (6) History of myocardial infarction Status: Chronic Current Visit: No Code(s): I25.2 - Old myocardial infarction (7) CHF (congestive heart failure) Status: Chronic Current Visit: No Code(s): I50.9 - Heart failure, unspecified (8) History of syncope Status: Chronic Current Visit: No Code(s): Z87.898 - Personal history of other specified conditions (9) Recurrent Clostridium difficile diarrhea Status: Resolved Current Visit: No Code(s): A04.71 - Enterocolitis due to Clostridium difficile, recurrent (10) Incontinence of feces Status: Chronic Current Visit: No Code(s): R15.9 - Full incontinence of feces (11) Incontinence of urine Status: Chronic Current Visit: No Code(s): R32 - Unspecified urinary inconti nence (12) History of recurrent UTI (urinary tract infection) Status: Chronic Current Visit: No Code(s): Z87.440 - Personal history of urinary (tract) infections (13) Rheumatoid arthritis Status: Chronic Current Visit: No Code(s): M06.9 - Rheumatoid arthritis, unspecified (14) Atrial fibrillation Status: Chronic Current Visit: No Code(s): I48.91 - Unspecified atrial fibrillation (15) Hypertension Status: Chronic Current Visit: No Code(s): I10 - Essential (primary) hypertension (16) GERD (gastroesophageal reflux disease) Status: Chronic Current Visit: No Code(s): K21.9 - Gastro-esophageal reflux disease without esophagitis (17) Obstructive sleep apnea Status: Chronic Current Visit: No Code(s): G47.33 - Obstructive sleep apnea (adult) (pediatric) (18) Hyperlipidemia Status: Chronic Current Visit: No Code(s): E78.5 - Hyperlipidemia, unspecified (19) Malnutrition Status: Chronic Current Visit: No Code(s): E46 - Unspecified protein-calorie malnutrition (20) Decubitus ulcer of buttock, stage 2 Status: Resolved Current Visit: No Qualifiers: Code(s): L89.302 - Pressure ulcer of unspecified buttock, stage 2 History of Present Illness Date of Service: 01/31/19 Chief Complaint: Chronic, nonhealing ulceration of the left heel and the right lateral foot History of Wound: This is a 78-year-old female who is a resident of [facility] in [place], [place]. She was institutionalized as a result of declining function, debility, and frequent falls. Her continues to live at home, and is relatively healthy. Patient presented with an ulceration on her left heel, which had been present for several months. She also has an ulceration on the right lateral foot, near the base of the fifth digit. The patient is weak and debilitated. She does not ambulate. She spends a good part of her day in a wheelchair. She sleeps in a hospital bed. She suffers from dementia and Alzheimer's disease, and interacts minimally. She is incontinent of urine and stool. She suffers from frequent urinary tract infections and recurrent episodes of pseudomembranous enterocolitis (C. difficile infections). The patient's appetite is said to be poor. She is provided with nutritional supplements at the nursing facility. Past Medical History Past Medical History: Chronic Problems (This Medical Record has been edited. Action required.) Foot ulcer, right (Chronic) Ulcer of left heel (Chronic) Debility (Chronic) Dementia (Chronic) Alzheimer's disease (Chronic) History of myocardial infarction (Chronic) CHF (congestive heart failure) (Chronic) History of syncope (Chronic) Incontinence of feces (Chronic) Incontinence of urine (Chronic) History of recurrent UTI (urinary tract infection) (Chronic) Rheumatoid arthritis (Chronic) Atrial fibrillation (Chronic) Hypertension (Chronic) GERD (gastroesophageal reflux disease) (Chronic) Obstructive sleep apnea (Chronic) Hyperlipidemia (Chronic) Malnutrition (Chronic) Surgical History: - - Patient has a history of varicose vein surgery in her lower extremities. She has undergone bilateral total knee replacement surgeries. Hip replacement has been performed unilaterally. Patient has undergone hysterectomy. She has had bunionectomy and nasal septoplasty. She is a Ab0. Allergies/Adverse Reactions: Allergies No Known Allergies Allergy (Verified 10/03/18 14:28) Home Medications: Ambulatory Orders Medication Instructions Recorded Acetaminophen [Tylenol] 650 mg PO Q4H PRN PRN 04/25/18 Albuterol Sulfate 2.5 mg IH Q4H PRN PRN 04/25/18 Amoxicillin/Potassium Clav 1 each PO BID 04/25/18 [Augmentin 875-125 Tablet] Aspirin [Adult Low Dose Aspirin EC] 81 mg PO DAILY 04/25/18 Calcium Carbonate/Simethicone 1 each PO Q4H PRN PRN 04/25/18 [Maalox Advanced Tab Chew] Cholecalciferol (Vitamin D3) 5,000 unit PO DAILY 04/25/18 [Vitamin D3] Donepezil HCl [Aricept] 10 mg PO DAILY 04/25/18 Fluoxetine [Prozac] 40 mg PO DAILY 04/25/18 Guaifenesin [Tussin] 100 mg PO Q4H PRN PRN 04/25/18 Hydroxychloroquine [Plaquenil] 200 mg PO BIDCM 04/25/18 Lactobacillus Acidophilus 1 each PO BID 04/25/18 [Acidophilus] Magnesium Hydroxide [Milk Of 30 ml PO DAILY PRN PRN 04/25/18 Magnesia] Memantine HCl [Memantine HCl ER] 28 mg PO DAILY 04/25/18 Mirtazapine [Remeron] 15 mg PO QHS 04/25/18 Nitroglycerin (INPATIENT USE) 0.4 mg SUBLINGUAL Q5M PRN 04/25/18 [Nitrostat] Pantoprazole Sodium [Protonix] 40 mg PO DAILY 04/25/18 Potassium Chloride [Klor-Con] 20 meq PO DAILY 04/25/18 Prednisone 10 mg PO DAILY 04/25/18 Ranolazine [Ranexa] 500 mg PO BID 04/25/18 Rosuvastatin Calcium [Crestor] 20 mg PO DAILY 04/25/18 Sotalol HCl [Sotalol] 80 mg PO BID 04/25/18 Trimethoprim [Trimpex] 200 mg PO DAILY 04/25/18 Warfarin [Coumadin (PBKC)] 2 mg PO DAILY 04/25/18 levoFLOXacin tablet [Levaquin 500 mg PO DAILY 04/25/18 tablet] Smoking Status: Never smoker Tobacco Use: Non-smoker Review of Systems Constitutional: Denies: Chills, Fever, Weight Change Eyes: Denies: Pain, Vision Change HEENT: Denies: Difficulty Hearing, Difficulty Swallowing, Sinus Congestion Cardiovascular: Denies: Chest Pain, Palpitations Respiratory: Denies: Cough, Shortness of Breath Gastrointestinal: Denies: Diarrhea, Nausea, Vomiting Genitourinary: Denies: Dysuria, Hematuria Endocrine: Denies: Heat/ Cold Intolerance, Polydipsia, Polyuria Hematologic/ Lymphatic: Denies: Easy Bruising, Easy Bleeding - Physical Exam Vital Signs Temp Pulse Resp BP 96.6 F L 64 18 94/66 01/31/19 08:32 01/31/19 08:32 01/31/19 08:32 01/31/19 08:32 General: Alert, Oriented x3, Cooperative, No apparent distress, Well developed, Well nourished HEENT: Atraumatic, PERRLA, EOMI, Normocephalic Oral: Moist Mucosa Neck: No JVD Lungs: Normal air movement Abdomen: Non-Distended Extremities: No clubbing, No cyanosis, No edema, No Calf Tenderness, - - There is no significant swelling or edema in the patient's lower extremities. The ulceration on the right lateral foot now appears to be completely healed and epithelialized. Similarly, the ulceration on the left posterior heel also appears to be healed. Currently, there are no open wounds or ulcerations. Skin: No rashes, No breakdown Wound Measurements and Assessment WC - Nurse 1 - General Ulcer Measurement Start: 01/31/19 08:32 Freq: Status: Active Protocol: Activity Type Activity Date Activity User E-Sign Co-Sign Detail Recorded Client Recorded Date Recorded By Document 01/31/19 08:32 PATIENCE [id number] 01/31/19 08:34 PATIENCE 01/31/19 08:32 Wound Center Nurse 1 [Ulcer Assessment] #6 R Lateral 5th Metatarsal -Combined with other wound No -Current Size (cm) - Length 0 -Current Size (cm) - Width 0 -Current Size (cm) - Depth 0 -Total Square Cm 0 -Photo Taken Yes -Epithelialization Large 67-100% [Edema Assessment] -Lower Limb Edema Present No WC - Nurse 2 - General Ulcer CM Notes Start: 01/31/19 08:32 Freq: Status: Active Protocol: Activity Type Activity Date Activity User E-Sign Co-Sign Detail Recorded Client Recorded Date Recorded By Document 01/31/19 09:39 DV [id number] 01/31/19 09:41 DV 01/31/19 09:39 Wound Center Nurse 2 [Procedure/Treatment] #6 R Lateral 5th Metatarsal -Time 09:40 -Correct Patient Yes -Correct Side, Site, Position Yes -Correct Procedure No -Procedure Performed No -Post Debridement Size (cm) - Length 0 -Post Debridement Size (cm) - Width 0 -Post Debridement Size (cm) - Depth 0 -Total Square Cm 0 -Wound/Ulcer Outcome Healed- Epithelialized [See Physician Procedure note for Specifics] Pain Scale: 0-10 Numeric [Pain] -Is Patient Pain Free? Yes Musculoskeletal: Muscle Wasting - Extremities Neurological: Cranial nerves II-XII grossly intact Psych/Mental Status: - - The patient's affect is blunted. She is awake and arousable. Patient appears extremely weak and debilitated. Debridement Note Post-Debridement Measurements/Treatment WC - Nurse 2 - General Ulcer CM Notes Start: 01/31/19 08:32 Freq: Status: Active Protocol: Activity Type Activity Date Activity User E-Sign Co-Sign Detail Recorded Client Recorded Date Recorded By Document 01/31/19 09:39 DV [id number] 01/31/19 09:41 DV 01/31/19 09:39 Wound Center Nurse 2 #6 R Lateral 5th Metatarsal -Time 09:40 -Correct Patient Yes -Correct Side, Site, Position Yes -Correct Procedure No -Procedure Performed No -Post Debridement Size (cm) - Length 0 -Post Debridement Size (cm) - Width 0 -Post Debridement Size (cm) - Depth 0 -Total Square Cm 0 -Wound/Ulcer Outcome Healed- Epithelialized Pain Scale: 0-10 Numeric Is Patient Pain Free? Yes No debridement was completed today - The patient's ulcerations on the right foot and left posterior heel appear to be completely healed. Assessment/Plan Active Problems (This Medical Record has been edited. Action required.) Foot ulcer, right (Chronic) Ulcer of left heel (Chronic) Debility (Chronic) Dementia (Chronic) Alzheimer's disease (Chronic) Assessment: This is a 79-year-old female with multiple medical problems, as outlined above. The patient suffers from dementia and Alzheimer's disease. She is very limited functionally. She does not ambulate. She presented with ulcerations of the right lateral foot and the left heel. The ulcerations on the right lateral foot and on the left posterior heel appear to be completely healed and epithelialized at this time. The ulceration on the left buttock remains completely healed. A noninvasive lower extremity arterial study has been performed at [facility]. Triphasic waveforms were noted in ankle level bilaterally. Resting ankle-brachial indices could not be determined due to the noncompressibility of the vasculature bilaterally. Right digital-brachial index was 0.43. The left digital-brachial index was 0.99. This is suggestive of moderate to severe arterial impairment at digital level of the right lower extremity. The relative normalcy of the left digital-brachial index may be due to arterial calcification, a matter for which clinical correlation is advised. The patient underwent evaluation in consultation by a vascular surgeon, Dr. Garza, in [place], [place]. According to the patient's daughter, revascularization or intervention was not felt to be warranted due to the patient's debility and limited functional state. Plan: The patient's ulcerations now appear to be completely healed. This includes the ulceration on the right lateral foot, and that on the left posterior heel. Therefore, the patient is to be discharged. Offloading measures have been implemented, and are to be continued. The issue of offloading measures has been discussed thoroughly with the patient's daughter, who was again at the bedside. We have been able to obtain a low air-loss mattress for the patient's hospital bed. We have also successfully obtained a Roho cushion for the patient's wheelchair. Frequent repositioning has been recommended. Offloading measures will be continued and have been stressed. She will follow-up henceforth on an as-needed basis. The patient is not a smoker. Influenza vaccine was not administered today. Patient weighs 199 pounds. She stands 5 feet 10 inches tall. Her BMI is 28.5. This places the patient in the overweight category, which normally would warrant mild weight loss. However, attempts at adequate nutrition prevail. Nutritional supplements have been encouraged.
== END 2019-02-21 23:59 ==
LOC: WC 08:27
PROVIDERS: Family Provider Surgery; PCP Surgery; Referring Provider Surgery; Visit Provider Surgery
DX: Z09 Encounter for follow-up examination after completed treatment for conditions other than malignant neoplasm (principal); F02.80 Dementia in other diseases classified elsewhere, unspecified severity, without behavioral disturbance, psychotic disturbance, mood disturbance, and anxiety; G30.9 Alzheimer's disease, unspecified; I25.2 Old myocardial infarction; I50.9 Heart failure, unspecified; I11.0 Hypertensive heart disease with heart failure; R15.9 Full incontinence of feces; M06.9 Rheumatoid arthritis, unspecified; I48.20 Chronic atrial fibrillation, unspecified; K21.9 Gastro-esophageal reflux disease without esophagitis; G47.33 Obstructive sleep apnea (adult) (pediatric); E78.5 Hyperlipidemia, unspecified
CPT/HCPCS: 99212; G0463